=== PATIENT | female | born 1985 | race Caucasian/White ===

== ENCOUNTER 2023-10-13 04:59 | Inpatient (IN) | payer OTHER, SELFPAY ==
[2023-10-13] VITALS (7 sets, daily range): BP systolic 142–175; BP diastolic 92–116; PULSE 97–122; TEMP 36.6–37; O2SAT 92–96; BMI 29.1; BMI 28.8
--- NOTE | 2023-10-13 05:19 | CT_ITS ---
The [address] [address] Patient Name: DOMI MCKOY MRN: [id number] date: 1985 Sex: F Assigned Patient Location: ER Current Patient Location: ER Accession/Order Number: [id number] Exam Date: 10/13/2023 06:25 Report Date: 10/13/2023 07:02 At the request of: MARAH MARKER Procedure: CT abdomen pelvis w con EXAM: CT abdomen pelvis w con HISTORY: Upper abdominal pain; patient history form states acute upper abdominal pain, vomiting and diarrhea; technologist notes state upper abdominal and chest pain radiating into the back. COMPARISON: CT abdomen/pelvis dated 04/10/2022. TECHNIQUE: Routine CT abdomen/pelvis with intravenous contrast. FINDINGS: Lower chest: Unremarkable. Liver: The liver is enlarged and fatty infiltrated with a cirrhotic morphologic appearance. There is recannulization of the umbilical artery which can be associated with portal hypertension. The liver measures 20.1 cm in longitudinal dimension. There is no mass lesion. There is contrast within the portal and the hepatic veins. Gallbladder/biliary tree: The gallbladder is mildly distended however there is no significant thickening of the gallbladder wall, calcified gallstones, pericholecystic fluid or biliary dilatation. Pancreas: There are stranding densities adjacent to the pancreatic head which in the right clinical setting can be associated with focal pancreatitis. The pancreas is normal size. There is no pancreatic mass. The pancreatic duct is not dilated. There may be pancreatic divisum. There is no free fluid or loculated fluid collection. Spleen: Unremarkable. Adrenal glands: Unremarkable. Kidneys: There is cortical scarring and/or retained lobulation along the contour of both kidneys. Bowel: There is diffuse colonic wall thickening consistent with a colitis. The appendix is unremarkable. The distal esophagus, stomach and small bowel are unremarkable. The bowel gas pattern is nonobstructive. Inflammation: There is no free air, free fluid or inflammatory reaction. Vasculature: The abdominal aorta and the IVC are unremarkable. Lymphadenopathy: There are no pathologically enlarged lymph nodes. Pelvis: The uterus and adnexal regions are unremarkable. The urinary bladder is underdistended with mild circumferential wall thickening. Musculoskeletal: There is a small amount of fat within the umbilicus. There are bilateral L4 pars defects with stable 0.6 cm (grade 1) anterolisthesis of L4 on L5. CT/CT abdomen pelvis w con IMPRESSION: Cirrhosis with portal hypertension. The liver is enlarged and fatty infiltrated measuring 20.1 cm in longitudinal dimension. The gallbladder is mildly distended however there is no significant thickening of the gallbladder wall, calcified gallstones, pericholecystic fluid or biliary dilatation. There are stranding densities adjacent to the pancreatic head which in the right clinical setting can be associated with focal pancreatitis. The pancreas is otherwise unremarkable. There may be pancreatic divisum. There is no free fluid or loculated fluid collection. Diffuse colonic wall thickening consistent with a colitis. The bowel gas pattern is nonobstructive. Bilateral L5 pars defects with stable 0.6 cm (grade 1) anterolisthesis of L4 on L5. Electronically authenticated by: ESTER DELUCA Date: 10/13/2023 07:02
--- NOTE | 2023-10-13 05:21 | ED.ABDPAIN1 ---
HPI - Abdominal Pain General Chief Complaint: Abdominal Pain Stated Complaint: ABD PAIN Time Seen by Provider: 10/13/23 05:00 Source: patient Mode of arrival: walk-in Limitations: no limitations History of Present Illness HPI narrative: This 37-year-old female with a history of ascites in the past due to alcohol use and pancreatitis presents for evaluation of 3 days of nausea, vomiting and diarrhea. The patient states she cannot keep anything down including water. She states anytime she tries to eat or drink anything she vomits it immediately and then gets diarrhea. She has upper abdominal pain that radiates into her back and is worse with deep breathing. She states she still occasionally drinks but does not drink heavily like she used to. She denies any fevers or chills. Her urine has been decreased since she has been having so much vomiting and diarrhea but she denies any dysuria or hematuria. She states she does have a hemorrhoid that burst. She denies the possibility of because she just finished her menstrual period. She was told in the past that she needed a HIDA scan but didnt have it done because she was overwhelmed with all of the doctors appointments she had to go to. Related Data Home Medications ?Medication ?Instructions ?Recorded ?Confirmed duloxetine 60 mg capsule,delayed mg PO 10/13/23 release hydroxyzine pamoate 50 mg capsule mg 10/13/23 lumateperone 10.5 mg capsule 10.5 mg PO DAILY 10/13/23 10/13/23 (Caplyta) meloxicam 7.5 mg tablet mg 10/13/23 pantoprazole 40 mg tablet,delayed mg PO 10/13/23 release trazodone 50 mg tablet mg 10/13/23 Allergies Allergy/AdvReac Type Severity Reaction Status Date / Time acetaminophen Allergy Unknown Unknown Verified 10/13/23 05:08 [From Darvocet-N] propoxyphene Allergy Unknown Unknown Verified 10/13/23 05:08 [From Darvocet-N] Review of Systems ROS Status of ROS 10 or more systems reviewed and unremarkable except as noted in history and below Exam Narrative Exam Narrative: Vital signs and Nursing Notes reviewed: Patient is a febrile, she is tachycardic with a pulse of 122 and blood pressure is elevated at 175/116, she is not hypoxic with pulse ox of 96% on room air General: Awake, alert, oriented, uncomfortable appearing female, no respiratory distress, no active vomiting HEENT: Normocephalic atraumatic, mucous membranes are moist and slightly dry, she is nonicteric Neck: Supple, no meningeal signs, no anterior or posterior cervical lymphadenopathy Chest: Lungs are clear to auscultation with good air entry, scattered expiratory wheezing is appreciated with no rhonchi or rales, patient is speaking in complete sentences and is not hypoxic with pulse ox of 96% on room air CVS: Regular rate and rhythm S1-S2, no murmurs rubs or gallops, pulses are brisk and equal bilaterally ABD: Soft, epigastric, right upper quadrant and left upper quadrant tenderness with mild fullness in this area, bowel sounds are decreased, there is no right lower quadrant or left lower quadrant tenderness to deep palpation Extremities: Moving all extremities, no lower extremity tenderness or swelling noted, negative Homans' sign, pulses are brisk and equal bilaterally Skin: Normal in appearance without rash,pallor, petechiae or purpura Neuro: No focal deficits Constitutional Vital Signs, click to edit/add: Last Vital Signs Temp 98.6 F 10/13/23 05:03 Pulse 122 H 10/13/23 05:03 Resp 18 10/13/23 05:03 BP 175/116 H 10/13/23 05:03 Pulse Ox 96 10/13/23 05:03 O2 Del Method Room Air 10/13/23 05:03 Course Vital Signs Vital signs: Vital Signs Temperature 98.6 F 10/13/23 05:03 Pulse Rate 122 H 10/13/23 05:03 Respiratory Rate 18 10/13/23 05:03 Blood Pressure 175/116 H 10/13/23 05:03 Pulse Oximetry 96 10/13/23 05:03 Oxygen Delivery Method Room Air 10/13/23 05:03 Temperature 98.6 F 10/13/23 05:03 Pulse Rate 122 H 10/13/23 05:03 Respiratory Rate 18 10/13/23 05:03 Blood Pressure 175/116 H 10/13/23 05:03 Pulse Oximetry 96 10/13/23 05:03 Oxygen Delivery Method Room Air 10/13/23 05:03 MDM - Abdominal Pain Lab Data Labs: Lab Results 10/13/23 Range/Units 05:32 WBC 13.4 H (4.0-11.0) 10^3/uL RBC 4.65 (4.20-5.40) 10^6/uL Hgb 16.0 (12.0-16.0) g/dL Hct 46.8 (36.0-48.0) % MCV 100.6 H (81.0-99.0) fL MCH 34.4 H (26.7-34.0) pg MCHC 34.2 (29.9-35.2) g/dL RDW 14.4 (11.0-15.0) % Plt Count 199 (150-450) 10^3/uL MPV 10.5 (9.5-13.5) fL Neut % (Auto) 78.6 H (43.0-75.0) % Lymph % (Auto) 16.1 L (20.5-60.0) % [place] % (Auto) 4.0 (1.7-12.0) % Eos % (Auto) 0.5 L (0.9-7.0) % Baso % (Auto) 0.4 (0.2-2.0) % Neut # (Auto) 10.6 H (1.4-6.5) 10^3/uL Lymph # (Auto) 2.2 (1.2-3.8) 10^3/uL [place] # (Auto) 0.5 (0.3-0.8) 10^3/uL Eos # (Auto) 0.1 (0.0-0.7) 10^3/uL Baso # (Auto) 0.1 (0.0-0.1) 10^3/uL Abs Immat Gran (auto) 0.05 H (0.00-0.03) 10^3/uL Imm/Tot Granulo (auto) 0.4 (0.0-0.5) % D-Dimer 1.19 H* (<=0.59) mg/L FEU Sodium 128 L (136-145) mmol/L Potassium 3.6 (3.5-5.1) mmol/L Chloride 91 L (98-107) mmol/L Carbon Dioxide 12.2 L (21.0-32.0) mmol/L Anion Gap 28.4 BUN 20.0 H (7.0-18.0) mg/dL Creatinine 0.96 (0.55-1.02) mg/dL Est GFR ( Amer) >60 (>=60) Est GFR (Non-Af Amer) >60 (>=60) BUN/Creatinine Ratio 20.8 Glucose 108 H (74-106) mg/dL Lactate <0.3 L (0.4-2.0) mmol/L Calcium 8.8 (8.5-10.1) mg/dL Total Bilirubin 2.0 H (0.2-1.0) mg/dL AST 69 H (15-37) U/L ALT 71 H (14-59) U/L Alkaline Phosphatase 114 (46-116) U/L Troponin I High Sens 4.9 (4.0-51.3) pg/mL Total Protein 7.4 (6.4-8.2) g/dL Albumin 4.1 (3.4-5.0) g/dL Globulin 3.3 g/dL Albumin/Globulin Ratio 1.2 Lipase 249.0 H (16.0-77.0) U/L Urine Color Dk. yellow (YELLOW) Urine Clarity Clear (CLEAR) Urine pH 6.0 (5.0-9.0) Ur Specific [place] >=1.030 A (1.005-1.025) Urine Protein 100 A (NEG/TRACE) mg/dL Urine Glucose (UA) Negative (NEGATIVE) mg/dL Urine Ketones 40 A (NEGATIVE) mg/dL Urine Occult Blood Large A (NEGATIVE) Urine Nitrite Negative (NEGATIVE) Urine Bilirubin Moderate A (NEGATIVE) Urine Urobilinogen 1.0 (0.2-1.0) EU/dL Ur Leukocyte Esterase Negative (NEGATIVE) Urine RBC None seen (0-2) #/HPF Urine WBC 2-5 A (NONE SEEN) #/HPF Ur Squamous Epith Cells Many A (NONE/RARE) #/LPF Urine Crystals None seen (None Seen) #/HPF Amorphous Sediment Many Urine Bacteria None seen (NONE SEEN) #/HPF Urine Casts Seen A (NONE SEEN) #/LPF Hyaline Casts Few Urine Mucus None seen (NONE SEEN) Ur Culture Indicated? No Urine HCG, Qual Negative (NEGATIVE) Discharge Plan Discharge Chief Complaint: Abdominal Pain Clinical Impression: Abdominal pain, Nausea vomiting and diarrhea, Hyponatremia Patient Disposition: Still a Patient Prescriptions / Home Meds: No Action trazodone 50 mg tablet hydroxyzine pamoate 50 mg capsule meloxicam 7.5 mg tablet pantoprazole 40 mg tablet,delayed release (DR/EC) PO duloxetine 60 mg capsule,delayed release(DR/EC) PO Caplyta 10.5 mg capsule 10.5 mg PO DAILY Print Language: Lithuanian Referrals: Yobani Goldsmith [Primary Care Provider] - 1 week
[2023-10-13 05:39] LABS: Basophils Absolute Auto 0.1 10^3/uL (0.0-0.1); Basophils Percent Auto 0.4 % (0.2-2.0); Eosinophils Absolute Auto 0.1 10^3/uL (0.0-0.7); Eosinophils Percent Auto 0.5 % (0.9-7.0); Hematocrit 46.8 % (36.0-48.0); Immature Granulocytes Abs Auto 0.05 10^3/uL (0.00-0.03); Immature Granulocytes Pct Auto 0.4 % (0.0-0.5); Lymphocytes Absolute Auto 2.2 10^3/uL (1.2-3.8); Lymphocytes Percent Auto 16.1 % (20.5-60.0); Mean Corpuscular HGB Conc 34.2 g/dL (29.9-35.2); Mean Corpuscular Hemoglobin 34.4 pg (26.7-34.0); Mean Corpuscular Volume 100.6 fL (81.0-99.0); Mean Platelet Volume 10.5 fL (9.5-13.5); Monocytes Absolute Auto 0.5 10^3/uL (0.3-0.8); Neutrophils Absolute Auto 10.6 10^3/uL (1.4-6.5); Neutrophils Percent Auto 78.6 % (43.0-75.0); Platelet Count 199 10^3/uL (150-450); Red Blood Count 4.65 10^6/uL (4.20-5.40); Red Cell Distribution Width 14.4 % (11.0-15.0); White Blood Count 13.4 10^3/uL (4.0-11.0)
[2023-10-13 05:44] LABS: HCG Qualitative Urine* NEGATIVE (NEGATIVE); Internal Control Within Normal Limits
[2023-10-13 05:48] LABS: Bilirubin Urine MODERATE (NEGATIVE); Blood Urine LARGE (NEGATIVE); Clarity Urine CLEAR (CLEAR); Color Urine DK. YELLOW (YELLOW); Glucose Urine UA NEGATIVE (NEGATIVE); Ketones Urine 40 mg/dL (NEGATIVE); Leukocyte Esterase Urine NEGATIVE (NEGATIVE); Nitrite Urine NEGATIVE (NEGATIVE); Protein Urine 100 mg/dL (NEG/TRACE); Specific Gravity Urine >=1.030 (1.005-1.025)
[2023-10-13 05:51] LABS: Amorphous Sediment Urine MANY; Bacteria Urine NONE SEEN #/HPF (NONE SEEN); Cast Seen? SEEN #/LPF (NONE SEEN); Crystals Seen? None Seen #/HPF (None Seen); Hyaline Casts Urine FEW; Mucus Urine NONE SEEN (NONE SEEN); RBC Urine NONE SEEN #/HPF (0-2); Squamous Epithelial Cell Urine MANY #/LPF (NONE/RARE); Urine Culture Indicated NO
[2023-10-13 05:58] LABS: Alanine Aminotransferase 71 U/L (14-59); Albumin Globulin Ratio 1.2; Albumin Level 4.1 g/dL (3.4-5.0); Alkaline Phosphatase 114 U/L (46-116); Anion Gap 28.4; Aspartate Amino Transferase 69 U/L (15-37); BUN Creatinine Ratio 20.8; Calcium 8.8 mg/dL (8.5-10.1); Carbon Dioxide 12.2 mmol/L (21.0-32.0); Chloride 91 mmol/L (98-107); Estimated GFR (African America >60 (>=60); Estimated GFR (Non-African Ame >60 (>=60); Globulin 3.3 g/dL; Glucose 108 mg/dL (74-106); Potassium 3.6 mmol/L (3.5-5.1); Sodium 128 mmol/L (136-145); Total Protein 7.4 g/dL (6.4-8.2)
[2023-10-13] MEDS: MORPHINE SULFATE 4 MG/ML VIAL IV (05:58)
[2023-10-13] MEDS: ONDANSETRON PF 4 MG/2 ML VIAL IV ×3 (05:58→15:02)
[2023-10-13 05:59] LABS: D Dimer 1.19 mg/L FEU (<=0.59)
[2023-10-13 06:00] LABS: Lactate/Lactic Acid <0.3 mmol/L (0.4-2.0)
[2023-10-13 06:01] LABS: Troponin I High Sensitivity 4.9 pg/mL (4.0-51.3)
[2023-10-13] MEDS: FAMOTIDINE/PF 20 MG/2 ML VIAL IV (06:02)
--- NOTE | 2023-10-13 06:04 | CT_ITS ---
[address] [address] Patient Name: DOMI MCKOY MRN: [id number] date: 1985 Sex: F Assigned Patient Location: ER Current Patient Location: .[facility] Accession/Order Number: [id number] Exam Date: 10/13/2023 06:25 Report Date: 10/13/2023 07:00 At the request of: MARAH KAUR Procedure: CT angio chest EXAMINATION: CT angio chest HISTORY: SOB, pleuritic CP, elevated d dimer COMPARISON: No relevant comparison available. TECHNIQUE: Multi-planar CT images were created with IV contrast. Axial, Coronal, and Sagittal images. Dose reduction techniques were achieved by using automated exposure control and/or adjustment of mA and/or kV according to patient size and/or use of iterative reconstruction technique. 3-D reconstruction was performed on a separate workstation. FINDINGS: VASCULATURE: No pulmonary embolism or abnormal opacity. LUNGS: No visible pulmonary disease. PLEURA: No mass, effusion, or pneumothorax. KELLY: No mass or adenopathy. MEDIASTINUM: No mass or adenopathy. CARDIAC: No enlargement, pericardial effusion, or pericardial thickening. AORTA: No aneurysm or dissection. CHEST WALL: No mass or axillary adenopathy. BONES: No bone lesion or fracture. LIMITED ABDOMEN: Fatty infiltration of the liver.. Limited images of the upper abdomen. OTHER: Negative. CT/CT angio chest IMPRESSION: 1. No pulmonary embolism. 2. No pulmonary infiltrates or acute/suspicious findings to account for patient's symptoms. Electronically authenticated by: IVANIA CASTILLO Date: 10/13/2023 07:00
[2023-10-13] MEDS: HYDROMORPHONE HCL 1 MG/ML CARTRIDGE IV (08:01)
[2023-10-13] MEDS: METRONIDAZOLE/SODIUM CHLORIDE 500 MG/100 ML PREMIX 100 MG IV ×2 (08:01→15:03)
[2023-10-13] MEDS: LACTATED RINGER'S SOLUTION 1,000 ML 125 ML IV ×3 (09:27→22:55)
[2023-10-13] MEDS: CIPROFLOXACIN IN 5 % DEXTROSE 400 MG/200 ML PIGGYBACK 200 MG IV ×2 (09:35→21:05)
--- NOTE | 2023-10-13 10:11 | US_ITS ---
[address] [address] Patient Name: DOMI MCKOY MRN: [id number] date: 1985 Sex: F Assigned Patient Location: MS Current Patient Location: MS Accession/Order Number: [id number] Exam Date: 10/13/2023 11:55 Report Date: 10/13/2023 12:29 At the request of: TAM GREENWOOD Procedure: US right upper quadrant EXAMINATION: US right upper quadrant HISTORY: Transaminitis, r/o obstructive pathology COMPARISON: No relevant comparison available. TECHNIQUE: Transabdominal evaluation of the right upper quadrant. FINDINGS: LIVER: Slightly nodular margins with coarse echotexture. Color Doppler demonstrates patent hepatic veins. PORTAL VEIN: Duplex Doppler demonstrates normal hepatopetal flow pattern with flow velocity averaging 32 cm/s. GALLBLADDER: No visible gallstones, wall thickening, or pericholecystic free fluid. Negative sonographic Nicole's sign. BILIARY: No abnormal dilation or stones. Common bile duct diameter is within normal limits. PANCREAS: No visible mass, abnormal atrophy, or duct dilation. KIDNEY: No hydronephrosis. No visible mass or stones. Size: 9.0 x 5.3 x 5.3 cm US/US right upper quadrant IMPRESSION: 1. Coarse nodular appearance of the liver; nonspecific but suggestive of cirrhosis. 2. Unremarkable portal vein. Electronically authenticated by: IVANIA CASTILLO Date: 10/13/2023 12:29
--- NOTE | 2023-10-13 10:18 | P.HP_ITS ---
<Statement entered by Shaikh John MD - 10/13/23 12:04> This documentation has been reviewed and approved. Patient seen and examined. Case discussed with ED provider and later on Hospitalist LEATHER SKINNER. Patient presented with nausea/vomiting and abdominal pain. Hx of alcohol abuse and alcoholic liver cirrhosis. Drank alcohol prior to symptoms onset. Work up consistent with acute pancreatitis and colitis. Supportive management with IVF, anti emetics and pain control. Clear liquid diet, advance as tolerated. US liver/GB to r/o hepatobiliary etiology for pancreatitis especially since GB was seen distended on CT. IV abx for colitis. Exam Laying in bed, comfortable. CTA b/l, Normal RR Generalized abdominal tenderness, worse in epigastric and umbilical region. Non distended abdomen. HPI H&P: HPI History of Present Illness Chief complaint: ABD PAIN, PANCREATITIS, COLITIS Narrative: 10/13/23 7330 This is a 37-year-old female patient with a past medical history as outlined below including bipolar disorder, GERD, hypertension, anxiety, cirrhosis, and prior history of significant alcohol abuse; who presented to the ED early this morning complaining of several days of worsening abdominal/epigastric pain radiating through to her back, along with nausea, vomiting and diarrhea. She has a history of severe alcohol abuse, but states she has not been drinking very often for the last 2 years. She has experienced pancreatitis in the past and follows with a morphologist as an outpatient for her cirrhosis. She reports drinking over the weekend, reportedly 5-6 shots on Thursday and Thursday which preceded onset of her symptoms. As her pain became even more severe this morning and woke her up she presented to the ED for further evaluation. Workup in the ED revealed leukocytosis (13.4), hyponatremia (128), transaminitis (bili 2.0, AST 69, ALT 71), elevated D-dimer (1.19), and elevated lipase (249). A CTA of the chest was obtained due to the elevated D-dimer and revealed no acute PE or infiltrate. A CT of the abdomen and pelvis was obtained and this reveals cirrhosis with portal hypertension, mildly distended gallbladder without thickening, focal acute pancreatitis, and pancolitis without evidence of obstruction. The patient is being admitted as an inpatient to the hospitalist service for acute pancreatitis and acute colitis. At the time of my exam the patient is sitting up in bed. She reports her pain is increasing and rates it as a 7-8 at this time. She describes her pain is mostly epigastric radiating through to her back. She reports a remote history of C. difficile infection and has not taken any recent antibiotics. We have o rdered a C. difficile toxin assay and stool culture which is pending stool collection. We will treat her with Cipro and Flagyl for now for suspected infectious colitis pending evaluation for C. difficile. She will be given large-volume IV fluids and we will attempt to slowly advance her diet and monitor her response. Opioid HPI Opioid Management Most Recent Pain and Opioid Data: Last Pain Scale 8 10/13/23 10:53 Last Pain Assessment 10/13/23 10:53 Last MAR Pain Assessment 10/13/23 10:49 Last ORT Total Score 10 10/13/23 09:06 Last ORT Risk Category High Risk 10/13/23 09:06 Review of Systems 2 ROS Status of ROS 10 or more systems reviewed and unremark able except as noted in history and below [facility] Medical History (Updated 10/13/23 @ 10:42 by Elizabeth Durant NP) Cirrhosis ?K74.60 - Unspecified cirrhosis of liver (ICD-10) Endometriosis ?N80.9 - Endometriosis, unspecified (ICD-10) Anxiety ?F41.9 - Anxiety disorder, unspecified (ICD-10) GERD (gastroesophageal reflux disease) ?K21.9 - Gastro-esophageal reflux disease without esophagitis (ICD-10) Depression ?F32.A - Depression, unspecified (ICD-10) Hypertension ?I10 - Essential (primary) hypertension (ICD-10) Bipolar 1 disorder ?F31.9 - Bipolar disorder, unspecified (ICD-10) Surgical History (Updated 10/13/23 @ 09:01 by Vanesa Magaña) Tubal ?O00.109 - Unspecified tubal without intrauterine (ICD-10) Hx of dilation and curettage ?Z98.890 - Other specified postprocedural states (ICD-10) History of lumpectomy of left breast ?Z98.890 - Other specified postprocedural states (ICD-10) Family History (Updated 10/13/23 @ 09:02 by Vanesa Magaña) Grandmother Family history of COPD (chronic obstructive pulmonary disease) Mother Family history of cancer Family history of stroke Sister Family history of stroke Social History (Updated 10/13/23 @ 09:05 by Vanesa Magaña) Within the past year, how often did you have a drink containing alcohol: 2-4 times a month Within the past year, how many standard drinks containing alcohol did you have on a typical day: 1 or 2 Within the past year, how often did you have six or more drinks on one occasion: less than monthly Total score: 1 Score interpretation: A score of 3 or more indicates drinking is likely to affect patient's safety. Smoking status: Heavy tobacco smoker Non-prescribed substance use: denies use Previous occupational history: unemployed currently Highest level of school completed/degree received: some college, no degree Little interest or pleasure in doing things: not at all Feeling down, depressed, or hopeless: not at all Feel stressed/tense/nervous/anxious/difficulty sleeping: only a little Life stressors: other Life stressor details: medical problems/ anxiety Meds Home Medications and Allergies Home Medications ?Medication ?Instructions ?Recorded ?Confirmed ?Type brexpiprazole 2 mg tablet (Rexulti) 2 mg PO DAILY 10/13/23 10/13/23 History duloxetine 60 mg capsule,delayed 60 mg PO .QD 10/13/23 10/13/23 History release hydroxyzine pamoate 50 mg capsule 50 mg PO Q8H PRN anxiety 10/13/23 10/13/23 History lumateperone 10.5 mg capsule 10.5 mg PO DAILY 10/13/23 10/13/23 History (Caplyta) meloxicam 7.5 mg tablet 7.5 mg PO DAILY 10/13/23 10/13/23 History pantoprazole 40 mg tablet,delayed 40 mg PO DAILY 10/13/23 10/13/23 History release trazodone 50 mg tablet 50 mg PO DAILY 10/13/23 10/13/23 History Allergies Allergy/AdvReac Type Severity Reaction Status Date / Time acetaminophen Allergy Unknown Unknown Verified 10/13/23 05:08 [From Darvocet-N] propoxyphene Allergy Unknown Unknown Verified 10/13/23 05:08 [From Darvocet-N] Exam Constitutional Vital Signs, click to edit/add: Last Vital Signs Temp 98.1 F 10/13/23 09:06 Pulse 108 H 10/13/23 09:06 Resp 20 10/13/23 09:06 BP 142/98 H 10/13/23 09:06 Pulse Ox 94 L 10/13/23 09:06 O2 Del Method Room Air 10/13/23 09:06 Common normals: no apparent distress, oriented x3, alert and well nourished General appearance: cooperative Orientation/consciousness: Yes awake HENMT Common normals: normocephalic, head/scalp atraumatic, hearing grossly normal bilaterally, external nose normal and moist oral mucous membranes Eye Common normals: PERRL, EOMs intact bilaterally, conjunctivae normal and no scleral icterus Alignment: alignment normal Eyelid: eyelids normal Neck & C-Spine Common normals: full ROM, supple and no JVD Chest Common normals: inspection of chest normal Chest: symmetrical chest wall rise Respiratory Common normals: normal respiratory effort, no retractions, no use of accessory muscles and clear to auscultation bilaterally Effort & inspection: able to speak in complete sentences Auscultation: diminished lung sounds bilateral in the lower lung fitzgerald Cardio Common normals: no JVD, regular rate, regular rhythm, S1 normal heart sound, S2 normal heart sound, no gallops, no clicks, no murmurs, no rub and peripheral pulses 2+ throughout GI Common normals: Normal to inspection, nondistended, normoactive bowel sounds present, soft to palpation, no hepatosplenomegaly, no masses and no bruits Palpation: tender (BUQ, greatest at epigastric area) and guarding (mild); not rigid and no rebound tenderness present Rectal Exam - Female: deferred Bladder/kidney exam: bladder normal to palpation Back & Pelvis Common normals: thoracic and lumbar spine normal to inspection Extremity Common normals: normal capillary refill and no pedal edema General: normal exam except as noted; no clubbing and no cyanosis Neuro Gayle Coma Scale: GCS not evaluated Common normals: CN's II-XII intact bilaterally, moves all extremities, no focal motor deficits and no sensory deficits noted Speech: speech normal Motor exam: strength 5/5 throughout Psych Common normals: mental status grossly normal, thought process normal, affect normal and activity/motor behavior normal Results Labs Labs: Short CBC 10/13/23 Range/Units 05:32 WBC 13.4 H (4.0-11.0) 10^3/uL Hgb 16.0 (12.0-16.0) g/dL Hct 46.8 (36.0-48.0) % Plt Count 199 (150-450) 10^3/uL BMP 10/13/23 05:32 Sodium 128 L Potassium 3.6 Chloride 91 L Carbon Dioxide 12.2 L BUN 20.0 H Creatinine 0.96 Glucose 108 H Calcium 8.8 Liver Function 10/13/23 Range/Units 05:32 Total Bilirubin 2.0 H (0.2-1.0) mg/dL AST 69 H (15-37) U/L ALT 71 H (14-59) U/L Alkaline Phosphatase 114 (46-116) U/L Albumin 4.1 (3.4-5.0) g/dL Urine 10/13/23 Range/Units 05:32 Urine Color Dk. yellow (YELLOW) Urine Clarity Clear (CLEAR) Urine pH 6.0 (5.0-9.0) Ur Specific Lindsay >=1.030 A (1.005-1.025) Urine Protein 100 A (NEG/TRACE) mg/dL Urine Glucose (UA) Negative (NEGATIVE) mg/dL Pulse Oximetry Attestation: I have reviewed the pertinent pulse oximetry results. Imaging CTA Chest: Attestation: I have reviewed the pertinent imaging results. Radiologist's impression: IMPRESSION: 1. No pulmonary embolism. 2. No pulmonary infiltrates or acute/suspicious findings to account for patient's symptoms. CT scan - abdomen: Attestation: I have reviewed the pertinent imaging results. Radiologist's impression: IMPRESSION: Cirrhosis with portal hypertension. The liver is enlarged and fatty infiltrated measuring 20.1 cm in longitudinal dimension. The gallbladder is mildly distended however there is no significant thickening of the gallbladder wall, calcified gallstones, pericholecystic fluid or biliary dilatation. There are stranding densities adjacent to the pancreatic head which in the right clinical setting can be associated with focal pancreatitis. The pancreas is otherwise unremarkable. There may be pancreatic divisum. There is no free fluid or loculated fluid collection. Diffuse colonic wall thickening consistent with a colitis. The bowel gas pattern is nonobstructive. Bilateral L5 pars defects with stable 0.6 cm (grade 1) anterolisthesis of L4 on L5. Assessment and Plan Assessment and Plan (1) Acute pancreatitis: Assessment and Plan: Acute * Adm inpatient * We anticipate greater than a 2 midnight stay for medically necessary hospital care including: large volume IVF, close nursing observation as her diet is advanced, IVP pain/nausea medication, and IV antibiotics * Lipase more than 3x the ULN, Pancreatitis confirmed on CT imaging * LR at 200 ml/hr * NPO x meds * Attempt to advance diet to full liquid today as tolerated * IVP Dilaudid and PO oxycodone for pain * IVP Zofran for nausea * Complete EtOH cessation advised * CBC, CMP, Lipase daily (2) Acute colitis: Assessment and Plan: Acute * Olguin-colitis noted on CT A/P imaging * Suspect infectious etiology in setting of leukocytosis, acute onset NB diarrhea - Check for occult blood * Associated N/V/D * IVPB Cipro and Flagyl for infectious colitis * Obtain stool studies for C-diff assay and culture * Prior hx of C-diff, but no recent ABX prescribed. Change ABX to PO vancomycin if C-diff is positive * Zofran for nausea/vomiting * CBC daily (3) Hyponatremia: Assessment and Plan: Acute * Mild, 128 * Likely 2/2 clinical dehydration in setting of N/V/D * LR at 200/hr, consider switching to NS if hyponatremia persists in AM * CMP daily (4) Transaminitis: Assessment and Plan: Acute vs chronic * Known prior cirrhosis hx - follows w/ Dr Reynoso (Hepatology) * No prior lab hx at this facility to assess trends - suspect chronic * No clinical evidence of hepatic encephalopathy at this time * RUQ US to assess for obstructive pathology in setting of GB distention (without thickening) on CT abd imaging * CMP daily (5) Cirrhosis: Assessment and Plan: Chronic * See Transaminitis * Noted on CT imaging (6) Anxiety: Assessment and Plan: Chronic * Continue home PRN hydroxyzine (7) Bipolar 1 disorder: Assessment and Plan: Chronic * Continue home duloxetine, trazodone, Caplyta (8) GERD (gastroesophageal reflux disease): Assessment and Plan: Chronic * Continue home PPI
[2023-10-13] MEDS: OMEPRAZOLE 40 MG CAPSULE.DR PO (10:44)
[2023-10-13] MEDS: DULOXETINE HCL 60 MG CAPSULE.DR PO (10:44)
[2023-10-13] MEDS: HYDROMORPHONE HCL 0.5 MG/0.5 ML SYRINGE IV ×3 (10:49→19:35)
[2023-10-13] MEDS: NICOTINE 21 MG PATCH.TD24 TD (12:58)
[2023-10-13 19:54] LABS: Internal Control Within Normal Limits; Occult Blood Negative
[2023-10-13] MEDS: LUMATEPERONE 10.5 EACH PO (22:55)
[2023-10-13] MEDS: TRAZODONE HCL 50 MG TABLET PO (22:55)
[2023-10-14] MEDS: METRONIDAZOLE/SODIUM CHLORIDE 500 MG/100 ML PREMIX 100 MG IV ×2 (00:27→08:59)
[2023-10-14] MEDS: OXYCODONE HCL 5 MG TABLET PO ×4 (00:43→20:36)
[2023-10-14] MEDS: ONDANSETRON PF 4 MG/2 ML VIAL IV ×3 (00:43→14:59)
[2023-10-14 02:01] VITALS: O2SAT 91
[2023-10-14] MEDS: LACTATED RINGER'S SOLUTION 1,000 ML 200 ML IV ×4 (04:57→23:07)
[2023-10-14 04:58] VITALS: BP 133/85; PULSE 86; TEMP 36.8; O2SAT 91
[2023-10-14] MEDS: HYDROMORPHONE HCL 0.5 MG/0.5 ML SYRINGE IV (05:03)
[2023-10-14 05:28] LABS: Basophils Percent Auto 0.2 % (0.2-2.0); Eosinophils Absolute Auto 0.1 10^3/uL (0.0-0.7); Hematocrit 36.6 % (36.0-48.0); Hemoglobin 12.4 g/dL (12.0-16.0); Immature Granulocytes Abs Auto 0.01 10^3/uL (0.00-0.03); Immature Granulocytes Pct Auto 0.2 % (0.0-0.5); Lymphocytes Absolute Auto 1.2 10^3/uL (1.2-3.8); Lymphocytes Percent Auto 20.9 % (20.5-60.0); Mean Corpuscular HGB Conc 33.9 g/dL (29.9-35.2); Mean Corpuscular Volume 100.3 fL (81.0-99.0); Monocytes Absolute Auto 0.2 10^3/uL (0.3-0.8); Monocytes Percent Auto 3.2 % (1.7-12.0); Neutrophils Absolute Auto 4.1 10^3/uL (1.4-6.5); Neutrophils Percent Auto 73.5 % (43.0-75.0); Platelet Count 109 10^3/uL (150-450); Red Blood Count 3.65 10^6/uL (4.20-5.40); Red Cell Distribution Width 14.1 % (11.0-15.0); White Blood Count 5.5 10^3/uL (4.0-11.0)
[2023-10-14 05:38] LABS: Ammonia 39 umol/L (11-32)
[2023-10-14 05:42] LABS: Alanine Aminotransferase 35 U/L (14-59); Albumin Level 2.8 g/dL (3.4-5.0); Alkaline Phosphatase 79 U/L (46-116); Anion Gap 11.3; Aspartate Amino Transferase 26 U/L (15-37); BUN Creatinine Ratio 5.9; Bilirubin Total 1.1 mg/dL (0.2-1.0); Calcium 8.2 mg/dL (8.5-10.1); Carbon Dioxide 24.9 mmol/L (21.0-32.0); Chloride 98 mmol/L (98-107); Estimated GFR (African America >60 (>=60); Estimated GFR (Non-African Ame >60 (>=60); Globulin 2.7 g/dL; Glucose 111 mg/dL (74-106); Potassium 3.2 mmol/L (3.5-5.1); Sodium 131 mmol/L (136-145); Total Protein 5.5 g/dL (6.4-8.2)
[2023-10-14] MEDS: OMEPRAZOLE 40 MG CAPSULE.DR PO (05:59)
[2023-10-14] MEDS: DULOXETINE HCL 60 MG CAPSULE.DR PO (08:59)
[2023-10-14] MEDS: MELOXICAM 7.5 MG TABLET PO (08:59)
[2023-10-14] MEDS: NICOTINE 21 MG PATCH.TD24 TD (09:12)
[2023-10-14] MEDS: CIPROFLOXACIN IN 5 % DEXTROSE 400 MG/200 ML PIGGYBACK 200 MG IV (10:10)
[2023-10-14] MEDS: POTASSIUM CHLORIDE 10 MEQ ER TABLET 40 MEQ PO (11:59)
[2023-10-14 12:32] LABS: C. Difficile PCR POSITIVE (NEGATIVE)
--- NOTE | 2023-10-14 12:59 | P.PN_ITS ---
<Statement entered by Shaikh John MD - 10/14/23 15:46> This documentation has been reviewed and approved. Seen and examined. Doing well. Patient doing better than yesterday. Tolerating diet but still has considerable abdominal pain. C.w IVF, d/c IV abx as tested positive for C dif. Started on PO vancomycin Progress Note: Subjective Subjective Interval history: 10/14/23 0944 The patient is sitting up in her bed eating breakfast this morning. She is tolerating this relatively well but does note onset of worsening pain and bloating after attempting to eat food. She only attempted clear liquids yesterday and we will attempt regular food today. Her lipase did rise overnight and if it continues to rise we may have to make the patient completely n.p.o. We will continue high volume IV fluids for her pancreatitis. ADDENDUM 1230: C-diff PCR resulted positive for today. Cipro and Flagyl will be discontinued and we will initiate PO Vanco dosing for c-diff treatment. Exam Constitutional Vital Signs, click to edit/add: Last Vital Signs Temp 98.3 F 10/14/23 04:58 Pulse 86 10/14/23 04:58 Resp 18 10/14/23 08:00 BP 133/85 10/14/23 04:58 Pulse Ox 91 L 10/14/23 04:58 O2 Del Method Room Air 10/14/23 04:58 Common normals: no apparent distress, oriented x3 and alert General appearance: cooperative Orientation/consciousness: Yes awake HENIA Common normals: normocephalic, head/scalp atraumatic and hearing grossly normal bilaterally Eye Common normals: PERRL, EOMs intact bilaterally, conjunctivae normal and no scleral icterus General eye: normal appearance of both eyes Chest Common normals: inspection of chest normal Chest: symmetrical chest wall rise Respiratory Common normals: normal respiratory effort and no use of accessory muscles Effort & inspection: able to speak in complete sentences Auscultation: wheezes (I&E) throughout Cardio Common normals: regular rate, regular rhythm, S1 normal heart sound, S2 normal heart sound, no murmurs and peripheral pulses 2+ throughout GI Common normals: Normal to inspection, nondistended, normoactive bowel sounds present, soft to palpation and no hepatosplenomegaly Palpation: tender (LLQ, Bilat R quadrants. Greatest at RUQ, LLQ); no guarding and no rebound tenderness present Bladder/kidney exam: bladder normal to palpation Extremity Common normals: normal to inspection and no calf tenderness General: no clubbing, no cyanosis and no edema Neuro Common normals: CN's II-XII intact bilaterally, moves all extremities, no focal motor deficits and no sensory deficits noted Psych Common normals: mental status grossly normal Progress Note: Objective Labs Labs: Short CBC 10/14/23 Range/Units 05:04 WBC 5.5 (4.0-11.0) 10^3/uL Hgb 12.4 (12.0-16.0) g/dL Hct 36.6 (36.0-48.0) % Plt Count 109 L (150-450) 10^3/uL BMP 10/14/23 05:04 Sodium 131 L Potassium 3.2 L Chloride 98 Carbon Dioxide 24.9 BUN 4.0 L Creatinine 0.68 Glucose 111 H Calcium 8.2 L Liver Function 10/14/23 Range/Units 05:04 Total Bilirubin 1.1 H (0.2-1.0) mg/dL AST 26 (15-37) U/L ALT 35 (14-59) U/L Alkaline Phosphatase 79 (46-116) U/L Albumin 2.8 L (3.4-5.0) g/dL Progress Note: A&P Assessment and Plan (1) Acute pancreatitis: Assessment and Plan: Acute * Likely alcohol related pancreatitis * Lipase slightly worse today - 378, but symptoms improving * Continue LR at 200 ml/hr * Tolerated clear liquid diet yesterday fairly well w/ mild recurrent symptoms after eating. * Attempt regular diet today and monitor response * Continue IVP Dilaudid and PO oxycodone for pain * Still requiring some IVP Dilaudid for breakthrough pain * IVP Zofran for nausea * Complete EtOH cessation advised * CBC, CMP, Lipase daily (2) C. difficile colitis: Assessment and Plan: Acute * Stool PCR positive for C-diff today * D/C IV Cipro/Flagyl * Initiate PO Vancomycin QID for C-diff treatment * Zofran for nausea/vomiting * CBC daily (3) Hypokalemia: Assessment and Plan: Acute * Mild - 3.2 on AM labs today * Replete w/ KCL 20 mEq PO * CMP in AM (4) Hyponatremia: Assessment and Plan: Acute * Improving/resolving - 131 today * Likely 2/2 clinical dehydration in setting of N/V/D * Continue LR at 200/hr * CMP daily (5) Transaminitis: Assessment and Plan: Acute vs chronic * Known prior cirrhosis hx - follows w/ Dr Reynoso (Hepatology) * No prior lab hx at this facility to assess trends - suspect chronic * Ammonia level slightly elevated at 39 today * Still no clinical evidence of hepatic encephalopathy - hold on lactulose dosing for now * Repeat ammonia level in AM * RUQ US - unremarkable * CMP daily (6) Cirrhosis: Assessment and Plan: Chronic * See Transaminitis * Noted on CT imaging (7) Anxiety: Assessment and Plan: Chronic * Continue home PRN hydroxyzine (8) Bipolar 1 disorder: Assessment and Plan: Chronic * Continue home duloxetine, trazodone, Caplyta (9) GERD (gastroesophageal reflux disease): Assessment and Plan: Chronic * Continue home PPI
--- NOTE | 2023-10-14 12:59 | PM.PN ---
Progress Note: Subjective Subjective Interval history: 10/14/23 0944 The patient is sitting up in her bed eating breakfast this morning. She is tolerating this relatively well but does note onset of worsening pain and bloating after attempting to eat food. She only attempted clear liquids yesterday and we will attempt regular food today. Her lipase did rise overnight and if it continues to rise we may have to make the patient completely n.p.o. We will continue high volume IV fluids for her pancreatitis. ADDENDUM 1230: C-diff PCR resulted positive for today. Cipro and Flagyl will be discontinued and we will initiate PO Vanco dosing for c-diff treatment. Exam Constitutional Vital Signs, click to edit/add: Last Vital Signs Temp 98.3 F 10/14/23 04:58 Pulse 86 10/14/23 04:58 Resp 18 10/14/23 08:00 BP 133/85 10/14/23 04:58 Pulse Ox 91 L 10/14/23 04:58 O2 Del Method Room Air 10/14/23 04:58 Common normals: no apparent distress, oriented x3 and alert General appearance: cooperative Orientation/consciousness: Yes awake HENMT Common normals: normocephalic, head/scalp atraumatic and hearing grossly normal bilaterally Eye Common normals: PERRL, EOMs intact bilaterally, conjunctivae normal and no scleral icterus General eye: normal appearance of both eyes Chest Common normals: inspection of chest normal Chest: symmetrical chest wall rise Respiratory Common normals: normal respiratory effort and no use of accessory muscles Effort & inspection: able to speak in complete sentences Auscultation: wheezes (I&E) throughout Cardio Common normals: regular rate, regular rhythm, S1 normal heart sound, S2 normal heart sound, no murmurs and peripheral pulses 2+ throughout GI Common normals: Normal to inspection, nondistended, normoactive bowel sounds present, soft to palpation and no hepatosplenomegaly Palpation: tender (LLQ, Bilat R quadrants. Greatest at RUQ, LLQ); no guarding and no rebound tenderness present Bladder/kidney exam: bladder normal to palpation Extremity Common normals: normal to inspection and no calf tenderness General: no clubbing, no cyanosis and no edema Neuro Common normals: CN's II-XII intact bilaterally, moves all extremities, no focal motor deficits and no sensory deficits noted Psych Common normals: mental status grossly normal Progress Note: Objective Labs Labs: Short CBC 10/14/23 Range/Units 05:04 WBC 5.5 (4.0-11.0) 10^3/uL Hgb 12.4 (12.0-16.0) g/dL Hct 36.6 (36.0-48.0) % Plt Count 109 L (150-450) 10^3/uL BMP 10/14/23 05:04 Sodium 131 L Potassium 3.2 L Chloride 98 Carbon Dioxide 24.9 BUN 4.0 L Creatinine 0.68 Glucose 111 H Calcium 8.2 L Liver Function 10/14/23 Range/Units 05:04 Total Bilirubin 1.1 H (0.2-1.0) mg/dL AST 26 (15-37) U/L ALT 35 (14-59) U/L Alkaline Phosphatase 79 (46-116) U/L Albumin 2.8 L (3.4-5.0) g/dL Progress Note: A&P Assessment and Plan (1) Acute pancreatitis: Assessment and Plan: Acute Likely alcohol related pancreatitis Lipase slightly worse today - 378, but symptoms improving Continue LR at 200 ml/hr Tolerated clear liquid diet yesterday fairly well w/ mild recurrent symptoms after eating. Attempt regular diet today and monitor response Continue IVP Dilaudid and PO oxycodone for pain Still requiring some IVP Dilaudid for breakthrough pain IVP Zofran for nausea Complete EtOH cessation advised CBC, CMP, Lipase daily (2) C. difficile colitis: Assessment and Plan: Acute Stool PCR positive for C-diff today D/C IV Cipro/Flagyl Initiate PO Vancomycin QID for C-diff treatment Zofran for nausea/vomiting CBC daily (3) Hypokalemia: Assessment and Plan: Acute Mild - 3.2 on AM labs today Replete w/ KCL 20 mEq PO CMP in AM (4) Hyponatremia: Assessment and Plan: Acute Improving/resolving - 131 today Likely 2/2 clinical dehydration in setting of N/V/D Continue LR at 200/hr CMP daily (5) Transaminitis: Assessment and Plan: Acute vs chronic Known prior cirrhosis hx - follows w/ Dr Reynoso (Hepatology) No prior lab hx at this facility to assess trends - suspect chronic Ammonia level slightly elevated at 39 today Still no clinical evidence of hepatic encephalopathy - hold on lactulose dosing for now Repeat ammonia level in AM RUQ US - unremarkable CMP daily (6) Cirrhosis: Assessment and Plan: Chronic See Transaminitis Noted on CT imaging (7) Anxiety: Assessment and Plan: Chronic Continue home PRN hydroxyzine (8) Bipolar 1 disorder: Assessment and Plan: Chronic Continue home duloxetine, trazodone, Caplyta (9) GERD (gastroesophageal reflux disease): Assessment and Plan: Chronic Continue home PPI
--- NOTE | 2023-10-14 13:58 | DIET.REC ---
Rounds made with Dr. Lopez. Dr. Lopez discussed labs and plan of care. to Advance diet today and monitor w possible discharge tomorrow. Whitney verbalized understanding. No discharge today
[2023-10-14 14:00] VITALS: BP 130/85; PULSE 91; TEMP 36.9; O2SAT 94
[2023-10-14] MEDS: VANCOMYCIN HCL 7,500 MG/150 ML BOTTLE 125 MG PO ×2 (18:22→21:38)
[2023-10-14 21:14] VITALS: BP 153/106; PULSE 98; TEMP 36.7; O2SAT 94
[2023-10-14] MEDS: TRAZODONE HCL 50 MG TABLET PO (21:38)
[2023-10-14] MEDS: LUMATEPERONE 10.5 EACH PO (21:38)
[2023-10-15] MEDS: OXYCODONE HCL 5 MG TABLET PO ×2 (02:21→09:03)
[2023-10-15] MEDS: OMEPRAZOLE 40 MG CAPSULE.DR PO (05:46)
[2023-10-15] MEDS: VANCOMYCIN HCL 7,500 MG/150 ML BOTTLE 125 MG PO ×2 (05:47→11:00)
[2023-10-15 06:00] VITALS: BP 113/73; PULSE 76; TEMP 36.4; O2SAT 93
[2023-10-15] MEDS: ONDANSETRON PF 4 MG/2 ML VIAL IV (06:25)
[2023-10-15 06:28] LABS: Basophils Percent Auto 0.2 % (0.2-2.0); Hematocrit 33.5 % (36.0-48.0); Hemoglobin 11.4 g/dL (12.0-16.0); Immature Granulocytes Abs Auto 0.01 10^3/uL (0.00-0.03); Immature Granulocytes Pct Auto 0.2 % (0.0-0.5); Lymphocytes Absolute Auto 1.3 10^3/uL (1.2-3.8); Lymphocytes Percent Auto 32.8 % (20.5-60.0); Mean Corpuscular Hemoglobin 34.5 pg (26.7-34.0); Mean Corpuscular Volume 101.5 fL (81.0-99.0); Mean Platelet Volume 11.2 fL (9.5-13.5); Monocytes Absolute Auto 0.2 10^3/uL (0.3-0.8); Monocytes Percent Auto 4.4 % (1.7-12.0); Neutrophils Absolute Auto 2.5 10^3/uL (1.4-6.5); Neutrophils Percent Auto 61.4 % (43.0-75.0); Platelet Count 96 10^3/uL (150-450); Red Cell Distribution Width 14.3 % (11.0-15.0); White Blood Count 4.1 10^3/uL (4.0-11.0)
[2023-10-15 06:41] LABS: Ammonia 32 umol/L (11-32)
[2023-10-15 06:44] LABS: Alanine Aminotransferase 28 U/L (14-59); Albumin Globulin Ratio 0.9; Albumin Level 2.5 g/dL (3.4-5.0); Alkaline Phosphatase 69 U/L (46-116); Anion Gap 10.5; Aspartate Amino Transferase 26 U/L (15-37); BUN Creatinine Ratio 3.4; Bilirubin Total 0.6 mg/dL (0.2-1.0); Calcium 8.1 mg/dL (8.5-10.1); Carbon Dioxide 30.9 mmol/L (21.0-32.0); Chloride 102 mmol/L (98-107); Estimated GFR (African America >60 (>=60); Estimated GFR (Non-African Ame >60 (>=60); Globulin 2.8 g/dL; Glucose 106 mg/dL (74-106); Potassium 3.4 mmol/L (3.5-5.1); Sodium 140 mmol/L (136-145); Total Protein 5.3 g/dL (6.4-8.2)
[2023-10-15 08:04] VITALS: BP 133/89; PULSE 76; TEMP 36.4; O2SAT 94
[2023-10-15] MEDS: NICOTINE 21 MG PATCH.TD24 TD (09:02)
[2023-10-15] MEDS: MELOXICAM 7.5 MG TABLET PO (09:03)
[2023-10-15] MEDS: DULOXETINE HCL 60 MG CAPSULE.DR PO (09:04)
[2023-10-15] MEDS: POTASSIUM CHLORIDE 10 MEQ ER TABLET 40 MEQ PO (09:07)
--- NOTE | 2023-10-15 10:39 | P.DS_ITS ---
DS: Providers Provider Date of admission: 10/13/23 08:42 Primary care physician: Yobani Paz Admitting clinician: Shaikh John Attending physician on admission: Shaikh John Attending physician on discharge: Shaikh John Discharging clinician: Shaikh John Anticipated date of discharge: 10/15/23 DS: Diagnosis Discharge Diagnosis (1) Acute pancreatitis: Qualifiers: Pancreatitis type: alcohol induced Acute pancreatitis complication: no infection or necrosis Qualified Code(s): K85.20 - Alcohol induced acute pancreatitis without necrosis or infection (2) C. difficile colitis: (3) Hypokalemia: (4) Hyponatremia: (5) Transaminitis: (6) Cirrhosis: Qualifiers: Hepatic cirrhosis type: alcoholic cirrhosis Ascites presence: without ascites Qualified Code(s): K70.30 - Alcoholic cirrhosis of liver without ascites (7) Anxiety: (8) Bipolar 1 disorder: (9) GERD (gastroesophageal reflux disease): Qualifiers: Esophagitis presence: without esophagitis Qualified Code(s): K21.9 - Gastro-esophageal reflux disease without esophagitis DS: Summary Hospital Course Hospital Course: 37-year-old female presented to the hospital with nausea, vomiting, abdominal pain and diarrhea. Her workup initially was consistent with acute pancreatitis and pancolitis for which she was started on IV fluids, antiemetics, IV ciprofloxacin along with Flagyl. Subsequently, her stool was positive for C. difficile and she was then started on oral vancomycin. Her IV antibiotics were then discontinued. Patient clinically improved during the course of admission with improvement in her pain, and was able to tolerate oral diet without significant abdominal pain or nausea. She still has mild abdominal pain and nausea and poor appetite and diet, she is doing much better and is medically stable for discharge. Status at Discharge Functional status at discharge: independent ambulation Time Spent with Patient Time attestation: Total time spent providing and/or coordinating discharge services: Exam Constitutional Vital Signs, click to edit/add: Last Vital Signs Temp 97.6 F 10/15/23 08:04 Pulse 76 10/15/23 08:04 Resp 16 10/15/23 08:05 BP 133/89 10/15/23 08:04 Pulse Ox 94 L 10/15/23 08:04 O2 Del Method Room Air 10/15/23 08:04 Documenting provider has reviewed patient's vital signs: yes Common normals: no apparent distress and oriented x3 General appearance: cooperative Respiratory Common normals: normal respiratory effort and clear to auscultation bilaterally Effort & inspection: able to speak in complete sentences Auscultation: clear to auscultation bilaterally Cardio Common normals: regular rate, S1 normal heart sound and S2 normal heart sound Rate: regular rate Heart sounds: S1 normal and S2 normal GI Common normals: Normal to inspection, nondistended, normoactive bowel sounds present, soft to palpation, non-tender and no hepatosplenomegaly Palpation: soft and no hepatosplenomegaly Psych Common normals: mental status grossly normal, denies hallucinations, denies homicidal ideation and denies suicidal ideation DS: Data Data Completed and Pending Labs on day of discharge: Labs from last 24 hours 10/15/23 10/13/23 06:13 18:30 WBC 4.1 RBC 3.30 L Hgb 11.4 L Hct 33.5 L MCV 101.5 H MCH 34.5 H MCHC 34.0 RDW 14.3 Plt Count 96 L MPV 11.2 Neut % (Auto) 61.4 Lymph % (Auto) 32.8 [place] % (Auto) 4.4 Eos % (Auto) 1.0 Baso % (Auto) 0.2 Neut # (Auto) 2.5 Lymph # (Auto) 1.3 [place] # (Auto) 0.2 L Eos # (Auto) 0.0 Baso # (Auto) 0.0 Abs Immat Gran (auto) 0.01 Imm/Tot Granulo (auto) 0.2 Sodium 140 Potassium 3.4 L Chloride 102 Carbon Dioxide 30.9 Anion Gap 10.5 BUN 2.0 L Creatinine 0.58 Est GFR ( Amer) >60 Est GFR (Non-Af Amer) >60 BUN/Creatinine Ratio 3.4 Glucose 106 Calcium 8.1 L Total Bilirubin 0.6 AST 26 ALT 28 Alkaline Phosphatase 69 Ammonia 32 Total Protein 5.3 L Albumin 2.5 L Globulin 2.8 Albumin/Globulin Ratio 0.9 Lipase 202.0 H C. difficile Toxin PCR Positive A* Discharge Plan Discharge Disposition: Home, Self-Care Discharge Medications: New vancomycin 125 mg capsule 125 mg PO Q6H 10 Days Qty: 40 0RF ondansetron 4 mg tablet,disintegrating 4 mg PO Q8H PRN (Reason: nausea and vomiting) 4 Days Qty: 10 0RF oxycodone 5 mg tablet 5 mg PO Q8H PRN (Reason: pain) Qty: 10 0RF Continued trazodone 50 mg tablet 50 mg PO DAILY hydroxyzine pamoate 50 mg capsule 50 mg PO Q8H PRN (Reason: anxiety) meloxicam 7.5 mg tablet 7.5 mg PO DAILY pantoprazole 40 mg tablet,delayed release (DR/EC) 40 mg PO DAILY duloxetine 60 mg capsule,delayed release(DR/EC) 60 mg PO .QD Patient Comments: ONCE DAILY PER PT Caplyta 10.5 mg capsule 10.5 mg PO DAILY Rexulti 2 mg tablet 2 mg PO DAILY Activity: increase activity as tolerated Diet: advance to your usual diet Print Language: Mauritanian Patient Instructions: C. Diff (Clostridioides Difficile) Infection (DC), Acute Nausea and Vomiting (DC) Forms: Portal Instructions Follow Up Appointments: please schedule follow up with dr paz for 5-7 days [phone]. [address] [facility]
--- NOTE | 2023-10-16 13:33 | CM.DCFOLLOWU ---
1st attempt 10/16/23
--- NOTE | 2023-10-19 13:54 | CM.DCFOLLOWU ---
2nd attempt 10/19/23
--- NOTE | 2023-10-20 13:03 | CM.DCFOLLOWU ---
3rd attempt 10/20/23
== END 2023-10-15 11:12 | disposition home or self-care (01) | DRG 248 ==
LOC: ER 07:13 → MS 08:55
PROVIDERS: Emergency Medicine; Nurse Practitioner; Admitting Provider Internal Medicine; Emergency Provider Emergency Medicine; PCP Family Medicine; Visit Provider Internal Medicine
DX: A04.72 Enterocolitis due to Clostridium difficile, not specified as recurrent (principal); K85.20 Alcohol induced acute pancreatitis without necrosis or infection; K52.9 Noninfective gastroenteritis and colitis, unspecified; E87.1 Hypo-osmolality and hyponatremia; E87.6 Hypokalemia; R74.01 Elevation of levels of liver transaminase levels; F41.9 Anxiety disorder, unspecified; F31.9 Bipolar disorder, unspecified; K21.9 Gastro-esophageal reflux disease without esophagitis; K76.6 Portal hypertension; K70.30 Alcoholic cirrhosis of liver without ascites; F10.10 Alcohol abuse, uncomplicated
CPT/HCPCS: 36415; 71275; 74177; 76705; 80053; 81001; 82140; 83605; 83690; 84484; 84703; 85025; 85378; 87045; 87046; 87427; 87493; 96361; 96365; 96366; 96367; 96375; 96376; 99285; G0328; J0744; J1170; J1836; J2270; J2405; Q9967

== ENCOUNTER 2024-01-20 17:17 | Emergency (ER) | payer OTHER, SELFPAY ==
[2024-01-20 17:24] VITALS: BP 160/100; PULSE 120; TEMP 36.9; O2SAT 95; BMI 28.2
[2024-01-20 17:49] LABS: Basophils Absolute Auto 0.1 10^3/uL (0.0-0.1); Basophils Percent Auto 0.8 % (0.2-2.0); Eosinophils Absolute Auto 0.2 10^3/uL (0.0-0.7); Eosinophils Percent Auto 2.4 % (0.9-7.0); Hematocrit 40.3 % (36.0-48.0); Hemoglobin 13.7 g/dL (12.0-16.0); Immature Granulocytes Abs Auto 0.02 10^3/uL (0.00-0.03); Immature Granulocytes Pct Auto 0.2 % (0.0-0.5); Lymphocytes Absolute Auto 2.6 10^3/uL (1.2-3.8); Lymphocytes Percent Auto 31.6 % (20.5-60.0); Mean Corpuscular Hemoglobin 33.7 pg (26.7-34.0); Monocytes Absolute Auto 0.6 10^3/uL (0.3-0.8); Monocytes Percent Auto 7.8 % (1.7-12.0); Neutrophils Absolute Auto 4.7 10^3/uL (1.4-6.5); Neutrophils Percent Auto 57.2 % (43.0-75.0); Platelet Count 203 10^3/uL (150-450); Red Blood Count 4.07 10^6/uL (4.20-5.40); Red Cell Distribution Width 14.6 % (11.0-15.0); White Blood Count 8.2 10^3/uL (4.0-11.0)
--- NOTE | 2024-01-20 18:00 | ED_ITS ---
HPI HPI - General Adult General Chief complaint: Extremity Problem, Nontraumatic Stated complaint: Lower Pain Time Seen by Provider: 01/20/24 17:24 Source: patient Mode of arrival: walk-in Limitations: no limitations History of Present Illness HPI narrative: Patient presents ED complaining of bilateral foot pain lower leg pain and right knee pain. She said she just woke up like that. She said she was fine yesterday and last night and then when she woke up today her legs were hurting and when she went to walk her feet and ankles and legs were hurting. She denies any low back pain. No injury no trauma. She does report a history of anxiety and states she gets really nervous in the hospital and states that is why her blood pressure and heart rate are elevated. She reports that her sister has a history of a stroke in the past and her mom had blood clots so she was worried about blood clots. She is alert and oriented in no acute distress. She has some tenderness with palpation of bilateral ankle joints and right knee joint. She is also concerned that she may be has an autoimmune disorder. She denies any weakness in her legs, no sensory deficit and normal reflexes. No abdominal pain no fevers. No loss of bowel or bladder function. Related Data Home Medications ?Medication ?Instructions ?Recorded ?Confirmed duloxetine 60 mg capsule,delayed 60 mg PO .QD 10/13/23 01/20/24 release hydroxyzine pamoate 50 mg capsule 50 mg PO Q8H PRN anxiety 10/13/23 01/20/24 lumateperone 10.5 mg capsule 21 mg PO DAILY 10/13/23 01/20/24 (Caplyta) meloxicam 7.5 mg tablet 7.5 mg PO DAILY 10/13/23 01/20/24 pantoprazole 40 mg tablet,delayed 40 mg PO DAILY 10/13/23 01/20/24 release trazodone 50 mg tablet 100 mg PO DAILY 10/13/23 01/20/24 Previous Rx's ?Medication ?Instructions ?Recorded ondansetron 4 mg disintegrating 4 mg PO Q8H PRN nausea and 10/15/23 tablet vomiting 4 days #10 tabs Allergies Allergy/AdvReac Type Severity Reaction Status Date / Time No Known Drug Allergies Allergy Verified 01/20/24 17:23 Opioid HPI Opioid Management Most Recent Opioid Data: Last Pain Scale 4 10/15/23 11:02 Last ORT Total Score 10 10/13/23 09:06 Last ORT Risk Category High Risk 10/13/23 09:06 Review of Systems ROS Status of ROS 10 or more systems reviewed and unremark able except as noted in history and below [facility] Medical History (Updated 01/20/24 @ 18:25 by Marge Scott DO) C. difficile colitis ?A04.72 - Enterocolitis due to Clostridium difficile, not specified as recurrent (ICD-10) Hypokalemia ?E87.6 - Hypokalemia (ICD-10) Transaminitis ?R74.01 - Elevation of levels of liver transaminase levels (ICD-10) Acute pancreatitis ?K85.90 - Acute pancreatitis without necrosis or infection, unspecified (ICD- 10) Hyponatremia ?E87.1 - Hypo-osmolality and hyponatremia (ICD-10) Tobacco dependence ?F17.200 - Nicotine dependence, unspecified, uncomplicated (ICD-10) Cirrhosis ?K74.60 - Unspecified cirrhosis of liver (ICD-10) Endometriosis ?N80.9 - Endometriosis, unspecified (ICD-10) Anxiety ?F41.9 - Anxiety disorder, unspecified (ICD-10) GERD (gastroesophageal reflux disease) ?K21.9 - Gastro-esophageal reflux disease without esophagitis (ICD-10) Depression ?F32.A - Depression, unspecified (ICD-10) Hypertension ?I10 - Essential (primary) hypertension (ICD-10) Bipolar 1 disorder ?F31.9 - Bipolar disorder, unspecified (ICD-10) Surgical History (Updated 10/13/23 @ 09:01 by Vanesa Magaña) Tubal ?O00.109 - Unspecified tubal without intrauterine (ICD- 10) Hx of dilation and curettage ?Z98.890 - Other specified postprocedural states (ICD-10) History of lumpectomy of left breast ?Z98.890 - Other specified postprocedural states (ICD-10) Family History (Updated 10/13/23 @ 09:02 by Vanesa Magaña) Grandmother Family history of COPD (chronic obstructive pulmonary disease) Mother Family history of cancer Family history of stroke Sister Family history of stroke Social History (Updated 10/13/23 @ 09:05 by Vanesa Magaña) Within the past year, how often did you have a drink containing alcohol: 2-4 times a month Within the past year, how many standard drinks containing alcohol did you have on a typical day: 1 or 2 Within the past year, how often did you have six or more drinks on one occasion: less than monthly Total score: 1 Score interpretation: A score of 3 or more indicates drinking is likely to affect patient's safety. Smoking status: Heavy tobacco smoker Non-prescribed substance use: denies use Previous occupational history: unemployed currently Highest level of school completed/degree received: some college, no degree Little interest or pleasure in doing things: not at all Feeling down, depressed, or hopeless: not at all Feel stressed/tense/nervous/anxious/difficulty sleeping: only a little Life stressors: other Life stressor details: medical problems/ anxiety Exam Narrative Exam Narrative: Time Seen: [] Vital Signs: [Per nurse's notes.] General: [Alert]Anxious Skin: [Warm, dry, no rash.] Head: [Normocephalic, atraumatic.] Neck: [Supple, trachea midline.] Eye: [Pupils are equal, round and reactive to light, extraocular movements are intact, normal conjunctiva.] Ears, nose, mouth and throat: oral mucosa moist. Cardiovascular: [Tachycardia no murmur.] Respiratory: [Lungs are clear to auscultation, respirations are non-labored, breath sounds are equal.] Chest wall: [No tenderness, no deformity.] Gastrointestinal: [Soft, nontender, non distended, normal bowel sounds.] MSK: 5 out of 5 muscle strength x 4 extremities no calf pain or edema. Patient has tenderness in bilateral ankle joints and right knee joint. No erythema. Normal DP pulses and PT pulses. Normal strength and normal DTRs bilateral lower extremities Lymphatics: [No lymphadenopathy.] Psychiatric: [Cooperative, appropriate mood & affect.]Anxious Neurological: [Alert and oriented to person, place, time, and situation, no focal neurological deficit observed.] Constitutional Vital Signs, click to edit/add: Last Vital Signs Temp 98.5 F 01/20/24 17:24 Pulse 120 H 01/20/24 17:24 Resp 18 01/20/24 17:24 BP 160/100 H 01/20/24 17:24 Pulse Ox 95 01/20/24 17:24 O2 Del Method Room Air 01/20/24 17:24 Course Vital Signs Vital signs: Vital Signs Temperature 98.5 F 01/20/24 17:24 Pulse Rate 120 H 01/20/24 17:24 Respiratory Rate 18 01/20/24 17:24 Blood Pressure 160/100 H 01/20/24 17:24 Pulse Oximetry 95 01/20/24 17:24 Oxygen Delivery Method Room Air 01/20/24 17:24 Temperature 98.5 F 01/20/24 17:24 Pulse Rate 120 H 01/20/24 17:24 Respiratory Rate 18 01/20/24 17:24 Blood Pressure 160/100 H 01/20/24 17:24 Pulse Oximetry 95 01/20/24 17:24 Oxygen Delivery Method Room Air 01/20/24 17:24 Medical Decision Making MDM Narrative Medical decision making narrative: Patient's labs show an elevated uric acid level. D-dimer is normal indicating no blood clot. No elevated white blood cell count or indication of infection. She was given Vistaril for anxiety. Patient was instructed to take Tylenol and Motrin as this could be a gout flare however it is unlikely to be in so many joints at once. Please follow-up with family doctor as she may need an autoimmune workup as well. I do not see any further indication for admission to the hospital at this time but follow-up outpatient and return to ED if worsening symptoms. Patient understanding and comfortable care plan for home Differential Diagnosis Differential Diagnosis: Gout, DVT, electrolyte abnormality, viral syndrome Lab Data Lab results reviewed: Yes I reviewed the patient's lab results Labs: Lab Results 01/20/24 Range/Units 17:38 WBC 8.2 (4.0-11.0) 10^3/uL RBC 4.07 L (4.20-5.40) 10^6/uL Hgb 13.7 (12.0-16.0) g/dL Hct 40.3 (36.0-48.0) % MCV 99.0 (81.0-99.0) fL MCH 33.7 (26.7-34.0) pg MCHC 34.0 (29.9-35.2) g/dL RDW 14.6 (11.0-15.0) % Plt Count 203 (150-450) 10^3/uL MPV 10.0 (9.5-13.5) fL Neut % (Auto) 57.2 (43.0-75.0) % Lymph % (Auto) 31.6 (20.5-60.0) % [place] % (Auto) 7.8 (1.7-12.0) % Eos % (Auto) 2.4 (0.9-7.0) % Baso % (Auto) 0.8 (0.2-2.0) % Neut # (Auto) 4.7 (1.4-6.5) 10^3/uL Lymph # (Auto) 2.6 (1.2-3.8) 10^3/uL [place] # (Auto) 0.6 (0.3-0.8) 10^3/uL Eos # (Auto) 0.2 (0.0-0.7) 10^3/uL Baso # (Auto) 0.1 (0.0-0.1) 10^3/uL Abs Immat Gran (auto) 0.02 (0.00-0.03) 10^3/uL Imm/Tot Granulo (auto) 0.2 (0.0-0.5) % D-Dimer 0.43 (<=0.59) mg/L FEU Sodium 135 L (136-145) mmol/L Potassium 3.7 (3.5-5.1) mmol/L Chloride 102 (98-107) mmol/L Carbon Dioxide 22.6 (21.0-32.0) mmol/L Anion Gap 14.1 BUN 10.0 (7.0-18.0) mg/dL Creatinine 0.90 (0.55-1.02) mg/dL Est GFR ( Amer) >60 (>=60 mL/min/1.73m^2) Est GFR (Non-Af Amer) >60 (>=60 mL/min/1.73m^2) BUN/Creatinine Ratio 11.1 Glucose 125 H (74-106) mg/dL Uric Acid 6.4 H (2.6-6.0) mg/dL Calcium 8.1 L (8.5-10.1) mg/dL Total Bilirubin 0.4 (0.2-1.0) mg/dL AST 38 H (15-37) U/L ALT 33 (14-59) U/L Alkaline Phosphatase 73 (46-116) U/L Total Protein 6.1 L (6.4-8.2) g/dL Albumin 3.5 (3.4-5.0) g/dL Globulin 2.6 g/dL Albumin/Globulin Ratio 1.3 Discharge Plan Discharge Chief Complaint: Extremity Problem, Nontraumatic Clinical Impression: Gout Patient Disposition: Home, Self-Care Time of Disposition Decision: 18:25 Condition: Good Mode of Transportation: Private Vehicle Prescriptions / Home Meds: No Action trazodone 50 mg tablet 100 mg PO DAILY Rx Instructions: AT BEDTIME hydroxyzine pamoate 50 mg capsule 50 mg PO Q8H PRN (Reason: anxiety) meloxicam 7.5 mg tablet 7.5 mg PO DAILY pantoprazole 40 mg tablet,delayed release (DR/EC) 40 mg PO DAILY duloxetine 60 mg capsule,delayed release(DR/EC) 60 mg PO .QD Patient Comments: ONCE DAILY PER PT Caplyta 10.5 mg capsule 21 mg PO DAILY ondansetron 4 mg tablet,disintegrating 4 mg PO Q8H PRN (Reason: nausea and vomiting) 4 Days Qty: 10 0RF Print Language: Malay Instructions: Gout (ED) Referrals: Yobani Goldsmith [Primary Care Provider] - 1 week
[2024-01-20 18:01] LABS: D Dimer 0.43 mg/L FEU (<=0.59)
[2024-01-20 18:15] LABS: Alanine Aminotransferase 33 U/L (14-59); Albumin Globulin Ratio 1.3; Albumin Level 3.5 g/dL (3.4-5.0); Alkaline Phosphatase 73 U/L (46-116); Anion Gap 14.1; Aspartate Amino Transferase 38 U/L (15-37); BUN Creatinine Ratio 11.1; Bilirubin Total 0.4 mg/dL (0.2-1.0); Calcium 8.1 mg/dL (8.5-10.1); Carbon Dioxide 22.6 mmol/L (21.0-32.0); Chloride 102 mmol/L (98-107); Estimated GFR (African America >60 (>=60 mL/min/1.73m^2); Estimated GFR (Non-African Ame >60 (>=60 mL/min/1.73m^2); Globulin 2.6 g/dL; Glucose 125 mg/dL (74-106); Potassium 3.7 mmol/L (3.5-5.1); Sodium 135 mmol/L (136-145); Total Protein 6.1 g/dL (6.4-8.2); Uric Acid 6.4 mg/dL (2.6-6.0)
[2024-01-20] MEDS: HYDROXYZINE PAMOATE 25 MG CAPSULE PO (18:25)
[2024-01-20 18:47] VITALS: BP 150/95; PULSE 85; O2SAT 95
== END 2024-01-20 18:49 | disposition home or self-care (01) ==
PROVIDERS: Emergency Provider Emergency Medicine; PCP Family Medicine
DX: M10.9 Gout, unspecified (principal); F17.200 Nicotine dependence, unspecified, uncomplicated
CPT/HCPCS: 36415; 80053; 84550; 85025; 85378; 99283; Q0177

== ENCOUNTER 2025-01-24 19:17 | Inpatient (IN) | payer OTHER, SELFPAY ==
[2025-01-24 19:24] VITALS: BP 164/115; PULSE 97; TEMP 36.8; O2SAT 98; BMI 27.4
--- NOTE | 2025-01-24 19:40 | PC.NURSE ---
Pt states that she had a little bit of the low powered liquor. Just enough to keep me from having a seizure . 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 Last drink was this afternoon.
--- OUTSIDE RECORDS SUMMARY | 2025-01-24 19:46 | XMS_ITS | CCD ---
Author Organization [facility] Care Team Providers Care Door Paneler Name Role Phone DR GEORGIE BRUCE Consulting Unavailable HOY ., DR MCGRATH Primary Care Unavailable KARASIK ., DR ESCOTO Procedure Practitioner Nadia vailable HOY ., DR MCGRATH Admitting Unavailable HOY ., DR MCGRATH Attending Unavailable HOY ., DR MCGRATH Consulting Unavailable KARASIK ., DR ESCOTO Consulting Unavailabl e AHDOOT, RAUL Consulting Unavailable LORY, CAMILO Consulting Unavailable FAWSHAIKH Nancy DAVILA Consulting Unavailable JUNGERMANN, KASSIE Consulting Unavailable CAMILO MANNING Consulting Unavailable HOY ., DR MCGRATH Attending Unavailable HOY ., DR MCGRATH Consulting Unavailable HOY ., DR MCGRATH Primary Care Unavailable HOY ., DR MCGRATH Admitting Unavailable KARASIK ., DR ESCOTO Admitting Unavailabl e HOY ., DR MCGRATH Primary Care Unavailable KARASIK ., DR ESCOTO Attending Unavailabl e KARASIK ., DR ESCOTO Consulting Unavailabl e RIKI ., ALEX Consulting Unavailable PAY ., DR MEJIA Admitting Unavailable HOY ., DR MCGRATH Primary Care Unavailable PAY ., DR MEJIA Attending Unavailable ALDA .DYLAN Consulting Unavailable HOKodi ., DR MCGRATH Primary Care Unavailable SAUL, DR VELASQUEZ Admitting Unavailable GRECHNY .DERICK Consulting Unavailkerrie HUGHES, DR VELASQUEZ Attending Unavailable HAY ., DR ACUNA Consulting Unavailable CHARLA GARCIA Consulting Unavailable HOY ., DR MCGRATH Primary Care Unavailable HOY ., DR MCGRATH Admitting Unavailable HOY ., DR MCGRATH Attending Unavailable DO Javier Goldsmith Primary Care Provider DO Brenda Mcclain Emergency Provider DO Robson Lopes Admit Provider DO Robson Lopes Attending Provider MD Angeles Imad Other Provider MD Homa Buckner Attending Provider [phone] Asaad, Imad Unavailable MD Angeles Imbuddy Attending Provider [phone] [place], DO Javier L Primary Care Provider MD Angeles Imbuddy Attending Provider [place] DO, Javier L Primary Care Provider [phone] [place], DO Javier L Primary Care Provider MD Angeles Imad Attending Provider Asaad, Imad Admitting Unavailable [place], Javier L Primary Care Unavailable Asaad, Imad Attending Unavailable Asaad, Imad Attending Unavailable [place], Javier L Primary Care Unavailable Asaad, Imad Admitting Unavailable Asaad, Imad Admitting Unavailable [place], Javier L Primary Care Unavailable Asaad, Imad Attending Unavailable Asaad, Imad Admitting Unavailable [place], Javier L Primary Care Unavailable Asaad, Imad Attending Unavailable Homa Buckner Attending Unavailable Robson Lopes Admitting Unavailable [place], Javier L Primary Care Unavailable Asaad, Imad Consulting Unavailable Asaad, Imad Admitting Unavailable [place], Javier L Primary Care Unavailable Asaad, Imad Attending Unavailable [place] DO, Javier L Unavailable Bryson [facility], Rony L Unavailable [phone] Diana-Noselza PRESSING MACHINE TENDER-AWNING HANGERDevante Unavailable RONY MASSEY Attending Unavailable DIANA-DEVANTE HARGROVE Attending Unavailab le RUI MASSEYICA L Attending Unavailable MASSEYRONY PETER Attending Unavailable RONY MASSEY Attending Unavailable DIANA-DEVANTE HARGROVE Attending Unavailab le CUTJAVIER ELLINGTON L Attending Unavailable MASSEYRONY PETER Attending Unavailable DIANA-NOSSEDEVANTE Sandhu Attending Unavailab le CUTCOLETTE ELLINGTONOTHY L Attending Unavailable MASSEYRONY PETER Attending Unavailable MASSEYRONY PETER Attending Unavailable DIANA-NOSSEK, DEVANTE M Attending Unavailab le MASSEY, RONY L Attending Unavailable MASSEY, RONY L Attending Unavailable MASSEY, RONY L Attending Unavailable MASSEY, RONY L Attending Unavailable DIANA-NOSSEK, DEVANTE M Attending Unavailab le MASSEY, RONY L Attending Unavailable CUTLER, JAVIER L Attending Unavailable CUTLER, JAVIER L Referring Unavailable CUTLER, JAVIER L Referring Unavailable DIANA-NOSSEK, DEVANTE M Attending Unavailab le MASSEY, RONY L Attending Unavailable MASSEY, RONY L Attending Unavailable DIANA-NOSSEK, DEVANTE M Attending Unavailab le OCONNORRUBA PEACE Attending Unavailable CUTLER, JAVIER L Referring Unavailable DIANA-NOSSEK, DEVANTE M Attending Unavailab le MASSEY, RONY L Attending Unavailable DIANA-NOSSEK, DEVANTE M Attending Unavailab le CUTLER, JAVIER L Attending Unavailable [place] DOJavier L Primary Care Provider [phone] Lorenza PhD, Diego Attending Provider [phone] Allergies Allergy Classification Reported Allergen(s) Allergy Type Date of Onset Reaction(s) Facility (1 source) Amoxicillin / Clavulanate Drug Allergy [facility] Repository (2 sources) Darvocet-N 100 Drug allergy (disorder) 09-16-19 13 [facility] Repository (5 sources) Acetaminophen / Propoxyphene Drug Allergy Unknown [facility] Other (20 sources) Clavulanate Drug Allergy 09-05-19 23 Nausea Only [facility] (20 sources) Propoxyphene Drug Allergy 09-05-19 23 Unknown [facility] (5 sources) Acetaminophen; Translations: [acetaminophen] Drug Allergy 07-13-19 24 Unknown Reaction [facility] (1 source) Propoxyphene Drug Allergy 07-30-19 24 [facility] Repository (20 sources) FLUoxetine Drug Allergy 09-29-19 24 Other [facility] Healthcare (20 sources) Sertraline Drug Allergy 09-29-19 24 Other [facility] (20 sources) Other Propensity to adverse reactions 05-28-19 24 GI intolerance [facility] Medications Current Medications Medication Drug Class(es) Dates Sig (Normalized) Sig (Original) Acetaminophen (5 sources) Tylenol Active [id number] 200 actuat albuterol 0.09 mg/actuat metered dose inhaler (6 sources) beta2-Adrenergic Agonist Start: 11-09-2024 take 2 puff(s) by inhalation every six hours for wheezing albuterol HFA 90 mcg/act inhaler Indications: Mild intermittent asthma without status asthmaticus without complication (HCC) Inhale 2 puffs every 6 (six) hours if needed for wheezing 18 g 3 11/09/2024 Active Start: 09-08-2024 End: 11-09-2024 take 2 puff(s) by mouth every four to six hours as needed for cough albuterol HFA 90 mcg/act inhaler INHALE 2 PUFFS BY MOUTH EVERY 4 TO 6 HOURS NEEDED FOR COUGH/WHEEZING 09/08/2024 11/09/2024 Discontinued (Reorder) busPIRone hydrochloride 15 mg oral tablet (2 sources) Start: 05-25-2023 take 1 tablet by mouth in the morning busPIRone (Buspar) 15 MG tablet Indications: CHELSEY (generalized anxiety disorder) (CMS/HCC) Take 1 tablet (15 mg) by mouth in the morning and 1 tablet (15 mg) before bedtime. 180 tablet 1 05/25/2023 Active cholecalciferol 1.25 mg oral capsule (20 sources) Vitamin D Start: 10-31-2024 take 1 capsule by mouth every week cholecalciferol (Vitamin D-3) 1.25 MG (68473 UT) capsule Indications: Vitamin D deficiency TAKE 1 CAPSULE BY MOUTH ONE TIME PER WEEK 12 capsule 10/31/2024 Active Start: 08-10-2024 take 1 capsule by mo ut every week cholecalciferol (Vitamin D-3) 1.25 MG (89494 UT) capsule Indications: Vitamin D deficiency Take 1 capsule (1.25 mg) by mouth 1 (one) time per week 12 capsule 08/10/2024 Active Furosemide (4 sources) Loop Diuretic Lasix Active hydrOXYzine pamoate 25 mg oral capsule (20 sources) Antihistamine Start: 12-13-2024 End: 03-13-2025 take 1 capsule by mouth every twelve hours for anxiety hydrOXYzine pamoate (Vistaril) 25 MG capsule Indications: CHELSEY (generalized anxiety disorder) TAKE 1 CAPSULE BY MOUTH EVERY 12 HOURS IF NEEDED FOR ANXIETY 180 capsule 12/13/2024 03/13/2025 Active Start: 11-01-2024 End: 12-01-2024 take 1 capsule by mouth once hydrOXYzine pamoate (Vist aril) 25 MG capsule Indications: CHELSEY (generalized anxiety disorder) Take 1 capsule (25 mg) by mouth every 12 (twelve) hours if needed for anxiety 30 capsule 2 11/01/2024 12/01/2024 Active Start: 08-10-2023 End: 11-01-2024 take 1 capsule by mouth every eight hours for anxiety hydrOXYzine pamoate (Vistaril) 50 MG capsule Indications: CHELSEY (generalized anxiety disorder) Take 1 capsule (50 mg) by mouth every 8 (eight) hours if needed for anxiety 30 capsule 2 05/17/2024 11/01/2024 Discontinued (Reorder) Start: 04-22-2023 hydrOXYzine pa moate (Vistaril) 50 MG capsule Indications: CHELSEY (generalized anxiety disorder) (CMS/HCC) Take 1 capsule (50 mg) by mouth as needed at bedtime for itching 90 capsule 2 04/22/2023 Active Start: 10-02-2022 take 1 tablet by [place] th at bedtime lactulose 667 mg/ml oral solution (8 sources) Osmotic Laxative take 30 mL by mouth three times daily lactulose (Chronulac) 10 GM/15ML solution TAKE 30ML BY MOUTH 3 TIMES DAILY MAY SKIP DOSE IF DIARRHEA Oral for 30 Days 0 Active Lactulose Not-Ta le Lactulose Active lamoTRIgine 150 mg oral tablet (20 sources) Mood Stabilizer, Anti-epileptic Agent Start: 07-06-2024 End: 12-01-2024 take 1 tablet by mouth once daily lamoTRIgine (LaMICtal) 150 MG tablet Indications: Bipolar I disorder, most recent episode (or current) mixed (HCC) Take 1 tablet (150 mg) by mouth Daily 30 tablet 2 11/01/2024 Active Start: 05-17-2024 End: 05-17-2025 take 1 tablet by mouth once daily lamoTRIgine (LaMICtal) 100 MG tablet Indications: Bipolar I disorder, most recent episode depressed, moderate (CMS/HCC) Take 1 tablet (100 mg) by mouth Daily 30 tablet 1 05/17/2024 07/06/2024 Discontinued Start: 04-19-2024 End: 07-06-2024 lamoTRIgine (LaMICtal) 25 MG tablet Indications: Bipolar I disorder, most recent episode depressed, moderate (CMS/HCC) 1 tab daily for two weeks then increase to 2 tabs daily 45 tablet 1 04/19/2024 07/06/2024 Discontinued (Therapy completed) lansoprazole (4 sources) Proton Pump Inhibitor Prevacid Active lumateperone 42 mg oral capsule (20 sources) Start: End: 5 take 1 capsule by mouth once daily Lumateperone Tosylate (Caplyta) 42 MG capsule Indications: Bipolar I disorder, most recent episode (or current) mixed (HCC) Take 42 mg by mouth Daily 30 capsule 1 11/01/2024 Active Lumateperone Tosylate (Caplyta) 21 MG capsule (20 sources) Start: End: 4 take 1 capsule by mouth once daily Lumateperone Tosylate (Caplyta) 21 MG capsule Indications: Bipolar I disorder, most recent episode depressed, moderate (CMS/HCC) Take 21 mg by mouth Daily 30 capsule 2 02/10/2024 03/16/2024 Discontinued Start: 02-10-2024 take 1 capsule by mo ut once daily Lumateperone Tosylate (Caplyta) 21 MG capsule Indications: Bipolar I disorder, most recent episode depressed, moderate (CMS/HCC) Take 21 mg by mouth Daily 30 capsule 2 02/10/2024 Active Start: 02-10-2024 End: 03-11-2024 take 1 capsule by mouth once daily Lumateperone Tosylate (Caplyta) 21 MG capsule Indications: Bipolar I disorder, most recent episode depressed, moderate (CMS/HCC) Take 21 mg by mouth Daily 30 capsule 2 02/10/2024 03/11/2024 Active Start: 12-16-2023 End: 02-10-2024 take 1 capsule by mouth once daily Lumateperone Tosylate (Caplyta) 21 MG capsule Indications: Bipolar I disorder, most recent episode depressed, moderate (CMS/HCC) Take 21 mg by mouth Daily 30 capsule 2 12/16/2023 02/10/2024 Discontinued (Reorder) Start: 12-16-2023 take 1 capsule by mo uth once daily Lumateperone Tosylate (Caplyta) 21 MG capsule Indications: Bipolar I disorder, most recent episode depressed, moderate (CMS/HCC) Take 21 mg by mouth Daily 30 capsule 2 12/16/2023 Active Start: 12-16-2023 End: 01-15-2024 take 1 capsule by mouth once daily Lumateperone Tosylate (Caplyta) 21 MG capsule Indications: Bipolar I disorder, most recent episode depressed, moderate (CMS/HCC) Take 21 mg by mouth Daily 30 capsule 2 12/16/2023 01/15/2024 Active Start: 11-10-2023 End: 12-16-2023 take 1 capsule by mouth once daily Lumateperone Tosylate (Caplyta) 21 MG capsule Indications: Bipolar I disorder, most recent episode depressed, moderate (CMS/HCC) Take 21 mg by mouth Daily 30 capsule 2 11/10/2023 12/16/2023 Discontinued (Reorder) Start: 11-10-2023 take 1 capsule by mo [facility] once daily Lumateperone Tosylate (Caplyta) 21 MG capsule Indications: Bipolar I disorder, most recent episode depressed, moderate (CMS/HCC) Take 21 mg by mouth Daily 30 capsule 2 11/10/2023 Active Start: 11-10-2023 End: 12-10-2023 take 1 capsule by mouth once daily Lumateperone Tosylate (Caplyta) 21 MG capsule Indications: Bipolar I disorder, most recent episode depressed, moderate (CMS/HCC) Take 21 mg by mouth Daily 30 capsule 2 11/10/2023 12/10/2023 Active meloxicam 7.5 mg oral tablet (20 sources) Nonsteroidal Anti-inflammatory Drug Start: 04-22-2023 End: 08-10-2024 take 1 tablet by mouth once daily methylPREDNISolone (2 sources) Corticosteroid Start: 04-04-2024 End: 04-11-2024 methylPREDNISolone (Medrol Dospak) 4 MG tablets Indications: Chronic right-sided low back pain with right-sided sciatica , Lumbar radiculopathy Follow schedule on package instructions 21 tablet 04/04/2024 04/11/2024 Active Multiple Vitamins-Minerals ([facility] One Daily Essential) tablet (3 sources) Start: 08-27-2022 take 1 tablet by mouth once daily in the morning Multiple Vitamins-Minerals ([facility] One Daily Essential) tablet Take 1 tablet by mouth in the morning. 0 08/27/2022 Active ondansetron 8 mg disintegrating oral tablet (20 sources) Serotonin-3 Receptor Antagonist Start: 08-25-2022 take 1 tablet by mouth twice daily as needed for nausea Start: 07-15-2022 End: 08-10-2024 take 1 tablet by mouth every eight hours for nausea ondansetron ODT (Zofran-ODT) 8 MG disintegrating tablet Indications: Alcoholic cirrhosis, unspecified whether ascites present (CMS/HCC) Take 1 tablet (8 mg) by mouth every 8 (eight) hours if needed for nausea or vomiting 30 tablet 11 05/25/2023 08/10/2024 Discontinued End: 05-25-2023 take 1 tablet by mouth every six hours as needed for nausea and vomiting ondansetron ODT (Zofran-ODT) 4 MG disintegrating tablet DISSOLVE 1 TABLET IN MOUTH EVERY 6 HOURS NEEDED FOR NAUSEA AND VOMITING Oral for 5 Days 0 05/25/2023 Discontinued Zofran PRN Activ e pantoprazole 40 mg delayed release oral tablet (20 sources) Proton Pump Inhibitor Start: 09-06-2024 take 1 tablet by mouth before mealtime pantoprazole (ProtoNix) 40 MG EC tablet Indications: Gastroesophageal reflux disease without esophagitis TAKE 1 TABLET BY MOUTH IN THE MORNING. TAKE BEFORE MEALS. 90 tablet 1 09/06/2024 Active Start: 08-25-2022 End: 05-25-2023 take 1 tablet by mouth before mealtime pantoprazole (ProtoNix) 40 MG EC tablet Indications: Gastroesophageal reflux disease without esophagitis TAKE 1 TABLET BY MOUTH IN THE MORNING. TAKE BEFORE MEALS. 90 tablet 1 09/06/2024 Active Protonix Active phentermine hydrochloride 37.5 mg oral tablet (20 sources) Sympathomimetic Amine Anorectic Start: 10-10-2024 End: 02-16-2025 take 1 tablet by mouth before mealtime phentermine (Adipex-P) 37.5 MG tablet Indications: Abnormal weight gain Take 1 tablet (37.5 mg) by mouth in the morning. Take before meals. 30 tablet 01/17/2025 02/16/2025 Active Start: 07-12-2024 End: 10-08-2024 take 33-33.9 tablets by mouth before mealtime phentermine (Adipex-P) 37.5 MG tablet Indications: Class 1 obesity due to excess calories without serious comorbidity with body mass index (BMI) of 33.0 to 33.9 in adult Take 1 tablet (37.5 mg) by mouth in the morning. Take before meals. 30 tablet 09/02/2024 10/08/2024 Discontinued (Reorder) Potassium (5 sources) Potassium Active potassium chloride 10 meq extended release oral tablet (20 sources) Start: potassium chloride CR (Klor-Con) 10 MEQ ER tablet Take 10 mEq by mouth if needed 06/18/2022 Active predniSONE 10 mg oral tablet (2 sources) Start: End: take 3 tablets by mouth once daily, then take 2 tablets by mouth once daily, then take 1 tablet by mouth once daily predniSONE (Deltasone) 10 MG tablet Indications: Polyarthralgia Take 3 tablets (30 mg) by mouth Daily for 5 days, THEN 2 tablets (20 mg) Daily for 2 days, THEN 1 tablet (10 mg) Daily for 2 days. 21 tablet 01/21/2024 01/30/2024 Active sertraline 50 mg oral tablet (8 sources) Serotonin Reuptake Inhibitor Start: End: take 0.5 tablet by mouth once daily sertraline (Zoloft) 50 MG tablet Indications: CHELSEY (generalized anxiety disorder) (CMS/HCC) Take 0.5 tablets (25 mg) by mouth Daily 03/09/2024 03/16/2024 Discontinued Start: 02-10-2024 End: 02-09-2025 take 1 tablet by mouth once daily sertraline (Zoloft) 50 MG tablet Indications: CHELSEY (generalized anxiety disorder) (CMS/HCC) Take 1 tablet (50 mg) by mouth Daily 90 tablet 03/07/2024 06/05/2024 Active Sod Picosulf-Mag Ox-Citric A c (4 sources) Start: 07-13-2023 take 1 mL by mouth once daily Start: 07-13-2023 take 1 mL by mouth once daily Sod Picosulf-Mag Ox-Citric Ac (Clenpiq) 10 mg-3.5 gram- 12 gram/175 mL solution Active 175 ML PO Daily 350 0 July 13, 2023 12:00am Patient is to follow instructions given at office spironolactone 100 mg oral tablet (19 sources) Aldosterone Antagonist Start: 05-25-2023 End: 05-25-2023 take 1 tablet by mouth in the morning spironolactone (Aldactone) 100 MG tablet Indications: Alcoholic cirrhosis, unspecified whether ascites present (CMS/HCC) Take 1 tablet (100 mg) by mouth in the morning. 90 tablet 1 05/25/2023 Active Start: 08-25-2022 End: 07-13-2023 take 2 tablets by mouth once daily Spironolactone 100 mg tablet Discontinued 200 MG PO Daily August 25, 2022 12:00am July 13, 2023 1:19pm Start: 08-25-2022 End: 07-13-2023 take 200 mg by mouth once daily Spironolactone Discontinued 200 MG PO Daily August 25, 2022 12:00am July 13, 2023 1:19pm Aldactone Active thiamine 100 mg oral tablet (19 sources) Start: 04-04-2024 End: 04-04-2025 take 1 tablet by mouth once daily thiamine (Vitamin B-1) 100 MG tablet Indications: Chronic right-sided low back pain with right-sided sciatica , Lumbar radiculopathy Take 1 tablet (100 mg) by mouth Daily 30 tablet 11 04/04/2024 05/17/2024 Discontinued (Therapy completed) Start: 08-27-2022 End: 07-13-2023 take 1 tablet by mouth once daily Thiamine Hcl (Vitamin B1) 100 mg tablet Discontinued 100 MG PO Daily August 27, 2022 12:00am July 13, 2023 1:08pm tiZANidine 4 mg oral tablet (8 sources) Central alpha-2 Adrenergic Agonist Start: 11-20-2022 take 1 tablet by mouth every eight hours for muscle spasms tiZANidine (Zanaflex) 4 MG tablet Indications: Chronic bilateral low back pain without sciatica TAKE 1 TABLET (4 MG) BY MOUTH EVERY 8 HOURS IF NEEDED FOR MUSCLE SPASMS 90 tablet 3 11/20/2022 Active Zanaflex Active traZODone hydrochloride 50 mg oral tablet (20 sources) Serotonin Reuptake Inhibitor Start: 11-10-2023 End: 01-02-2025 take 2 tablets by mouth at bedtime traZODone (Desyrel) 50 MG tablet Indications: Psychophysiological insomnia Take 2 tablets (100 mg) by mouth at bedtime 60 tablet 1 07/06/2024 Active Start: 07-13-2023 take 1 tablet by mouth at bedt juju Start: 07-13-2023 Trazodone Acti ve MG PO July 13, 2023 12:00am Vitamin B Complex (4 sources) Vitamin B Comple x Active Completed/Discontinued Medications Medication Drug Class(es) Dates Sig (Normalized) Sig (Original) DULoxetine 60 mg delayed release oral capsule (20 sources) Serotonin and Norepinephrine Reuptake Inhibitor Start: 02-10-2024 End: 03-11-2024 take 1 capsule by mouth once daily DULoxetine (Cymbalta) [address] capsule Indications: CHELSEY (generalized anxiety disorder) (CMS/HCC) Take 1 capsule (30 mg) by mouth Daily Do not crush or chew. 30 capsule 02/10/2024 03/11/2024 Active Start: 08-25-2022 End: 04-19-2024 take 1 capsule by mouth once daily Cymbalta Active Multivit With Min-Folic Acid (6 sources) Start: 08-27-2022 End: 07-13-2023 take 1 tablet by mouth once daily Multivit With Min-Folic Acid Discontinued 1 TAB PO Daily August 27, 2022 12:00am July 13, 2023 1:06pm Start: 08-27-2022 take 1 tablet by [place] th once daily Multivit With Min-Folic Acid Active 1 TAB PO Daily August 26, 2022 11:00pm Start: 08-27-2022 take 1 tablet by [place] th once daily Multivit With Min-Folic Acid Active 1 TAB PO Daily August 27, 2022 12:00am Multivit With Min-Folic Acid 0.4 mg tablet (2 sources) Start: 08-27-2022 End: 07-13-2023 take 1 tablet by mouth once daily Multivit With Min-Folic Acid 0.4 mg tablet Discontinued 1 TAB PO Daily August 27, 2022 12:00am July 13, 2023 1:06pm olmesartan medoxomil 20 mg oral tablet (20 sources) Angiotensin 2 Receptor Omid Start: 01-26-2024 End: 01-25-2025 take 1 tablet by mouth once daily olmesartan (BENIcar) 20 MG tablet Indications: Primary hypertension Take 1 tablet (20 mg) by mouth Daily 90 tablet 3 01/26/2024 11/09/2024 Discontinued zolpidem tartrate 5 mg oral tablet (8 sources) gamma-Aminobutyric Acid-ergic Agonist Start: 08-27-2022 End: 10-02-2022 take 1 tablet by mouth once daily at bedtime as needed Zolpidem (Ambien) 5 mg tablet Discontinued 5 MG PO Daily at bedtime as needed for insomnia 01 20August 27, 2022 12:00am October 02, 2022 1:49pm Problems Active Problems Problem Classification Problem Date Documented Da te Episodic/Chronic Alcohol-related disorders (20 sources) Alcohol abuse, uncomplicated; 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] Onset: 3 Resolved: 4 08-25-2022 Chronic Anxiety disorders (20 sources) Anxiety disorder, unspecified; Translations: [Generalized anxiety disorder] Onset: 3 09-04-2022 Chronic Asthma (20 sources) Unspecified asthma, uncomplicated; Translations: [Asthma without status asthmaticus] Onset: 3 09-04-2022 Chronic Cancer of rectum and anus (1 source) Personal history of other malignant neoplasm of rectum, rectosigmoid junction, and anus; Translations: [PERS HX OTH MAL JOSE ALEJANDRO RECT RSJ AND ANUS] Onset: 3 Episodic Deficiency and other anemia (1 source) Anemia, unspecified; Translations: [ANEMIA UNSPECIFIED] Onset: 3 Episodic Disorders of lipid metabolism (2 sources) Dyslipidemia; Translations: [Hyperlipidemia, unspecified] 08-10-2024 Chronic Ectopic (1 source) Left tubal without intrauterine ; Translations: [LT TUBAL W/O IU ] Onset: 3 Episodic Esophageal disorders (2 sources) Gastroesophageal reflux disease without esophagitis; Translations: [Gastro-esophageal reflux disease without esophagitis] 05-25-2023 Chronic Fluid and electrolyte disorders (2 sources) Dehydration; Translations: [Hypokalemia] Onset: 3 Episodic Gastrointestinal hemorrhage (13 sources) Hematemesis; Translations: [Hematemesis] 08-25-2022 Episodic Immunizations and screening for infectious disease (1 source) Encounter for screening for human papillomavirus (HPV); Translations: [ENC SCREENING HUMAN PAPILLOMAVIRUS] Onset: 3 Episodic Malaise and fatigue (2 sources) Fatigue; Translations: [Chronic fatigue, unspecified] 07-12-2024 Chronic Miscellaneous mental health disorders (7 sources) Psychophysiologic insomnia; Translations: [Psychophysiologic insomnia] 02-10-2024 Chronic Mood disorders (20 sources) Dysthymia; Translations: [Dysthymic disorder] Onset: 3 Resolved: 5 09-04-2022 Chronic Nausea and vomiting (17 sources) Nausea with vomiting, unspecified; Translations: [Nausea and vomiting] Onset: 3 Episodic Nutritional deficiencies (2 sources) Vitamin D deficiency; Translations: [Vitamin D deficiency, unspecified] 08-10-2024 Chronic Other aftercare (1 source) Other [facility] (current) drug therapy; Translations: [OTH [facility] CURRENT DRUG THERAPY] Onset: 3 Episodic Other complications of (1 source) Smoking (tobacco) complicating , first trimester; Translations: [SMOKING TOBACCO COMP PREG 1ST TRI] Onset: 3 Episodic Other gastrointestinal disorders (5 sources) Ascites; Translations: [Other ascites] Episodic Other gastrointestinal disorders (3 sources) Diarrhea, unspecified; Translations: [Diarrhea] Onset: 4 07-13-2023 Episodic Other hematologic conditions (3 sources) Alpha-fetoprotein raised; Translations: [Abnormality of alphafetoprotein] Episodic Other hematologic conditions (1 source) Abnormality of alphafetoprotein Episodic Other liver diseases (3 sources) Unspecified cirrhosis of liver; Translations: [Cirrhosis of liver without mention of alcohol] Onset: 3 07-13-2023 Chronic Other liver diseases (20 sources) Cirrhosis of liver; Translations: [Unspecified cirrhosis of liver] Onset: 4 08-27-2022 Chronic Comment on above: unsure about cirrhos is Other liver diseases (5 sources) Portal hypertension; Translations: [Portal hypertension] Chronic Other liver diseases (3 sources) Portal hypertension; Translations: [Portal hypertension] Onset: 3 Chronic Other liver diseases (5 sources) Hepatic encephalopathy; Translations: [Hepatic failure, unspecified without coma] Episodic Other nervous system disorders (4 sources) Disturbance of attention; Translations: [Attention and concentration deficit] 11-09-2024 Chronic Other non-traumatic joint disorders (2 sources) Multiple joint pain; Translations: [Pain in unspecified joint] 01-21-2024 Episodic Other nutritional; endocrine; and metabolic disorders (5 sources) Obesity caused by energy imbalance; Translations: [Class 1 obesity due to excess calories without serious comorbidity with body mass index (BMI) of 33.0 to 33.9 in adult] 07-12-2024 Chronic Other nutritional; endocrine; and metabolic disorders (4 sources) Abnormal weight gain; Translations: [Abnormal weight gain] 11-09-2024 Episodic Other screening for suspected conditions (not mental disorders or infectious disease) (4 sources) Encounter for screening for malignant neoplasm of cervix; Translations: [ENC SCREENING MALIG NEOPLASM CERV] Onset: 3 Episodic Pancreatic disorders (not diabetes) (20 sources) Alcohol-induced chronic pancreatitis; Translations: [Alcohol-induced chronic pancreatitis] Onset: 3 Resolved: 3 09-04-2022 Chronic Pancreatic disorders (not diabetes) (4 sources) Acute pancreatitis without necrosis or infection, unspecified; Translations: [ACUTE PANCREATITIS WO NECRS/INF UNS] Onset: 2 Episodic Residual codes; unclassified (1 source) Family history of ischemic heart disease and other diseases of the circulatory system; Translations: [FAM HX ISCHEMIC HRT DZ OTH DZ CIRC] Onset: 3 Episodic Residual codes; unclassified (8 sources) Acute insomnia; Translations: [Insomnia, unspecified] 08-27-2022 Episodic Residual codes; unclassified (2 sources) Family history of malignant neoplasm of digestive organs; Translations: [Family history of malignant neoplasm of gastrointestinal tract] 07-13-2023 Episodic Residual codes; unclassified (4 sources) Edema of lower extremity; Translations: [Localized edema] 01-22-2024 Episodic Substance-related disorders (20 sources) Nicotine dependence, cigarettes, uncomplicated; Translations: [Smoker] Onset: 3 Resolved: 3 09-04-2022 Chronic Unclassified (1 source) PERSONAL HISTORY OF COVID-19; Translations: [PERSONAL HISTORY OF COVID-19] Onset: 3 Unclassified (1 source) CONTACT W/AND (SUSP) EXPOS COVID-19; Translations: [CONTACT W/AND (SUSP) EXPOS COVID-19] Onset: 3 Unclassified (1 source) Alcoholic cirrhosis of liver with ascites; Translations: [Alcoholic cirrhosis of liver with ascites] Onset: 3 Unclassified (20 sources) Patient on antidepressant monitoring plan Onset: 4 06-25-2023 Urinary tract infections (5 sources) Urinary tract infection, site not specified; Translations: [UTI SITE NOT SPECIFIED] Onset: 3 Episodic Past or Other Problems Problem Classification Problem Date Documented Da te Episodic/Chronic Abdominal pain (20 sources) Unspecified abdominal pain; Translations: [Abdominal pain] Onset: 04-10-2022 Episodic Allergic reactions (20 sources) Contact dermatitis; Translations: [Unspecified contact dermatitis, unspecified cause] Onset: 09-14-2012 Resolved: 09-04-2022 09-04-2022 Episodic Intestinal infection (20 sources) Enterocolitis due to Clostridium difficile, not specified as recurrent; Translations: [Clostridioides difficile infection] Onset: 04-18-2022 Resolved: 09-04-2022 09-04-2022 Episodic Menstrual disorders (20 sources) Menometrorrhagia; Translations: [Excessive and frequent menstruation with irregular cycle] Onset: 09-04-2022 Resolved: 09-04-2022 09-04-2022 Chronic Mood disorders (20 sources) Mood disorders Onset: 09-04-2022 Resolved: 07-06-2024 09-04-2022 Osteoarthritis (20 sources) Localized, primary osteoarthritis; Translations: [Primary osteoarthritis, unspecified site] Onset: 05-23-2011 Resolved: 09-04-2022 09-04-2022 Chronic Other eye disorders (20 sources) Chalazion; Translations: [Chalazion unspecified eye, unspecified eyelid] Onset: 09-14-2012 Resolved: 09-04-2022 09-04-2022 Episodic Other gastrointestinal disorders (3 sources) Other ascites; Translations: [Other ascites] Onset: 04-08-2023 Episodic Other gastrointestinal disorders (20 sources) Diarrhea; Translations: [Diarrhea, unspecified] Onset: 08-03-2023 07-13-2023 Episodic Other liver diseases (3 sources) Hepatic failure, unspecified without coma; Translations: [Hepatic failure, unspecified without coma] Onset: 04-08-2023 Episodic Residual codes; unclassified (20 sources) Insomnia; Translations: [Insomnia, unspecified] Onset: 09-14-2012 09-04-2022 Episodic Residual codes; unclassified (20 sources) Family history of cancer of colon; Translations: [Family history of malignant neoplasm of digestive organs] Onset: 08-03-2023 07-13-2023 Episodic Residual codes; unclassified (1 source) Insomnia, unspecified; Translations: [Insomnia, unspecified] Onset: 08-25-2022 Episodic Spondylosis; intervertebral disc disorders; other back problems (20 sources) Chronic low back pain; Translations: [Chronic bilateral low back pain without sciatica] Onset: 09-04-2022 09-04-2022 Episodic Results Test Name Value Interpretation Reference Range Facility US.doppler Lower extremity v [facility] 01-21-2024 Exam: US - US RT LOWER EXTREMITY VENOUS LIMITED Clinical History: Right lower extremity pain Reference Exam: No comparison FINDINGS: Real-time ultrasonographic evaluation with color-flow Doppler sequencing and Doppler waveform analysis is provided for the deep venous system. The visualized right common femoral vein, superficial femoral vein, popliteal vein and veins of the trifurcation demonstrate appropriate compressibility and augmentation of flow. The greater saphenous vein is patent. No abnormality of the popliteal fossa is identified. Impression: No ultrasonographic evidence of deep venous thrombosis in the right lower extremity. Dictated on: 01/21/2024 2:13 PM This report has been electronically signed and approved by the interpreting Radiologist. Electronically Signed Georgie Contreras M.D. 2024-01-21 14:14:28 IMAGING Georgie Contreras MD - 01/21/2024 Exam: US - US RT LOWER EXTREMITY VENOUS LIMITED Clinical History: Right lower extremity pain Reference Exam: No comparison FINDINGS: Real-time ultrasonographic evaluation with color-flow Doppler sequencing and Doppler waveform analysis is provided for the deep venous system. The visualized right common femoral vein, superficial femoral vein, popliteal vein and veins of the trifurcation demonstrate appropriate compressibility and augmentation of flow. The greater saphenous vein is patent. No abnormality of the popliteal fossa is identified. Impression: No ultrasonographic evidence of deep venous thrombosis in the right lower extremity. Dictated on: 01/21/2024 2:13 PM This report has been electronically signed and approved by the interpreting Radiologist. Electronically Signed Georgie Contreras M.D. 2024-01-21 14:14:28 [facility] Radiology Study observation (narrative) [facility] US.doppler Lower extremity v ein - rightOrdered By: Georgie Contreras on 01-21-2024 [facility] Work Phone: [facility] US LOWER EXTREMITY VENO US DUPLEX RIGHTon 01-21-2024 VASC US LOWER EXTREMITY VENOUS DUPLEX RIGHT Exam: US - US RT LOWER EXTREMITY VENOUS LIMITED Clinical History: Right lower extremity pain Reference Exam: No comparison FINDINGS: Real-time ultrasonographic evaluation with color-flow Doppler sequencing and Doppler waveform analysis is provided for the deep venous system. The visualized right common femoral vein, superficial femoral vein, popliteal vein and veins of the trifurcation demonstrate appropriate compressibility and augmentation of flow. The greater saphenous vein is patent. No abnormality of the popliteal fossa is identified. Impression: No ultrasonographic evidence of deep venous thrombosis in the right lower extremity. Dictated on: 01/21/2024 2:13 PM This report has been electronically signed and approved by the interpreting Radiologist. Electronically Signed Georgie Contreras M.D. 2024-01-21 14:14:28 Normal Not Available HCG,Urineon 08-12-2023 Beta HCG ( test) Ql (U) Negative Normal [facility] Comment on above: Result Comment: PERF ORMED BY: [place] [address] PATHOLOGIST SEARCHLIGHT OPERATOR YIFAN CORTEZ M.D. Performed By: #### M G #### [address] Eddie 08-12-2023 L Specimen: [id number] Received: 08/12/23 Status: BOB Steven Num: [id number] Spec Type: Surgical Subm Dr: Erin Reynoso MD Tissues: A Colon Biopsy (RANDOM COLON BX) Procedures: HE/2, Gross/Micro L4 Age/ Patient Sex Location Account Attending Physician Whitney Miller 37/F [id number] Erin Reynoso MD SPEC NUM: [id number] RECD: 08/12/23 STATUS: BOB STEVEN NUM: [id number] AMRIT: 08/12/23 DR: Erin Reynoso MD ENTERED: 08/12/23 [facility] DR: SPEC TYPE: Surgical DEPT: S ORDERED: HE/2, Gross/Micro L4 ORDERED: HE/2, Gross/Micro L4 Pathological Diagnosis Colon, biopsies: ? No active colitis, features of microscopic (lymphocytic) colitis, collagenous colitis or other diagnostic abnormalities. Gross Description Received in formalin, labeled with the patient's name, date of and random colon are 4 vazquez mucosal tissue fragments ranging from 0.4 x 0.4 x 0.1 cm to 0.2 x 0.2 x 0.1 cm, entirely submitted in A1. Clinical history: Family history of colon cancer. Rule out microscopic colitis CPT Codes 91932 Specimen: [id number] Received: 08/12/23 Status: BOB Steven Num: [id number] Spec Type: Surgical Subm Dr: Erin Reynoso MD Tissues: A Colon Biopsy (RANDOM COLON BX) Procedures: HE/2, Gross/Micro L4 Patient: Whitney Miller [id number] (Continued) Signed (signature on file) Josue Coy MD 08/13/23 1116 Normal [facility] NV gastric emptying studyon 07-27-2023 [place] [address] Nuclear Medicine Report Signed Patient: Whitney Miller MR#: [id number] : 1985 Acct:[id number] Age/Sex: 37 / F ADM Date: 07/27/23 Loc: [place] Room: Type: [facility] Attending Dr: Erin Reynoso MD Copies to: MD João Marinelli Jr, DO Ordering Provider: Erin Reynoso MD Date of Service: 07/27/23 NV/NV gastric emptying study: R10.9 - Unspecified abdominal pain GASTRIC EMPTYING STUDY: CLINICAL HISTORY: Bloating diarrhea for several years. TECHNIQUE: Following the oral ingestion of 1.1 mCi Tc 99m labeled sulfur colloid was ingested and delayed images were obtained. FINDINGS: At 30 minutes, 62% of the radiotracer remains within the stomach. At 1 hour, 32% of the radiotracer remained within the stomach. A 2 hours, 22% of the radiotracer remained within the stomach. At 3 hours, 7% of the radiotracer remained within the stomach. At 4 hours, 0% of the radiotracer remained within the stomach. NM/NM gastric emptying study IMPRESSION: NO SCINTIGRAPHIC EVIDENCE OF GASTROPARESIS. Impression dictated by: João Helm Jr., D.O.07/27/2023 11:21 AM Dictation Location: [place] [address] Transcribed By: [facility] 07/27/23 1121 Dictated By: João Helm Jr, DO 07/27/23 1118 Signed By: 07/27/23 1121 Normal [facility] US liveron 04-08-2023 US liver [place] [id number] Ultrasound Report Signed Patient: Whitney Miller MR#: [id number] : 1985 Acct:[id number] Age/Sex: 37 / F ADM Date: 04/08/23 Loc: Room: Type: [facility] Attending Dr: Erin Reynoso MD Ordering Provider: Erin Reynoso MD Date of Service: 04/08/23 US/US liver: Ascites;Alcoholic cirrhosis;Portal hypertension;Hepatic ence Copies to: Erin Reynoso MD LIMITED ABDOMINAL ULTRASOUND: CLINICAL HISTORY: Alcoholic cirrhosis. COMPARISON: CT abdomen 2022 TECHNIQUE: Grayscale and color Doppler images of the right upper quadrant organs were obtained. FINDINGS: Pancreas: Visualized portions appear unremarkable. Liver: Cirrhotic liver without focal mass or intrahepatic bile duct dilatation. Hepatopedal flow seen within the portal vein. Gallbladder: Unremarkable. CBD: 3.6 mm US/US liver IMPRESSION: CIRRHOTIC LIVER WITHOUT MASS.. Impression dictated by: João Helm Jr., D.O.04/08/2023 1:13 PM Dictation Location: [facility]14 Tech: Marlney Deshpande Transcribed By: ASHLEY 04/08/23 1313 Dictated By: João Helm Jr, DO 04/08/23 1312 Signed By: 04/08/23 1313 Normal [facility] CT abdomen wo/w conon 2022 CT abdomen wo/w con [facility] Main [place] [id number] CT Scan Report Signed Patient: Whitney Miller MR#: [id number] : 1985 Acct:[id number] Age/Sex: 37 / F ADM Date: 10/30/22 Loc: CT Room: Type: [facility] Attending Dr: Erin Reynoso MD Copies to: Erin Reynoso MD Ordering Provider: Erin Reynoso MD Date of Service: 10/30/22 CT/CT abdomen wo/w con: Alcoholic cirrhosis;Elevated AFP CT ABDOMEN WITH AND WITHOUT INTRAVENOUS CONTRAST: CLINICAL HISTORY: Cirrhosis. Elevated AFP. COMPARISON: Liver ultrasound 08/26/2022 TECHNIQUE: Spiral images were obtained through the abdomen before and after the administration of intravenous contrast. This CT exam was performed using one or more following dose reduction techniques: Automated exposure control, adjustment of the mA and/or kV according to patient size, or use of iterative reconstruction technique. FINDINGS: Lung Bases: [Minimal lung scarring.] Organs:Liver appears cirrhotic in morphology without evidence of steatosis or intrahepatic ductal dilatation. No arterially enhancing lesion with washout is identified to suggest hepatocellular carcinoma.[Hepatic and portal veins appear patent. Gallbladder spleen pancreas and adrenal glands all appear unremarkable. No enhancing renal mass or hydronephrosis. Abdominal aorta appears normal in caliber. GI: Stomach is grossly unremarkable. Visualized small bowel and colon demonstrate no acute process.[ Peritoneum/Retroperitoneum :No free air, free fluid or lymphadenopathy.[ Abd wall/Bones:Abdominal wall demonstrate no acute findings. Osseous structures demonstrate degenerative change. Grade 1 spondylolisthesis of the presumed L4 vertebral body level due to bilateral pars defects.[ CT/CT abdomen wo/w con IMPRESSION: Cirrhotic liver without CT evidence of hepatocellular carcinoma. Impression dictated by: João Helm Jr., D.ONando2022 1:00 PM Dictation Location: [place] [address] Transcribed By: [facility] 10/30/22 1300 Dictated By: João Helm Jr, DO 10/30/22 1244 Signed By: 10/30/22 1300 Normal [facility] AFP Tumor Marker, Serumon AFP Tumor Marker, Serum 6.5 ng/mL High 0.0-6.4 [facility] Comment on above: Order Comment: Comme nt add on to previous draw Result Comment: [facility] Electrochemiluminescence Immunoassay (ECLIA) Values obtained with different assay methods or kits cannot be used interchangeably. Results cannot be interpreted as absolute evidence of the presence or absence of malignant disease. This test is not interpretable in females. Performed at: [facility] [id number] Petrologist: Trenton Tejada PhD, Phone: [phone] PERFORMED BY: [place] [address] PATHOLOGIST SEARCHLIGHT OPERATOR YIFAN CORTEZ M.D. Performed By: #### H EPATIC #### [address] Alanine aminotransferase [En zymatic activity/volume] in Serum or PlasmaOrdered By: Imad Asaad on 10-02-2022 ALT [Catalytic activity/Vol] 28 U/L 752 [facility] Albumin [Mass/volume] in Ser um or Plasma by Bromocresol green (BCG) dye binding methoOrdered By: Imad Asaad on 10-02-2022 Albumin BCG dye [Mass/Vol] 4.9 g/dL 3.5-5.7 [facility] Alkaline phosphatase [Enzyma tic activity/volume] in Serum or PlasmaOrdered By: Imad Asaad on 10-02-2022 ALP [Catalytic activity/Vol] 58 U/L 34-104 [facility] Aspartate aminotransferase [ Enzymatic activity/volume] in Serum or PlasmaOrdered By: Imad Asaad on 10-02-2022 AST [Catalytic activity/Vol] 22 U/L 13-39 [facility] Basic Metabolic Panelon 09-12 Anion gap [Moles/Vol] 12.0 mmol/L Normal 6.0-15.0 [facility] Comment on above: Order Comment: Comme nt add on to ER draw Performed By: #### M G #### [address] Calcium [Mass/Vol] 10.2 mg/dL Normal 8.6-10.3 [facility] Comment on above: Order Comment: Comme nt add on to ER draw Result Comment: PERF ORMED BY: [place] [address] PATHOLOGIST SEARCHLIGHT OPERATOR YIFAN CORTEZ M.D. Performed By: #### M G #### [address] Chloride [Moles/Vol] 103 mmol/L Normal 98-107 [facility] Comment on above: Order Comment: Comme nt add on to ER draw Performed By: #### M G #### [address] CO2 [Moles/Vol] 25.2 mmol/L Normal 21.0-31.0 [facility] Comment on above: Order Comment: Comme nt add on to ER draw Performed By: #### M G #### [address] Creatinine [Mass/Vol] 0.64 mg/dL Normal 0.60-1.20 [facility] Comment on above: Order Comment: Comme nt add on to ER draw Performed By: #### M G #### [place] [address] [place] GFR/1.73 sq M.predicted MDRD (S/P/Bld) [Vol rate/Area] mL/min/{1.73_m2} Normal [facility] Comment on above: Order Comment: Comme nt add on to ER draw Performed By: #### M G #### [place] [address] [place] Glucose [Mass/Vol] 80 mg/dL Normal 70-100 [facility] Comment on above: Order Comment: Comme nt add on to ER draw Result Comment: [place] Glucose Reference Range is dependent on time and content of last meal. Glucose of more than 200 mg/dL in a nonstressed, ambulatory subject supports the diagnosis of Diabetes Mellitus. ADA recommended reference range Performed By: #### M G #### [place] [address] [place] Potassium [Moles/Vol] 4.2 mmol/L Normal 3.5-5.1 [facility] Comment on above: Order Comment: Comme nt add on to ER draw Performed By: #### M G #### [facility] [address] Sodium [Moles/Vol] 136 mmol/L Normal 136-145 [facility] Comment on above: Order Comment: Comme nt add on to ER draw Performed By: #### M G #### [facility] [address] Urea nitrogen [Mass/Vol] 13 mg/dL Normal 7-25 [facility] Comment on above: Order Comment: Comme nt add on to ER draw Performed By: #### M G #### [facility] [address] Basophils Auto (Bld) [#/Vol] Ordered By: Imad Asaad on 10-02-2022 Basophils (Bld) [#/Vol] 0.1 10*3/uL 0.0-0.2 [facility] Basophils/100 WBC Auto (Bld) Ordered By: Imad Asaad on 10-02-2022 Basophils/100 WBC (Bld) 1.1 % . [facility] Bilirubin.direct [Mass/volum e] in Serum or PlasmaOrdered By: Imad Asaad on 10-02-2022 Bilirubin.direct [Mass/Vol] 0.10 mg/dL 0.03-0.18 [facility] Bilirubin.total [Mass/volume ] in Serum or PlasmaOrdered By: Imad Asaad on 10-02-2022 Bilirubin [Mass/Vol] 0.5 mg/dL 0.3-1.0 [facility] Calcium [Mass/volume] in Ser um or PlasmaOrdered By: Imad Asaad on 10-02-2022 Calcium [Mass/Vol] 10.2 mg/dL 8.6-10.3 [facility] Carbon dioxide, total [Moles /volume] in Serum or PlasmaOrdered By: Imad Asaad on 10-02-2022 CO2 [Moles/Vol] 25.2 mmol/L 21.0-31.0 [facility] Chloride [Moles/volume] in S dom or PlasmaOrdered By: Imad Asaad on 10-02-2022 Chloride [Moles/Vol] 103 mmol/L 98-107 [facility] Complete Blood Count Auto Di ffon 10-02-2022 Basophils (Bld) [#/Vol] 0.1 10*3/uL Normal 0.0-0.2 [facility] Comment on above: Order Comment: Comme nt add on to ER draw Result Comment: PERF ORMED BY: [place] [address] PATHOLOGIST SEARCHLIGHT OPERATOR YIFAN CORTEZ M.D. Performed By: #### M G #### [address] Basophils/100 WBC (Bld) 1.1 % Normal . [facility] Comment on above: Order Comment: Comme nt add on to ER draw Performed By: #### M G #### [address] Eosinophils (Bld) [#/Vol] 0.1 10*3/uL Normal 0.0-0.45 [facility] Comment on above: Order Comment: Comme nt add on to ER draw Performed By: #### M G #### [address] Eosinophils/100 WBC (Bld) 1.2 % Normal . [facility] Comment on above: Order Comment: Comme nt add on to ER draw Performed By: #### M G #### [address] Erythrocyte distribution width (RBC) [Ratio] 18.7 % High 11.9-15.3 [facility] Comment on above: Order Comment: Comme nt add on to ER draw Performed By: #### M G #### [address] Hematocrit (Bld) [Volume fraction] 41.9 % Normal 34.0-46.4 [facility] Comment on above: Order Comment: Comme nt add on to ER draw Performed By: #### M G #### [address] Hemoglobin (Bld) [Mass/Vol] 14.1 g/dL Normal 11.8-15.4 [facility] Comment on above: Order Comment: Comme nt add on to ER draw Performed By: #### M G #### [address] Lymphocytes (Bld) [#/Vol] 2.8 10*3/uL Normal 1.00-4.8 [facility] Comment on above: Order Comment: Comme nt add on to ER draw Performed By: #### M G #### [address] Lymphocytes/100 WBC (Bld) 27.6 % Normal . [facility] Comment on above: Order Comment: Comme nt add on to ER draw Performed By: #### M G #### [address] MCH (RBC) [Entitic mass] 33.1 pg Normal 24.7-34.3 [facility] Comment on above: Order Comment: Comme nt add on to ER draw Performed By: #### M G #### [address] MCV (RBC) [Entitic vol] 98.5 fL Normal 80-100 [facility] Comment on above: Order Comment: Comme nt add on to ER draw Performed By: #### M G #### [address] Mean Corpuscular HGB Conc 33.6 g/dL Normal 32.0-35.0 [facility] Comment on above: Order Comment: Comme nt add on to ER draw Performed By: #### M G #### [address] Monocytes (Bld) [#/Vol] 0.5 10*3/uL Normal 0.0-0.8 [facility] Comment on above: Order Comment: Comme nt add on to ER draw Performed By: #### M G #### [address] Monocytes/100 WBC (Bld) 4.6 % Normal . [facility] Comment on above: Order Comment: Comme nt add on to ER draw Performed By: #### M G #### [address] Neutrophils (Bld) [#/Vol] 6.7 10*3/uL Normal 1.8-7.7 [facility] Comment on above: Order Comment: Comme nt add on to ER draw Performed By: #### M G #### [address] Neutrophils/100 WBC (Bld) 65.5 % Normal . [facility] Comment on above: Order Comment: Comme nt add on to ER draw Performed By: #### M G #### [address] NRBC% 0.0 /100{WBC} Normal 0-0.5 [facility] Comment on above: Order Comment: Comme nt add on to ER draw Performed By: #### M G #### [address] Platelet mean volume (Bld) [Entitic vol] 8.8 fL Normal 6.3-10.7 [facility] Comment on above: Order Comment: Comme nt add on to ER draw Performed By: #### M G #### [place] [address] [place] Platelets (Bld) [#/Vol] 240 10*3/uL Normal 150-450 [facility] Comment on above: Order Comment: Comme nt add on to ER draw Performed By: #### M G #### [place] [address] [place] RBC (Bld) [#/Vol] 4.26 10*6/uL Normal 3.60-5.00 [facility] Comment on above: Order Comment: Comme nt add on to ER draw Performed By: #### M G #### [place] [address] [place] WBC (Bld) [#/Vol] 10.3 10*3/uL Normal 3.8-11.6 [facility] Comment on above: Order Comment: Comme nt add on to ER draw Performed By: #### M G #### [facility] [address] Creatinine [Mass/volume] in Serum or PlasmaOrdered By: Imad Asaad on 10-02-2022 Creatinine [Mass/Vol] 0.64 mg/dL 0.60-1.20 [facility] System Eosinophils Auto (Bld) [#/Vo l]Ordered By: Imad Asaad on 10-02-2022 Eosinophils (Bld) [#/Vol] 0.1 10*3/uL 0.0-0.45 [facility] Eosinophils/100 WBC Auto (Bl d)Ordered By: Imad Asaad on 10-02-2022 Eosinophils/100 WBC (Bld) 1.2 % . [facility] Erythrocyte distribution wid th Auto (RBC) [Ratio]Ordered By: Imad Asaad on 10-02-2022 Erythrocyte distribution width (RBC) [Ratio] 18.7 % 11.9-15.3 [facility] Globulin Calc (S) [Mass/Vol] Ordered By: Imad Asaad on 10-02-2022 Globulin (S) [Mass/Vol] 2.1 g/dL [facility] Glucose [Mass/volume] in Ser um or PlasmaOrdered By: Imad Asaad on 10-02-2022 Glucose [Mass/Vol] 80 mg/dL 70-100 [facility] Comment on above: ADA recommended refe rence rangeRandom Glucose Reference Range is dependent on time and content of last meal. Glucose of more than 200 mg/dL in a nonstressed, ambulatory subject supports the diagnosis of Diabetes Mellitus. Hematocrit Auto (Bld) [Volum e fraction]Ordered By: Imad Asaad on 10-02-2022 Hematocrit (Bld) [Volume fraction] 41.9 % 34.0-46.4 [facility] Hemoglobin [Mass/volume] in BloodOrdered By: Imad Asaad on 10-02-2022 Hemoglobin (Bld) [Mass/Vol] 14.1 g/dL 11.8-15.4 [facility] Hepatic Panelon 10-02-2022 Albumin [Mass/Vol] 4.9 g/dL Normal 3.5-5.7 [facility] Comment on above: Order Comment: Comme nt add on to ER draw Performed By: #### M G #### [address] Albumin/Globulin [Mass ratio] 2.3 {ratio} Normal [facility] Comment on above: Order Comment: Comme nt add on to ER draw Performed By: #### M G #### [address] ALP [Catalytic activity/Vol] 58 U/L Normal 34-104 [facility] Comment on above: Order Comment: Comme nt add on to ER draw Performed By: #### M G #### [address] ALT [Catalytic activity/Vol] 28 U/L Normal 7-52 [facility] Comment on above: Order Comment: Comme nt add on to ER draw Performed By: #### M G #### [place] [address] [place] AST [Catalytic activity/Vol] 22 U/L Normal 13-39 [facility] Comment on above: Order Comment: Comme nt add on to ER draw Performed By: #### M G #### [place] [address] [place] Bilirubin [Mass/Vol] 0.5 mg/dL Normal 0.3-1.0 [facility] Comment on above: Order Comment: Comme nt add on to ER draw Performed By: #### M G #### [place] [address] [place] Bilirubin,Indirect 0.4 mg/dL Normal [facility] Comment on above: Order Comment: Comme nt add on to ER draw Performed By: #### M G #### [place] [id number] [facility] Bilirubin.indirect [Mass/Vol] 0.10 mg/dL Normal 0.03-0.18 [facility] Comment on above: Order Comment: Comme nt add on to ER draw Performed By: #### M G #### [address] Globulin (S) [Mass/Vol] 2.1 g/dL Normal [facility] Comment on above: Order Comment: Comme nt add on to ER draw Performed By: #### M G #### [address] Protein [Mass/Vol] 7.0 g/dL Normal 6.4-8.9 [facility] Comment on above: Order Comment: Comme nt add on to ER draw Performed By: #### M G #### [address] Hepatitis A Antibody Totalon 10-02-2022 Hepatitis A Antibody Total Positive Critically abnormal Negative [facility] Comment on above: Order Comment: Comme nt add on to ER draw Result Comment: Perf ormed at: CB - [facility] [place] [address] Petrologist: Trenton Tejada PhD, Phone: [phone] Performed By: #### M G #### [address] Hepatitis A virus Ab [Presen ce] in Serum by ImmunoassayOrdered By: Erin Reynoso on 10-02-2022 HAV Ab IA Ql (S) Positive Negative [facility] Comment on above: Performed at: CB - [facility] [place] [address]Lab Director: Trenton Tejada PhD, Phone: [phone] Hepatitis B Core Antibodyon 10-02-2022 Hepatitis B Core Antibody Negative Normal Negative [facility] Comment on above: Order Comment: Comme nt add on to previous draw Performed By: #### H EPATIC #### [address] Hepatitis B Surface Antibody on 10-02-2022 Hepatitis B Surface Antibody Non-Reactive Normal . [facility] Comment on above: Order Comment: Comme nt add on to previous draw Result Comment: Non Reactive: Inconsistent with immunity, less than 10 mIU/mL Reactive: Consistent with immunity, greater than 9.9 mIU/mL Performed By: #### H EPATIC #### [facility] [address] Hepatitis B Surface Antigeno n 10-02-2022 HBsAg Screen Negative Normal Negative [facility] Comment on above: Order Comment: Comme nt add on to previous draw Result Comment: PERF ORMED BY: [facility] [address] [place] [address] PATHOLOGIST SEARCHLIGHT OPERATOR YIFAN CORTEZ M.D. Performed By: #### H EPATIC #### [facility] [address] Hepatitis B virus surface Ag [Presence] in Serum or Plasma by ImmunoassayOrdered By: Erin Reynoso on 10-02-2022 HBV surface Ag IA Ql Negative Negative [facility] - CoagulationOrde red By: Imbuddy Reynoso on 10-02-2022 PT Coag (PPP) [Time] 11.8 s 9.0-12.9 [facility] Leukocytes [#/volume] correc andrews for nucleated erythrocytes in Blood by Automated counOrdered By: Imbuddy Reynoso on 10-02-2022 WBC corrected for nucl RBC Auto (Bld) [#/Vol] 10.3 10*3/uL 3.8-11.6 [facility] Lymphocytes Auto (Bld) [#/Vo l]Ordered By: Imad Asaad on 10-02-2022 Lymphocytes (Bld) [#/Vol] 2.8 10*3/uL 1.00-4.8 [facility] Lymphocytes/100 WBC Auto (Bl d)Ordered By: Imad Asaad on 10-02-2022 Lymphocytes/100 WBC (Bld) 27.6 % . [facility] MCH Auto (RBC) [Entitic mass ]Ordered By: Imad Asaad on 10-02-2022 MCH (RBC) [Entitic mass] 33.1 pg 24.7-34.3 [facility] MCHC Auto (RBC) [Mass/Vol]Or dered By: Imad Asaad on 10-02-2022 MCHC (RBC) [Mass/Vol] 33.6 g/dL 32.0-35.0 [facility] MCV Auto (RBC) [Entitic vol] Ordered By: Imad Asaad on 10-02-2022 MCV (RBC) [Entitic vol] 98.5 fL 80-100 [facility] Monocytes Auto (Bld) [#/Vol] Ordered By: Imad Asaad on 10-02-2022 Monocytes (Bld) [#/Vol] 0.5 10*3/uL 0.0-0.8 [facility] Monocytes/100 WBC Auto (Bld) Ordered By: Imad Asaad on 10-02-2022 Monocytes/100 WBC (Bld) 4.6 % . [facility] Neutrophils Auto (Bld) [#/Vo l]Ordered By: Imad Asaad on 10-02-2022 Neutrophils (Bld) [#/Vol] 6.7 10*3/uL 1.8-7.7 [facility] Neutrophils/100 WBC Auto (Bl d)Ordered By: Imad Asaad on 10-02-2022 Neutrophils/100 WBC (Bld) 65.5 % . [facility] No Panel InformationOrdered By: Imad Asaad on 10-02-2022 Estimated GFR (CKD-EPI) > 60.0 mL/Min [facility] Hepatitis B Core Total Antibody Negative Negative [facility] Creatinine Clearance (Chem N/A [facility] Nucleated erythrocytes [Pres ence] in Blood by Automated countOrdered By: Imad Asaad on 10-02-2022 Nucleated RBC Auto Ql (Bld) 0.0 /100{WBC} 0-0.5 [facility] Platelet mean volume Auto (B ld) [Entitic vol]Ordered By: Imad Asaad on 10-02-2022 Platelet mean volume (Bld) [Entitic vol] 8.8 fL 6.3-10.7 [facility] Platelet poor plasma interna tional normalized ratio (INR) by coagulation assay (relatOrdered By: Imad Asaad on 10-02-2022 INR Coag (PPP) [Relative time] 1.0 {INR} [facility] Comment on above: INR Therapeutic Rang e A) Pre- and Peroperative OAT started two weeks before surgery. NOT HIP SURGERY: 1.5 - 2.5 HIP SURGERY: 2 - 3B) Primary and secondary prevention of venous THROMBOSIS: 2 - 3C) Active venous thrombosis, pulmonary embolismand prevention of recurrent venous thrombosis: 2 - 3D) Prevention of arterial thromboembolismincluding patients with mechanical heart valves: 3 - 4.5 Platelets Auto (Bld) [#/Vol] Ordered By: Imad Asaad on 10-02-2022 Platelets (Bld) [#/Vol] 240 10*3/uL 150-450 [facility] Potassium [Moles/volume] in Serum or PlasmaOrdered By: Imad Asaad on 10-02-2022 Potassium [Moles/Vol] 4.2 mmol/L 3.5-5.1 [facility] Protein [Mass/volume] in Ser um or PlasmaOrdered By: Imad Asaad on 10-02-2022 Protein [Mass/Vol] 7.0 g/dL 6.4-8.9 [facility] Prothrombin Time INRon 10-02 INR Coag (PPP) [Relative time] 1.0 {INR} Normal [facility] Comment on above: Order Comment: Comme nt add on to ER draw Result Comment: INR Therapeutic Range A) Pre- and Peroperative OAT started two weeks before surgery. NOT HIP SURGERY: 1.5 - 2.5 HIP SURGERY: 2 - 3 B) Primary and secondary prevention of venous THROMBOSIS: 2 - 3 C) Active venous thrombosis, pulmonary embolism and prevention of recurrent venous thrombosis: 2 - 3 D) Prevention of arterial thromboembolism including patients with mechanical heart valves: 3 - 4.5 PERFORMED BY: [place] [address] PATHOLOGIST SEARCHLIGHT OPERATOR YIFAN CORTEZ M.D. Performed By: #### M G #### [facility] [address] [place] [address] PT Coag (PPP) [Time] 11.8 s Normal 9.0-12.9 [facility] Comment on above: Order Comment: Comme nt add on to ER draw Performed By: #### M G #### [facility] [address] [place] [address] RBC Auto (Bld) [#/Vol]Ordere d By: Erin Reynoso on 10-02-2022 RBC (Bld) [#/Vol] 4.26 10*6/uL 3.60-5.00 [facility] Serum hepatitis B virus surf flakita antibody detectionOrdered By: Erin Reynoso on 10-02-2022 HBV surface Ab Ql (S) Non-Reactive . [facility] Comment on above: Non Reactive: Incons istent with immunity, less than 10 mIU/mL Reactive: Consistent with immunity, greater than 9.9 mIU/mL Serum or plasma albumin/glob ulin mass ratioOrdered By: Imbuddy Reynoso on 10-02-2022 Albumin/Globulin [Mass ratio] 2.3 {ratio} [facility] Serum or plasma [id number]-[id number] protein tumor marker measurement (mass/volume)Ordered By: Erin Reynoso on 10-02-2022 AFP.tumor marker [Mass/Vol] 6.5 ng/mL 0.0-6.4 [facility] Comment on above: [facility] [employer] El ectrochemiluminescence Immunoassay(ECLIA)Values obtained with different assay methods or kits cannotbe used interchangeably. Results cannot be interpreted asabsolute evidence of the presence or absence of malignantdisease.This test is not interpretable in females.Performed at: [facility] [id number] Director: Trenton Tejada PhD, Phone: [phone] Serum or plasma anion gap de terminationOrdered By: Erin Reynoso on 10-02-2022 Anion gap [Moles/Vol] 12.0 mmol/L 6.0-15.0 [facility] Serum or plasma non-glucuron idated bilirubin measurement (mass/volume)Ordered By: Erin Reynoso on 10-02-2022 Bilirubin.indirect [Mass/Vol] 0.4 mg/dL [facility] Sodium [Moles/volume] in Ser um or PlasmaOrdered By: Imbuddy Reynoso on 10-02-2022 Sodium [Moles/Vol] 136 mmol/L 136-145 [facility] Urea nitrogen [Mass/volume] in Serum or PlasmaOrdered By: Imbuddy Reynoso on 10-02-2022 Urea nitrogen [Mass/Vol] 13 mg/dL 7-25 [facility] WBC Auto (Bld) [#/Vol]Ordere d By: Imad Asaad on 10-02-2022 WBC (Bld) [#/Vol] 10.3 10*3/uL 3.8-11.6 [facility] Erythrocyte distribution wid th Auto (RBC) [Ratio]Ordered By: Homa Arnoldobrayan on 08-27-2022 Erythrocyte distribution width (RBC) [Ratio] 21.6 % 11.9-15.3 [facility] Hematocrit Auto (Bld) [Volum e fraction]Ordered By: Homa Arnoldosocolleen on 08-27-2022 Hematocrit (Bld) [Volume fraction] 29.6 % 34.0-46.4 [facility] Hemoglobin [Mass/volume] in BloodOrdered By: Randeesourav Wilmercolleen on 08-27-2022 Hemoglobin (Bld) [Mass/Vol] 10.1 g/dL 11.8-15.4 [facility] Hemogram CBC Without Diffon 08-27-2022 Erythrocyte distribution width (RBC) [Ratio] 21.6 % High 11.9-15.3 [facility] Comment on above: Performed By: #### H EPATIC #### [address] Hematocrit (Bld) [Volume fraction] 29.6 % Low 34.0-46.4 [facility] Comment on above: Performed By: #### H EPATIC #### [address] Hemoglobin (Bld) [Mass/Vol] 10.1 g/dL Low 11.8-15.4 [facility] Comment on above: Performed By: #### H EPATIC #### [address] MCH (RBC) [Entitic mass] 35.1 pg High 24.7-34.3 [facility] Comment on above: Performed By: #### H EPATIC #### [address] MCV (RBC) [Entitic vol] 103.0 fL High 80-100 [facility] Comment on above: Performed By: #### H EPATIC #### [address] Mean Corpuscular HGB Conc 34.1 g/dL Normal 32.0-35.0 [facility] Comment on above: Performed By: #### H EPATIC #### [address] Platelet mean volume (Bld) [Entitic vol] 9.6 fL Normal 6.3-10.7 [facility] Comment on above: Result Comment: PERF ORMED BY: [place] [address] PATHOLOGIST SEARCHLIGHT OPERATOR YIFAN CORTEZ M.D. Performed By: #### H EPATIC #### [address] Platelets (Bld) [#/Vol] 82 10*3/uL Low 150-450 [facility] Comment on above: Performed By: #### H EPATIC #### [address] RBC (Bld) [#/Vol] 2.87 10*6/uL Low 3.60-5.00 [facility] Comment on above: Performed By: #### H EPATIC #### [address] WBC (Bld) [#/Vol] 3.8 10*3/uL Normal 3.8-11.6 [facility] Comment on above: Performed By: #### H EPATIC #### [address] Leukocytes [#/volume] correc andrews for nucleated erythrocytes in Blood by Automated counOrdered By: Homa Buckner on 08-27-2022 WBC corrected for nucl RBC Auto (Bld) [#/Vol] 3.8 10*3/uL 3.8-11.6 [facility] MCH Auto (RBC) [Entitic mass ]Ordered By: Homa Buckner on 08-27-2022 MCH (RBC) [Entitic mass] 35.1 pg 24.7-34.3 [facility] MCHC Auto (RBC) [Mass/Vol]Or dered By: Homa Buckner on 08-27-2022 MCHC (RBC) [Mass/Vol] 34.1 g/dL 32.0-35.0 [facility] MCV Auto (RBC) [Entitic vol] Ordered By: oHma Buckner on 08-27-2022 MCV (RBC) [Entitic vol] 103.0 fL 80-100 [facility] Platelet mean volume Auto (B ld) [Entitic vol]Ordered By: Homa Buckner on 08-27-2022 Platelet mean volume (Bld) [Entitic vol] 9.6 fL 6.3-10.7 [facility] Platelets Auto (Bld) [#/Vol] Ordered By: Homa Buckner on 08-27-2022 Platelets (Bld) [#/Vol] 82 10*3/uL 150-450 [facility] RBC Auto (Bld) [#/Vol]Ordere d By: Homa Buckner on 08-27-2022 RBC (Bld) [#/Vol] 2.87 10*6/uL 3.60-5.00 [facility] Alanine aminotransferase [En zymatic activity/volume] in Serum or PlasmaOrdered By: Saira Bruce on 08-26-2022 ALT [Catalytic activity/Vol] 37 U/L 7-52 [facility] Albumin [Mass/volume] in Ser um or Plasma by Bromocresol green (BCG) dye binding methoOrdered By: Saira Bruce on 08-26-2022 Albumin BCG dye [Mass/Vol] 3.5 g/dL 3.5-5.7 [facility] Alkaline phosphatase [Enzyma tic activity/volume] in Serum or PlasmaOrdered By: Saira Bruce on 08-26-2022 ALP [Catalytic activity/Vol] 113 U/L 34-104 [facility] Amylaseon 08-26-2022 Amylase [Catalytic activity/Vol] 38 U/L Normal 29-103 [facility] Comment on above: Performed By: #### C MP, ALEX, LIPASE, MG, CBC ####[facility] [id number] [place] [id number] [facility]#### HEPACUTE ####[facility] , Amylase [Enzymatic activity/ volume] in Serum or PlasmaOrdered By: Saira Bruce on 08-26-2022 Amylase [Catalytic activity/Vol] 38 U/L [facility] Aspartate aminotransferase [ Enzymatic activity/volume] in Serum or PlasmaOrdered By: Saira Bruce on 08-26-2022 AST [Catalytic activity/Vol] 141 U/L [facility] Basophils Auto (Bld) [#/Vol] Ordered By: Saira Bruce on 08-26-2022 Basophils (Bld) [#/Vol] 0.0 10*3/uL 0.0-0.2 [facility] Basophils/100 WBC Auto (Bld) Ordered By: Saira Bruce on 08-26-2022 Basophils/100 WBC (Bld) 0.6 % . [facility] Bilirubin.total [Mass/volume ] in Serum or PlasmaOrdered By: Saira Bruce on 08-26-2022 Bilirubin [Mass/Vol] 1.4 mg/dL 0.3-1.0 [facility] Comment on above: Samples from patient s who have taken Naproxen have shown spurious elevation in Total Bilirubin levels. A metabolite of Naproxen, O-desmethylnaproxen, has been shown to interfere with the Yudith-Isaac method for measuring Total Bilirubin. Calcium [Mass/volume] in Ser um or PlasmaOrdered By: Saira Bruce on 08-26-2022 Calcium [Mass/Vol] 8.5 mg/dL 8.6-10.3 [facility] Carbon dioxide, total [Moles /volume] in Serum or PlasmaOrdered By: Saira Bruce on 08-26-2022 CO2 [Moles/Vol] 26.6 mmol/L 21.0-31.0 [facility] Chloride [Moles/volume] in S dom or PlasmaOrdered By: Saira Bruce on 08-26-2022 Chloride [Moles/Vol] 98 mmol/L 98-107 [facility] Complete Blood Count Auto Di ffon 08-26-2022 Basophils (Bld) [#/Vol] 0.0 10*3/uL Normal 0.0-0.2 [facility] Comment on above: Result Comment: PERF ORMED BY: [facility] [place] [address] PATHOLOGIST SEARCHLIGHT OPERATOR YIFAN CORTEZ M.D. Performed By: #### C MP, ALEX, LIPASE, MG, CBC ####[address]#### HEPACUTE ####[facility] , Basophils/100 WBC (Bld) 0.6 % Normal . [facility] Comment on above: Performed By: #### C MP, ALEX, LIPASE, MG, CBC ####[address]#### HEPACUTE ####[facility] , Eosinophils (Bld) [#/Vol] 0.0 10*3/uL Normal 0.0-0.45 [facility] Comment on above: Performed By: #### C MP, ALEX, LIPASE, MG, CBC ####[address]#### HEPACUTE ####[facility] , Eosinophils/100 WBC (Bld) 0.9 % Normal . [facility] Comment on above: Performed By: #### C MP, ALEX, LIPASE, MG, CBC ####[place] [address] [place]#### HEPACUTE ####[facility] , Erythrocyte distribution width (RBC) [Ratio] 22.6 % High 11.9-15.3 [facility] Comment on above: Performed By: #### C MP, AELX, LIPASE, MG, CBC ####[place] [address] [place]#### HEPACUTE ####[facility] , Hematocrit (Bld) [Volume fraction] 32.1 % Low 34.0-46.4 [facility] Comment on above: Performed By: #### C MP, ALEX, LIPASE, MG, CBC ####[address]#### HEPACUTE ####[facility] , Hemoglobin (Bld) [Mass/Vol] 10.8 g/dL Low 11.8-15.4 [facility] Comment on above: Performed By: #### C MP, ALEX, LIPASE, MG, CBC ####[address]#### HEPACUTE ####[facility] , Lymphocytes (Bld) [#/Vol] 1.4 10*3/uL Normal 1.00-4.8 [facility] Comment on above: Performed By: #### C MP, ALEX, LIPASE, MG, CBC ####[address]#### HEPACUTE ####[facility] , Lymphocytes/100 WBC (Bld) 32.8 % Normal . [facility] Comment on above: Performed By: #### C MP, ALEX, LIPASE, MG, CBC ####[place] [address] [place]#### HEPACUTE ####[facility] , MCH (RBC) [Entitic mass] 34.8 pg High 24.7-34.3 [facility] Comment on above: Performed By: #### C MP, ALEX, LIPASE, MG, CBC ####[place] [address] [place]#### HEPACUTE ####[facility] , MCV (RBC) [Entitic vol] 103.4 fL High 80-100 [facility] Comment on above: Performed By: #### C MP, ALEX, LIPASE, MG, CBC ####[place] [address] [place]#### HEPACUTE ####[facility] , Mean Corpuscular HGB Conc 33.7 g/dL Normal 32.0-35.0 [facility] Comment on above: Performed By: #### C MP, ALEX, LIPASE, MG, CBC ####[place] [address] [place]#### HEPACUTE ####[facility] , Monocytes (Bld) [#/Vol] 0.2 10*3/uL Normal 0.0-0.8 [facility] Comment on above: Performed By: #### C MP, ALEX, LIPASE, MG, CBC ####[address]#### HEPACUTE ####[facility] , Monocytes/100 WBC (Bld) 3.7 % Normal . [facility] Comment on above: Performed By: #### C MP, ALEX, LIPASE, MG, CBC ####[place] [address] [place]#### HEPACUTE ####[facility] , Neutrophils (Bld) [#/Vol] 2.6 10*3/uL Normal 1.8-7.7 [facility] Comment on above: Performed By: #### C MP, ALEX, LIPASE, MG, CBC ####[place] [address] [place]#### HEPACUTE ####[facility] , Neutrophils/100 WBC (Bld) 62.0 % Normal . [facility] Comment on above: Performed By: #### C MP, ALEX, LIPASE, MG, CBC ####[place] [address] [place]#### HEPACUTE ####[facility] , NRBC% 0.3 /100{WBC} Normal 0-0.5 [facility] Comment on above: Performed By: #### C MP, ALEX, LIPASE, MG, CBC ####[place] [address] [place]#### HEPACUTE ####[facility] , Platelet mean volume (Bld) [Entitic vol] 9.3 fL Normal 6.3-10.7 [facility] Comment on above: Performed By: #### C MP, AELX, LIPASE, MG, CBC ####[place] [address] [place]#### HEPACUTE ####[facility] , Platelets (Bld) [#/Vol] 105 10*3/uL Significant change down 150-450 [facility] Comment on above: Performed By: #### C MP, ALEX, LIPASE, MG, CBC ####[place] [address] [place]#### HEPACUTE ####[facility] , RBC (Bld) [#/Vol] 3.10 10*6/uL Low 3.60-5.00 [facility] Comment on above: Performed By: #### C MP, ALEX, LIPASE, MG, CBC ####[address]#### HEPACUTE ####[facility] , WBC (Bld) [#/Vol] 4.2 10*3/uL Normal 3.8-11.6 [facility] Comment on above: Performed By: #### C MP, ALEX, LIPASE, MG, CBC ####[place] [address] [place]#### HEPACUTE ####[facility] , Comprehensive Metabolic Pane eddie 08-26-2022 Albumin [Mass/Vol] 3.5 g/dL Normal 3.5-5.7 [facility] Comment on above: Performed By: #### C MP, ALEX, LIPASE, MG, CBC ####[address]#### HEPACUTE ####[facility] , Albumin/Globulin [Mass ratio] 1.8 {ratio} Normal [facility] Comment on above: Performed By: #### C MP, ALEX, LIPASE, MG, CBC ####[address]#### HEPACUTE ####[facility] , ALP [Catalytic activity/Vol] 113 U/L High 34-104 [facility] Comment on above: Performed By: #### C MP, ALEX, LIPASE, MG, CBC ####[address]#### HEPACUTE ####[facility] , ALT [Catalytic activity/Vol] 37 U/L Normal 7-52 [facility] Comment on above: Performed By: #### C MP, ALEX, LIPASE, MG, CBC ####[address]#### HEPACUTE ####[facility] , Anion gap [Moles/Vol] 12.8 mmol/L Normal 6.0-15.0 [facility] Comment on above: Performed By: #### C MP, ALEX, LIPASE, MG, CBC ####[place] [address] [place]#### HEPACUTE ####[facility] , AST [Catalytic activity/Vol] 141 U/L High 13-39 [facility] Comment on above: Performed By: #### C MP, ALEX, LIPASE, MG, CBC ####[place] [address] [place]#### HEPACUTE ####[facility] , Bilirubin [Mass/Vol] 1.4 mg/dL High 0.3-1.0 [facility] Comment on above: Result Comment: Samp les from patients who have taken Naproxen have shown spurious elevation in Total Bilirubin levels. A metabolite of Naproxen, O-desmethylnaproxen, has been shown to interfere with the Jendrassik-Grof method for measuring Total Bilirubin. Performed By: #### C MP, ALEX, LIPASE, MG, CBC ####[address]#### HEPACUTE ####[facility] , Calcium [Mass/Vol] 8.5 mg/dL Low 8.6-10.3 [facility] Comment on above: Performed By: #### C MP, ALEX, LIPASE, MG, CBC ####[address]#### HEPACUTE ####[facility] , Chloride [Moles/Vol] 98 mmol/L Normal 98-107 [facility] [facility]ician Group Comment on above: Performed By: #### C MP, ALEX, LIPASE, MG, CBC ####[address]#### HEPACUTE ####[facility] , CO2 [Moles/Vol] 26.6 mmol/L Normal 21.0-31.0 [facility] Comment on above: Performed By: #### C MP, ALEX, LIPASE, MG, CBC ####[place] [address] [place]#### HEPACUTE ####[facility] , Creatinine [Mass/Vol] 0.50 mg/dL Low 0.60-1.20 [facility] Comment on above: Performed By: #### C MP, ALEX, LIPASE, MG, CBC ####[place] [address] [place]#### HEPACUTE ####[facility] , Creatinine Clr Calc Pharmacy 148.41 Normal [facility] Comment on above: Performed By: #### C MP, ALEX, LIPASE, MG, CBC ####[place] [id number] [place]#### HEPACUTE ####[facility] , GFR/1.73 sq M.predicted MDRD (S/P/Bld) [Vol rate/Area] mL/min/{1.73_m2} Normal [facility] Comment on above: Performed By: #### C MP, ALEX, LIPASE, MG, CBC ####[place] [address] [place]#### HEPACUTE ####[facility] , Globulin (S) [Mass/Vol] 1.9 g/dL Normal [facility] Comment on above: Performed By: #### C MP, ALXE, LIPASE, MG, CBC ####[address]#### HEPACUTE ####[facility] , Glucose [Mass/Vol] 82 mg/dL Normal 70-100 [facility] Comment on above: Result Comment: [facility] Glucose Reference Range is dependent on time and content of last meal. Glucose of more than 200 mg/dL in a nonstressed, ambulatory subject supports the diagnosis of Diabetes Mellitus. ADA recommended reference range Performed By: #### C MP, ALEX, LIPASE, MG, CBC ####[place] [address] [place]#### HEPACUTE ####[facility] , Potassium [Moles/Vol] 3.4 mmol/L Low 3.5-5.1 [facility] Comment on above: Performed By: #### C MP, ALEX, LIPASE, MG, CBC ####[place] [address] [place]#### HEPACUTE ####[facility] , Protein [Mass/Vol] 5.4 g/dL Low 6.4-8.9 [facility] Comment on above: Performed By: #### C MP, ALEX, LIPASE, MG, CBC ####[place] [address] [place]#### HEPACUTE ####[facility] , Sodium [Moles/Vol] 134 mmol/L Low 136-145 [facility] Comment on above: Performed By: #### C MP, ALEX, LIPASE, MG, CBC ####[facility] Ozw[address]#### HEPACUTE ####[facility] , Urea nitrogen [Mass/Vol] 12 mg/dL Normal 7-25 [facility] Comment on above: Performed By: #### C MP, ALEX, LIPASE, MG, CBC ####[facility] Hwz[address]#### HEPACUTE ####[facility] , Creatinine [Mass/volume] in Serum or PlasmaOrdered By: Saira Bruce on 08-26-2022 Creatinine [Mass/Vol] 0.50 mg/dL 0.60-1.20 [facility] Eosinophils Auto (Bld) [#/Vo l]Ordered By: Saira Bruce on 08-26-2022 Eosinophils (Bld) [#/Vol] 0.0 10*3/uL 0.0-0.45 [facility] Eosinophils/100 WBC Auto (Bl d)Ordered By: Saira Bruce on 08-26-2022 Eosinophils/100 WBC (Bld) 0.9 % . [facility] Globulin Calc (S) [Mass/Vol] Ordered By: Saira Bruce on 08-26-2022 Globulin (S) [Mass/Vol] 1.9 g/dL [facility] Glucose [Mass/volume] in Ser um or PlasmaOrdered By: Saira Bruce on 08-26-2022 Glucose [Mass/Vol] 82 mg/dL 70-100 [facility] Comment on above: ADA recommended refe rence rangeRandom Glucose Reference Range is dependent on time and content of last meal. Glucose of more than 200 mg/dL in a nonstressed, ambulatory subject supports the diagnosis of Diabetes Mellitus. HCV Antibody Cascadeon 08-26 Hepatitis C Virus Antibody Non-Reactive Normal Non Reactive [facility] Comment on above: Order Comment: PT IS IN WITH ULTRASOUND PER CS Performed By: #### H BSAG, HCVCASCADE, HAABT, HBCAB, HIV SCREEN, HBS AB QUANT #### [facility] , Interpretation Hepatitis C Normal . [facility] Comment on above: Order Comment: PT IS IN WITH ULTRASOUND PER CS Result Comment: Not infected with HCV unless early or acute infection is suspected (which may be delayed in an immunocompromised individual), or other evidence exists to indicate HCV infection. Performed By: #### H BSAG, HCVCASCADE, HAABT, HBCAB, HIV SCREEN, HBS AB QUANT #### [facility] , HIV 1/O/2 Antigen/Antibodyon 08-26-2022 HIV Screen 4th Generation Non-Reactive Normal Non Reactive [facility] Comment on above: Order Comment: PT IS IN WITH ULTRASOUND PER CS Result Comment: HIV Negative HIV-1/HIV-2 antibodies and HIV-1 p24 antigen were NOT detected. There is no laboratory evidence of HIV infection. Performed at: [employer] [id number] Petrologist: Trenton Tejada PhD, Phone: [phone] PERFORMED BY: [place] [address] PATHOLOGIST SEARCHLIGHT OPERATOR YIFAN CORTEZ M.D. Performed By: #### H BSAG, HCVCASCADE, HAABT, HBCAB, HIV SCREEN, HBS AB QUANT #### [facility] , HIV 1 and HIV-2 antibody ass ay with HIV-1 p24 antigen detectionOrdered By: Imad Asaad on 08-26-2022 HIV 1+2 Ab+HIV1 p24 Ag IA Ql Non-Reactive Non Reactive [facility] Comment on above: HIV NegativeHIV-1/HI V-2 antibodies and HIV-1 p24 antigen were NOTdetected. There is no laboratory evidence of HIV infection.Performed at: [address] [id number] Director: Trenton Tejada PhD, Phone: [phone] Hepatitis A Antibody Totalon 08-26-2022 Hepatitis A Antibody Total Negative Normal Negative [facility] Comment on above: Order Comment: PT IS IN WITH ULTRASOUND PER CS Result Comment: Perf ormed at: - [facility] [address] [id number] Petrologist: Trenton Tjeada PhD, Phone: [phone] Performed By: #### H BSAG, HCVCASCADE, HAABT, HBCAB, HIV SCREEN, HBS AB QUANT #### [facility] , Hepatitis A virus Ab [Presen ce] in Serum by ImmunoassayOrdered By: Erin Reynoso on 08-26-2022 HAV Ab IA Ql (S) Negative Negative [facility] Comment on above: Performed at: [facility] [address] [id number] Director: Trenton Tejada PhD, Phone: [phone] Hepatitis Acute Panelon 08-11 HBsAg Screen Negative Normal Negative [facility] Comment on above: Performed By: #### M G #### [address] Hepatitis A Antibody IgM Negative Normal Negative [facility] Comment on above: Performed By: #### M G #### [address] Hepatitis B Core Antibody IgM Negative Normal Negative [facility] Comment on above: Performed By: #### M G #### [address] Hepatitis C Virus Antibody Non-Reactive Normal Non Reactive [facility] Comment on above: Performed By: #### M G #### [address] Interpretation Hepatitis C Normal . [facility] Comment on above: Result Comment: Not infected with HCV unless early or acute infection is suspected (which may be delayed in an immunocompromised individual), or other evidence exists to indicate HCV infection. Performed at: [facility] [address] [id number] Petrologist: Trenton Tejada PhD, Phone: [phone] PERFORMED BY: [place] [phone] PATHOLOGIST SEARCHLIGHT OPERATOR YIFAN CORTEZ M.D. Performed By: #### M G #### [address] Hepatitis B Core Antibodyon 08-26-2022 Hepatitis B Core Antibody Negative Normal Negative [facility] Comment on above: Order Comment: PT IS IN WITH ULTRASOUND PER CS Performed By: #### H BSAG, HCVCASCADE, HAABT, HBCAB, HIV SCREEN, HBS AB QUANT #### [facility] , Hepatitis B Surface Ab, Bright ton 08-26-2022 Hepatitis B Surface Ab, Quant <3.1 Low Immunity>9. 9 [facility] Comment on above: Order Comment: PT IS IN WITH ULTRASOUND PER CS Result Comment: Stat us of Immunity Anti-HBs Level Inconsistent with Immunity 0.0 - 9.9 Consistent with Immunity >9.9 PERFORMED BY: [place] [address] PATHOLOGIST SEARCHLIGHT OPERATOR YIFAN CORTEZ M.D. Performed By: #### H BSAG, HCVCASCADE, HAABT, HBCAB, HIV SCREEN, HBS AB QUANT #### [facility] , Hepatitis B Surface Antigeno n 08-26-2022 HBsAg Screen Negative Normal Negative [facility] Comment on above: Order Comment: PT IS IN WITH ULTRASOUND PER CS Performed By: #### H BSAG, HCVCASCADE, HAABT, HBCAB, HIV SCREEN, HBS AB QUANT #### [facility] , Hepatitis B virus surface Ab [Units/volume] in SerumOrdered By: Erin Reynoso on 08-26-2022 HBV surface Ab Qn (S) <3.1 mIU/mL Immuni ty>9. 9 [facility] Comment on above: Status of Immunity A nti-HBs Level Inconsistent with Immunity 0.0 - 9.9Consistent with Immunity >9.9 Hepatitis B virus surface Ag [Presence] in Serum or Plasma by ImmunoassayOrdered By: Erin Reynoso on 08-26-2022 HBV surface Ag IA Ql Negative Negative [facility] Hepatitis C virus IgG Ab [Pr esence] in Serum or Plasma by ImmunoassayOrdered By: Erin Reynoso on 08-26-2022 HCV IgG IA Ql Non-Reactive Non Reactive [facility] Hepatitis C virus RNA [Units /volume] (viral load) in Serum or Plasma by AKILAH with probOrdered By: Erin Reynoso on 08-26-2022 HCV RNA AKILAH+probe Qn N/A [facility] Hepatitis C virus RNA [log u nits/volume] (viral load) in Serum or Plasma by AKILAH withOrdered By: Erin Reynoso on 08-26-2022 HCV RNA AKILAH+probe [Log units/Vol] N/A [facility] Eddie 08-26-2022 L ------ Specimen: [id number] Received: 08/27/22 Status: BOB Steven Num: [id number] Spec Type: Surgical Subm Dr: Erin Reynoso MD Tissues: A Gastric Biopsy (GASTRIC BX) Procedures: HE/2, Gross/Micro L4 Age/ Patient Sex Location Account Attending Physician Whitney Miller 36/F 4N [id number] Homa Buckner MD SPEC NUM: [id number] RECD: 08/27/22 STATUS: BOB STEVEN NUM: [id number] AMRIT: 08/26/22 [facility] DR: Erin Reynoso MD ENTERED: 08/27/22 [facility] [address]: CORKY TYPE: Surgical DEPT: S ORDERED: HE/2, Gross/Micro L4 ORDERED: HE/2, Gross/Micro L4 Pathological Diagnosis Stomach, gastric, biopsy: - Reactive gastropathy. - Negative for Helicobacter pylori on H E stain. Clinical Information GI bleed Gross Description Received in formalin labeled with the patient's name, number and gastric biopsy is one fragment of soft vazquez tissue measuring 0.2 x 0.2 x 0.1 cm. Entirely submitted in one cassette labeled A1. Microscopic Description Two H E slides reviewed. The microscopic examination confirms the diagnosis. CPT Codes 16022 Specimen: [id number] Received: 08/27/22 Status: BOB Steven Num: [id number] Spec Type: Surgical Subm Dr: Erin Reynoso MD Tissues: A Gastric Biopsy (GASTRIC BX) Procedures: HE/2, Gross/Micro L4 Patient: Whitney Miller [id number] (Continued) Signed (signature on file) Anabel Mckeon MD 08/28/22 1037 Normal [facility] Lipaseon 08-26-2022 Lipase [Catalytic activity/Vol] 53.0 U/L Normal 11.0-82.0 [facility] Comment on above: Result Comment: PERF ORMED BY: [facility] [address] [facility] [place] [address] PATHOLOGIST SEARCHLIGHT OPERATOR YIFAN CORTEZ M.D. Performed By: #### M G #### [facility] [address] [place] [address] [facility] Lipase [Enzymatic activity/v olume] in Serum or PlasmaOrdered By: Saira Bruce on 08-26-2022 Lipase [Catalytic activity/Vol] 53.0 U/L 11.0-82.0 [facility] Lymphocytes Auto (Bld) [#/Vo l]Ordered By: Saira Bruce on 08-26-2022 Lymphocytes (Bld) [#/Vol] 1.4 10*3/uL 1.00-4.8 [facility] Lymphocytes/100 WBC Auto (Bl d)Ordered By: Saira Bruce on 08-26-2022 Lymphocytes/100 WBC (Bld) 32.8 % . [facility] Magnesiumon 08-26-2022 Magnesium [Mass/Vol] 1.7 mg/dL Low 1.9-2.7 [facility] Comment on above: Performed By: #### C MP, ALEX, LIPASE, MG, CBC ####[facility] Bab[address]#### HEPACUTE ####[facility] , Magnesium [Mass/volume] in S dom or PlasmaOrdered By: Saira Bruce on 08-26-2022 Magnesium [Mass/Vol] 1.7 mg/dL 1.9-2.7 [facility] Monocytes Auto (Bld) [#/Vol] Ordered By: Saira Bruce on 08-26-2022 Monocytes (Bld) [#/Vol] 0.2 10*3/uL 0.0-0.8 [facility] Monocytes/100 WBC Auto (Bld) Ordered By: Saira Bruce on 08-26-2022 Monocytes/100 WBC (Bld) 3.7 % . [facility] Neutrophils Auto (Bld) [#/Vo l]Ordered By: Saira Bruce on 08-26-2022 Neutrophils (Bld) [#/Vol] 2.6 10*3/uL 1.8-7.7 [facility] Neutrophils/100 WBC Auto (Bl d)Ordered By: Saira Bruce on 08-26-2022 Neutrophils/100 WBC (Bld) 62.0 % . [facility] No Panel InformationOrdered By: Erin Reynoso on 08-26-2022 Hepatitis B Core Total Antibody Negative Negative [facility] Hepatitis C Interpretation See comment . [facility] Comment on above: Not infected with HC V unless early or acute infection issuspected (which may be delayed in an immunocompromisedindividual), or other evidence exists to indicate HCVinfection. Hepatitis C RNA Quantitative N/A [facility] No Panel InformationOrdered By: Saira Bruce on 08-26-2022 Estimated GFR (CKD-EPI) > 60.0 mL/Min [facility] Hepatitis A IgM Antibody Negative Negative [facility] Hepatitis B Core IgM Antibody Negative Negative [facility]acy Creatinine Clearance (Chem 148.41 [facility] Nucleated erythrocytes [Pres ence] in Blood by Automated countOrdered By: Saira Bruce on 08-26-2022 Nucleated RBC Auto Ql (Bld) 0.3 /100{WBC} 0-0.5 [facility] Potassium [Moles/volume] in Serum or PlasmaOrdered By: Saira Bruce on 08-26-2022 Potassium [Moles/Vol] 3.4 mmol/L 3.5-5.1 [facility] Protein [Mass/volume] in Ser um or PlasmaOrdered By: Saira Bruce on 08-26-2022 Protein [Mass/Vol] 5.4 g/dL 6.4-8.9 [facility] Serum or plasma albumin/glob ulin mass ratioOrdered By: Saira Bruce on 08-26-2022 Albumin/Globulin [Mass ratio] 1.8 {ratio} [facility] Serum or plasma anion gap de terminationOrdered By: Saira Bruce on 08-26-2022 Anion gap [Moles/Vol] 12.8 mmol/L 6.0-15.0 [facility] Sodium [Moles/volume] in Ser um or PlasmaOrdered By: Saira Bruce on 08-26-2022 Sodium [Moles/Vol] 134 mmol/L 136-145 [facility] US liveron 08-26-2022 liver [facility] Main [address] [address] Ultrasound Report Signed Patient: Whitney Miller MR#: [id number] : 1985 Acct:[id number] Age/Sex: 36 / F ADM Date: 08/25/22 Loc: Room: 0Y1542-0 Type: ADM IN Attending Dr: Homa Buckner MD Ordering Provider: Erin Reynoso MD Date of Service: 08/26/22 US/US liver: Alcohol dependence, evaluate for liver cirrhosis Copies to: MD Homa Marinelli MD EXAMINATION TYPE: US liver DATE OF EXAM ORDERED: 08/26/2022 8:47 AM HISTORY: Alcohol dependence, hepatic cirrhosis COMPARISON: NONE TECHNIQUE: Realtime imaging limited to the right upper quadrant was performed. FINDINGS: The gallbladder appears within normal limits without evidence of cholelithiasis. The gallbladder wall is upper limits of normal at 3 mm in thickness. The common bile duct is mildly prominent measuring 7 mm in diameter. No intrahepatic or extrahepatic biliary dilatation is seen. The liver is coarse in echotexture and mildly heterogeneous with lobulated margins suspicious for hepatic cirrhosis. There is hepatopedal flow in the main portal vein. Partial visualization of the right kidney reveals no gross hydronephrosis. Partial visualization of the pancreas reveals no abnormality. ? US/US liver IMPRESSION: No sonographic evidence of acute cholecystitis. The liver is coarse in echotexture and mildly heterogeneous with lobulated margins suspicious for hepatic cirrhosis. There is hepatopedal flow in the main portal vein. Impression dictated by: Georgie Bowen M.D.08/26/2022 2:16 PM Dictation Location: [place] [address] Tech: Paulette Iliana Transcribed By: ASHLEY 08/26/221415 Dictated By: Georgie Bowen II, MD 08/26/221412 Signed By: 08/26/221415 Normal [facility] Urea nitrogen [Mass/volume] in Serum or PlasmaOrdered By: Saira Bruce on 08-26-2022 Urea nitrogen [Mass/Vol] 12 mg/dL 7-25 [facility] WBC Auto (Bld) [#/Vol]Ordere d By: Saira Bruce on 08-26-2022 WBC (Bld) [#/Vol] 4.2 10*3/uL 3.8-11.6 [facility] Activated partial thrombopla stin time (aPTT) in platelet poor plasma by coagulation aOrdered By: Brenda Mcclain on 08-25-2022 aPTT Coag (PPP) [Time] 32.1 s 25.1-36.5 [facility] Alanine aminotransferase [En zymatic activity/volume] in Serum or PlasmaOrdered By: Saira Bruce on 08-25-2022 ALT [Catalytic activity/Vol] 41 U/L 7-52 [facility] Albumin [Mass/volume] in Ser um or Plasma by Bromocresol green (BCG) dye binding methoOrdered By: Saira Bruce on 08-25-2022 Albumin BCG dye [Mass/Vol] 4.0 g/dL 3.5-5.7 [facility] Alkaline phosphatase [Enzyma tic activity/volume] in Serum or PlasmaOrdered By: Saira Bruce on 08-25-2022 ALP [Catalytic activity/Vol] 127 U/L 34-104 [facility] Aspartate aminotransferase [ Enzymatic activity/volume] in Serum or PlasmaOrdered By: Saira Bruce on 08-25-2022 AST [Catalytic activity/Vol] 173 U/L 13-39 [facility] Automated epithelial cells c ount in urine sediment (number/area)Ordered By: Brenda Mcclain on 08-25-2022 Epithelial cells Auto (Urine sed) [#/Area] 1-2 [HPF] 0-2 [facility] Automated erythrocytes count in urine sediment (number/area)Ordered By: Brenda Mcclain on 08-25-2022 RBC Auto (Urine sed) [#/Area] 0-1 [HPF] 0-4 [facility] Automated leukocytes count i n urine sediment (number/area)Ordered By: Brenda Mcclain on 08-25-2022 WBC Auto (Urine sed) [#/Area] 0-1 [HPF] 0-4 [facility] Basic Metabolic Panelon 08-11 Anion gap [Moles/Vol] 18.6 mmol/L High 6.0-15.0 [facility] Comment on above: Performed By: #### P TT, BMP, PT, ETOH, HS TROP, CBC ####[facility] [id number] Calcium [Mass/Vol] 8.5 mg/dL Low 8.6-10.3 [facility] Comment on above: Performed By: #### P TT, BMP, PT, ETOH, HS TROP, CBC ####[address] Chloride [Moles/Vol] 100 mmol/L Normal 98-107 [facility] Comment on above: Performed By: #### P TT, BMP, PT, ETOH, HS TROP, CBC ####[place] [id number] [facility] CO2 [Moles/Vol] 23.5 mmol/L Normal 21.0-31.0 [facility] Comment on above: Performed By: #### P TT, BMP, PT, ETOH, HS TROP, CBC ####[place] [id number] [facility] Creatinine [Mass/Vol] 0.64 mg/dL Normal 0.60-1.20 [facility] Comment on above: Performed By: #### P TT, BMP, PT, ETOH, HS TROP, CBC ####[place] [id number] [place] Creatinine Clr Calc Pharmacy 115.95 Normal [facility] Comment on above: Result Comment: PERF ORMED BY: [place] [address] PATHOLOGIST SEARCHLIGHT OPERATOR YIFAN CORTEZ M.D. Performed By: #### P TT, BMP, PT, ETOH, HS TROP, CBC ####[place] [id number] [facility] GFR/1.73 sq M.predicted MDRD (S/P/Bld) [Vol rate/Area] mL/min/{1.73_m2} Normal [facility] Comment on above: Performed By: #### P TT, BMP, PT, ETOH, HS TROP, CBC ####[place] [id number] [facility] Glucose [Mass/Vol] 79 mg/dL Normal 70-100 [facility] Comment on above: Result Comment: [place] Glucose Reference Range is dependent on time and content of last meal. Glucose of more than 200 mg/dL in a nonstressed, ambulatory subject supports the diagnosis of Diabetes Mellitus. ADA recommended reference range Performed By: #### P TT, BMP, PT, ETOH, HS TROP, CBC ####[place] [id number] [address] Potassium [Moles/Vol] 3.1 mmol/L Low 3.5-5.1 [facility] Comment on above: Performed By: #### P TT, BMP, PT, ETOH, HS TROP, CBC ####[address] Sodium [Moles/Vol] 139 mmol/L Normal 136-145 [facility] Comment on above: Performed By: #### P TT, BMP, PT, ETOH, HS TROP, CBC ####[address] Urea nitrogen [Mass/Vol] 13 mg/dL Normal 7-25 [facility] Comment on above: Performed By: #### P TT, BMP, PT, ETOH, HS TROP, CBC ####[address] Basophils Auto (Bld) [#/Vol] Ordered By: Brenda Mcclain on 08-25-2022 Basophils (Bld) [#/Vol] 0.1 10*3/uL 0.0-0.2 [facility] Basophils/100 WBC Auto (Bld) Ordered By: Brenda Mcclain on 08-25-2022 Basophils/100 WBC (Bld) 1.2 % . [facility] Bilirubin Test strip Ql (U)O rdered By: Brenda Mcclain on 08-25-2022 Bilirubin Ql (U) Negative Negative [facility] Bilirubin.direct [Mass/volum e] in Serum or PlasmaOrdered By: Saira Bruce on 08-25-2022 Bilirubin.direct [Mass/Vol] 0.20 mg/dL 0.03-0.18 [facility] Bilirubin.total [Mass/volume ] in Serum or PlasmaOrdered By: Saira Bruce on 08-25-2022 Bilirubin [Mass/Vol] 0.6 mg/dL 0.3-1.0 [facility] Calcium [Mass/volume] in Ser um or PlasmaOrdered By: Brenda Mcclain on 08-25-2022 Calcium [Mass/Vol] 8.5 mg/dL 8.6-10.3 [facility] Carbon dioxide, total [Moles /volume] in Serum or PlasmaOrdered By: Brenda Mcclain on 08-25-2022 CO2 [Moles/Vol] 23.5 mmol/L 21.0-31.0 [facility] Chloride [Moles/volume] in S dom or PlasmaOrdered By: Brenda Mcclain on 08-25-2022 Chloride [Moles/Vol] 100 mmol/L 98-107 [facility] Color Auto (U)Ordered By: Me manuel Mcclain on 08-25-2022 Color (U) Yellow Yellow [facility] Complete Blood Count Auto Di ffon 08-25-2022 Basophils (Bld) [#/Vol] 0.1 10*3/uL Normal 0.0-0.2 [facility] Comment on above: Result Comment: PERF ORMED BY: [facility] [address] [address] PATHOLOGIST SEARCHLIGHT OPERATOR YIFAN CORTEZ M.D. Performed By: #### P TT, BMP, PT, ETOH, HS TROP, CBC ####[address] Basophils/100 WBC (Bld) 1.2 % Normal . [facility] Comment on above: Performed By: #### P TT, BMP, PT, ETOH, HS TROP, CBC ####[place] [id number] [facility] Eosinophils (Bld) [#/Vol] 0.1 10*3/uL Normal 0.0-0.45 [facility] Comment on above: Performed By: #### P TT, BMP, PT, ETOH, HS TROP, CBC ####[place] [id number] [place] Eosinophils/100 WBC (Bld) 1.6 % Normal . [facility] Comment on above: Performed By: #### P TT, BMP, PT, ETOH, HS TROP, CBC ####[address] Erythrocyte distribution width (RBC) [Ratio] 22.5 % High 11.9-15.3 [facility] Comment on above: Performed By: #### P TT, BMP, PT, ETOH, HS TROP, CBC ####[address] Hematocrit (Bld) [Volume fraction] 35.9 % Normal 34.0-46.4 [facility] Comment on above: Performed By: #### P TT, BMP, PT, ETOH, HS TROP, CBC ####[address] Hemoglobin (Bld) [Mass/Vol] 11.9 g/dL Normal 11.8-15.4 [facility] Comment on above: Performed By: #### P TT, BMP, PT, ETOH, HS TROP, CBC ####[address] Lymphocytes (Bld) [#/Vol] 1.4 10*3/uL Normal 1.00-4.8 [facility] Comment on above: Performed By: #### P TT, BMP, PT, ETOH, HS TROP, CBC ####[address] Lymphocytes/100 WBC (Bld) 32.4 % Normal . [facility] Comment on above: Performed By: #### P TT, BMP, PT, ETOH, HS TROP, CBC ####[address] MCH (RBC) [Entitic mass] 34.4 pg High 24.7-34.3 [facility] Comment on above: Performed By: #### P TT, BMP, PT, ETOH, HS TROP, CBC ####[address] MCV (RBC) [Entitic vol] 103.3 fL High 80-100 [facility] Comment on above: Performed By: #### P TT, BMP, PT, ETOH, HS TROP, CBC ####[address] Mean Corpuscular HGB Conc 33.3 g/dL Normal 32.0-35.0 [facility] Comment on above: Performed By: #### P TT, BMP, PT, ETOH, HS TROP, CBC ####[address] Monocytes (Bld) [#/Vol] 0.3 10*3/uL Normal 0.0-0.8 [facility] Comment on above: Performed By: #### P TT, BMP, PT, ETOH, HS TROP, CBC ####[address] Monocytes/100 WBC (Bld) 17.95 % Normal 0.00-20.00 [facility] Comment on above: Performed By: #### P TT, BMP, PT, ETOH, HS TROP, CBC ####[address] Monocytes/100 WBC (Bld) 7.6 % Normal . [facility] Comment on above: Performed By: #### P TT, BMP, PT, ETOH, HS TROP, CBC ####[address] Neutrophils (Bld) [#/Vol] 2.4 10*3/uL Normal 1.8-7.7 [facility] Comment on above: Performed By: #### P TT, BMP, PT, ETOH, HS TROP, CBC ####[address] Neutrophils/100 WBC (Bld) 57.2 % Normal . [facility] Comment on above: Performed By: #### P TT, BMP, PT, ETOH, HS TROP, CBC ####[address] NRBC% 0.3 /100{WBC} Normal 0-0.5 [facility] Comment on above: Performed By: #### P TT, BMP, PT, ETOH, HS TROP, CBC ####[address] Platelet mean volume (Bld) [Entitic vol] 8.9 fL Normal 6.3-10.7 [facility] Comment on above: Performed By: #### P TT, BMP, PT, ETOH, HS TROP, CBC ####[address] Platelets (Bld) [#/Vol] 134 10*3/uL Low 150-450 [facility] Comment on above: Performed By: #### P TT, BMP, PT, ETOH, HS TROP, CBC ####[address] RBC (Bld) [#/Vol] 3.47 10*6/uL Low 3.60-5.00 [facility] Comment on above: Performed By: #### P TT, BMP, PT, ETOH, HS TROP, CBC ####[address] WBC (Bld) [#/Vol] 4.2 10*3/uL Normal 3.8-11.6 [facility] Comment on above: Performed By: #### P TT, BMP, PT, ETOH, HS TROP, CBC ####[address] Creatinine [Mass/volume] in Serum or PlasmaOrdered By: Brenda Mcclain on 08-25-2022 Creatinine [Mass/Vol] 0.64 mg/dL 0.60-1.20 [facility] Dipstick and Microscopicon 0 08-25-2022 Appearance (U) Clear Normal Clear [facility] Comment on above: Order Comment: Comme nt add on to ER draw Performed By: #### M G #### [address] Bacteria,Urine None Seen Normal None Seen [facility] Comment on above: Order Comment: Comme nt add on to ER draw Performed By: #### M G #### [address] [address] [place] Bilirubin,Urine Negative Normal Negative [facility] Comment on above: Order Comment: Comme nt add on to ER draw Performed By: #### M G #### [address] Color (U) Yellow Normal Yellow [facility] Comment on above: Order Comment: Comme nt add on to ER draw Performed By: #### M G #### [facility] [address] [place] [address] Glucose Ql (U) Normal Normal Normal [facility] Comment on above: Order Comment: Comme nt add on to ER draw Performed By: #### M G #### [facility] [address] [place] [address] Ketones Ql (U) Negative Normal Negative [facility] Comment on above: Order Comment: Comme nt add on to ER draw Performed By: #### M G #### [address] Leukocyte esterase Test strip Ql (U) 1+ High Negative [facility] Comment on above: Order Comment: Comme nt add on to ER draw Performed By: #### M G #### [facility] [address] [place] [address] Nitrite,Urine Negative Normal Negative [facility] Comment on above: Order Comment: Comme nt add on to ER draw Performed By: #### M G #### [facility] [address] [place] [address] Occult Blood,Urine Negative Normal Negative [facility] Comment on above: Order Comment: Comme nt add on to ER draw Performed By: #### M G #### [facility] [address] [place] [address] pH (U) 6.5 [pH] Normal 5.0-9.0 [facility] Comment on above: Order Comment: Comme nt add on to ER draw Performed By: #### M G #### [address] Protein,Urine Negative Normal Negative [facility] Comment on above: Order Comment: Comme nt add on to ER draw Performed By: #### M G #### [address] RBC LM.HPF (Urine sed) [#/Area] 0 /[HPF] Normal 0-4 [facility] Comment on above: Order Comment: Comme nt add on to ER draw Performed By: #### M G #### [address] Specificy [place],Urine 1.005 Normal 1.001-1.030 [facility] Comment on above: Order Comment: Comme nt add on to ER draw Performed By: #### M G #### [address] Squamous Epithelial Cell,Urine 1-2 Normal 0-2 [facility] Comment on above: Order Comment: Comme nt add on to ER draw Performed By: #### M G #### [address] Urobilinogen,Urine Normal Normal Normal [facility] Comment on above: Order Comment: Comme nt add on to ER draw Performed By: #### M G #### [address] WBC LM.HPF (Urine sed) [#/Area] 0 /[HPF] Normal 0-4 [facility] Comment on above: Order Comment: Comme nt add on to ER draw Performed By: #### M G #### [address] ECG 12 lead ECGon 08-25-2022 ECG 12 lead ECG [facility] [place] [address] Electrocardiograph Report Signed Patient: Whitney Miller MR#: [id number] : 1985 Acct:[id number] Age/Sex: 36 / F ADM Date: 08/25/22 Loc: Room: [address] [place] [address] Type: ADM IN Attending Dr: Robson Lopes DO Ordering Provider: Brenda Mcclain DO Date of Service: 08/25/22 ECG/ECG 12 lead ECG: Nausea/Vomiting/Diarrhea Copies to: Test Reason : Blood Pressure : 118/079 mmHG Vent. Rate : 076 BPM Atrial Rate : 076 BPM P-R Int : 136 ms QRS Dur : 080 ms QT Int : 422 ms P-R-T Axes : 059 066 051 degrees QTc Int : 474 ms Normal sinus rhythm Confirmed by Dickson Calvert DO ([id number]) on 08/26/2022 2:10:00 AM Referred By: Electronically Signed By:Dickson Calvert DO Transcribed By: MUS Signed By Dickson Calvert DO 209 Normal [facility] Eosinophils Auto (Bld) [#/Vo l]Ordered By: Brenda Mcclain on 08-25-2022 Eosinophils (Bld) [#/Vol] 0.1 10*3/uL 0.0-0.45 [facility] Eosinophils/100 WBC Auto (Bl d)Ordered By: Brenda Mcclain on 08-25-2022 Eosinophils/100 WBC (Bld) 1.6 % . [facility] Erythrocyte distribution wid th Auto (RBC) [Ratio]Ordered By: Brenda Mcclain on 08-25-2022 Erythrocyte distribution width (RBC) [Ratio] 22.5 % 11.9-15.3 [facility] Ethanol [Mass/volume] in Ser um or PlasmaOrdered By: Brenda Mcclain on 08-25-2022 Ethanol [Mass/Vol] 414 mg/dL [facility] Ethanol [Mass/Vol] 0.414 % [facility] Ethyl Alcohol Profileon 08-11 Ethanol [Mass/Vol] 414 mg/dL Normal [facility] Comment on above: Performed By: #### P TT, BMP, PT, ETOH, HS TROP, CBC ####[facility] [place] [address] [facility] Percent Ethanol 0.414 % Normal [facility] Comment on above: Result Comment: PERF ORMED BY: [facility] [address] [place] [address] PATHOLOGIST SEARCHLIGHT OPERATOR JIANLAN SUN M.D. Performed By: #### P TT, BMP, PT, ETOH, HS TROP, CBC ####[facility] [id number] Globulin Calc (S) [Mass/Vol] Ordered By: Saira Bruce on 08-25-2022 Globulin (S) [Mass/Vol] 2.3 g/dL [facility] Glucose [Mass/volume] in Ser um or PlasmaOrdered By: Brenda Mcclain on 08-25-2022 Glucose [Mass/Vol] 79 mg/dL 70-100 [facility] Comment on above: ADA recommended refe rence rangeRandom Glucose Reference Range is dependent on time and content of last meal. Glucose of more than 200 mg/dL in a nonstressed, ambulatory subject supports the diagnosis of Diabetes Mellitus. HCG ( test) IA.rapi d Ql (U)Ordered By: Brenda Mcclain on 08-25-2022 HCG ( test) Ql (U) Negative [facility] HCG,Urineon 08-25-2022 Beta HCG ( test) Ql (U) Negative Normal [facility] Comment on above: Order Comment: Comme nt add on to ER draw Result Comment: PERF ORMED BY: [place] [address] PATHOLOGIST SEARCHLIGHT OPERATOR YIFAN CORTEZ M.D. Performed By: #### M G #### [address] Hematocrit Auto (Bld) [Volum e fraction]Ordered By: Brenda Mcclain on 08-25-2022 Hematocrit (Bld) [Volume fraction] 35.9 % 34.0-46.4 [facility] Hemoglobin [Mass/volume] in BloodOrdered By: Brenda Mcclain on 08-25-2022 Hemoglobin (Bld) [Mass/Vol] 11.9 g/dL 11.8-15.4 [facility] Hepatic Panelon 08-25-2022 Albumin [Mass/Vol] 4.0 g/dL Normal 3.5-5.7 [facility] Comment on above: Order Comment: Comme nt add on to previous draw Performed By: #### H EPATIC #### [address] Albumin/Globulin [Mass ratio] 1.7 {ratio} Normal [facility] Comment on above: Order Comment: Comme nt add on to previous draw Performed By: #### H EPATIC #### [address] ALP [Catalytic activity/Vol] 127 U/L High 34-104 [facility] Comment on above: Order Comment: Comme nt add on to previous draw Result Comment: PERF ORMED BY: [place] [address] PATHOLOGIST SEARCHLIGHT OPERATOR YIFAN CORTEZ M.D. Performed By: #### H EPATIC #### [address] ALT [Catalytic activity/Vol] 41 U/L Normal 7-52 [facility] Comment on above: Order Comment: Comme nt add on to previous draw Performed By: #### H EPATIC #### [address] AST [Catalytic activity/Vol] 173 U/L High 13-39 [facility] Comment on above: Order Comment: Comme nt add on to previous draw Performed By: #### H EPATIC #### [address] Bilirubin [Mass/Vol] 0.6 mg/dL Normal 0.3-1.0 [facility] Comment on above: Order Comment: Comme nt add on to previous draw Performed By: #### H EPATIC #### [place] [address] [place] Bilirubin,Indirect 0.4 mg/dL Normal [facility] Comment on above: Order Comment: Comme nt add on to previous draw Performed By: #### H EPATIC #### [address] Bilirubin.indirect [Mass/Vol] 0.20 mg/dL High 0.03-0.18 [facility] Comment on above: Order Comment: Comme nt add on to previous draw Performed By: #### H EPATIC #### [facility] [address] Globulin (S) [Mass/Vol] 2.3 g/dL Normal [facility] Comment on above: Order Comment: Comme nt add on to previous draw Performed By: #### H EPATIC #### [facility] [address] Protein [Mass/Vol] 6.3 g/dL Low 6.4-8.9 [facility] Comment on above: Order Comment: Comme nt add on to previous draw Performed By: #### H EPATIC #### [facility] [address] Ketones Auto test strip (U) [Mass/Vol]Ordered By: Brenda Mcclain on 08-25-2022 Ketones (U) [Mass/Vol] Negative Negative [facility] - CoagulationOrde red By: Brenda Mcclain on 08-25-2022 PT Coag (PPP) [Time] 10.3 s 9.0-12.9 [facility] Leukocytes [#/volume] correc andrews for nucleated erythrocytes in Blood by Automated counOrdered By: Brenda Mcclain on 08-25-2022 WBC corrected for nucl RBC Auto (Bld) [#/Vol] 4.2 10*3/uL 3.8-11.6 [facility] Lymphocytes Auto (Bld) [#/Vo l]Ordered By: Brenda Mcclain on 08-25-2022 Lymphocytes (Bld) [#/Vol] 1.4 10*3/uL 1.00-4.8 [facility] Lymphocytes/100 WBC Auto (Bl d)Ordered By: Brenda Mcclain on 08-25-2022 Lymphocytes/100 WBC (Bld) 32.4 % . [facility] MCH Auto (RBC) [Entitic mass ]Ordered By: Brenda Mcclain on 08-25-2022 MCH (RBC) [Entitic mass] 34.4 pg 24.7-34.3 [facility] MCHC Auto (RBC) [Mass/Vol]Or dered By: Brenda Mcclain on 08-25-2022 MCHC (RBC) [Mass/Vol] 33.3 g/dL 32.0-35.0 [facility] MCV Auto (RBC) [Entitic vol] Ordered By: Brenda Mcclain on 08-25-2022 MCV (RBC) [Entitic vol] 103.3 fL 80-100 [facility] Magnesiumon 08-25-2022 Magnesium [Mass/Vol] 1.5 mg/dL Low 1.9-2.7 [facility] Comment on above: Order Comment: Comme nt add on to ER draw Result Comment: PERF ORMED BY: [place] [address] PATHOLOGIST SEARCHLIGHT OPERATOR YIFAN CORTEZ M.D. Performed By: #### M G #### [address] Magnesium [Mass/volume] in S dom or PlasmaOrdered By: Saira Bruce on 08-25-2022 Magnesium [Mass/Vol] 1.5 mg/dL 1.9-2.7 [facility] Monocyte distribution width [Entitic volume] in Blood by AutomatedOrdered By: Brenda Mcclain on 08-25-2022 Monocyte distribution width Auto (Bld) [Entitic vol] 17.95 % 0.00-20.00 [facility] Monocytes Auto (Bld) [#/Vol] Ordered By: Brenda Mcclain on 08-25-2022 Monocytes (Bld) [#/Vol] 0.3 10*3/uL 0.0-0.8 [facility] Monocytes/100 WBC Auto (Bld) Ordered By: Brenda Mcclain on 08-25-2022 Monocytes/100 WBC (Bld) 7.6 % . [facility] Neutrophils Auto (Bld) [#/Vo l]Ordered By: Brenda Mcclain on 08-25-2022 Neutrophils (Bld) [#/Vol] 2.4 10*3/uL 1.8-7.7 [facility] Neutrophils/100 WBC Auto (Bl d)Ordered By: Brenda Mcclain on 08-25-2022 Neutrophils/100 WBC (Bld) 57.2 % . [facility] Nitrite Test strip Ql (U)Ord ered By: Brenda Mcclain on 08-25-2022 Nitrite Ql (U) Negative Negative [facility] No Panel InformationOrdered By: Brenda Mcclain on 08-25-2022 Estimated GFR (CKD-EPI) > 60.0 mL/Min [facility] Creatinine Clearance (Chem 115.95 [facility] Nucleated erythrocytes [Pres ence] in Blood by Automated countOrdered By: Brenda Mcclain on 08-25-2022 Nucleated RBC Auto Ql (Bld) 0.3 /100{WBC} 0-0.5 [facility] Partial Thromboplastin Timeo n 08-25-2022 aPTT Coag (Bld) [Time] 32.1 s Normal 25.1-36.5 [facility] e [facility] Comment on above: Result Comment: PERF ORMED BY: [facility] [address] [place] [id number] PATHOLOGIST SEARCHLIGHT OPERATOR YIFAN CORTEZ M.D. Performed By: #### P TT, BMP, PT, ETOH, HS TROP, CBC ####[facility] [address] [place] [id number] [facility] Platelet mean volume Auto (B ld) [Entitic vol]Ordered By: Brenda Mcclain on 08-25-2022 Platelet mean volume (Bld) [Entitic vol] 8.9 fL 6.3-10.7 [facility] Platelet poor plasma interna tional normalized ratio (INR) by coagulation assay (relatOrdered By: Brenda Mcclain on 08-25-2022 INR Coag (PPP) [Relative time] 0.9 {INR} [facility] Comment on above: INR Therapeutic Rang e A) Pre- and Peroperative OAT started two weeks before surgery. NOT HIP SURGERY: 1.5 - 2.5 HIP SURGERY: 2 - 3B) Primary and secondary prevention of venous THROMBOSIS: 2 - 3C) Active venous thrombosis, pulmonary embolismand prevention of recurrent venous thrombosis: 2 - 3D) Prevention of arterial thromboembolismincluding patients with mechanical heart valves: 3 - 4.5 Platelets Auto (Bld) [#/Vol] Ordered By: Brenda Mcclain on 08-25-2022 Platelets (Bld) [#/Vol] 134 10*3/uL 150-450 [facility] Potassium [Moles/volume] in Serum or PlasmaOrdered By: Brenda Mcclain on 08-25-2022 Potassium [Moles/Vol] 3.1 mmol/L 3.5-5.1 [facility] Protein Auto test strip (U) [Mass/Vol]Ordered By: Brenda Mcclain on 08-25-2022 Protein (U) [Mass/Vol] Negative Negative [facility] Protein [Mass/volume] in Ser um or PlasmaOrdered By: Saira Bruce on 08-25-2022 Protein [Mass/Vol] 6.3 g/dL 6.4-8.9 [facility] Prothrombin Time INRon 08-25 INR Coag (PPP) [Relative time] 0.9 {INR} Normal [facility] Comment on above: Result Comment: INR Therapeutic Range A) Pre- and Peroperative OAT started two weeks before surgery. NOT HIP SURGERY: 1.5 - 2.5 HIP SURGERY: 2 - 3 B) Primary and secondary prevention of venous THROMBOSIS: 2 - 3 C) Active venous thrombosis, pulmonary embolism and prevention of recurrent venous thrombosis: 2 - 3 D) Prevention of arterial thromboembolism including patients with mechanical heart valves: 3 - 4.5 Performed By: #### P TT, BMP, PT, ETOH, HS TROP, CBC ####[place] [id number] [address] PT Coag (PPP) [Time] 10.3 s Normal 9.0-12.9 [facility] Comment on above: Performed By: #### P TT, BMP, PT, ETOH, HS TROP, CBC ####[address] RBC Auto (Bld) [#/Vol]Ordere d By: Brenda Mcclain on 08-25-2022 RBC (Bld) [#/Vol] 3.47 10*6/uL 3.60-5.00 [facility] Serum or plasma albumin/glob ulin mass ratioOrdered By: Saira Bruce on 08-25-2022 Albumin/Globulin [Mass ratio] 1.7 {ratio} [facility] Serum or plasma anion gap de terminationOrdered By: Brenda Mcclain on 08-25-2022 Anion gap [Moles/Vol] 18.6 mmol/L 6.0-15.0 [facility] Serum or plasma non-glucuron idated bilirubin measurement (mass/volume)Ordered By: Saira Bruce on 08-25-2022 Bilirubin.indirect [Mass/Vol] 0.4 mg/dL [facility] Sodium [Moles/volume] in Ser um or PlasmaOrdered By: Brenda Mcclain on 08-25-2022 Sodium [Moles/Vol] 139 mmol/L 136-145 [facility] Specific gravity Auto test s trip (U) [Rel density]Ordered By: Brenda Mcclain on 08-25-2022 Specific gravity (U) [Rel density] 1.005 1.001-1.030 [facility] Troponin I High Sensitivityo n 08-25-2022 Troponin I High Sensitivity 4.6 pg/mL Normal 0.0-15.0 [facility] Comment on above: Result Comment: PERF ORMED BY: [facility] [address] [facility] [place] [id number] PATHOLOGIST SEARCHLIGHT OPERATOR YIFAN CORTEZ M.D. Performed By: #### P TT, BMP, PT, ETOH, HS TROP, CBC ####[facility] [id number] [place] [address] [facility] Troponin I.cardiac [Mass/vol ume] in Serum or Plasma by Detection limit <= 0.01 ng/Ordered By: Brenda Mcclain on 08-25-2022 Troponin I.cardiac DL <= 0.01 ng/mL [Mass/Vol] 4.6 pg/mL 0.0-15.0 [facility] Urea nitrogen [Mass/volume] in Serum or PlasmaOrdered By: Brenda Mcclain on 08-25-2022 Urea nitrogen [Mass/Vol] 13 mg/dL 7-25 [facility] Urine bacteria detection by automated methodOrdered By: Brenda Mcclain on 08-25-2022 Bacteria Auto Ql (U) None seen None Seen [facility] Urine clarity by refractomet ry automatedOrdered By: Brenda Mcclain on 08-25-2022 Clarity Refractometry automated (U) Clear Clear [facility] Urine glucose measurement by automated test strip (mass/volume)Ordered By: Brenda Mcclain on 08-25-2022 Glucose Auto test strip (U) [Mass/Vol] Normal mg/dL Normal [facility] Urine hemoglobin detection b y automated test stripOrdered By: Brenda Mcclain on 08-25-2022 Hemoglobin Auto test strip Ql (U) Negative Negative [facility] Urine leukocyte esterase det ection by automated test stripOrdered By: Brenda Mcclain on 08-25-2022 Leukocyte esterase Auto test strip Ql (U) 1+ Negative [facility] Urobilinogen Auto test strip (U) [Mass/Vol]Ordered By: Brenda Mcclain on 08-25-2022 Urobilinogen (U) [Mass/Vol] Normal mg/dL Normal [facility] WBC Auto (Bld) [#/Vol]Ordere d By: Brenda Mcclain on 08-25-2022 WBC (Bld) [#/Vol] 4.2 10*3/uL 3.8-11.6 [facility] XR chest 2V*on 08-25-2022 XR chest 2V* [facility] [place] [address] XRay Report Signed Patient: Whitney Miller MR#: [id number] : 1985 Acct:[id number] Age/Sex: 36 / F ADM Date: 08/25/22 Loc: ER Room: Type: [place] [facility] Attending Dr: Copies to: Brenad Mcclain DO Ordering Provider: Brenda Mcclain DO Date of Service: 08/25/22 XR/XR chest 2V*: Nausea/Vomiting/Diarrhea Plain film chest 2 view HISTORY: Vomiting. COMPARISON: None FINDINGS: SUPPORT DEVICES: None POSTSURGICAL CHANGES: None HEART: Within normal limits PULMONARY KELLY: Within normal limits MEDIASTINUM: Unremarkable LUNGS AND PLEURA: No acute lung process, pleural effusion or pneumothorax identified. BONY STRUCTURES: Intact ADDITIONAL FINDINGS None XR/XR chest 2V* IMPRESSION: No acute process. Impression dictated by: Partha Peña M.D.08/25/2022 6:06 PM Dictation Location: [place] [address] Transcribed By: [facility] 08/25/221805 Dictated By: Partha Peña DO 08/25/221804 Signed By: 08/25/221805 Normal [facility] pH Auto test strip (U)Ordere d By: Brenda Mcclain on 08-25-2022 pH (U) 6.5 [pH] 5.0-9.0 [facility] LACTATE/LACTIC ACIDon 2022 Lactate [Moles/Vol] 3.0 mmol/L Critically high 0.4-2.0 [facility] Comment on above: Performed By: #### C RP, ALEX, LIPA, CMP, PREGQNT #### [facility] [address] [place] [address] Dr. Charlotte Cole ACETAMINOPHENon 07-04-2022 Acetaminophen [Mass/Vol] ug/mL Normal 10.0-30.0 [facility] Comment on above: Performed By: #### C RP, ALEX, LIPA, CMP, PREGQNT #### [facility] [address] [place] [address] Dr. Charlotte Cole AMMONIAon 07-04-2022 Ammonia (P) [Moles/Vol] 10 umol/L Critically low 11-32 [facility] Comment on above: Performed By: #### C RP, LIPA, ALEX, CMP, PREGQNT #### [facility] [address] [place] [address] Dr. Charlotte Cole BNPon 07-04-2022 Natriuretic peptide B (Bld) [Mass/Vol] 9.0 pg/mL Normal <=450.0 [facility] Comment on above: Performed By: #### C RP, ALEX, LIPA, CMP, PREGQNT #### [facility] [address] [place] [address] Dr. Charlotte Cole CBC AUTO DIFFon 07-04-2022 BASO # 0.1 103/ul Normal 0.0-0.1 [facility] Comment on above: Performed By: #### C BC #### [facility] [address] [place] [address] Dr. Charlotte Cole Basophils/100 WBC (Bld) 0.8 % Normal 0.2-2.0 [facility] Comment on above: Performed By: #### C BC #### [facility] [address] [place] [address] Dr. Charlotte Cole EO # 0.1 103/ul Normal 0.0-0.7 [facility] Comment on above: Performed By: #### C BC #### [facility] [address] [place] [address] Dr. Charlotte Cole Eosinophils/100 WBC (Bld) 1.6 % Normal 0.9-7.0 [facility] Comment on above: Performed By: #### C BC #### [facility] [address] [place] [address] Dr. Charlotte Cole Erythrocyte distribution width (RBC) [Ratio] 17.5 % Critically high 11.0-15.0 [facility] Comment on above: Performed By: #### C BC #### [facility] [address] [place] [address] Dr. Charlotte Cole Hematocrit (Bld) [Volume fraction] 38.4 % Normal 36.0-48.0 [facility] Comment on above: Performed By: #### C BC #### [facility] [facility] [address] [place] [address] Dr. Charlotte Cole Hemoglobin (Bld) [Mass/Vol] 13.5 g/dL Normal 12.0-16.0 [facility] Comment on above: Performed By: #### C BC #### [facility] [address] [place] [address] Dr. Charlotte Cole IG # 0.01 10e3/ul Normal 0.00-0.03 [facility] Comment on above: Performed By: #### C BC #### [facility] [address] [place] [address] Dr. Charlotte Cole IG % 0.2 % Normal 0.0-0.5 [facility] Comment on above: Performed By: #### C BC #### [facility] [address] [place] [address] Dr. Charlotte Cole LYMPH # 2.0 103/ul Normal 1.2-3.8 [facility] Comment on above: Performed By: #### C BC #### [facility] [address] [place] [address] Dr. Charlotte Cole Lymphocytes/100 WBC (Bld) 32.3 % Normal 20.5-60.0 [facility] Comment on above: Performed By: #### C BC #### [facility] [address] [place] [address] Dr. Charlotte Cole MANUAL DIFF REQ NO Normal [facility] Comment on above: Performed By: #### C BC #### [facility] [address] [place] [address] Dr. Charlotte Cole MCH (RBC) [Entitic mass] 34.6 pg Critically high 26.7-34.0 The [facility] Comment on above: Performed By: #### C BC #### [facility] [address] [place] [address] Dr. Charlotte Cole MCHC (RBC) [Mass/Vol] 35.2 g/dL Normal 29.9-35.2 The [facility] Comment on above: Performed By: #### C BC #### [facility] [address] [place] [address] Dr. Charlotte Cole MCV (RBC) [Entitic vol] 98.5 fL Normal 81.0-99.0 The [facility] Comment on above: Performed By: #### C BC #### [facility] [address] [place] [address] Dr. Charlotte Cole MONO # 0.3 103/ul Normal 0.3-0.8 The [facility] Comment on above: Performed By: #### C BC #### [facility] [address] [place] [address] Dr. Charlotte Cole Monocytes/100 WBC (Bld) 5.4 % Normal 1.7-12.0 The [facility] Comment on above: Performed By: #### C BC #### [facility] [address] [place] [address] Dr. Charlotte Cole NEUT # 3.7 103/ul Normal 1.4-6.5 The [facility] Comment on above: Performed By: #### C BC #### [facility] [address] [place] [address] Dr. Charlotte Cole Neutrophils/100 WBC (Bld) 59.7 % Normal 43.0-75.0 [facility] Comment on above: Performed By: #### C BC #### [facility] [address] [place] [address] Dr. Charlotte Cole Platelet mean volume (Bld) [Entitic vol] 10.5 fL Normal 9.5-13.5 [facility] Comment on above: Performed By: #### C BC #### [facility] [address] [place] [address] Dr. Charlotte Cole PLT 201 103/ul Normal 150-450 [facility] Comment on above: Performed By: #### C BC #### [facility] [address] [place] [address] Dr. Charlotte Cole RBC 3.90 106/ul Critically low 4.20-5.40 [facility] Comment on above: Performed By: #### C BC #### [facility] [address] [place] [address] Dr. Charlotte Cole WBC 6.2 103/ul Normal 4.0-11.0 [facility] Comment on above: Performed By: #### C BC #### [facility] [address] [place] [address] Dr. Charlotte Cole DRUG SCREEN RAPID (URINE)on 07-04-2022 AMP Negative Normal NEGATIVE [facility] Comment on above: Performed By: #### B MP #### [facility] [address] [place] [address] Dr. Charlotte Cole BAR Negative Normal NEGATIVE The [facility] Comment on above: Performed By: #### B MP #### [facility] [address] [place] [address] Dr. Charlotte Cole BUP Negative Normal NEGATIVE The [facility] Comment on above: Performed By: #### B MP #### [facility] [address] [place] [address] Dr. Charlotte Cole BZO Negative Normal NEGATIVE The [facility] Comment on above: Performed By: #### B MP #### [facility] [address] [place], [place] [id number] Dr. Charlotte Cole SHWETA Negative Normal NEGATIVE [facility] Comment on above: Performed By: #### B MP #### [facility] [address] [place] [address] Dr. Charlotte Cole CUT-OFFS SEE BELOW Normal [facility] Comment on above: Result Comment: AMP (Amphetamine): 500ng/mL, BAR (Barbituates): 200 ng/mL, BZO (Benzodiazepines): 150 ng/mL, BUP (Buprenorphine): 10 ng/mL, SHWETA (Cocaine): 150 ng/mL, mAMP (Methamphetamine): 500 ng/mL, MTD (Methadone): 200 ng/mL, OPI (Opiates): 100 ng/mL, OXY (Oxycodone): 100 ng/mL, PCP (Phencyclidine): 25 ng/mL, PPX (Propoxyphene): 300 ng/mL, THC (Cannabinoids): 50 ng/mL, TCA (Trycyclic Antidepressants): 300 ng/mL Performed By: #### B MP #### [facility] [address] [place] [address] Dr. Charlotte Cole DRUG CUT HEADER DRUG CLASS TEST SYST EM CUT-OFF CONCENTRATIONS ARE FOLLOWS: Normal [facility] Comment on above: Performed By: #### B MP #### [facility] [address] [place] [address] Dr. Charlotet Cole mAMP Negative Normal NEGATIVE [facility] Comment on above: Performed By: #### B MP #### [facility] [address] [place] [address] Dr. Charlotte Cole MTD Negative Normal NEGATIVE [facility] Comment on above: Performed By: #### B MP #### [facility] [address] [place] [address] Dr. Charlotte Cole OPI Negative Normal NEGATIVE [facility] Comment on above: Performed By: #### B MP #### [facility] [address] [place] [address] Dr. Charlotte Cole OXY Negative Normal NEGATIVE [facility] Comment on above: Performed By: #### B MP #### [facility] [address] [place] [address] Dr. Charlotte Cole PCP Negative Normal NEGATIVE [facility] Comment on above: Performed By: #### B MP #### [facility] [address] [place] [address] Dr. Charlotte Cole PPX Negative Normal NEGATIVE [facility] Comment on above: Performed By: #### B MP #### [facility] [address] [place] [address] Dr. Charlotte Cole TCA Negative Normal NEGATIVE [facility] Comment on above: Performed By: #### B MP #### [facility] [address] [place] [address] Dr. Charlotte Cole THC Negative Normal NEGATIVE [facility] Comment on above: Performed By: #### B MP #### [facility] [address] [place] [address] Dr. Charlotte Cole ER URINE PROFILEon 3 Bilirubin Ql (U) Negative Normal NEGATIVE [facility] Comment on above: Performed By: #### B MP #### [facility] [address] [place] [address] Dr. Charlotte Cole Clarity (U) CLEAR Normal CLEAR [facility] Comment on above: Performed By: #### B MP #### [facility] [address] [place] [address] Dr. Charlotte Cole Color (U) LT. YELLOW Normal YELLOW [facility] Comment on above: Performed By: #### B MP #### [facility] [address] [place] [address] Dr. Charlotte Cole ERUAHD A micrscopic examina tion will be performed if indicated. Normal [facility] Comment on above: Performed By: #### B MP #### [facility] [address] [place] [address] Dr. Charlotte Cole Glucose Ql (U) Negative Normal NEGATIVE [facility] Comment on above: Performed By: #### B MP #### [facility] [address] [place] [address] Dr. Charlotte Cole Hemoglobin Ql (U) Negative Normal NEGATIVE [facility] Comment on above: Performed By: #### B MP #### [facility] [address] [place] [address] Dr. Charlotte Cole Ketones Ql (U) Negative Normal NEGATIVE [facility] Comment on above: Performed By: #### B MP #### [facility] [address] [place] [address] Dr. Charlotte Cole LEUKOCYTES SMALL Abnormal NEGATIVE [facility] Comment on above: Performed By: #### B MP #### [facility] [address] [place] [address] Dr. Charlotte Cole Nitrite Ql (U) Negative Normal NEGATIVE [facility] Comment on above: Performed By: #### B MP #### [facility] [address] [place] [address] Dr. Charlotte Cole pH (U) 6.5 [pH] Normal 5-9 [facility] Comment on above: Performed By: #### B MP #### [facility] [address] [place] [address] Dr. Charlotte Cole SPEC GRAVITY <=1.005 Abnormal 1.005-<=1.0 25 [facility] Comment on above: Performed By: #### B MP #### [facility] [address] [place] [address] Dr. Charlotte Cole UA PROTEIN Negative Normal NEGATIVE/ TRACE [facility] Comment on above: Performed By: #### B MP #### [facility] [address] [place] [address] Dr. Charlotte Cole UR MICRO IND INDICATED Normal [facility] Comment on above: Performed By: #### B MP #### [facility] [address] [place] [address] Dr. Charlotte Cole Urobilinogen Qn (U) 0.2 {Darwin'U}/dL Normal 0.2 - 1. 0 [facility] Comment on above: Performed By: #### B MP #### [facility] [address] [place] [address] Dr. Charlotte Cole ETHANOL (BLD ALC)on 07-05-19 ALC NOTE NOTE: 80 mg/dl is th e legal limit for a blood alcohol level Normal [facility] Comment on above: Performed By: #### C RP, ALEX, LIPA, CMP, PREGQNT #### [facility] [address] [place] [address] Dr. Charlotte Cole Ethanol [Mass/Vol] 311 mg/dL Normal [facility] Comment on above: Performed By: #### C RP, ALEX, LIPA, CMP, PREGQNT #### [facility] [address] [place] [address] Dr. Charlotte Cole LACTATE/LACTIC ACIDon 2022 Lactate [Moles/Vol] 3.7 mmol/L Critically high 0.4-2.0 [facility] Comment on above: Performed By: #### L ACT #### [facility] [address] [place] [address] Dr. Charlotte Cole PROF 14(COMP METB)on 023 Albumin [Mass/Vol] 4.3 g/dL Normal 3.4-5.0 [facility] Comment on above: Performed By: #### C RP, ALEX, LIPA, CMP, PREGQNT #### [facility] [address] [place] [address] Dr. Charlotte Cole Albumin/Globulin [Mass ratio] 1.7 {ratio} Normal [facility] Comment on above: Performed By: #### C RP, ALEX, LIPA, CMP, PREGQNT #### [facility] [address] [place] [address] Dr. Charlotte Cole ALP [Catalytic activity/Vol] 156 U/L Critically high 46-116 [facility] Comment on above: Performed By: #### C RP, ALEX, LIPA, CMP, PREGQNT #### [facility] [address] [place] [address] Dr. Charlotte Cole ALT [Catalytic activity/Vol] 125 U/L Critically high 14-59 [facility] Comment on above: Performed By: #### C RP, ALEX, LIPA, CMP, PREGQNT #### [facility] [address] [place] [address] Dr. Charlotte Cole Anion gap [Moles/Vol] 16.9 mmol/L Normal [facility] Comment on above: Performed By: #### C RP, ALEX, LIPA, CMP, PREGQNT #### [facility] [address] [address] [address] Charlotte Cole AST [Catalytic activity/Vol] 201 U/L Critically high 15-37 [facility] Comment on above: Performed By: #### C RP, ALEX, LIPA, CMP, PREGQNT #### [facility] [address] [place] [address] Dr. Charlotte Cole Bilirubin [Mass/Vol] 0.5 mg/dL Normal 0.2-1.0 The [facility] Comment on above: Performed By: #### C RP, ALEX, LIPA, CMP, PREGQNT #### [facility] [address] [place] [address] Dr. Charlotte Cole Calcium [Mass/Vol] 8.8 mg/dL Normal 8.5-10.1 [facility] Comment on above: Performed By: #### C RP, ALEX, LIPA, CMP, PREGQNT #### [facility] [address] [address] [address] Charlotte Cole Chloride [Moles/Vol] 97 mmol/L Critically low 98-107 [facility] Comment on above: Performed By: #### C RP, ALEX, LIPA, CMP, PREGQNT #### [facility] [address] [place] [address] Dr. Charlotte Cole CO2 [Moles/Vol] 25.5 mmol/L Normal 21.0-32.0 [facility] Comment on above: Performed By: #### C RP, ALEX, LIPA, CMP, PREGQNT #### [facility] [address] [place] [address] Dr. Charlotte Cole Creatinine [Mass/Vol] 0.49 mg/dL Critically low 0.55-1.02 [facility] Comment on above: Performed By: #### C RP, ALEX, LIPA, CMP, PREGQNT #### [facility] [address] [place] [address] Dr. Charlotte Cole EGFR-AF THAI >60 Normal >=60 [facility] Comment on above: Performed By: #### C RP, ALEX, LIPA, CMP, PREGQNT #### [facility] [address] [place] [address] Dr. Charlotte Cole EGFR-NON AF THAI >60 Normal >=60 [facility] Comment on above: Performed By: #### C RP, ALEX, LIPA, CMP, PREGQNT #### [facility] [address] [place] [address] Dr. Charlotte Cole Globulin (S) [Mass/Vol] 2.5 g/dL Normal [facility] Comment on above: Performed By: #### C RP, ALEX, LIPA, CMP, PREGQNT #### [facility] [address] [place] [address] Dr. Charlotte Cole Glucose [Mass/Vol] 92 mg/dL Normal 74-106 [facility] Comment on above: Performed By: #### C RP, ALEX, LIPA, CMP, PREGQNT #### [facility] [address] [place] [address] Dr. Charlotte Cole Potassium [Moles/Vol] 3.4 mmol/L Critically low 3.5-5.1 [facility] Comment on above: Performed By: #### C RP, ALEX, LIPA, CMP, PREGQNT #### [facility] [address] [place] [address] Dr. Charlotte Cole Protein [Mass/Vol] 6.8 g/dL Normal 6.4-8.2 [facility] Comment on above: Performed By: #### C RP, ALEX, LIPA, CMP, PREGQNT #### [facility] [address] [place] [address] Dr. Charlotte Cole Sodium [Moles/Vol] 136 mmol/L Normal 136-145 [facility] Comment on above: Performed By: #### C RP, ALEX, LIPA, CMP, PREGQNT #### [facility] [address] [place] [address] Dr. Charlotte Cole Urea nitrogen [Mass/Vol] 6.0 mg/dL Critically low 7.0-18.0 [facility] Comment on above: Performed By: #### C RP, ALEX, LIPA, CMP, PREGQNT #### [facility] [address] [place] [address] Dr. Charlotte Cole Urea nitrogen/Creatinine [Mass ratio] 12.2 mg/mg Normal [facility] Comment on above: Performed By: #### C RP, ALEX, LIPA, CMP, PREGQNT #### [facility] [address] [place] [address] Dr. Charlotte Cole PROTIMEon 07-04-2022 INR Coag (PPP) [Relative time] 0.97 {INR} Normal [facility] Comment on above: Performed By: #### C RP, ALEX, LIPA, CMP, PREGQNT #### [facility] [address] [place] [address] Dr. Charlotte Cole INR GUIDELINES SEE BELOW Normal [facility] Comment on above: Result Comment: WILSON RED INR: 2.0 - 3.0 CONDITIONS NOT LISTED BELOW 2.5 - 3.5 FOR PROSTHETIC HEART VALVE REPLACEMENT 2.5 - 3.5 RECURRENT THROMBOSIS Performed By: #### C RP, ALEX, LIPA, CMP, PREGQNT #### [facility] [address] [place] [address] Dr. Charlotte Cole PT Coag (PPP) [Time] 10.3 s Normal 9.0-11.6 [facility] Comment on above: Performed By: #### C RP, ALEX, LIPA, CMP, PREGQNT #### [facility] [address] [place] [address] Dr. Charlotte Cole SALICYLATEon 07-04-2022 SALICYLATE 4.0 mg/dL Normal <=19.9 [facility] Comment on above: Performed By: #### C RP, ALEX, LIPA, CMP, PREGQNT #### [facility] [address] [place] [address] Dr. Charlotte Cole URINE MICROSCOPIC ONLYon BACTERIA NONE SEEN Normal NONE SEEN [facility] Comment on above: Performed By: #### B MP #### [facility] [address] [place] [address] Dr. Charlotte Cole Bacteria identified Cx Nom (U) NOT INDICATED Normal [facility] Comment on above: Performed By: #### B MP #### [facility] [address] [place] [address] Dr. Charlotte Cole CAST NONE SEEN Normal NONE SEEN [facility] Comment on above: Performed By: #### B MP #### [facility] [address] [place] [address] Dr. Charlotte Cole Crystals LM Nom (Urine sed) NONE SEEN Normal NONE SEEN [facility] Comment on above: Performed By: #### B MP #### [facility] [address] [place] [address] Dr. Charlotte Cole Epithelial cells LM Ql (Urine sed) RARE Normal NONE SEEN /RARE [facility] Comment on above: Performed By: #### B MP #### [facility] [address] [place] [address] Dr. Charlotte Cole MUCOUS NONE SEEN Normal NONE SEEN [facility] Comment on above: Performed By: #### B MP #### [facility] [address] [place] [address] Dr. Charlotte Cole RBC 0-2 Normal 0-2 [facility] Comment on above: Performed By: #### B MP #### [facility] [address] [place] [address] Dr. Charlotte Cole WBC 2-5 Abnormal NONE SEEN [facility] Comment on above: Performed By: #### B MP #### [facility] [address] [place] [address] Dr. Charlotte Cole PAP ACOG PANEL 2: 30 to 65on 05-29-2022 . . Normal [facility] Comment on above: Result Comment: Perf ormed at: WB Performed By: #### C RP, ALEX, LIPA, CMP, PREGQNT #### [facility] [address] [place] [address] Dr. Charlotte Cole Age Gdln ACOG Testing 30-65 Normal [facility] Comment on above: Performed By: #### C RP, ALEX, LIPA, CMP, PREGQNT #### [facility] [address] [address] [address] Charlotte Cole DIAGNOSIS: Comment Abnormal [facility] Comment on above: Result Comment: EPIT HELIAL CELL ABNORMALITY. ATYPICAL SQUAMOUS CELLS OF UNDETERMINED SIGNIFICANCE (ASC-US). Performed at: WB Performed By: #### C RP, ALEX, LIPA, CMP, PREGQNT #### [facility] [address] [address] [address] Charlotte Cole Electronically signed by: Comment Normal [facility] Comment on above: Result Comment: Soha Kiran MD, Pathologist Performed at: WB Performed By: #### C RP, ALEX, LIPA, CMP, PREGQNT #### [facility] [address] [address] [address] Charlotte Cole HPV Aptima Positive Abnormal Negative [facility] Comment on above: Result Comment: This nucleic acid amplification test detects fourteen high-risk HPV types (16,18,31,33,35,39,45,51,52,56,58,59,66,68) without differentiation. Performed at: =G Performed By: #### C RP, ALEX, LIPA, CMP, PREGQNT #### [facility] [address] [address] [address] Charlotte Cole HPV Genotype Reflex Comment Normal [facility] Comment on above: Result Comment: Crit eria not met, HPV Genotype not performed. Performed at: WB Performed By: #### C RP, ALEX, LIPA, CMP, PREGQNT #### [facility] [address] [address] [address] Charlotte Cole Methodology: Comment Normal [facility] Comment on above: Result Comment: This liquid based ThinPrep(R) pap test was screened with the use of an image guided system. Performed at: WB Performed By: #### C RP, ALEX, LIPA, CMP, PREGQNT #### [facility] [address] [address] [address] Charlotte Cole Note: Comment Normal [facility] Comment on above: Result Comment: The Pap smear is a screening test designed to aid in the detection of premalignant and malignant conditions of the uterine cervix. It is not a diagnostic procedure and should not be used as the sole means of detecting cervical cancer. Both false-positive and false-negative reports do occur. . Performed at: WB Performed By: #### C RP, ALEX, LIPA, CMP, PREGQNT #### [facility] [address] [address] [address] Charlotte Cole Pathologist Provided ICD10 Comment [facility] Comment on above: Result Comment: [id number]. [id number] Performed at: WB Performed By: #### C RP, ALEX, LIPA, CMP, PREGQNT #### [facility] [address] [address] [address] Charlotte Cole Performed by: Comment Normal [facility] Comment on above: Result Comment: Melissa Gates, Hair Sample Matcher (ASCP) Performed at: WB Performed By: #### C RP, ALEX, LIPA, CMP, PREGQNT #### [facility] [address] [place] [address] Dr. Charlotte Cole Recommendation: Comment Abnormal [facility] Comment on above: Result Comment: Sugg est follow up as clinically appropriate. Performed at: WB Performed By: #### C RP, ALEX, LIPA, CMP, PREGQNT #### [facility] [address] [place] [address] Dr. Charlotte Cole Specimen adequacy: Comment [facility] Comment on above: Result Comment: Sati sfactory for evaluation. Endocervical and/or squamous metaplastic cells (endocervical component) are present. Performed at: WB Performed By: #### C RP, ALEX, LIPA, CMP, PREGQNT #### [facility] [address] [address] [address] Charlotte Cole AMMONIAon 04-28-2022 Ammonia (P) [Moles/Vol] 14 umol/L Normal 11-32 The [facility] Comment on above: Performed By: #### C RP, LIPA, ALEX, CMP, PREGQNT #### [facility] [address] [place] [address] Dr. Charlotte Cole AMYLASEon 04-28-2022 Amylase [Catalytic activity/Vol] 31 U/L Normal 25-115 The [facility] Comment on above: Performed By: #### C RP, ALEX, LIPA, CMP, PREGQNT #### [facility] [address] [place] [address] Dr. Charlotte Cole CBC AUTO DIFFon 04-28-2022 BASO # 0.1 103/ul Normal 0.0-0.1 The [facility] Comment on above: Performed By: #### C RP, ALEX, LIPA, CMP, PREGQNT #### [facility] [address] [place] [address] Dr. Charlotte Cole Basophils/100 WBC (Bld) 0.9 % Normal 0.2-2.0 The [facility] Comment on above: Performed By: #### C RP, ALEX, LIPA, CMP, PREGQNT #### [facility] [address] [place] [address] Dr. Charlotte Cole EO # 0.3 103/ul Normal 0.0-0.7 The [facility] Comment on above: Performed By: #### C RP, ALEX, LIPA, CMP, PREGQNT #### [facility] [address] [place] [address] Dr. Charlotte Cole Eosinophils/100 WBC (Bld) 3.8 % Normal 0.9-7.0 The [facility] Comment on above: Performed By: #### C RP, ALEX, LIPA, CMP, PREGQNT #### [facility] [address] [place] [address] Dr. Charlotte Cole Erythrocyte distribution width (RBC) [Ratio] 19.8 % Critically high 11.0-15.0 The [facility] Comment on above: Performed By: #### C RP, ALEX, LIPA, CMP, PREGQNT #### [facility] [address] [place] [address] Dr. Charlotte Cole Hematocrit (Bld) [Volume fraction] 43.7 % Normal 36.0-48.0 [facility] Comment on above: Performed By: #### C RP, ALEX, LIPA, CMP, PREGQNT #### [facility] [address] [place] [address] Dr. Charlotte Cole Hemoglobin (Bld) [Mass/Vol] 15.1 g/dL Normal 12.0-16.0 [facility] Comment on above: Performed By: #### C RP, ALEX, LIPA, CMP, PREGQNT #### [facility] [address] [place] [address] Dr. Charlotte Cole IG # 0.02 10e3/ul Normal 0.00-0.03 [facility] Comment on above: Performed By: #### C RP, ALEX, LIPA, CMP, PREGQNT #### [facility] [address] [place] [address] Dr. Charlotte Cole IG % 0.2 % Normal 0.0-0.5 [facility] Comment on above: Performed By: #### C RP, ALEX, LIPA, CMP, PREGQNT #### [facility] [address] [place] [address] Dr. Charlotte Cole LYMPH # 2.2 103/ul Normal 1.2-3.8 The [facility] Comment on above: Performed By: #### C RP, ALEX, LIPA, CMP, PREGQNT #### [facility] [address] [place] [address] Dr. Charlotte Cole Lymphocytes/100 WBC (Bld) 27.6 % Normal 20.5-60.0 [facility] Comment on above: Performed By: #### C RP, ALEX, LIPA, CMP, PREGQNT #### [facility] [address] [place] [address] Dr. Charlotte Cole MANUAL DIFF REQ NO Normal The [facility] Comment on above: Performed By: #### C RP, ALEX, LIPA, CMP, PREGQNT #### [facility] [address] [place] [address] Dr. Charlotte Cole MCH (RBC) [Entitic mass] 34.5 pg Critically high 26.7-34.0 [facility] Comment on above: Performed By: #### C RP, ALEX, LIPA, CMP, PREGQNT #### [facility] [address] [place] [address] Dr. Charlotte Cole MCHC (RBC) [Mass/Vol] 34.6 g/dL Normal 29.9-35.2 The [facility] Comment on above: Performed By: #### C RP, ALEX, LIPA, CMP, PREGQNT #### [facility] [address] [place] [address] Dr. Charlotte Cole MCV (RBC) [Entitic vol] 99.8 fL Critically high 81.0-99.0 The [facility] Comment on above: Performed By: #### C RP, ALEX, LIPA, CMP, PREGQNT #### [facility] [address] [place] [address] Dr. Charlotte Cole MONO # 0.6 103/ul Normal 0.3-0.8 The [facility] Comment on above: Performed By: #### C RP, ALEX, LIPA, CMP, PREGQNT #### [facility] [address] [place] [address] Dr. Charlotte Cole Monocytes/100 WBC (Bld) 6.8 % Normal 1.7-12.0 The [facility] Comment on above: Performed By: #### C RP, ALEX, LIPA, CMP, PREGQNT #### [facility] [address] [place] [address] Dr. Charlotte Cole NEUT # 4.9 103/ul Normal 1.4-6.5 The [facility] Comment on above: Performed By: #### C RP, ALEX, LIPA, CMP, PREGQNT #### [facility] [address] [place] [address] Dr. Charlotte Cole Neutrophils/100 WBC (Bld) 60.7 % Normal 43.0-75.0 The [facility] Comment on above: Performed By: #### C RP, ALEX, LIPA, CMP, PREGQNT #### [facility] [address] [place] [address] Dr. Charlotte Cole Platelet mean volume (Bld) [Entitic vol] 10.4 fL Normal 9.5-13.5 The [facility] Comment on above: Performed By: #### C RP, ALEX, LIPA, CMP, PREGQNT #### [facility] [address] [place] [address] Dr. Charlotte Cole PLT 338 103/ul Normal 150-450 The [facility] Comment on above: Performed By: #### C RP, ALEX, LIPA, CMP, PREGQNT #### [facility] [address] [place] [address] Dr. Charlotte Cole RBC 4.38 106/ul Normal 4.20-5.40 The [facility] Comment on above: Performed By: #### C RP, ALEX, LIPA, CMP, PREGQNT #### [facility] [address] [place] [address] Dr. Charlotte Cole WBC 8.1 103/ul Normal 4.0-11.0 The [facility] Comment on above: Performed By: #### C RP, ALEX, LIPA, CMP, PREGQNT #### [facility] [address] [place] [address] Dr. Charlotte Cole CULTURE URINEon 04-28-2022 CULTURE URINE Culture Observations : MODERATE GROWTH OF MIXED GENITAL BELINDA. NO POTENTIAL PATHOGENS SEEN. Normal The [facility] Comment on above: Performed By: #### B MP #### [facility] [address] [place] [address] Dr. Charlotte Cole IRONon 04-28-2022 Iron [Mass/Vol] 60.0 ug/dL Normal 50.0-170.0 The [facility] Comment on above: Performed By: #### C RP, ALEX, LIPA, CMP, PREGQNT #### [facility] [address] [place] [address] Dr. Charlotte Cole LIPASEon 04-28-2022 Lipase [Catalytic activity/Vol] 159.0 U/L Normal 73.0-393.0 The [facility] Comment on above: Performed By: #### C RP, ALEX, LIPA, CMP, PREGQNT #### [facility] [address] [place] [address] Dr. Charlotte Cole PREG QUANT HCGon 04-28-2022 HCG QUANT 1 mIU/mL Normal The [facility] Comment on above: Performed By: #### C RP, ALEX, LIPA, CMP, PREGQNT #### [facility] [address] [place] [address] Dr. Charlotte Cole HCG RANGE SEE BELOW Normal [facility] Comment on above: Result Comment: 5-50 0.2-1 WEEK 50-500 1-2 WEEKS 100-5,000 2-3 WEEKS 500-10,000 3-4 WEEKS 1,000-50,000 4-5 WEEKS 10,000-100,000 5-6 WEEKS 15,000-200,000 6-8 WEEKS 10,000-100,000 2-3 MONTHS Performed By: #### C RP, AELX, LIPA, CMP, PREGQNT #### [facility] [address] [place] [address] Dr. Charlotte Cole PROF 14(COMP METB)on 023 Albumin [Mass/Vol] 3.5 g/dL Normal 3.4-5.0 [facility] Comment on above: Performed By: #### C RP, ALEX, LIPA, CMP, PREGQNT #### [facility] [address] [place] [address] Dr. Charlotte Cole Albumin/Globulin [Mass ratio] 1.1 {ratio} Normal [facility] Comment on above: Performed By: #### C RP, ALEX, LIPA, CMP, PREGQNT #### [facility] [address] [place] [address] Dr. Charlotte Cole ALP [Catalytic activity/Vol] 109 U/L Normal 46-116 [facility] Comment on above: Performed By: #### C RP, ALEX, LIPA, CMP, PREGQNT #### [facility] [address] [place] [address] Dr. Charlotte Cole ALT [Catalytic activity/Vol] 35 U/L Normal 14-59 [facility] Comment on above: Performed By: #### C RP, ALEX, LIPA, CMP, PREGQNT #### [facility] [address] [place] [address] Dr. Charlotte Cole Anion gap [Moles/Vol] 15.8 mmol/L Normal [facility] Comment on above: Performed By: #### C RP, ALEX, LIPA, CMP, PREGQNT #### [facility] [address] [place] [address] Dr. Charlotte Cole AST [Catalytic activity/Vol] 31 U/L Normal 15-37 The [facility] Comment on above: Performed By: #### C RP, ALEX, LIPA, CMP, PREGQNT #### [facility] [address] [place] [address] Dr. Charlotte Cole Bilirubin [Mass/Vol] 0.4 mg/dL Normal 0.2-1.0 The [facility] Comment on above: Performed By: #### C RP, ALEX, LIPA, CMP, PREGQNT #### [facility] [address] [place] [address] Dr. Charlotte Cole Calcium [Mass/Vol] 9.8 mg/dL Normal 8.5-10.1 The [facility] Comment on above: Performed By: #### C RP, ALEX, LIPA, CMP, PREGQNT #### [facility] [address] [place] [address] Dr. Charlotte Cole Chloride [Moles/Vol] 102 mmol/L Normal 98-107 The [facility] Comment on above: Performed By: #### C RP, ALEX, LIPA, CMP, PREGQNT #### [facility] [address] [place] [address] Dr. Charlotte Cole CO2 [Moles/Vol] 25.2 mmol/L Normal 21.0-32.0 The [facility] Comment on above: Performed By: #### C RP, ALEX, LIPA, CMP, PREGQNT #### [facility] [address] [place] [address] Dr. Charlotte Cole Creatinine [Mass/Vol] 0.65 mg/dL Normal 0.55-1.02 The [facility] Comment on above: Performed By: #### C RP, ALEX, LIPA, CMP, PREGQNT #### [facility] [address] [place] [address] Dr. Charlotte Cole EGFR-AF THAI >60 Normal >=60 The [facility] Comment on above: Performed By: #### C RP, ALEX, LIPA, CMP, PREGQNT #### [facility] [address] [place] [address] Dr. Charlotte Cole EGFR-NON AF THAI >60 Normal >=60 [facility] Comment on above: Performed By: #### C RP, ALEX, LIPA, CMP, PREGQNT #### [facility] [address] [place] [address] Dr. Charlotte Cole Globulin (S) [Mass/Vol] 3.3 g/dL Normal [facility] Comment on above: Performed By: #### C RP, ALEX, LIPA, CMP, PREGQNT #### [facility] [address] [address] [address] Charlotte Cole Glucose [Mass/Vol] 116 mg/dL Critically high 74-106 [facility] Comment on above: Performed By: #### C RP, ALEX, LIPA, CMP, PREGQNT #### [facility] [address] [place] [address] Dr. Charlotte Cole Potassium [Moles/Vol] 3.0 mmol/L Critically low 3.5-5.1 The [facility] Comment on above: Performed By: #### C RP, ALEX, LIPA, CMP, PREGQNT #### [facility] [address] [place] [address] Dr. Charlotte Cole Protein [Mass/Vol] 6.8 g/dL Normal 6.4-8.2 The [facility] Comment on above: Performed By: #### C RP, ALEX, LIPA, CMP, PREGQNT #### [facility] [address] [place] [address] Dr. Charlotte Cole Sodium [Moles/Vol] 140 mmol/L Normal 136-145 The [facility] Comment on above: Performed By: #### C RP, ALEX, LIPA, CMP, PREGQNT #### [facility] [address] [place] [address] Dr. Charlotte Cole Urea nitrogen [Mass/Vol] 8.0 mg/dL Normal 7.0-18.0 The [facility] Comment on above: Performed By: #### C RP, ALEX, LIPA, CMP, PREGQNT #### [facility] [address] [address] [address] Charlotte Cole Urea nitrogen/Creatinine [Mass ratio] 12.3 mg/mg Normal The [facility] Comment on above: Performed By: #### C RP, ALEX, LIPA, CMP, PREGQNT #### [facility] [address] [address] [address] Charlotte Cole UA RANDOM W/MICROSCOPICon BACTERIA TRACE Abnormal NONE SEEN [facility] Comment on above: Performed By: #### C RP, ALEX, LIPA, CMP, PREGQNT #### [facility] [address] [address] [address] Charlotte Cole Bilirubin Ql (U) SMALL Abnormal NEGATIVE [facility] Comment on above: Performed By: #### C RP, ALEX, LIPA, CMP, PREGQNT #### [facility] [address] [address] [address] Charlotte Cole CA OX CRYSTALS RARE Normal [facility] Comment on above: Performed By: #### C RP, ALEX, LIPA, CMP, PREGQNT #### [facility] [address] [address] [address] Charlotte Cole CAST NONE SEEN Normal NONE SEEN [facility] Comment on above: Performed By: #### C RP, ALEX, LIPA, CMP, PREGQNT #### [facility] [address] [address] [address] Charlotte Cole Clarity (U) CLEAR Normal CLEAR The [facility] Comment on above: Performed By: #### C RP, ALEX, LIPA, CMP, PREGQNT #### [facility] [address] [address] [address] Charlotte Cole Color (U) DK. ORANGE Abnormal YELLOW The [facility] Comment on above: Performed By: #### C RP, ALEX, LIPA, CMP, PREGQNT #### [facility] [address] [address] [address] Charlotte Cole Crystals LM Nom (Urine sed) SEEN Abnormal NONE SEEN The [facility] Comment on above: Performed By: #### C RP, ALEX, LIPA, CMP, PREGQNT #### [facility] [address] [address] [address] Charlotte Cole Epithelial cells LM Ql (Urine sed) MANY Abnormal NONE SEEN /RARE The [facility] Comment on above: Performed By: #### C RP, ALEX, LIPA, CMP, PREGQNT #### [facility] [address] [address] [address] Charlotte Cole Glucose Ql (U) Negative Normal NEGATIVE [facility] Comment on above: Performed By: #### C RP, ALEX, LIPA, CMP, PREGQNT #### [facility] [address] [address] [address] Charlotte Cole Hemoglobin Ql (U) Negative Normal NEGATIVE [facility] Comment on above: Performed By: #### C RP, ALEX, LIPA, CMP, PREGQNT #### [facility] [address] [address] [address] Charlotte Cole Ketones Ql (U) 15 mg/dl Abnormal NEGATIVE [facility] Comment on above: Performed By: #### C RP, ALEX, LIPA, CMP, PREGQNT #### [facility] [address] [place] [address] Dr. Charlotte Cole LEUKOCYTES Negative Normal NEGATIVE [facility] Comment on above: Performed By: #### C RP, ALEX, LIPA, CMP, PREGQNT #### [facility] [address] [address] [address] Charlotte Cole MUCOUS MODERATE Abnormal NONE SEEN The [facility] Comment on above: Performed By: #### C RP, ALEX, LIPA, CMP, PREGQNT #### [facility] [address] [address] [address] Charlotte Cole Nitrite Ql (U) Negative Normal NEGATIVE The [facility] Comment on above: Performed By: #### C RP, ALEX, LIPA, CMP, PREGQNT #### [facility] [address] [address] [address] Charlotte Cole pH (U) 5.0 [pH] Normal 5-9 The [facility] Comment on above: Performed By: #### C RP, ALEX, LIPA, CMP, PREGQNT #### [facility] [address] [address] [address] Charlotte Cole RBC NONE SEEN Abnormal 0-2 The [facility] Comment on above: Performed By: #### C RP, ALEX, LIPA, CMP, PREGQNT #### [facility] [address] [address] [address] Charlotte Cole SPEC GRAVITY 1.025 Normal 1.005-<=1.0 25 [facility] Comment on above: Performed By: #### C RP, ALEX, LIPA, CMP, PREGQNT #### [facility] [address] [place] [address] Dr. Charlotte Cole UA PROTEIN TRACE Normal NEGATIVE/ TRACE [facility] Comment on above: Performed By: #### C RP, ALEX, LIPA, CMP, PREGQNT #### [facility] [address] [place] [address] Dr. Charlotte Cole Urobilinogen Qn (U) 1.0 {Darwin'U}/dL Normal 0.2 - 1. 0 [facility] Comment on above: Performed By: #### C RP, ALEX, LIPA, CMP, PREGQNT #### [facility] [address] [place] [address] Dr. Charlotte Cole WBC 5-10 Abnormal NONE SEEN The [facility] Comment on above: Performed By: #### C RP, ALEX, LIPA, CMP, PREGQNT #### [facility] [address] [place] [address] Dr. Charlotte Cole ACETONE SERUMon 04-10-2022 ACETONE Negative Normal NEGATIVE The [facility] Comment on above: Performed By: #### C RP, ALEX, LIPA, CMP, PREGQNT #### [facility] [address] [place] [address] Dr. Charlotte Cole AMMONIAon 04-10-2022 Ammonia (P) [Moles/Vol] 22 umol/L Normal 11-32 The [facility] Comment on above: Performed By: #### L ACT #### [facility] [address] [place] [address] Dr. Charlotte Cole CBC AUTO DIFFon 04-10-2022 BASO # 0.2 103/ul Critically high 0.0-0.1 [facility] Comment on above: Performed By: #### C RP, ALEX, LIPA, CMP, PREGQNT #### [facility] [address] [place] [address] Dr. Charlotte Cole Basophils/100 WBC (Bld) 1.5 % Normal 0.2-2.0 The [facility] Comment on above: Performed By: #### C RP, ALEX, LIPA, CMP, PREGQNT #### [facility] [address] [place] [address] Dr. Charlotte Cole EO # 0.2 103/ul Normal 0.0-0.7 The [facility] Comment on above: Performed By: #### C RP, ALEX, LIPA, CMP, PREGQNT #### [facility] [address] [place] [address] Dr. Charlotte Cole Eosinophils/100 WBC (Bld) 1.6 % Normal 0.9-7.0 The [facility] Comment on above: Performed By: #### C RP, ALEX, LIPA, CMP, PREGQNT #### [facility] [address] [place] [address] Dr. Charlotte Cole Erythrocyte distribution width (RBC) [Ratio] 25.9 % Critically high 11.0-15.0 The [facility] Comment on above: Performed By: #### C RP, ALEX, LIPA, CMP, PREGQNT #### [facility] [address] [place] [address] Dr. Charlotte Cole Hematocrit (Bld) [Volume fraction] 38.2 % Normal 36.0-48.0 The [facility] Comment on above: Performed By: #### C RP, ALEX, LIPA, CMP, PREGQNT #### [facility] [address] [place] [address] Dr. Charlotte Cole Hemoglobin (Bld) [Mass/Vol] 12.8 g/dL Normal 12.0-16.0 The [facility] Comment on above: Performed By: #### C RP, ALEX, LIPA, CMP, PREGQNT #### [facility] [address] [address] [address] Charlotte Cole IG # 0.05 10e3/ul Critically high 0.00-0.03 The [facility] Comment on above: Performed By: #### C RP, ALEX, LIPA, CMP, PREGQNT #### [facility] [address] [place] [address] Dr. Charlotte Cole IG % 0.5 % Normal 0.0-0.5 The [facility] Comment on above: Performed By: #### C RP, ALEX, LIPA, CMP, PREGQNT #### [facility] [address] [place] [address] Dr. Charlotte Cole LYMPH # 1.8 103/ul Normal 1.2-3.8 The [facility] Comment on above: Performed By: #### C RP, ALEX, LIPA, CMP, PREGQNT #### [facility] [address] [place] [address] Dr. Charlotte Cole Lymphocytes/100 WBC (Bld) 17.2 % Critically low 20.5-60.0 [facility] Comment on above: Performed By: #### C RP, ALEX, LIPA, CMP, PREGQNT #### [facility] [address] [place] [address] Dr. Charlotte Cole MANUAL DIFF REQ NO Normal The [facility] Comment on above: Performed By: #### C RP, ALEX, LIPA, CMP, PREGQNT #### [facility] [address] [place] [address] Dr. Charlotte Cole MCH (RBC) [Entitic mass] 33.8 pg Normal 26.7-34.0 [facility] Comment on above: Performed By: #### C RP, ALEX, LIPA, CMP, PREGQNT #### [facility] [address] [place] [address] Dr. Charlotte Cole MCHC (RBC) [Mass/Vol] 33.5 g/dL Normal 29.9-35.2 The [facility] Comment on above: Performed By: #### C RP, ALEX, LIPA, CMP, PREGQNT #### [facility] [address] [place] [address] Dr. Charlotte Cole MCV (RBC) [Entitic vol] 100.8 fL Critically high 81.0-99.0 [facility] Comment on above: Performed By: #### C RP, ALEX, LIPA, CMP, PREGQNT #### [facility] [address] [place] [address] Dr. Charlotte Cole MONO # 1.2 103/ul Critically high 0.3-0.8 The [facility] Comment on above: Performed By: #### C RP, ALEX, LIPA, CMP, PREGQNT #### [facility] [address] [place] [address] Dr. Charlotte Cole Monocytes/100 WBC (Bld) 11.2 % Normal 1.7-12.0 The [facility] Comment on above: Performed By: #### C RP, ALEX, LIPA, CMP, PREGQNT #### [facility] [address] [place] [address] Dr. Charlotte Cole NEUT # 7.0 103/ul Critically high 1.4-6.5 The [facility] Comment on above: Performed By: #### C RP, ALEX, LIPA, CMP, PREGQNT #### [facility] [address] [place] [address] Dr. Charlotte Cole Neutrophils/100 WBC (Bld) 68.0 % Normal 43.0-75.0 The [facility] Comment on above: Performed By: #### C RP, ALEX, LIPA, CMP, PREGQNT #### [facility] [address] [place] [address] Dr. Charlotte Cole Platelet mean volume (Bld) [Entitic vol] 11.2 fL Normal 9.5-13.5 The [facility] Comment on above: Performed By: #### C RP, ALEX, LIPA, CMP, PREGQNT #### [facility] [address] [place] [address] Dr. Charlotte Cole PLT 432 103/ul Normal 150-450 The [facility] Comment on above: Performed By: #### C RP, ALEX, LIPA, CMP, PREGQNT #### [facility] [address] [place], [place] [address] Dr. Charlotte Cole RBC 3.79 106/ul Critically low 4.20-5.40 [facility] Comment on above: Performed By: #### C RP, ALEX, LIPA, CMP, PREGQNT #### [facility] [address] [address] [address] Charlotte Cole WBC 10.3 103/ul Normal 4.0-11.0 [facility] Comment on above: Performed By: #### C RP, ALEX, LIPA, CMP, PREGQNT #### [facility] [address] [address] ABD/PELV W CONon 04-10-20 CT ABD/PELV W CON EXAMINATION: CT ABD/ PELV W CON HISTORY: GENERALIZED ABDOMINAL PAIN COMPARISON: 03/21/2020. TECHNIQUE: Enhanced helical acquisition obtained through the abdomen and the pelvis. Dose reduction techniques were achieved by using automated exposure control and/or adjustment of mA and/or kV according to patient size and/or use of iterative reconstruction technique. FINDINGS: Minimal peripheral pulmonary scarring noted within the right middle lobe. The pleural spaces are clear. Moderate heterogeneous hepatic steatosis. Hepatomegaly with the liver measuring 23 cm craniocaudal length. There is mild nodularity of the liver contour. Recanalization of the umbilical vein. Normal appearance of the spleen. Mild peripancreatic edema consistent with acute pancreatitis. Inferior to the pancreatic body, there is a focal peripancreatic fluid collection measuring 3.3 x 3.2 x 1.3 cm. No evidence of pancreatic necrosis. The gallbladder is partially contracted. No biliary ductal dilatation. The adrenal glands and the kidneys are unremarkable. Small fat-containing umbilical hernia. There are a few nonenlarged retroperitoneal lymph nodes, likely reactive. Normal appendix. Bilateral adnexal cysts, the largest on the right measuring 2.5 cm in largest on the left measuring 2.3 cm. No ascites or focal intraperitoneal fluid collections. IMPRESSION: 1. Hepatic steatosis. Hepatomegaly. Mild cirrhotic morphology of the liver. Recanalization of the umbilical vein indicating portal venous hypertension. 2. Acute pancreatitis. A 3.3 x 3.2 x 1.3 cm peripancreatic fluid collection consistent with pseudocysts. No evidence of pancreatic necrosis. 3. Bilateral adnexal cysts, likely prominent follicles. 4. Small fat-containing umbilical hernia. Electronically authenticated by: CHARLA GARCIA Date: 2022-04-10 19:45 Normal The [facility] CULTURE URINEon 04-10-2022 CULTURE URINE Culture Observations : NO GROWTH. Normal The [facility] Comment on above: Performed By: #### L ACT #### [facility] [address] [place] [address] Dr. Charlotte Cole ER URINE PROFILEon 2 Bilirubin Ql (U) MODERATE Abnormal NEGATIVE The [facility] Comment on above: Performed By: #### B MP #### [facility] [address] [place] [address] Dr. Charlotte Cole Clarity (U) CLEAR Normal CLEAR The [facility] Comment on above: Performed By: #### B MP #### [facility] [address] [place] [address] Dr. Charlotte Cole Color (U) DK. ORANGE Abnormal YELLOW The [facility] Comment on above: Performed By: #### B MP #### [facility] [address] [place] [address] Dr. Charlotte Cole ERUAHD A micrscopic examina tion will be performed if indicated. Normal The [facility] Comment on above: Performed By: #### B MP #### [facility] [address] [place] [address] Dr. Charlotte Cole Glucose Ql (U) Negative Normal NEGATIVE The [facility] Comment on above: Performed By: #### B MP #### [facility] [address] [place] [address] Dr. Charlotte Cole Hemoglobin Ql (U) LARGE Abnormal NEGATIVE The [facility] Comment on above: Performed By: #### B MP #### [facility] [address] [place] [address] Dr. Charlotte Cole Ketones Ql (U) 15 mg/dl Abnormal NEGATIVE The [facility] Comment on above: Performed By: #### B MP #### [facility] [address] [place] [address] Dr. Charlotte Cole LEUKOCYTES TRACE Abnormal NEGATIVE [facility] Comment on above: Performed By: #### B MP #### [facility] [address] [place] [address] Dr. Charlotte Cole Nitrite Ql (U) Negative Normal NEGATIVE [facility] Comment on above: Performed By: #### B MP #### [facility] [address] [place] [address] Dr. Charlotte Cole pH (U) 6.5 [pH] Normal 5-9 [facility] Comment on above: Performed By: #### B MP #### [facility] [address] [place] [address] Dr. Charlotte Cole Protein (U) [Mass/Vol] 30 mg/dL Abnormal NEGAT CR/ TRACE [facility] Comment on above: Performed By: #### B MP #### [facility] [address] [place] [address] Dr. Charlotte Cole SPEC GRAVITY 1.020 Normal 1.005-<=1.0 25 [facility] Comment on above: Performed By: #### B MP #### [facility] [address] [place] [address] Dr. Charlotte Cole UR MICRO IND INDICATED Normal [facility] Comment on above: Performed By: #### B MP #### [facility] [address] [place] [address] Dr. Charlotte Cole Urobilinogen Qn (U) 1.0 {Darwin'U}/dL Normal 0.2 - 1. 0 [facility] Comment on above: Performed By: #### B MP #### [facility] [address] [place] [address] Dr. Charlotte Cole LACTATE/LACTIC ACIDon 2021 Lactate [Moles/Vol] 1.6 mmol/L Normal 0.4-1.9 [facility] Comment on above: Performed By: #### C RP, ALEX, LIPA, CMP, PREGQNT #### [facility] [address] [place] [address] Dr. Charlotte Cole LIPASEon 04-10-2022 Lipase [Catalytic activity/Vol] 808.0 U/L Critically high 73.0-393.0 [facility] Comment on above: Performed By: #### C RP, ALEX, LIPA, CMP, PREGQNT #### [facility] [address] [place] [address] Dr. Charlotte Cole URon 04-10-2022 , QUAL Negative Normal NEGATIVE [facility] Comment on above: Performed By: #### B MP #### [facility] [address] [place] [address] Dr. Charlotte Cole PROF 14(COMP METB)on 022 Albumin [Mass/Vol] 3.1 g/dL Critically low 3.4-5.0 [facility] Comment on above: Performed By: #### C RP, ALEX, LIPA, CMP, PREGQNT #### [facility] [address] [place] [address] Dr. Charlotte Cole Albumin/Globulin [Mass ratio] 0.7 {ratio} Normal [facility] Comment on above: Performed By: #### C RP, ALEX, LIPA, CMP, PREGQNT #### [facility] [address] [place] [address] Dr. Charlotte Cole ALP [Catalytic activity/Vol] 263 U/L Critically high 46-116 [facility] Comment on above: Performed By: #### C RP, ALEX, LIPA, CMP, PREGQNT #### [facility] [address] [place] [address] Dr. Charlotte Cole ALT [Catalytic activity/Vol] 42 U/L Normal 14-59 [facility] Comment on above: Performed By: #### C RP, ALEX, LIPA, CMP, PREGQNT #### [facility] [address] [place] [address] Dr. Charlotte Cole Anion gap [Moles/Vol] 19.8 mmol/L Normal [facility] Comment on above: Performed By: #### C RP, ALEX, LIPA, CMP, PREGQNT #### [facility] [address] [address] [address] Charlotte Cole AST [Catalytic activity/Vol] 35 U/L Normal 15-37 The [facility] Comment on above: Performed By: #### C RP, ALEX, LIPA, CMP, PREGQNT #### [facility] [address] [place] [address] Dr. Charlotte Cole Bilirubin [Mass/Vol] 0.6 mg/dL Normal 0.2-1.0 The [facility] Comment on above: Performed By: #### C RP, ALEX, LIPA, CMP, PREGQNT #### [facility] [address] [place] [address] Dr. Charlotte Cole Calcium [Mass/Vol] 9.3 mg/dL Normal 8.5-10.1 The [facility] Comment on above: Performed By: #### C RP, ALEX, LIPA, CMP, PREGQNT #### [facility] [address] [place] [address] Dr. Charlotte Cole Chloride [Moles/Vol] 98 mmol/L Normal 98-107 [facility] Comment on above: Performed By: #### C RP, ALEX, LIPA, CMP, PREGQNT #### [facility] [address] [place] [address] Dr. Charlotte Cole CO2 [Moles/Vol] 20.8 mmol/L Critically low 21.0-32.0 The [facility] Comment on above: Performed By: #### C RP, ALEX, LIPA, CMP, PREGQNT #### [facility] [address] [place] [address] Dr. Charlotte Cole Creatinine [Mass/Vol] 0.77 mg/dL Normal 0.55-1.02 The [facility] Comment on above: Performed By: #### C RP, ALEX, LIPA, CMP, PREGQNT #### [facility] [address] [place] [address] Dr. Charlotte Cole EGFR-AF THAI >60 Normal >=60 [facility] Comment on above: Performed By: #### C RP, ALEX, LIPA, CMP, PREGQNT #### [facility] [address] [place] [address] Dr. Charlotte Cole EGFR-NON AF THAI >60 Normal >=60 [facility] Comment on above: Performed By: #### C RP, ALEX, LIPA, CMP, PREGQNT #### [facility] [address] [place] [address] Dr. Charlotte Cole Globulin (S) [Mass/Vol] 4.3 g/dL Normal [facility] Comment on above: Performed By: #### C RP, ALEX, LIPA, CMP, PREGQNT #### [facility] [address] [place] [address] Dr. Charlotte Cole Glucose [Mass/Vol] 124 mg/dL Critically high 74-106 [facility] Comment on above: Performed By: #### C RP, ALEX, LIPA, CMP, PREGQNT #### [facility] [address] [place] [address] Dr. Charlotte Cole Potassium [Moles/Vol] 2.5 mmol/L Critically low 3.5-5.1 [facility] Comment on above: Performed By: #### C RP, ALEX, LIPA, CMP, PREGQNT #### [facility] [address] [place] [address] Dr. Charlotte Cole Protein [Mass/Vol] 7.4 g/dL Normal 6.4-8.2 [facility] Comment on above: Performed By: #### C RP, ALEX, LIPA, CMP, PREGQNT #### [facility] [address] [place] [address] Dr. Charlotte Cole Sodium [Moles/Vol] 134 mmol/L Critically low 136-145 Th [facility] Comment on above: Performed By: #### C RP, ALEX, LIPA, CMP, PREGQNT #### [facility] [address] [place] [address] Dr. Charlotte Cole Urea nitrogen [Mass/Vol] 7.0 mg/dL Normal 7.0-18.0 [facility] Comment on above: Performed By: #### C RP, ALEX, LIPA, CMP, PREGQNT #### [facility] [address] [place] [address] Dr. Charlotte Cole Urea nitrogen/Creatinine [Mass ratio] 9.1 mg/mg Normal [facility] Comment on above: Performed By: #### C RP, ALEX, LIPA, CMP, PREGQNT #### [facility] [address] [place] [address] Dr. Charlotte Cole TROPONIN, HIGH SENSITIVITYon 04-10-2022 HSTROP 29.7 pg/mL Normal 4.0-51.3 The [facility] Comment on above: Result Comment: CUT- OFF POINTS HAVE BEEN ESTABLISHED BASED ON THE FOURTH UNIVERSAL DEFINITIONS OF MYOCARDIAL INFARCTION. THE UPPER REFERENCE LIMIT (URL) OF TROPONIN, DEFINED THE 99TH PERCENTILE OF cTnI DISTRIBUTION IN A REFERENCE POPULATION, HAS BEEN CONFIRMED THE DECISION THRESHOLD FOR WI DIAGNOSIS. Performed By: #### C RP, ALEX, LIPA, CMP, PREGQNT #### [facility] [address] [place] [address] Dr. Charlotte Cole TSHon 04-10-2022 TSH 3.100 uIU/mL Normal 0.358-3.740 [facility] Comment on above: Performed By: #### C RP, ALEX, LIPA, CMP, PREGQNT #### [facility] [address] [place] [address] Dr. Charlotte Cole URINE MICROSCOPIC ONLYon BACTERIA TRACE Abnormal NONE SEEN The [facility] Comment on above: Performed By: #### C RP, ALEX, LIPA, CMP, PREGQNT #### [facility] [address] [place] [address] Dr. Charlotte Cole Bacteria identified Cx Nom (U) INDICATED Normal [facility] Comment on above: Performed By: #### C RP, ALEX, LIPA, CMP, PREGQNT #### [facility] [address] [place] [address] Dr. Charlotte Cole CAST NONE SEEN Normal NONE SEEN The [facility] Comment on above: Performed By: #### C RP, ALEX, LIPA, CMP, PREGQNT #### [facility] [address] [place] [address] Dr. Charlotte Cole Crystals LM Nom (Urine sed) NONE SEEN Normal NONE SEEN The [facility] Comment on above: Performed By: #### C RP, ALEX, LIPA, CMP, PREGQNT #### [facility] [address] [place] [address] Dr. Charlotte Cole Epithelial cells LM Ql (Urine sed) MODERATE Abnormal NONE SEEN /RARE The [facility] Comment on above: Performed By: #### C RP, ALEX, LIPA, CMP, PREGQNT #### [facility] [address] [place] [address] Dr. Charlotte Cole MUCOUS SMALL Abnormal NONE SEEN The [facility] Comment on above: Performed By: #### C RP, ALEX, LIPA, CMP, PREGQNT #### [facility] [address] [place] [address] Dr. Charlotte Cole RBC 10-20 Abnormal 0-2 [facility] Comment on above: Performed By: #### C RP, ALEX, LIPA, CMP, PREGQNT #### [facility] [address] [place] [address] Dr. Charlotte Cole WBC 5-10 Abnormal NONE SEEN The [facility] Comment on above: Performed By: #### C RP, ALEX, LIPA, CMP, PREGQNT #### [facility] [address] [place] [address] Dr. Charlotte Cole AMMONIAon 04-05-2022 Ammonia (P) [Moles/Vol] 4 umol/L Critically low 11-32 The [facility] Comment on above: Performed By: #### C RP, ALEX, LIPA, CMP, PREGQNT #### [facility] [address] [place] [address] Dr. Charlotte Cole AMYLASEon 04-05-2022 Amylase [Catalytic activity/Vol] 87 U/L Normal 25-115 The [facility] Comment on above: Performed By: #### C RP, LIPA, ALEX, CMP, PREGQNT #### [facility] [address] [place] [address] Dr. Charlotte Cole CBC AUTO DIFFon 04-05-2022 BASO # 0.0 103/ul Normal 0.0-0.1 [facility] Comment on above: Performed By: #### L ACT #### [facility] [address] [address] [address] Charlotte Cole Basophils/100 WBC (Bld) 0.4 % Normal 0.2-2.0 [facility] Comment on above: Performed By: #### L ACT #### [facility] [address] [address] [address] Charlotte Cole EO # 0.1 103/ul Normal 0.0-0.7 [facility] Comment on above: Performed By: #### L ACT #### [facility] [address] [address] [address] Charlotte Cole Eosinophils/100 WBC (Bld) 0.9 % Normal 0.9-7.0 [facility] Comment on above: Performed By: #### L ACT #### [facility] [address] [place] [address] Dr. Charlotte Cole Erythrocyte distribution width (RBC) [Ratio] 27.0 % Critically high 11.0-15.0 [facility] Comment on above: Performed By: #### L ACT #### [facility] [address] [place] [address] Dr. Charlotte Cole Hematocrit (Bld) [Volume fraction] 35.3 % Critically low 36.0-48.0 [facility] Comment on above: Performed By: #### L ACT #### [facility] [address] [address] [address] Charlotte Cole Hemoglobin (Bld) [Mass/Vol] 11.9 g/dL Critically low 12.0-16.0 [facility] Comment on above: Performed By: #### L ACT #### [facility] [address] [address] [address] Charlotte Cole IG # 0.14 10e3/ul Critically high 0.00-0.03 [facility] Comment on above: Performed By: #### L ACT #### [facility] [address] [address] [address] Charlotte Cole IG % 1.6 % Critically high 0.0-0.5 [facility] Comment on above: Performed By: #### L ACT #### [facility] [address] [place] [address] Dr. Charlotte Cole LYMPH # 1.0 103/ul Critically low 1.2-3.8 [facility] Comment on above: Performed By: #### L ACT #### [facility] [address] [place] [address] Dr. Charlotte Cole Lymphocytes/100 WBC (Bld) 10.9 % Critically low 20.5-60.0 [facility] Comment on above: Performed By: #### L ACT #### [facility] [address] [place] [address] Dr. Charlotte Cole MANUAL DIFF REQ NO Normal [facility] Comment on above: Performed By: #### L ACT #### [facility] [address] [place] [address] Dr. Charlotte Cole MCH (RBC) [Entitic mass] 33.3 pg Normal 26.7-34.0 [facility] Comment on above: Performed By: #### L ACT #### [facility] [address] [place] [address] Dr. Charlotte Cole MCHC (RBC) [Mass/Vol] 33.7 g/dL Normal 29.9-35.2 [facility] Comment on above: Performed By: #### L ACT #### [facility] [address] [place] [address] Dr. Charlotte Cole MCV (RBC) [Entitic vol] 98.9 fL Normal 81.0-99.0 [facility] Comment on above: Performed By: #### L ACT #### [facility] [address] [place] [address] Dr. Charlotte Cole MONO # 0.9 103/ul Critically high 0.3-0.8 [facility] Comment on above: Performed By: #### L ACT #### [facility] [address] [place] [address] Dr. Charlotte Cole Monocytes/100 WBC (Bld) 9.7 % Normal 1.7-12.0 [facility] Comment on above: Performed By: #### L ACT #### [facility] [address] [address] [address] Charlotte Cole NEUT # 6.8 103/ul Critically high 1.4-6.5 [facility] Comment on above: Performed By: #### L ACT #### [facility] [address] [address] [address] Charlotte Cole Neutrophils/100 WBC (Bld) 76.5 % Critically high 43.0-75.0 [facility] Comment on above: Performed By: #### L ACT #### [facility] [address] [place] [address] Dr. Charlotte Cole Platelet mean volume (Bld) [Entitic vol] 11.9 fL Normal 9.5-13.5 [facility] Comment on above: Performed By: #### L ACT #### [facility] [address] [place] [address] Dr. Charlotte Cole PLT 202 103/ul Normal 150-450 [facility] Comment on above: Performed By: #### L ACT #### [facility] [facility] [address] [place] [address] Dr. Charlotte Cole RBC 3.57 106/ul Critically low 4.20-5.40 [facility] Comment on above: Performed By: #### L ACT #### [facility] [address] [place] [address] Dr. Charlotte Cole WBC 8.9 103/ul Normal 4.0-11.0 [facility] Comment on above: Performed By: #### L ACT #### [facility] [address] [place] [address] Dr. Charlotte Cole CRPon 04-05-2022 CRP 6.0 mg/dL Critically high <=1.0 [facility] Comment on above: Performed By: #### C RP, LIPA, ALEX, CMP, PREGQNT #### [facility] [address] [place] [address] Dr. Charlotte Cole LIPASEon 04-05-2022 Lipase [Catalytic activity/Vol] 1358.0 U/L Critically high 73.0-393.0 [facility] Comment on above: Performed By: #### C RP, LIPA, ALEX, CMP, PREGQNT #### [facility] [address] [place] [address] Dr. Charlotte Cole PREG QUANT HCGon 04-05-2022 HCG QUANT 15 mIU/mL Normal [facility] Comment on above: Performed By: #### C RP, LIPA, ALEX, CMP, PREGQNT #### [facility] [address] [place] [address] Dr. Charlotte Cole HCG RANGE SEE BELOW Normal [facility] Comment on above: Result Comment: 5-50 0.2-1 WEEK 50-500 1-2 WEEKS 100-5,000 2-3 WEEKS 500-10,000 3-4 WEEKS 1,000-50,000 4-5 WEEKS 10,000-100,000 5-6 WEEKS 15,000-200,000 6-8 WEEKS 10,000-100,000 2-3 MONTHS Performed By: #### C RP, LIPA, ALEX, CMP, PREGQNT #### [facility] [address] [place] [address] Dr. Charlotte Cole PROF 14(COMP METB)on 022 Albumin [Mass/Vol] 3.0 g/dL Critically low 3.4-5.0 Th e [facility] Comment on above: Performed By: #### C RP, LIPA, ALEX, CMP, PREGQNT #### [facility] [address] [place] [address] Dr. Charlotte Cole Albumin/Globulin [Mass ratio] 0.8 {ratio} Normal [facility] Comment on above: Performed By: #### C RP, LIPA, ALEX, CMP, PREGQNT #### [facility] [address] [place] [address] Dr. Charlotte Cole ALP [Catalytic activity/Vol] 254 U/L Critically high 46-116 [facility] Comment on above: Performed By: #### C RP, LIPA, ALEX, CMP, PREGQNT #### [facility] [address] [place] [address] Dr. Charlotte Cole ALT [Catalytic activity/Vol] 151 U/L Critically high 14-59 [facility] Comment on above: Performed By: #### C RP, LIPA, ALEX, CMP, PREGQNT #### [facility] [address] [place] [address] Dr. Charlotte Cole Anion gap [Moles/Vol] 14.3 mmol/L Normal Th e [facility] Comment on above: Performed By: #### C RP, LIPA, ALEX, CMP, PREGQNT #### [facility] [address] [address] [address] Charlotte Cole AST [Catalytic activity/Vol] 155 U/L Critically high 15-37 [facility] Comment on above: Performed By: #### C RP, LIPA, ALEX, CMP, PREGQNT #### [facility] [address] [place] [address] Dr. Charlotte Cole Bilirubin [Mass/Vol] 1.4 mg/dL Critically high 0.2-1.0 [facility] Comment on above: Performed By: #### C RP, LIPA, ALEX, CMP, PREGQNT #### [facility] [address] [place] [address] Dr. Charlotte Cole Calcium [Mass/Vol] 8.8 mg/dL Normal 8.5-10.1 [facility] Comment on above: Performed By: #### C RP, LIPA, ALEX, CMP, PREGQNT #### [facility] [address] [place] [address] Dr. Charlotte Cole Chloride [Moles/Vol] 97 mmol/L Critically low 98-107 [facility] Comment on above: Performed By: #### C RP, LIPA, ALEX, CMP, PREGQNT #### [facility] [address] [place] [address] Dr. Charlotte Cole CO2 [Moles/Vol] 26.7 mmol/L Normal 21.0-32.0 [facility] Comment on above: Performed By: #### C RP, LIPA, ALEX, CMP, PREGQNT #### [facility] [address] [place] [address] Dr. Charlotte Cole Creatinine [Mass/Vol] 0.44 mg/dL Critically low 0.55-1.02 [facility] Comment on above: Performed By: #### C RP, LIPA, ALEX, CMP, PREGQNT #### [facility] [address] [address] [address] Charlotte Cole EGFR-AF THAI >60 Normal >=60 [facility] Comment on above: Performed By: #### C RP, LIPA, ALEX, CMP, PREGQNT #### [facility] [address] [address] [address] Charlotte Cole EGFR-NON AF THAI >60 Normal >=60 [facility] Comment on above: Performed By: #### C RP, LIPA, ALEX, CMP, PREGQNT #### [facility] [address] [place] [address] Dr. Charlotte Cole Globulin (S) [Mass/Vol] 3.7 g/dL Normal [facility] Comment on above: Performed By: #### C RP, LIPA, ALEX, CMP, PREGQNT #### [facility] [address] [place] [address] Dr. Charlotte Cole Glucose [Mass/Vol] 101 mg/dL Normal 74-106 [facility] Comment on above: Performed By: #### C RP, LIPA, ALEX, CMP, PREGQNT #### [facility] [address] [place] [address] Dr. Charlotte Cole Potassium [Moles/Vol] 3.0 mmol/L Critically low 3.5-5.1 [facility] Comment on above: Performed By: #### C RP, LIPA, ALEX, CMP, PREGQNT #### [facility] [address] [place] [address] Dr. Charlotte Cole Protein [Mass/Vol] 6.7 g/dL Normal 6.4-8.2 [facility] Comment on above: Performed By: #### C RP, LIPA, ALEX, CMP, PREGQNT #### [facility] [address] [place] [address] Dr. Charlotte Cole Sodium [Moles/Vol] 135 mmol/L Critically low 136-145 Th e [facility] Comment on above: Performed By: #### C RP, LIPA, ALEX, CMP, PREGQNT #### [facility] [address] [place] [address] Dr. Charlotte Cole Urea nitrogen [Mass/Vol] 2.0 mg/dL Critically low 7.0-18.0 [facility] Comment on above: Performed By: #### C RP, LIPA, ALEX, CMP, PREGQNT #### [facility] [address] [place] [address] Dr. Charlotte Cole Urea nitrogen/Creatinine [Mass ratio] 4.5 mg/mg Normal [facility] Comment on above: Performed By: #### C RP, LIPA, ALEX, CMP, PREGQNT #### [facility] [address] [place] [address] Dr. Charlotte Cole AMMONIAon 04-04-2022 Ammonia (P) [Moles/Vol] 22 umol/L Normal 11-32 [facility] Comment on above: Performed By: #### C RP, LIPA, ALEX, CMP, PREGQNT #### [facility] [address] [place] [address] Dr. Charlotte Cole AMYLASEon 04-04-2022 Amylase [Catalytic activity/Vol] 123 U/L Critically high 25-115 [facility] Comment on above: Performed By: #### C RP, ALEX, LIPA, CMP, PREGQNT #### [facility] [address] [place] [address] Dr. Charlotte Cole CBC AUTO DIFFon 04-04-2022 BASO # 0.1 103/ul Normal 0.0-0.1 [facility] Comment on above: Performed By: #### C RP, LIPA, ALEX, CMP, PREGQNT #### [facility] [address] [place] [address] Dr. Charlotte Cole Basophils/100 WBC (Bld) 0.8 % Normal 0.2-2.0 [facility] Comment on above: Performed By: #### C RP, LIPA, ALEX, CMP, PREGQNT #### [facility] [address] [place] [address] Dr. Charlotte Cole EO # 0.1 103/ul Normal 0.0-0.7 [facility] Comment on above: Performed By: #### C RP, LIPA, ALEX, CMP, PREGQNT #### [facility] [address] [place] [address] Dr. Charlotte Cole Eosinophils/100 WBC (Bld) 1.3 % Normal 0.9-7.0 [facility] Comment on above: Performed By: #### C RP, LIPA, ALEX, CMP, PREGQNT #### [facility] [address] [place] [address] Dr. Charlotte Cole Erythrocyte distribution width (RBC) [Ratio] 26.9 % Critically high 11.0-15.0 [facility] Comment on above: Performed By: #### C RP, LIPA, ALEX, CMP, PREGQNT #### [facility] [address] [place] [address] Dr. Charlotte Cole Hematocrit (Bld) [Volume fraction] 36.0 % Normal 36.0-48.0 [facility] Comment on above: Performed By: #### C RP, LIPA, ALEX, CMP, PREGQNT #### [facility] [address] [place] [address] Dr. Charlotte Cole Hemoglobin (Bld) [Mass/Vol] 12.4 g/dL Normal 12.0-16.0 [facility] Comment on above: Performed By: #### C RP, LIPA, ALEX, CMP, PREGQNT #### [facility] [address] [place] [address] Dr. Charlotte Cole IG # 0.23 10e3/ul Critically high 0.00-0.03 [facility] Comment on above: Performed By: #### C RP, LIPA, ALEX, CMP, PREGQNT #### [facility] [address] [place] [address] Dr. Charlotte Cole IG % 3.8 % Critically high 0.0-0.5 [facility] Comment on above: Performed By: #### C RP, LIPA, ALEX, CMP, PREGQNT #### [facility] [address] [place] [address] Dr. Charlotte Cole LYMPH # 0.8 103/ul Critically low 1.2-3.8 [facility] Comment on above: Performed By: #### C RP, LIPA, ALEX, CMP, PREGQNT #### [facility] [address] [place] [address] Dr. Charlotte Cole Lymphocytes/100 WBC (Bld) 12.5 % Critically low 20.5-60.0 [facility] Comment on above: Performed By: #### C RP, LIPA, ALEX, CMP, PREGQNT #### [facility] [address] [place] [address] Dr. Charlotte Cole MANUAL DIFF REQ NO Normal [facility] Comment on above: Performed By: #### C RP, LIPA, ALEX, CMP, PREGQNT #### [facility] [address] [place] [address] Dr. Charlotte Cole MCH (RBC) [Entitic mass] 34.0 pg Normal 26.7-34.0 [facility] Comment on above: Performed By: #### C RP, LIPA, ALEX, CMP, PREGQNT #### [facility] [address] [place] [address] Dr. Charlotte Cole MCHC (RBC) [Mass/Vol] 34.4 g/dL Normal 29.9-35.2 [facility] Comment on above: Performed By: #### C RP, LIPA, ALEX, CMP, PREGQNT #### [facility] [address] [place] [address] Dr. Charlotte Cole MCV (RBC) [Entitic vol] 98.6 fL Normal 81.0-99.0 [facility] Comment on above: Performed By: #### C RP, LIPA, ALEX, CMP, PREGQNT #### [facility] [address] [place] [address] Dr. Charlotte Cole MONO # 0.6 103/ul Normal 0.3-0.8 [facility] Comment on above: Performed By: #### C RP, LIPA, ALEX, CMP, PREGQNT #### [facility] [address] [place] [address] Dr. Charlotte Cole Monocytes/100 WBC (Bld) 9.5 % Normal 1.7-12.0 [facility] Comment on above: Performed By: #### C RP, LIPA, ALEX, CMP, PREGQNT #### [facility] [address] [place] [address] Dr. Charlotte Cole NEUT # 4.3 103/ul Normal 1.4-6.5 [facility] Comment on above: Performed By: #### C RP, LIPA, ALEX, CMP, PREGQNT #### [facility] [address] [place] [address] Dr. Charlotte Cole Neutrophils/100 WBC (Bld) 72.1 % Normal 43.0-75.0 [facility] Comment on above: Performed By: #### C RP, LIPA, ALEX, CMP, PREGQNT #### [facility] [address] [place] [address] Dr. Charlotte Cole Platelet mean volume (Bld) [Entitic vol] 11.9 fL Normal 9.5-13.5 [facility] Comment on above: Performed By: #### C RP, LIPA, ALEX, CMP, PREGQNT #### [facility] [address] [place] [address] Dr. Charlotte Cole PLT 133 103/ul Critically low 150-450 [facility] Comment on above: Performed By: #### C RP, LIPA, ALEX, CMP, PREGQNT #### [facility] [address] [place] [address] Dr. Charlotte Cole RBC 3.65 106/ul Critically low 4.20-5.40 [facility] Comment on above: Performed By: #### C RP, LIPA, ALEX, CMP, PREGQNT #### [facility] [address] [place] [address] Dr. Charlotte Cole WBC 6.0 103/ul Normal 4.0-11.0 [facility] Comment on above: Performed By: #### C RP, LIPA, ALEX, CMP, PREGQNT #### [facility] [address] [place] [address] Dr. Charlotte Cole CRPon 04-04-2022 CRP 4.2 mg/dL Critically high <=1.0 [facility] Comment on above: Performed By: #### C RP, ALEX, LIPA, CMP, PREGQNT #### [facility] [address] [place] [address] Dr. Charlotte Cole LIPASEon 04-04-2022 Lipase [Catalytic activity/Vol] 1935.0 U/L Critically high 73.0-393.0 [facility] Comment on above: Performed By: #### C RP, ALEX, LIPA, CMP, PREGQNT #### [facility] [address] [place] [address] Dr. Charlotte Cole PREG QUANT HCGon 04-04-2022 HCG QUANT 39 mIU/mL Normal [facility] Comment on above: Performed By: #### C RP, ALEX, LIPA, CMP, PREGQNT #### [facility] [address] [place] [address] Dr. Charlotte Cole HCG RANGE SEE BELOW Normal [facility] Comment on above: Result Comment: 5-50 0.2-1 WEEK 50-500 1-2 WEEKS 100-5,000 2-3 WEEKS 500-10,000 3-4 WEEKS 1,000-50,000 4-5 WEEKS 10,000-100,000 5-6 WEEKS 15,000-200,000 6-8 WEEKS 10,000-100,000 2-3 MONTHS Performed By: #### C RP, ALEX, LIPA, CMP, PREGQNT #### [facility] [address] [place] [address] Dr. Charlotte Cole PROF 14(COMP METB)on 022 Albumin [Mass/Vol] 2.9 g/dL Critically low 3.4-5.0 Th e [facility] Comment on above: Performed By: #### C RP, ALEX, LIPA, CMP, PREGQNT #### [facility] [address] [place] [address] Dr. Charlotte Cole Albumin/Globulin [Mass ratio] 0.8 {ratio} Normal [facility] Comment on above: Performed By: #### C RP, ALEX, LIPA, CMP, PREGQNT #### [facility] [address] [address] [address] Charlotte Cole ALP [Catalytic activity/Vol] 226 U/L Critically high 46-116 [facility] Comment on above: Performed By: #### C RP, ALEX, LIPA, CMP, PREGQNT #### [facility] [address] [address] [address] Charlotte Cole ALT [Catalytic activity/Vol] 184 U/L Critically high 14-59 [facility] Comment on above: Performed By: #### C RP, ALEX, LIPA, CMP, PREGQNT #### [facility] [address] [place] [address] Dr. Charlotte Cole Anion gap [Moles/Vol] 12.1 mmol/L Normal [facility] Comment on above: Performed By: #### C RP, ALEX, LIPA, CMP, PREGQNT #### [facility] [address] [address] [address] Charlotte Cole AST [Catalytic activity/Vol] 271 U/L Critically high 15-37 [facility] Comment on above: Performed By: #### C RP, ALEX, LIPA, CMP, PREGQNT #### [facility] [address] [place] [address] Dr. Charlotte Cole Bilirubin [Mass/Vol] 1.4 mg/dL Critically high 0.2-1.0 [facility] Comment on above: Performed By: #### C RP, ALEX, LIPA, CMP, PREGQNT #### [facility] [address] [address] [address] Charlotte Cole Calcium [Mass/Vol] 8.6 mg/dL Normal 8.5-10.1 [facility] Comment on above: Performed By: #### C RP, ALEX, LIPA, CMP, PREGQNT #### [facility] [address] [place] [address] Dr. Charlotte Cole Chloride [Moles/Vol] 100 mmol/L Normal 98-107 [facility] Comment on above: Performed By: #### C RP, ALEX, LIPA, CMP, PREGQNT #### [facility] [address] [place] [address] Dr. Charlotte Cole CO2 [Moles/Vol] 25.0 mmol/L Normal 21.0-32.0 [facility] Comment on above: Performed By: #### C RP, ALEX, LIPA, CMP, PREGQNT #### [facility] [address] [place] [address] Dr. Charlotte Cole Creatinine [Mass/Vol] 0.58 mg/dL Normal 0.55-1.02 [facility] Comment on above: Performed By: #### C RP, ALEX, LIPA, CMP, PREGQNT #### [facility] [address] [place] [address] Dr. Charlotte Cole EGFR-AF THAI >60 Normal >=60 [facility] Comment on above: Performed By: #### C RP, ALEX, LIPA, CMP, PREGQNT #### [facility] [address] [place] [address] Dr. Charlotte Cole Globulin (S) [Mass/Vol] 3.8 g/dL Normal [facility] Comment on above: Performed By: #### C RP, ALEX, LIPA, CMP, PREGQNT #### [facility] [address] [place] [address] Dr. Charlotte Cole Glucose [Mass/Vol] 107 mg/dL Critically high 74-106 [facility] Comment on above: Performed By: #### C RP, ALEX, LIPA, CMP, PREGQNT #### [facility] [address] [place] [address] Dr. Charlotte Cole Potassium [Moles/Vol] 3.1 mmol/L Critically low 3.5-5.1 [facility] Comment on above: Performed By: #### C RP, ALEX, LIPA, CMP, PREGQNT #### [facility] [address] [place] [address] Dr. Charlotte Cole Protein [Mass/Vol] 6.7 g/dL Normal 6.4-8.2 [facility] Comment on above: Performed By: #### C RP, ALEX, LIPA, CMP, PREGQNT #### [facility] [address] [place] [address] Dr. Charlotte Cole Sodium [Moles/Vol] 134 mmol/L Critically low 136-145 [facility] Comment on above: Performed By: #### C RP, ALEX, LIPA, CMP, PREGQNT #### [facility] [address] [place] [address] Dr. Charlotte Cole Urea nitrogen [Mass/Vol] 2.0 mg/dL Critically low 7.0-18.0 [facility] Comment on above: Performed By: #### C RP, ALEX, LIPA, CMP, PREGQNT #### [facility] [address] [place] [address] Dr. Charlotte Cole Urea nitrogen/Creatinine [Mass ratio] 3.4 mg/mg Normal [facility] Comment on above: Performed By: #### C RP, ALEX, LIPA, CMP, PREGQNT #### [facility] [address] [place] [address] Dr. Charlotte Cole PROF CHEM 8 (BAS METB)on Anion gap [Moles/Vol] 12.6 mmol/L Normal [facility] Comment on above: Performed By: #### B MP #### [facility] [address] [place] [address] Dr. Charlotte Cole Calcium [Mass/Vol] 8.7 mg/dL Normal 8.5-10.1 [facility] Comment on above: Performed By: #### B MP #### [facility] [address] [place] [address] Dr. Charlotte Cole Chloride [Moles/Vol] 101 mmol/L Normal 98-107 [facility] Comment on above: Performed By: #### B MP #### [facility] [address] [place] [address] Dr. Charlotte Cole CO2 [Moles/Vol] 25.9 mmol/L Normal 21.0-32.0 [facility] Comment on above: Performed By: #### B MP #### [facility] [address] [address] [address] Charlotte Cole Creatinine [Mass/Vol] 0.46 mg/dL Critically low 0.55-1.02 [facility] Comment on above: Performed By: #### B MP #### [facility] [address] [address] [address] Charlotte Cole EGFR-AF THAI >60 Normal >=60 [facility] Comment on above: Performed By: #### B MP #### [facility] [address] [address] [address] Charlotte Cole EGFR-NON AF THAI >60 Normal >=60 [facility] Comment on above: Performed By: #### B MP #### [facility] [address] [address] [address] Charlotte Cole Glucose [Mass/Vol] 104 mg/dL Normal 74-106 [facility] Comment on above: Performed By: #### B MP #### [facility] [address] [address] [address] Charlotte Cole Potassium [Moles/Vol] 3.5 mmol/L Normal 3.5-5.1 [facility] Comment on above: Performed By: #### B MP #### [facility] [address] [place] [address] Dr. Charlotte Cole Sodium [Moles/Vol] 136 mmol/L Normal 136-145 [facility] Comment on above: Performed By: #### B MP #### [facility] [address] [address] [address] Charlotte Cole Urea nitrogen [Mass/Vol] 2.0 mg/dL Critically low 7.0-18.0 [facility] Comment on above: Performed By: #### B MP #### [facility] [address] [place] [address] Dr. Charlotte Cole Urea nitrogen/Creatinine [Mass ratio] 4.3 mg/mg Normal [facility] Comment on above: Performed By: #### B MP #### [facility] [address] [place] [address] Dr. Charlotte Cole Anion gap [Moles/Vol] 11.2 mmol/L Normal [facility] Comment on above: Performed By: #### C RP, ALEX, LIPA, CMP, PREGQNT #### [facility] [address] [place] [address] Dr. Charlotte Cole Calcium [Mass/Vol] 8.3 mg/dL Critically low 8.5-10.1 [facility] Comment on above: Performed By: #### C RP, ALEX, LIPA, CMP, PREGQNT #### [facility] [address] [place] [address] Dr. Charlotte Cole Chloride [Moles/Vol] 102 mmol/L Normal 98-107 [facility] Comment on above: Performed By: #### C RP, ALEX, LIPA, CMP, PREGQNT #### [facility] [address] [place] [address] Dr. Charlotte Cole CO2 [Moles/Vol] 26.7 mmol/L Normal 21.0-32.0 [facility] Comment on above: Performed By: #### C RP, ALEX, LIPA, CMP, PREGQNT #### [facility] [address] [place] [address] Dr. Charlotte Cole Creatinine [Mass/Vol] 0.44 mg/dL Critically low 0.55-1.02 [facility] Comment on above: Performed By: #### C RP, ALEX, LIPA, CMP, PREGQNT #### [facility] [address] [place] [address] Dr. Charlotte Cole EGFR-AF THAI >60 Normal >=60 [facility] Comment on above: Performed By: #### C RP, ALEX, LIPA, CMP, PREGQNT #### [facility] [address] [place] [address] Dr. Charlotte Cole EGFR-NON AF THAI >60 Normal >=60 [facility] Comment on above: Performed By: #### C RP, ALEX, LIPA, CMP, PREGQNT #### [facility] [address] [place] [address] Dr. Charlotte Cole Glucose [Mass/Vol] 102 mg/dL Normal 74-106 [facility] Comment on above: Performed By: #### C RP, ALEX, LIPA, CMP, PREGQNT #### [facility] [address] [place] [address] Dr. Charlotte Cole Potassium [Moles/Vol] 3.9 mmol/L Normal 3.5-5.1 The [facility] Comment on above: Performed By: #### C RP, ALEX, LIPA, CMP, PREGQNT #### [facility] [address] [place] [address] Dr. Charlotte Cole Sodium [Moles/Vol] 136 mmol/L Normal 136-145 The [facility] Comment on above: Performed By: #### C RP, ALEX, LIPA, CMP, PREGQNT #### [facility] [address] [place] [address] Dr. Charlotte Cole Urea nitrogen [Mass/Vol] 2.0 mg/dL Critically low 7.0-18.0 [facility] Comment on above: Performed By: #### C RP, ALEX, LIPA, CMP, PREGQNT #### [facility] [address] [place] [address] Dr. Charlotte Cole Urea nitrogen/Creatinine [Mass ratio] 4.5 mg/mg Normal [facility] Comment on above: Performed By: #### C RP, ALEX, LIPA, CMP, PREGQNT #### [facility] [address] [place] [address] Dr. Charlotte Cole AMMONIAon 04-03-2022 Ammonia (P) [Moles/Vol] 36 umol/L Critically high 11-32 The [facility] Comment on above: Performed By: #### L ACT #### [facility] [address] [place] [address] Dr. Charlotte Cole AMYLASEon 04-03-2022 Amylase [Catalytic activity/Vol] 97 U/L Normal 25-115 [facility] Comment on above: Performed By: #### C RP, ALEX, LIPA, CMP, PREGQNT #### [facility] [address] [place] [address] Dr. Charlotte Cole CBC W MANUAL DIFFon 04-03-20 22 ANISOCYTOSIS 2+ Normal [facility] Comment on above: Performed By: #### C RP, ALEX, LIPA, CMP, PREGQNT #### [facility] [address] [place] [address] Dr. Charlotte Cole ATYPICAL LYMPH # 0.17 103/ul Normal The [facility] Comment on above: Performed By: #### C RP, ALEX, LIPA, CMP, PREGQNT #### [facility] [address] [place] [address] Dr. Charlotte Cole ATYPICAL LYMPH % 5 % Normal [facility] Comment on above: Performed By: #### C RP, ALEX, LIPA, CMP, PREGQNT #### [facility] [address] [place] [address] Dr. Charlotte Cole BAND # 0.3 103/ul Normal 0.0-0.3 The [facility] Comment on above: Performed By: #### C RP, ALEX, LIPA, CMP, PREGQNT #### [facility] [address] [place] [address] Dr. Charlotte Cole BAND % 8 % Critically high 0-5 The [facility] Comment on above: Performed By: #### C RP, ALEX, LIPA, CMP, PREGQNT #### [facility] [address] [place] [address] Dr. Charlotte Cole BASOM # 0.07 103/ul Normal 0.00-0.10 The [facility] Comment on above: Performed By: #### C RP, ALEX, LIPA, CMP, PREGQNT #### [facility] [address] [place] [address] Dr. Charlotte Cole BASOM % 2.0 % Normal 0.2-2.0 [facility] Comment on above: Performed By: #### C RP, ALEX, LIPA, CMP, PREGQNT #### [facility] [address] [place] [address] Dr. Charlotte Cole BLAST # Normal [facility] Comment on above: Performed By: #### C RP, ALEX, LIPA, CMP, PREGQNT #### [facility] [address] [place] [address] Dr. Charlotte Cole BLAST % Normal [facility] Comment on above: Performed By: #### C RP, ALEX, LIPA, CMP, PREGQNT #### [facility] [address] [place] [address] Dr. Charlotte Cole CORRECTED WBC Normal 4.0-11.0 [facility] Comment on above: Performed By: #### C RP, ALEX, LIPA, CMP, PREGQNT #### [facility] [address] [place] [address] Dr. Charlotte Cole EOS # 0.00 103/ul Normal 0.00-0.70 [facility] Comment on above: Performed By: #### C RP, ALEX, LIPA, CMP, PREGQNT #### [facility] [address] [place] [address] Dr. Charlotte Cole EOS% 0.0 % Critically low 0.9-7.0 [facility] Comment on above: Performed By: #### C RP, ALEX, LIPA, CMP, PREGQNT #### [facility] [address] [place] [address] Dr. Charlotte Cole HCT 28.1 % Critically low 36.0-48.0 [facility] Comment on above: Performed By: #### C RP, ALEX, LIPA, CMP, PREGQNT #### [facility] [address] [place] [address] Dr. Charlotte Cole HGB 9.9 g/dl Critically low 12.0-16.0 [facility] Comment on above: Performed By: #### C RP, ALEX, LIPA, CMP, PREGQNT #### [facility] [address] [place] [address] Dr. Charlotte Cole LYMPHM # 0.39 103/ul Critically low 1.20-3.80 [facility] Comment on above: Performed By: #### C RP, ALEX, LIPA, CMP, PREGQNT #### [facility] [address] [place] [address] Dr. Charlotte Cole LYMPHM% 11.0 % Critically low 20.5-60.0 [facility] Comment on above: Performed By: #### C RP, ALEX, LIPA, CMP, PREGQNT #### [facility] [address] [place] [address] Dr. Charlotte Cole MCH 33.2 pg Normal 26.7-34.0 [facility] Comment on above: Performed By: #### C RP, ALEX, LIPA, CMP, PREGQNT #### [facility] [address] [place] [address] Dr. Charlotte Cole MCHC 35.2 g/dl Normal 29.9-35.2 The [facility] Comment on above: Performed By: #### C RP, ALEX, LIPA, CMP, PREGQNT #### [facility] [address] [place] [address] Dr. Charlotte Cole MCV 94.3 fL Normal 81.0-99.0 [facility] Comment on above: Performed By: #### C RP, ALEX, LIPA, CMP, PREGQNT #### [facility] [address] [place] [address] Dr. Charlotte Cole METAMYELOCYTE # Normal The [facility] Comment on above: Performed By: #### C RP, ALEX, LIPA, CMP, PREGQNT #### [facility] [address] [place] [address] Dr. Charlotte Cole METAMYELOCYTE % Normal The [facility] Comment on above: Performed By: #### C RP, ALEX, LIPA, CMP, PREGQNT #### [facility] [address] [place] [address] Dr. Charlotte Cole MONOM# 0.35 103/ul Normal 0.30-0.80 The [facility] Comment on above: Performed By: #### C RP, ALEX, LIPA, CMP, PREGQNT #### [facility] [address] [place] [address] Dr. Charlotte Cole MONOM% 10.0 % Normal 1.7-12.0 [facility] Comment on above: Performed By: #### C RP, ALEX, LIPA, CMP, PREGQNT #### [facility] [address] [address] [address] Charlotte Cole MPV 11.4 fL Normal 9.5-13.5 [facility] Comment on above: Performed By: #### C RP, ALEX, LIPA, CMP, PREGQNT #### [facility] [address] [address] [address] Charlotte Cole MYELOCYTE # Normal [facility] Comment on above: Performed By: #### C RP, ALEX, LIPA, CMP, PREGQNT #### [facility] [address] [address] [address] Charlotte Cole MYELOCYTE % Normal [facility] Comment on above: Performed By: #### C RP, ALEX, LIPA, CMP, PREGQNT #### [facility] [address] [address] [address] Charlotte Cole NRBC Normal [facility] Comment on above: Performed By: #### C RP, ALEX, LIPA, CMP, PREGQNT #### [facility] [address] [address] [address] Charlotte Cole PLT 105 103/ul Critically low 150-450 [facility] Comment on above: Performed By: #### C RP, ALEX, LIPA, CMP, PREGQNT #### [facility] [address] [address] [address] Charlotte Cole RBC 2.98 106/ul Critically low 4.20-5.40 [facility] Comment on above: Performed By: #### C RP, ALXE, LIPA, CMP, PREGQNT #### [facility] [address] [address] [address] Charlotte Cole RDW 25.0 % Critically high 11.0-15.0 [facility] Comment on above: Performed By: #### C RP, ALEX, LIPA, CMP, PREGQNT #### [facility] [address] [address] [address] Charlotte Cole SEG # 2.24 103/ul Normal 1.40-6.50 [facility] Comment on above: Performed By: #### C RP, AELX, LIPA, CMP, PREGQNT #### [facility] [address] [place] [address] Dr. Charlotte Cole SEG % 64.0 % Normal 43.0-75.0 [facility] Comment on above: Performed By: #### C RP, ALEX, LIPA, CMP, PREGQNT #### [facility] [address] [place] [address] Dr. Charlotte Cole WBC 3.5 103/ul Critically low 4.0-11.0 The [facility] Comment on above: Performed By: #### C RP, ALEX, LIPA, CMP, PREGQNT #### [facility] [address] [place] [address] Dr. Charlotte Cole CRPon 04-03-2022 CRP 5.5 mg/dL Critically high <=1.0 [facility] Comment on above: Performed By: #### C RP, ALEX, LIPA, CMP, PREGQNT #### [facility] [address] [place] [address] Dr. Charlotte Cole LIPASEon 04-03-2022 Lipase [Catalytic activity/Vol] 2065.0 U/L Critically high 73.0-393.0 [facility] Comment on above: Performed By: #### C RP, ALEX, LIPA, CMP, PREGQNT #### [facility] [address] [place] [address] Dr. Charlotte Cole POTASSIUMon 04-03-2022 Potassium [Moles/Vol] 3.3 mmol/L Critically low 3.5-5.1 The [facility] Comment on above: Performed By: #### C RP, ALEX, LIPA, CMP, PREGQNT #### [facility] [address] [place] [address] Dr. Charlotte Cole PREG QUANT HCGon 04-03-2022 HCG QUANT 197 mIU/mL Normal The [facility] Comment on above: Performed By: #### C RP, ALEX, LIPA, CMP, PREGQNT #### [facility] [address] [place] [address] Dr. Charlotte Cole HCG RANGE SEE BELOW Normal [facility] Comment on above: Result Comment: 5-50 0.2-1 WEEK 50-500 1-2 WEEKS 100-5,000 2-3 WEEKS 500-10,000 3-4 WEEKS 1,000-50,000 4-5 WEEKS 10,000-100,000 5-6 WEEKS 15,000-200,000 6-8 WEEKS 10,000-100,000 2-3 MONTHS Performed By: #### C RP, ALEX, LIPA, CMP, PREGQNT #### [facility] [address] [place] [address] Dr. Charlotte Cole PROF 14(COMP METB)on 022 Albumin [Mass/Vol] 2.5 g/dL Critically low 3.4-5.0 [facility] Comment on above: Performed By: #### C RP, ALEX, LIPA, CMP, PREGQNT #### [facility] [address] [place] [address] Dr. Charlotte Cole Albumin/Globulin [Mass ratio] 0.8 {ratio} Normal [facility] Comment on above: Performed By: #### C RP, ALEX, LIPA, CMP, PREGQNT #### [facility] [address] [place] [address] Dr. Charlotte Cole ALP [Catalytic activity/Vol] 188 U/L Critically high 46-116 [facility] Comment on above: Performed By: #### C RP, ALEX, LIPA, CMP, PREGQNT #### [facility] [address] [place] [address] Dr. Charlotte Cole ALT [Catalytic activity/Vol] 175 U/L Critically high 14-59 [facility] Comment on above: Performed By: #### C RP, ALEX, LIPA, CMP, PREGQNT #### [facility] [address] [place] [address] Dr. Charlotte Cole Anion gap [Moles/Vol] 11.2 mmol/L Normal [facility] Comment on above: Performed By: #### C RP, ALEX, LIPA, CMP, PREGQNT #### [facility] [address] [place] [address] Dr. Charlotte Cole AST [Catalytic activity/Vol] 364 U/L Critically high 15-37 [facility] Comment on above: Performed By: #### C RP, ALEX, LIPA, CMP, PREGQNT #### [facility] [address] [place] [address] Dr. Charlotte Cole Bilirubin [Mass/Vol] 1.4 mg/dL Critically high 0.2-1.0 [facility] Comment on above: Performed By: #### C RP, ALEX, LIPA, CMP, PREGQNT #### [facility] [address] [place] [address] Dr. Charlotte Cole Calcium [Mass/Vol] 8.4 mg/dL Critically low 8.5-10.1 Th e [facility] Comment on above: Performed By: #### C RP, ALEX, LIPA, CMP, PREGQNT #### [facility] [address] [place] [address] Dr. Charlotte Cole Chloride [Moles/Vol] 101 mmol/L Normal 98-107 The [facility] Comment on above: Performed By: #### C RP, ALEX, LIPA, CMP, PREGQNT #### [facility] [address] [place] [address] Dr. Charlotte Cole CO2 [Moles/Vol] 24.5 mmol/L Normal 21.0-32.0 The [facility] Comment on above: Performed By: #### C RP, ALEX, LIPA, CMP, PREGQNT #### [facility] [address] [place] [address] Dr. Charlotte Cole Creatinine [Mass/Vol] 0.45 mg/dL Critically low 0.55-1.02 [facility] Comment on above: Performed By: #### C RP, ALEX, LIPA, CMP, PREGQNT #### [facility] [address] [place] [address] Dr. Charlotte Cole EGFR-AF THAI >60 Normal >=60 [facility] Comment on above: Performed By: #### C RP, ALEX, LIPA, CMP, PREGQNT #### [facility] [address] [place] [address] Dr. Charlotte Cole EGFR-NON AF THAI >60 Normal >=60 [facility] Comment on above: Performed By: #### C RP, ALEX, LIPA, CMP, PREGQNT #### [facility] [address] [place] [address] Dr. Charlotte Cole Globulin (S) [Mass/Vol] 3.2 g/dL Normal [facility] Comment on above: Performed By: #### C RP, ALEX, LIPA, CMP, PREGQNT #### [facility] [address] [place] [address] Dr. Charlotte Cole Glucose [Mass/Vol] 120 mg/dL Critically high 74-106 [facility] Comment on above: Performed By: #### C RP, ALEX, LIPA, CMP, PREGQNT #### [facility] [address] [place] [address] Dr. Charlotte Cole Potassium [Moles/Vol] 2.7 mmol/L Critically low 3.5-5.1 [facility] Comment on above: Performed By: #### C RP, ALEX, LIPA, CMP, PREGQNT #### [facility] [address] [place] [address] Dr. Charlotte Cole Protein [Mass/Vol] 5.7 g/dL Critically low 6.4-8.2 Th [facility] Comment on above: Performed By: #### C RP, ALEX, LIPA, CMP, PREGQNT #### [facility] [address] [place] [address] Dr. Charlotte Cole Sodium [Moles/Vol] 133 mmol/L Critically low 136-145 Th [facility] Comment on above: Performed By: #### C RP, ALEX, LIPA, CMP, PREGQNT #### [facility] [address] [place] [address] Dr. Charlotte Cole Urea nitrogen [Mass/Vol] 2.0 mg/dL Critically low 7.0-18.0 [facility] Comment on above: Performed By: #### C RP, ALEX, LIPA, CMP, PREGQNT #### [facility] [address] [place] [address] Dr. Charlotte Cole Urea nitrogen/Creatinine [Mass ratio] 4.4 mg/mg Normal [facility] Comment on above: Performed By: #### C RP, ALEX, LIPA, CMP, PREGQNT #### [facility] [address] [place] [address] Dr. Charlotte Cole AMMONIAon 04-02-2022 Ammonia (P) [Moles/Vol] 27 umol/L Normal 11-32 The [facility] Comment on above: Performed By: #### C RP, ALEX, LIPA, CMP, PREGQNT #### [facility] [address] [place] [address] Dr. Charlotte Cole AMYLASEon 04-02-2022 Amylase [Catalytic activity/Vol] 69 U/L Normal 25-115 [facility] Comment on above: Performed By: #### C RP, ALEX, LIPA, CMP, PREGQNT #### [facility] [address] [place] [address] Dr. Charlotte Cole CBC W MANUAL DIFFon 04-02-20 22 ATYPICAL LYMPH # Normal [facility] Comment on above: Performed By: #### C RP, LIPA, ALEX, CMP, PREGQNT #### [facility] [address] [place] [address] Dr. Charlotte Cole ATYPICAL LYMPH % Normal [facility] Comment on above: Performed By: #### C RP, LIPA, ALEX, CMP, PREGQNT #### [facility] [address] [place] [address] Dr. Charlotte Cole BAND # 0.0 103/ul Normal 0.0-0.3 The [facility] Comment on above: Performed By: #### C RP, LIPA, ALEX, CMP, PREGQNT #### [facility] [address] [place] [address] Dr. Charlotte Cole BAND % 0 % Normal 0-5 [facility] Comment on above: Performed By: #### C RP, LIPA, ALEX, CMP, PREGQNT #### [facility] [address] [place] [address] Dr. Charlotte Cole BASOM # 0.04 103/ul Normal 0.00-0.10 [facility] Comment on above: Performed By: #### C RP, LIPA, ALEX, CMP, PREGQNT #### [facility] [address] [address] [address] Charlotte Cole BASOM % 1.0 % Normal 0.2-2.0 The [facility] Comment on above: Performed By: #### C RP, LIPA, ALEX, CMP, PREGQNT #### [facility] [address] [address] [address] Charlotte Cole BLAST # Normal [facility] Comment on above: Performed By: #### C RP, LIPA, ALEX, CMP, PREGQNT #### [facility] [address] [address] [address] Charlotte Cole BLAST % Normal [facility] Comment on above: Performed By: #### C RP, LIPA, ALEX, CMP, PREGQNT #### [facility] [address] [address] [address] Charlotte Cole CORRECTED WBC Normal 4.0-11.0 [facility] Comment on above: Performed By: #### C RP, LIPA, ALEX, CMP, PREGQNT #### [facility] [address] [address] [address] Charlotte Cole EOS # 0.00 103/ul Normal 0.00-0.70 [facility] Comment on above: Performed By: #### C RP, LIPA, ALEX, CMP, PREGQNT #### [facility] [address] [address] [address] Charlotte Cole EOS% 0.0 % Critically low 0.9-7.0 [facility] Comment on above: Performed By: #### C RP, LIPA, ALEX, CMP, PREGQNT #### [facility] [address] [address] [address] Charlotte Cole HCT 28.2 % Critically low 36.0-48.0 [facility] Comment on above: Performed By: #### C RP, LIPA, ALEX, CMP, PREGQNT #### [facility] [address] [place] [address] Dr. Charlotte Cole HGB 10.0 g/dl Critically low 12.0-16.0 [facility] Comment on above: Performed By: #### C RP, LIPA, ALEX, CMP, PREGQNT #### [facility] [address] [place] [address] Dr. Charlotte Cole LYMPHM # 0.51 103/ul Critically low 1.20-3.80 [facility] Comment on above: Performed By: #### C RP, LIPA, ALEX, CMP, PREGQNT #### [facility] [address] [place] [address] Dr. Charlotte Cole LYMPHM% 13.0 % Critically low 20.5-60.0 [facility] Comment on above: Performed By: #### C RP, LIPA, ALEX, CMP, PREGQNT #### [facility] [address] [place] [address] Dr. Charlotte Cole MCH 33.2 pg Normal 26.7-34.0 [facility] Comment on above: Performed By: #### C RP, LIPA, ALEX, CMP, PREGQNT #### [facility] [address] [place] [address] Dr. Charlotte Cole MCHC 35.5 g/dl Critically high 29.9-35.2 [facility] Comment on above: Performed By: #### C RP, LIPA, ALEX, CMP, PREGQNT #### [facility] [address] [place] [address] Dr. Charlotte Cole MCV 93.7 fL Normal 81.0-99.0 [facility] Comment on above: Performed By: #### C RP, LIPA, ALEX, CMP, PREGQNT #### [facility] [address] [place] [address] Dr. Charlotte Cole METAMYELOCYTE # Normal The [facility] Comment on above: Performed By: #### C RP, LIPA, ALEX, CMP, PREGQNT #### [facility] [address] [address] [address] Charlotte Cole METAMYELOCYTE % Normal The [facility] Comment on above: Performed By: #### C RP, LIPA, ALEX, CMP, PREGQNT #### [facility] [address] [place] [address] Dr. Charlotte Cole MONOM# 0.04 103/ul Critically low 0.30-0.80 [facility] Comment on above: Performed By: #### C RP, LIPA, ALEX, CMP, PREGQNT #### [facility] [address] [place] [address] Dr. Charlotte Cole MONOM% 1.0 % Critically low 1.7-12.0 [facility] Comment on above: Performed By: #### C RP, LIPA, ALEX, CMP, PREGQNT #### [facility] [address] [place] [address] Dr. Charlotte Cole MPV 11.3 fL Normal 9.5-13.5 [facility] Comment on above: Performed By: #### C RP, LIPA, ALEX, CMP, PREGQNT #### [facility] [address] [place] [address] Dr. Charlotte Cole MYELOCYTE # Normal [facility] Comment on above: Performed By: #### C RP, LIPA, ALEX, CMP, PREGQNT #### [facility] [address] [place] [address] Dr. Charlotte Cole MYELOCYTE % Normal The [facility] Comment on above: Performed By: #### C RP, LIPA, ALEX, CMP, PREGQNT #### [facility] [address] [place] [address] Dr. Charlotte Cole NRBC Normal The [facility] Comment on above: Performed By: #### C RP, LIPA, ALEX, CMP, PREGQNT #### [facility] [address] [place] [address] Dr. Charlotte Cole PLT 79 103/ul Critically low 150-450 The [facility] Comment on above: Result Comment: no p lt clumps present Performed By: #### C RP, LIPA, ALEX, CMP, PREGQNT #### [facility] [address] [place] [address] Dr. Charlotte Cole RBC 3.01 106/ul Critically low 4.20-5.40 [facility] Comment on above: Performed By: #### C RP, LIPA, ALEX, CMP, PREGQNT #### [facility] [address] [place] [address] Dr. Charlotte Cole RDW 23.7 % Critically high 11.0-15.0 The [facility] Comment on above: Performed By: #### C RP, LIPA, ALEX, CMP, PREGQNT #### [facility] [address] [place] [address] Dr. Charlotte Cole SEG # 3.31 103/ul Normal 1.40-6.50 The [facility] Comment on above: Performed By: #### C RP, LIPA, ALEX, CMP, PREGQNT #### [facility] [address] [place] [address] Dr. Charlotte Cole SEG % 85.0 % Critically high 43.0-75.0 The [facility] Comment on above: Performed By: #### C RP, LIPA, ALEX, CMP, PREGQNT #### [facility] [address] [place] [address] Dr. Charlotte Cole WBC 3.9 103/ul Critically low 4.0-11.0 The [facility] Comment on above: Performed By: #### C RP, LIPA, ALEX, CMP, PREGQNT #### [facility] [address] [place] [address] Dr. Charlotte Cole CRPon 04-02-2022 CRP 11.8 mg/dL Critically high <=1.0 The [facility] Comment on above: Performed By: #### C RP, ALEX, LIPA, CMP, PREGQNT #### [facility] [address] [place] [address] Dr. Charlotte Cole GI PANEL (PCR)on 04-02-2022 Adenovirus F 40/41 Not detected Normal NOT DETECTED The [facility] Comment on above: Performed By: #### C RP, ALEX, LIPA, CMP, PREGQNT #### [facility] [address] [address] [address] Charlotte Cole Astrovirus Not detected Normal NOT DETECTED The [facility] Comment on above: Performed By: #### C RP, ALEX, LIPA, CMP, PREGQNT #### [facility] [address] [address] [address] Charlotte Lizarraga. Diff toxin A/B Detected Critically abnormal NOT DETECTED The [facility] Comment on above: Performed By: #### C RP, ALEX, LIPA, CMP, PREGQNT #### [facility] [address] [address] [address] Charlotte Cole Campylobacter Not detected Normal NOT DETECTED The [facility] Comment on above: Performed By: #### C RP, ALEX, LIPA, CMP, PREGQNT #### [facility] [address] [address] [address] Charlotte Cole Cryptosporidium Not detected Normal NOT DETECTED The [facility] Comment on above: Performed By: #### C RP, ALEX, LIPA, CMP, PREGQNT #### [facility] [address] [address] [address] Charlotte Cole Cyclos. Cayetanensis Not detected Normal NOT DETECTED The [facility] Comment on above: Performed By: #### C RP, ALEX, LIPA, CMP, PREGQNT #### [facility] [address] [address] [address] Charlotte Cole E. Coli O157 Not Applicable Normal Not Applicable The [facility] Comment on above: Performed By: #### C RP, ALEX, LIPA, CMP, PREGQNT #### [facility] [address] [address] [address] Charlotte Cole E. histolytica Not detected Normal NOT DETECTED The [facility] Comment on above: Performed By: #### C RP, ALEX, LIPA, CMP, PREGQNT #### [facility] [address] [address] [address] Charlotte Cole EAEC Not detected Normal NOT DETECTED The [facility] Comment on above: Performed By: #### C RP, ALEX, LIPA, CMP, PREGQNT #### [facility] [address] [address] [address] Charlotte Cole EIEC Not detected Normal NOT DETECTED The [facility] Comment on above: Performed By: #### C RP, ALEX, LIPA, CMP, PREGQNT #### [facility] [address] [address] [address] Charlotte Cole EPEC Not detected Normal NOT DETECTED The [facility] Comment on above: Performed By: #### C RP, ALEX, LIPA, CMP, PREGQNT #### [facility] [address] [address] [address] Charlotte Cole ETEC Not detected Normal NOT DETECTED The [facility] Comment on above: Performed By: #### C RP, ALEX, LIPA, CMP, PREGQNT #### [facility] [address] [address] [address] Charlotte Rosales Lambliprince Not detected Normal NOT DETECTED The [facility] Comment on above: Performed By: #### C RP, ALEX, LIPA, CMP, PREGQNT #### [facility] [address] [address] [address] Charlotte SINGH CONTROLS PASSED Normal The [facility] Comment on above: Performed By: #### C RP, ALEX, LIPA, CMP, PREGQNT #### [facility] [address] [address] [address] Charlotte [facility]DEZ [facility] HEADER GI PANEL BACTERIA Normal T [facility] Comment on above: Performed By: #### C RP, ALEX, LIPA, CMP, PREGQNT #### [facility] [address] [address] [address] Charlotte PORTILLO ECOLI GI PANEL DIARRHEAGEN IC E.COLI / SHIGELLA Normal The [facility] Comment on above: Performed By: #### C RP, ALEX, LIPA, CMP, PREGQNT #### [facility] [address] [address] [address] Charlotte PORTILLO INFO SEE BELOW Normal [facility] Comment on above: Result Comment: EAEC - Enteroaggregative E. Coli EPEC- Enteropathogenic E. Coli ETEC- Enterotoxigenic E. Coli lt/st STEC- Shigella-like toxin-producing E. Coli stx1/stx2 EIEC- Shigella/Enteroinvasive E. Coli Performed By: #### C RP, ALEX, LIPA, CMP, PREGQNT #### [facility] [address] [address] [address] Charlotte PORTILLO PARASITES GI PANEL PARASITES Normal The [facility] Comment on above: Performed By: #### C RP, ALEX, LIPA, CMP, PREGQNT #### [facility] [address] [address] [address] Charlotte PORTILLO VIRUS GI PANEL VIRUSES Normal The [facility] Comment on above: Performed By: #### C RP, ALEX, LIPA, CMP, PREGQNT #### [facility] [address] [place] [address] Dr. Charlotte Cole Norovirus GI/GII Not detected Normal NOT DETECTED The [facility] Comment on above: Performed By: #### C RP, ALEX, LIPA, CMP, PREGQNT #### [facility] [address] [place] [address] Dr. Charlotte Cole P. Shigelloides Not detected Normal NOT DETECTED The [facility] Comment on above: Performed By: #### C RP, ALEX, LIPA, CMP, PREGQNT #### [facility] [address] [place] [address] Dr. Charlotte Cole Rotavirus A Not detected Normal NOT DETECTED The [facility] Comment on above: Performed By: #### C RP, ALEX, LIPA, CMP, PREGQNT #### [facility] [address] [place] [address] Dr. Charlotte Cole Salmonella Not detected Normal NOT DETECTED The [facility] Comment on above: Performed By: #### C RP, ALEX, LIPA, CMP, PREGQNT #### [facility] [address] [place] [address] Dr. Charlotte Cole Sapovirus Not detected Normal NOT DETECTED The [facility] Comment on above: Performed By: #### C RP, ALEX, LIPA, CMP, PREGQNT #### [facility] [address] [place] [address] Dr. Charlotte Cole STEC Not detected Normal NOT DETECTED The [facility] Comment on above: Performed By: #### C RP, ALEX, LIPA, CMP, PREGQNT #### [facility] [address] [address] [address] Charlotte Cole Vibrio Not detected Normal NOT DETECTED The [facility] Comment on above: Performed By: #### C RP, ALEX, LIPA, CMP, PREGQNT #### [facility] [address] [place] [address] Dr. Charlotte Cole Vibrio Cholera Not detected Normal NOT DETECTED The [facility] Comment on above: Performed By: #### C RP, ALEX, LIPA, CMP, PREGQNT #### [facility] [address] [place] [address] Dr. Charlotte Cole Y. Enterocolitica Not detected Normal NOT DETECTED The [facility] Comment on above: Performed By: #### C RP, ALEX, LIPA, CMP, PREGQNT #### [facility] [address] [place] [address] Dr. Charlotte Cole LIPASEon 04-02-2022 Lipase [Catalytic activity/Vol] 1787.0 U/L Critically high 73.0-393.0 [facility] Comment on above: Performed By: #### C RP, ALEX, LIPA, CMP, PREGQNT #### [facility] [address] [place] [address] Dr. Charlotte Cole OCC BLD IMMUNOASSAYon 2021 OCCULT BLOOD Negative Normal NEGATIVE The [facility] Comment on above: Performed By: #### L ACT #### [facility] [address] [place] [address] Dr. Charlotte Cole POTASSIUMon 04-02-2022 Potassium [Moles/Vol] 3.1 mmol/L Critically low 3.5-5.1 [facility] Comment on above: Performed By: #### C RP, LIPA, ALEX, CMP, PREGQNT #### [facility] [address] [place] [address] Dr. Charlotte Cole Potassium [Moles/Vol] 2.5 mmol/L Critically low 3.5-5.1 The [facility] Comment on above: Performed By: #### C RP, ALEX, LIPA, CMP, PREGQNT #### [facility] [address] [place] [address] Dr. Charlotte Cole PREG QUANT HCGon 04-02-2022 HCG QUANT 205 mIU/mL Normal The [facility] Comment on above: Performed By: #### C RP, LIPA, ALEX, CMP, PREGQNT #### [facility] [address] [address] [address] Charlotte Cole HCG RANGE SEE BELOW Normal The [facility] Comment on above: Result Comment: 5-50 0.2-1 WEEK 50-500 1-2 WEEKS 100-5,000 2-3 WEEKS 500-10,000 3-4 WEEKS 1,000-50,000 4-5 WEEKS 10,000-100,000 5-6 WEEKS 15,000-200,000 6-8 WEEKS 10,000-100,000 2-3 MONTHS Performed By: #### C RP, LIPA, ALEX, CMP, PREGQNT #### [facility] [address] [place] [address] Dr. Charlotte Cole HCG QUANT 207 mIU/mL Normal The [facility] Comment on above: Performed By: #### C RP, ALEX, LIPA, CMP, PREGQNT #### [facility] [address] [place] [address] Dr. Charlotte Cole HCG RANGE SEE BELOW Normal The [facility] Comment on above: Result Comment: 5-50 0.2-1 WEEK 50-500 1-2 WEEKS 100-5,000 2-3 WEEKS 500-10,000 3-4 WEEKS 1,000-50,000 4-5 WEEKS 10,000-100,000 5-6 WEEKS 15,000-200,000 6-8 WEEKS 10,000-100,000 2-3 MONTHS Performed By: #### C RP, ALEX, LIPA, CMP, PREGQNT #### [facility] [address] [place] [address] Dr. Charlotte Cole PROF 14(COMP METB)on 022 Albumin [Mass/Vol] 2.6 g/dL Critically low 3.4-5.0 [facility] Comment on above: Performed By: #### C RP, ALEX, LIPA, CMP, PREGQNT #### [facility] [address] [place] [address] Dr. Charlotte Cole Albumin/Globulin [Mass ratio] 0.8 {ratio} Normal [facility] Comment on above: Performed By: #### C RP, ALEX, LIPA, CMP, PREGQNT #### [facility] [address] [place] [address] Dr. Charlotte Cole ALP [Catalytic activity/Vol] 197 U/L Critically high 46-116 [facility] Comment on above: Performed By: #### C RP, ALEX, LIPA, CMP, PREGQNT #### [facility] [address] [place] [address] Dr. Chalrotte Cole ALT [Catalytic activity/Vol] 149 U/L Critically high 14-59 [facility] Comment on above: Performed By: #### C RP, ALEX, LIPA, CMP, PREGQNT #### [facility] [address] [address] [address] Charlotte Cole Anion gap [Moles/Vol] 14.7 mmol/L Normal [facility] Comment on above: Performed By: #### C RP, ALEX, LIPA, CMP, PREGQNT #### [facility] [address] [place] [address] Dr. Charlotte Cole AST [Catalytic activity/Vol] 371 U/L Critically high 15-37 [facility] Comment on above: Performed By: #### C RP, ALEX, LIPA, CMP, PREGQNT #### [facility] [address] [place] [address] Dr. Charlotte Cole Bilirubin [Mass/Vol] 1.8 mg/dL Critically high 0.2-1.0 [facility] Comment on above: Performed By: #### C RP, ALEX, LIPA, CMP, PREGQNT #### [facility] [address] [place] [address] Dr. Charlotte Cole Calcium [Mass/Vol] 8.4 mg/dL Critically low 8.5-10.1 Th e [facility] Comment on above: Performed By: #### C RP, ALEX, LIPA, CMP, PREGQNT #### [facility] [address] [place] [address] Dr. Charlotte Cole Chloride [Moles/Vol] 97 mmol/L Critically low 98-107 [facility] Comment on above: Performed By: #### C RP, ALEX, LIPA, CMP, PREGQNT #### [facility] [address] [place] [address] Dr. Charlotte Cole CO2 [Moles/Vol] 21.0 mmol/L Normal 21.0-32.0 [facility] Comment on above: Performed By: #### C RP, ALEX, LIPA, CMP, PREGQNT #### [facility] [address] [place] [address] Dr. Charlotte Cole Creatinine [Mass/Vol] 0.62 mg/dL Normal 0.55-1.02 [facility] Comment on above: Performed By: #### C RP, ALEX, LIPA, CMP, PREGQNT #### [facility] [address] [place] [address] Dr. Charlotte Cole EGFR-AF THAI >60 Normal >=60 [facility] Comment on above: Performed By: #### C RP, ALEX, LIPA, CMP, PREGQNT #### [facility] [address] [place] [address] Dr. Charlotte Cole EGFR-NON AF THAI >60 Normal >=60 [facility] Comment on above: Performed By: #### C RP, ALEX, LIPA, CMP, PREGQNT #### [facility] [address] [place] [address] Dr. Charlotte Cole Globulin (S) [Mass/Vol] 3.2 g/dL Normal [facility] Comment on above: Performed By: #### C RP, ALEX, LIPA, CMP, PREGQNT #### [facility] [address] [place] [address] Dr. Charlotte Cole Glucose [Mass/Vol] 113 mg/dL Critically high 74-106 T [facility] Comment on above: Performed By: #### C RP, ALEX, LIPA, CMP, PREGQNT #### [facility] [address] [place] [address] Dr. Charlotte Cole Potassium [Moles/Vol] 2.7 mmol/L Critically low 3.5-5.1 [facility] Comment on above: Performed By: #### C RP, ALEX, LIPA, CMP, PREGQNT #### [facility] [address] [place] [address] Dr. Charlotte Cole Protein [Mass/Vol] 5.8 g/dL Critically low 6.4-8.2 [facility] Comment on above: Performed By: #### C RP, ALEX, LIPA, CMP, PREGQNT #### [facility] [address] [place] [address] Dr. Charlotte Cole Sodium [Moles/Vol] 129 mmol/L Critically low 136-145 [facility] Comment on above: Performed By: #### C RP, ALEX, LIPA, CMP, PREGQNT #### [facility] [address] [place] [address] Dr. Charlotte Cole Urea nitrogen [Mass/Vol] 3.0 mg/dL Critically low 7.0-18.0 [facility] Comment on above: Performed By: #### C RP, ALEX, LIPA, CMP, PREGQNT #### [facility] [address] [place] [address] Dr. Charlotte Cole Urea nitrogen/Creatinine [Mass ratio] 4.8 mg/mg Normal [facility] Comment on above: Performed By: #### C RP, ALEX, LIPA, CMP, PREGQNT #### [facility] [address] [place] [address] Dr. Charlotte Cole US PREG TVon 04-02-2022 US PREG TV EXAM: US PREG TV HISTORY: ABDOMINAL DISTENSION (GASEOUS) COMPARISON: ultrasound 03/31/2022. TECHNIQUE: Endovaginal approach pelvic ultrasound is performed. Multiple grayscale and color images are submitted for review. FINDINGS: The uterus has an unremarkable sonographic appearance with normal echotexture. The uterus is anteverted. The endometrium appears unremarkable, and measures 0.61 cm in thickness. There is no evidence for intrauterine gestation sac. No yolk sac or pole is visualized. The right ovary measures 2.9 x 3.5 x 3.9 cm. Right ovarian cysts are seen with the largest measuring 1.65 x 1.9 x 2.1 cm. The right ovary demonstrates normal blood flow. No abnormal adnexal masses visualized. The left ovary measures 4.9 x 5.5 x 5.8 cm. Left ovarian cysts are seen with the largest measuring 2.7 x 2.5 x 2.6 cm. The left ovary demonstrates normal blood flow. A complex cystic structure with thickened wall and increased peripheral vascularity is seen adjacent to the left ovary measuring approximately 2.1 x 2.1 x 2 cm. No significant free pelvic fluid is seen. IMPRESSION: No evidence for intrauterine . A complex cystic structure with thickened wall and increased peripheral vascularity is seen adjacent to the left ovary measuring approximately 2.1 x 2.1 x 2 cm. Given positive test, these findings are suspicious for ectopic . I discussed findings with nurse Hillary Hannah at 7:00 PM. Electronically authenticated by: RAUL POON Date: 2022-04-02 19:06 Normal The [facility] US SINGLE QUAD RT UPPERon US SINGLE QUAD RT UPPER EXAM: Right upper quadrant ultrasound: HISTORY: Abdominal pain with nausea and bloating. COMPARISON: None. TECHNIQUE: Grayscale and color flow analysis was performed. FINDINGS: The exam is limited due to body habitus and difficulty obtaining optimal acoustic windows. The liver is enlarged and shows diffusely increased echogenicity. Normal blood flow characteristics are seen in the portal vessels. The visualized pancreas is normal in appearance. The gallbladder is normally distended and shows no stones or sludge. The common bile duct measures 2.5 mm. The right kidney is normal in size and appearance. There is no hydronephrosis. No free fluid is seen. IMPRESSION: Limited exam showing no clear evidence of an acute process. Hepatomegaly with diffuse fatty change in the liver. Electronically authenticated by: CAMILO HENLEY Date: 2022-04-02 09:13 Normal [facility] AMMONIAon 04-01-2022 Ammonia (P) [Moles/Vol] 61 umol/L Critically high 11-32 The [facility] Comment on above: Performed By: #### C RP, ALEX, LIPA, CMP, PREGQNT #### [facility] [address] [place] [address] Dr. Charlotte Cole AMYLASEon 04-01-2022 Amylase [Catalytic activity/Vol] 92 U/L Normal 25-115 The [facility] Comment on above: Performed By: #### L ACT #### [facility] [address] [place] [address] Dr. Charlotte Cole CBC AUTO DIFFon 04-01-2022 BASO # 0.0 103/ul Normal 0.0-0.1 The [facility] Comment on above: Performed By: #### C RP, ALEX, LIPA, CMP, PREGQNT #### [facility] [address] [place] [address] Dr. Charlotte Cole Basophils/100 WBC (Bld) 0.2 % Normal 0.2-2.0 The [facility] Comment on above: Performed By: #### C RP, ALEX, LIPA, CMP, PREGQNT #### [facility] [address] [place] [address] Dr. Charlotte Cole EO # 0.0 103/ul Normal 0.0-0.7 The [facility] Comment on above: Performed By: #### C RP, ALEX, LIPA, CMP, PREGQNT #### [facility] [address] [place] [address] Dr. Charlotte Cole Eosinophils/100 WBC (Bld) 0.6 % Critically low 0.9-7.0 The [facility] Comment on above: Performed By: #### C RP, ALEX, LIPA, CMP, PREGQNT #### [facility] [address] [place] [address] Dr. Charlotte Cole Erythrocyte distribution width (RBC) [Ratio] 23.4 % Critically high 11.0-15.0 [facility] [facility] Comment on above: Performed By: #### C RP, ALEX, LIPA, CMP, PREGQNT #### [facility] [address] [place], [place] [id number] Dr. Charlotte Cole Hematocrit (Bld) [Volume fraction] 33.6 % Critically low 36.0-48.0 [facility] Comment on above: Performed By: #### C RP, ALEX, LIPA, CMP, PREGQNT #### [facility] [address] [place] [address] Dr. Charlotte Cole Hemoglobin (Bld) [Mass/Vol] 11.6 g/dL Critically low 12.0-16.0 [facility] Comment on above: Performed By: #### C RP, ALEX, LIPA, CMP, PREGQNT #### [facility] [address] [place] [address] Dr. Charlotte Cole IG # 0.09 10e3/ul Critically high 0.00-0.03 [facility] Comment on above: Performed By: #### C RP, ALEX, LIPA, CMP, PREGQNT #### [facility] [address] [place] [address] Dr. Charlotte Cole IG % 1.8 % Critically high 0.0-0.5 [facility] Comment on above: Performed By: #### C RP, ALEX, LIPA, CMP, PREGQNT #### [facility] [address] [place] [address] Dr. Charlotte Cole LYMPH # 0.7 103/ul Critically low 1.2-3.8 [facility] Comment on above: Performed By: #### C RP, ALEX, LIPA, CMP, PREGQNT #### [facility] [address] [place] [address] Dr. Charlotte Cole Lymphocytes/100 WBC (Bld) 13.5 % Critically low 20.5-60.0 [facility] Comment on above: Performed By: #### C RP, ALEX, LIPA, CMP, PREGQNT #### [facility] [address] [place] [address] Dr. Charlotte Cole MANUAL DIFF REQ NO Normal [facility] Comment on above: Performed By: #### C RP, ALEX, LIPA, CMP, PREGQNT #### [facility] [address] [place] [address] Dr. Charlotte Cole MCH (RBC) [Entitic mass] 33.1 pg Normal 26.7-34.0 [facility] Comment on above: Performed By: #### C RP, ALEX, LIPA, CMP, PREGQNT #### [facility] [address] [place] [address] Dr. Charlotte Cole MCHC (RBC) [Mass/Vol] 34.5 g/dL Normal 29.9-35.2 [facility] Comment on above: Performed By: #### C RP, ALEX, LIPA, CMP, PREGQNT #### [facility] [address] [place] [address] Dr. Charlotte Cole MCV (RBC) [Entitic vol] 96.0 fL Normal 81.0-99.0 [facility] Comment on above: Performed By: #### C RP, ALEX, LIPA, CMP, PREGQNT #### [facility] [address] [place] [address] Dr. Charlotte Cole MONO # 0.5 103/ul Normal 0.3-0.8 [facility] Comment on above: Performed By: #### C RP, ALEX, LIPA, CMP, PREGQNT #### [facility] [address] [place] [address] Dr. Charlotte Cole Monocytes/100 WBC (Bld) 10.7 % Normal 1.7-12.0 [facility] Comment on above: Performed By: #### C RP, ALEX, LIPA, CMP, PREGQNT #### [facility] [address] [place] [address] Dr. Charlotte Cole NEUT # 3.7 103/ul Normal 1.4-6.5 [facility] Comment on above: Performed By: #### C RP, ALEX, LIPA, CMP, PREGQNT #### [facility] [address] [place] [address] Dr. Charlotte Cole Neutrophils/100 WBC (Bld) 73.2 % Normal 43.0-75.0 [facility] Comment on above: Performed By: #### C RP, ALEX, LIPA, CMP, PREGQNT #### [facility] [address] [place] [address] Dr. Charlotte Cole Platelet mean volume (Bld) [Entitic vol] 11.1 fL Normal 9.5-13.5 [facility] Comment on above: Performed By: #### C RP, ALEX, LIPA, CMP, PREGQNT #### [facility] [address] [place] [address] Dr. Charlotte Cole PLT 97 103/ul Critically low 150-450 [facility] Comment on above: Performed By: #### C RP, ALEX, LIPA, CMP, PREGQNT #### [facility] [address] [place] [address] Dr. Cahrlotte Cole RBC 3.50 106/ul Critically low 4.20-5.40 [facility] Comment on above: Performed By: #### C RP, ALEX, LIPA, CMP, PREGQNT #### [facility] [address] [place] [address] Dr. Charlotte Cole WBC 5.0 103/ul Normal 4.0-11.0 [facility] Comment on above: Performed By: #### C RP, ALEX, LIPA, CMP, PREGQNT #### [facility] [address] [place] [address] Dr. Charlotte Cole CRPon 04-01-2022 CRP 14.9 mg/dL Critically high <=1.0 [facility] Comment on above: Performed By: #### C RP, LIPA, ALEX, CMP, PREGQNT #### [facility] [address] [place] [address] Dr. Charlotte Cole LIPASEon 04-01-2022 Lipase [Catalytic activity/Vol] 2528.0 U/L Critically high 73.0-393.0 [facility] Comment on above: Performed By: #### L ACT #### [facility] [address] [place] [address] Dr. Charlotte Cole PREG QUANT HCGon 04-01-2022 HCG QUANT <1 Normal [facility] Comment on above: Performed By: #### C RP, LIPA, ALEX, CMP, PREGQNT #### [facility] [address] [address] [address] Charlotte Cole HCG RANGE SEE BELOW [facility] Comment on above: Result Comment: 5-50 0.2-1 WEEK 50-500 1-2 WEEKS 100-5,000 2-3 WEEKS 500-10,000 3-4 WEEKS 1,000-50,000 4-5 WEEKS 10,000-100,000 5-6 WEEKS 15,000-200,000 6-8 WEEKS 10,000-100,000 2-3 MONTHS Performed By: #### C RP, LIPA, ALEX, CMP, PREGQNT #### [facility] [address] [place] [address] Dr. Charlotte Cole PROF 14(COMP METB)on 04-01- 022 Albumin [Mass/Vol] 2.9 g/dL Critically low 3.4-5.0 [facility] Comment on above: Performed By: #### L ACT #### [facility] [address] [place] [address] Dr. Charlotte Cole Albumin/Globulin [Mass ratio] 0.8 {ratio} Normal [facility] Comment on above: Performed By: #### L ACT #### [facility] [address] [place] [address] Dr. Charlotte Cole ALP [Catalytic activity/Vol] 206 U/L Critically high 46-116 [facility] Comment on above: Performed By: #### L ACT #### [facility] [address] [place] [address] Dr. Charlotte Cole ALT [Catalytic activity/Vol] 133 U/L Critically high 14-59 [facility] Comment on above: Performed By: #### L ACT #### [facility] [address] [place] [address] Dr. Charlotte Cole Anion gap [Moles/Vol] 21.2 mmol/L Normal [facility] Comment on above: Performed By: #### L ACT #### [facility] [address] [place] [address] Dr. Charlotte Cole AST [Catalytic activity/Vol] 305 U/L Critically high 15-37 [facility] Comment on above: Performed By: #### L ACT #### [facility] [address] [address] [address] Charlotte Cole Bilirubin [Mass/Vol] 2.4 mg/dL Critically high 0.2-1.0 [facility] Comment on above: Performed By: #### L ACT #### [facility] [address] [address] [address] Charlotte Cole Calcium [Mass/Vol] 8.6 mg/dL Normal 8.5-10.1 [facility] Comment on above: Performed By: #### L ACT #### [facility] [address] [address] [address] Charlotte Cole Chloride [Moles/Vol] 92 mmol/L Critically low 98-107 [facility] Comment on above: Performed By: #### L ACT #### [facility] [address] [address] [address] Charlotte Cole CO2 [Moles/Vol] 18.1 mmol/L Critically low 21.0-32.0 [facility] Comment on above: Performed By: #### L ACT #### [facility] [address] [address] [address] Charlotte Cole Creatinine [Mass/Vol] 0.92 mg/dL Normal 0.55-1.02 [facility] Comment on above: Performed By: #### L ACT #### [facility] [address] [address] [address] Charlotte Cole EGFR-AF THAI >60 Normal >=60 [facility] Comment on above: Performed By: #### L ACT #### [facility] [address] [address] [address] Charlotte Cole EGFR-NON AF THAI >60 Normal >=60 [facility] Comment on above: Performed By: #### L ACT #### [facility] [address] [address] [address] Charlotte Cole Globulin (S) [Mass/Vol] 3.7 g/dL Normal [facility] Comment on above: Performed By: #### L ACT #### [facility] [address] [address] [address] Charlotte Cole Glucose [Mass/Vol] 125 mg/dL Critically high 74-106 [facility] Comment on above: Performed By: #### L ACT #### [facility] [address] [address] [address] Charlotte Cole Potassium [Moles/Vol] 2.3 mmol/L Critically low 3.5-5.1 [facility] Comment on above: Performed By: #### L ACT #### [facility] [address] [address] [address] Charlotte Cole Protein [Mass/Vol] 6.6 g/dL Normal 6.4-8.2 [facility] Comment on above: Performed By: #### L ACT #### [facility] [address] [address] [address] Charlotte Cole Sodium [Moles/Vol] 128 mmol/L Critically low 136-145 [facility] Comment on above: Performed By: #### L ACT #### [facility] [address] [address] [address] Charlotte Cole Urea nitrogen [Mass/Vol] 6.0 mg/dL Critically low 7.0-18.0 [facility] Comment on above: Performed By: #### L ACT #### [facility] [address] [address] [address] Charlotte Cole Urea nitrogen/Creatinine [Mass ratio] 6.5 mg/mg Normal [facility] Comment on above: Performed By: #### L ACT #### [facility] [address] [address] [address] Charlotte Cole PROF CHEM 8 (BAS METB)on Anion gap [Moles/Vol] 16.8 mmol/L Normal [facility] Comment on above: Performed By: #### C RP, ALEX, LIPA, CMP, PREGQNT #### [facility] [address] [address] [address] Charlotte Cole Calcium [Mass/Vol] 8.2 mg/dL Critically low 8.5-10.1 [facility] Comment on above: Performed By: #### C RP, ALEX, LIPA, CMP, PREGQNT #### [facility] [address] [address] [address] Charlotte Cole Chloride [Moles/Vol] 97 mmol/L Critically low 98-107 [facility] Comment on above: Performed By: #### C RP, ALEX, LIPA, CMP, PREGQNT #### [facility] [address] [place] [address] Dr. Charlotte Cole CO2 [Moles/Vol] 22.7 mmol/L Normal 21.0-32.0 [facility] Comment on above: Performed By: #### C RP, ALEX, LIPA, CMP, PREGQNT #### [facility] [address] [place] [address] Dr. Charlotte Cole Creatinine [Mass/Vol] 0.74 mg/dL Normal 0.55-1.02 [facility] Comment on above: Performed By: #### C RP, ALEX, LIPA, CMP, PREGQNT #### [facility] [address] [place] [address] Dr. Charlotte Cole EGFR-AF THAI >60 Normal >=60 [facility] Comment on above: Performed By: #### C RP, ALEX, LIPA, CMP, PREGQNT #### [facility] [address] [place] [address] Dr. Charlotte Cole EGFR-NON AF THAI >60 Normal >=60 [facility] Comment on above: Performed By: #### C RP, ALEX, LIPA, CMP, PREGQNT #### [facility] [address] [place] [address] Dr. Charlotte Cole Glucose [Mass/Vol] 115 mg/dL Critically high 74-106 T [facility] Comment on above: Performed By: #### C RP, ALEX, LIPA, CMP, PREGQNT #### [facility] [address] [address] [address] Charlotte Cole Potassium [Moles/Vol] 2.5 mmol/L Critically low 3.5-5.1 [facility] Comment on above: Performed By: #### C RP, ALEX, LIPA, CMP, PREGQNT #### [facility] [address] [place] [address] Dr. Charlotte Cole Sodium [Moles/Vol] 133 mmol/L Critically low 136-145 Th [facility] Comment on above: Performed By: #### C RP, ALEX, LIPA, CMP, PREGQNT #### [facility] [address] [place] [address] Dr. Charlotte Cole Urea nitrogen [Mass/Vol] 4.0 mg/dL Critically low 7.0-18.0 [facility] Comment on above: Performed By: #### C RP, ALEX, LIPA, CMP, PREGQNT #### [facility] [address] [place] [address] Dr. Charlotte Cole Urea nitrogen/Creatinine [Mass ratio] 5.4 mg/mg Normal [facility] Comment on above: Performed By: #### C RP, ALEX, LIPA, CMP, PREGQNT #### [facility] [address] [place] [address] Dr. Charlotte Cole AMMONIAon 03-31-2022 Ammonia (P) [Moles/Vol] 73 umol/L Critically high 11-32 [facility] Comment on above: Performed By: #### B MP #### [facility] [address] [place] [address] Dr. Charlotte Cole AMYLASEon 03-31-2022 Amylase [Catalytic activity/Vol] 237 U/L Critically high 25-115 [facility] Comment on above: Performed By: #### B MP #### [facility] [address] [place] [address] Dr. Charlotte Cole CBC AUTO DIFFon 03-31-2022 BASO # 0.0 103/ul Normal 0.0-0.1 [facility] Comment on above: Performed By: #### C RP, ALEX, LIPA, CMP, PREGQNT #### [facility] [address] [place] [address] Dr. Charlotte Cole Basophils/100 WBC (Bld) 0.4 % Normal 0.2-2.0 [facility] Comment on above: Performed By: #### C RP, ALEX, LIPA, CMP, PREGQNT #### [facility] [address] [place] [address] Dr. Charlotte Cole EO # 0.0 103/ul Normal 0.0-0.7 [facility] Comment on above: Performed By: #### C RP, ALEX, LIPA, CMP, PREGQNT #### [facility] [address] [place] [address] Dr. Charlotte Cole Eosinophils/100 WBC (Bld) 0.0 % Critically low 0.9-7.0 [facility] Comment on above: Performed By: #### C RP, ALEX, LIPA, CMP, PREGQNT #### [facility] [address] [place] [address] Dr. Charlotte Cole Erythrocyte distribution width (RBC) [Ratio] 23.8 % Critically high 11.0-15.0 [facility] Comment on above: Performed By: #### C RP, ALEX, LIPA, CMP, PREGQNT #### [facility] [address] [place] [address] Dr. Charlotte Cole Hematocrit (Bld) [Volume fraction] 42.0 % Normal 36.0-48.0 [facility] Comment on above: Performed By: #### C RP, ALEX, LIPA, CMP, PREGQNT #### [facility] [address] [place] [address] Dr. Charlotte Cole Hemoglobin (Bld) [Mass/Vol] 13.7 g/dL Normal 12.0-16.0 [facility] Comment on above: Performed By: #### C RP, ALEX, LIPA, CMP, PREGQNT #### [facility] [address] [place] [address] Dr. Charlotte Cole IG # 0.11 10e3/ul Critically high 0.00-0.03 [facility] Comment on above: Performed By: #### C RP, ALEX, LIPA, CMP, PREGQNT #### [facility] [address] [place] [address] Dr. Charlotte Cole IG % 2.2 % Critically high 0.0-0.5 [facility] Comment on above: Performed By: #### C RP, ALEX, LIPA, CMP, PREGQNT #### [facility] [address] [place] [address] Dr. Charlotte Cole LYMPH # 0.8 103/ul Critically low 1.2-3.8 [facility] Comment on above: Performed By: #### C RP, ALEX, LIPA, CMP, PREGQNT #### [facility] [address] [place] [address] Dr. Charlotte Cole Lymphocytes/100 WBC (Bld) 15.7 % Critically low 20.5-60.0 [facility] Comment on above: Performed By: #### C RP, ALEX, LIPA, CMP, PREGQNT #### [facility] [address] [place] [address] Dr. Charlotte Cole MANUAL DIFF REQ NO Normal [facility] Comment on above: Performed By: #### C RP, ALEX, LIPA, CMP, PREGQNT #### [facility] [address] [place] [address] Dr. Charlotte Cole MCH (RBC) [Entitic mass] 32.7 pg Normal 26.7-34.0 [facility] Comment on above: Performed By: #### C RP, ALEX, LIPA, CMP, PREGQNT #### [facility] [address] [place] [address] Dr. Charlotte Cole MCHC (RBC) [Mass/Vol] 32.6 g/dL Normal 29.9-35.2 [facility] Comment on above: Performed By: #### C RP, ALEX, LIPA, CMP, PREGQNT #### [facility] [address] [place] [address] Dr. Charlotte Cole MCV (RBC) [Entitic vol] 100.2 fL Critically high 81.0-99.0 [facility] Comment on above: Performed By: #### C RP, ALEX, LIPA, CMP, PREGQNT #### [facility] [address] [place] [address] Dr. Charlotte Cole MONO # 0.4 103/ul Normal 0.3-0.8 [facility] Comment on above: Performed By: #### C RP, ALEX, LIPA, CMP, PREGQNT #### [facility] [address] [place] [address] Dr. Charlotte Cole Monocytes/100 WBC (Bld) 7.8 % Normal 1.7-12.0 [facility] Comment on above: Performed By: #### C RP, ALEX, LIPA, CMP, PREGQNT #### [facility] [address] [place] [address] Dr. Charlotte Cole NEUT # 3.7 103/ul Normal 1.4-6.5 [facility] Comment on above: Performed By: #### C RP, ALEX, LIPA, CMP, PREGQNT #### [facility] [address] [place] [address] Dr. Charlotte Cole Neutrophils/100 WBC (Bld) 73.9 % Normal 43.0-75.0 [facility] Comment on above: Performed By: #### C RP, ALEX, LIPA, CMP, PREGQNT #### [facility] [address] [place] [address] Dr. Charlotte Cole Platelet mean volume (Bld) [Entitic vol] 11.7 fL Normal 9.5-13.5 [facility] Comment on above: Performed By: #### C RP, ALEX, LIPA, CMP, PREGQNT #### [facility] [address] [place] [address] Dr. Charlotte Cole PLT 185 103/ul Normal 150-450 [facility] Comment on above: Performed By: #### C RP, ALEX, LIPA, CMP, PREGQNT #### [facility] [address] [place] [address] Dr. Charlotte Cole RBC 4.19 106/ul Critically low 4.20-5.40 [facility] Comment on above: Performed By: #### C RP, ALEX, LIPA, CMP, PREGQNT #### [facility] [address] [place] [address] Dr. Charlotte Cole WBC 5.0 103/ul Normal 4.0-11.0 [facility] Comment on above: Performed By: #### C RP, ALEX, LIPA, CMP, PREGQNT #### [facility] [address] [place] [address] Dr. Charlotte Cole [facility] SARS-CoV-2 (COVID-19) RNA AKILAH+probe Ql (Unsp spec) Not detected Normal NOT DETECTED [facility] Comment on above: Result Comment: When diagnostic testing is negative, the possibility of a false negative should be considered in the context of a patient's recent exposures and the presence of clinical signs and symptoms consistent with SARS-CoV-2. This test is not yet approved or cleared by the [place] FDA. When there are no FDA-approved or cleared tests available, and other criteria are met, FDA can make tests available under an emergency access mechanism called an Emergency Use Authorization (EUA). The EUA for this test is supported by the Export Administrator of Health and Human Service's declaration that circumstances exist to justify the emergency use of in vitro diagnostics for the detection and/or diagnosis of the virus that causes COVID-19. This EUA will remain in effect for the duration of the COVID-19 declaration justifying emergency of IVDs, unless it is terminated or revoked by the FDA (after which the test may no longer be used). Performed By: #### L ACT #### [facility] [address] [place] [address] Dr. Charlotte Cole ETHANOL (BLD ALC)on 03-31-20 22 ALC NOTE NOTE: 80 mg/dl is th e legal limit for a blood alcohol level Normal [facility] Comment on above: Performed By: #### C RP, ALEX, LIPA, CMP, PREGQNT #### [facility] [address] [place] [address] Dr. Charlotte Cole Ethanol [Mass/Vol] 64 mg/dL Normal [facility] Comment on above: Performed By: #### C RP, ALEX, LIPA, CMP, PREGQNT #### [facility] [address] [place] [address] Dr. Charlotte Cole INFLUENZA A AND B AGon 03-31 INFLUANEGH SEE BELOW Normal [facility] Comment on above: Result Comment: Nega tive for Flu A protein angiten. Infection due to Flu A cannot be ruled out. Flu A angiten in the sample may be below the detection limit of the test. Performed By: #### C RP, LIPA, ALEX, CMP, PREGQNT #### [facility] [address] [place] [address] Dr. Charlotte Cole INFLUBNEGH SEE BELOW Normal [facility] Comment on above: Result Comment: Nega tive for Flu B protein antigen. Infection due to Flu B cannot be ruled out. Flu B antigen in the sample may be below the detection limit of the test. Performed By: #### C RP, LIPA, ALEX, CMP, PREGQNT #### [facility] [address] [place] [address] Dr. Charlotte Cole INFLUENZA A AG Negative Normal NEGATIVE SEE COMMENT [facility] Comment on above: Performed By: #### C RP, LIPA, ALEX, CMP, PREGQNT #### [facility] [address] [place] [address] Dr. Charlotte Cole INFLUENZA B AG Negative Normal NEGATIVE SEE COMMENT [facility] Comment on above: Performed By: #### C RP, LIPA, ALEX, CMP, PREGQNT #### [facility] [address] [place] [address] Dr. Charlotte Cole INTERNAL CONTROLS Within Normal Limits Normal Wi thin Normal Limits The [facility] Comment on above: Performed By: #### C RP, LIPA, ALEX, CMP, PREGQNT #### [facility] [address] [place] [address] Dr. Charlotte Cole LIPASEon 03-31-2022 Lipase [Catalytic activity/Vol] 5193.0 U/L Critically high 73.0-393.0 The [facility] Comment on above: Performed By: #### B MP #### [facility] [address] [place] [address] Dr. Charlotte Cole PREG HCG QUALon 03-31-2022 , QUAL Positive Abnormal NEGATIVE The [facility] Comment on above: Performed By: #### C RP, LIPA, ALEX, CMP, PREGQNT #### [facility] [address] [place] [address] Dr. Charlotte Cole PREG QUANT HCGon 03-31-2022 HCG QUANT 131 mIU/mL Normal [facility] Comment on above: Performed By: #### C RP, ALEX, LIPA, CMP, PREGQNT #### [facility] [address] [place] [address] Dr. Charlotte Cole HCG RANGE SEE BELOW Normal [facility] Comment on above: Result Comment: 5-50 0.2-1 WEEK 50-500 1-2 WEEKS 100-5,000 2-3 WEEKS 500-10,000 3-4 WEEKS 1,000-50,000 4-5 WEEKS 10,000-100,000 5-6 WEEKS 15,000-200,000 6-8 WEEKS 10,000-100,000 2-3 MONTHS Performed By: #### C RP, ALEX, LIPA, CMP, PREGQNT #### [facility] [address] [place] [address] Dr. Charlotte Cole PROF 14(COMP METB)on 022 Albumin [Mass/Vol] 3.9 g/dL Normal 3.4-5.0 [facility] Comment on above: Performed By: #### B MP #### [facility] [address] [place] [address] Dr. Charlotte Cole Albumin/Globulin [Mass ratio] 1.0 {ratio} Normal The [facility] Comment on above: Performed By: #### B MP #### [facility] [address] [place] [address] Dr. Charlotte Cole ALP [Catalytic activity/Vol] 271 U/L Critically high 46-116 [facility] Comment on above: Performed By: #### B MP #### [facility] [address] [place] [address] Dr. Charlotte Cole ALT [Catalytic activity/Vol] 183 U/L Critically high 14-59 [facility] Comment on above: Performed By: #### B MP #### [facility] [address] [place], [place] [id number] Dr. Charlotte Cole Anion gap [Moles/Vol] 35.6 mmol/L Normal Th e [facility] Comment on above: Performed By: #### B MP #### [facility] [address] [address] [address] Charlotte Cole AST [Catalytic activity/Vol] 414 U/L Critically high 15-37 [facility] Comment on above: Performed By: #### B MP #### [facility] [address] [address] [address] Charlotte Cole Bilirubin [Mass/Vol] 2.1 mg/dL Critically high 0.2-1.0 [facility] Comment on above: Performed By: #### B MP #### [facility] [address] [place] [address] Dr. Charlotte Cole Calcium [Mass/Vol] 9.1 mg/dL Normal 8.5-10.1 [facility] Comment on above: Performed By: #### B MP #### [facility] [address] [place] [address] Dr. Charlotte Cole Chloride [Moles/Vol] 86 mmol/L Critically low 98-107 [facility] Comment on above: Performed By: #### B MP #### [facility] [address] [place] [address] Dr. Charlotte Cole CO2 [Moles/Vol] 12.2 mmol/L Critically low 21.0-32.0 [facility] Comment on above: Performed By: #### B MP #### [facility] [address] [place] [address] Dr. Charlotte Cole Creatinine [Mass/Vol] 0.93 mg/dL Normal 0.55-1.02 [facility] Comment on above: Performed By: #### B MP #### [facility] [address] [place] [address] Dr. Charlotte Cole EGFR-AF THAI >60 Normal >=60 [facility] Comment on above: Performed By: #### B MP #### [facility] [address] [place] [address] Dr. Charlotte Cole EGFR-NON AF THAI >60 Normal >=60 [facility] Comment on above: Performed By: #### B MP #### [facility] [address] [address] [address] Charlotte Cole Globulin (S) [Mass/Vol] 4.1 g/dL Normal [facility] Comment on above: Performed By: #### B MP #### [facility] [address] [address] [address] Charlotte Cole Glucose [Mass/Vol] 105 mg/dL Normal 74-106 [facility] Comment on above: Performed By: #### B MP #### [facility] [address] [address] [address] Charlotte Cole Potassium [Moles/Vol] 3.8 mmol/L Normal 3.5-5.1 [facility] Comment on above: Performed By: #### B MP #### [facility] [address] [address] [address] Charlotte Cole Protein [Mass/Vol] 8.0 g/dL Normal 6.4-8.2 [facility] Comment on above: Performed By: #### B MP #### [facility] [address] [address] [address] Charlotte Cole Sodium [Moles/Vol] 130 mmol/L Critically low 136-145 [facility] Comment on above: Performed By: #### B MP #### [facility] [address] [address] [address] Charlotte Cole Urea nitrogen [Mass/Vol] 7.0 mg/dL Normal 7.0-18.0 [facility] Comment on above: Performed By: #### B MP #### [facility] [address] [address] [address] Charlotte Cole Urea nitrogen/Creatinine [Mass ratio] 7.5 mg/mg Normal [facility] Comment on above: Performed By: #### B MP #### [facility] [address] [address] [address] Charlotte Cole RSVon 03-31-2022 RSV AG Negative Normal NEGATIVE [facility] Comment on above: Performed By: #### C RP, LIPA, ALEX, CMP, PREGQNT #### [facility] [address] [address] [address] Charlotte Cole US PREG TVon 03-31-2022 US PREG TV EXAM: US PREG TV HISTORY: ABDOMINAL DISTENSION (GASEOUS) COMPARISON: None. TECHNIQUE: Transvaginal grayscale ultrasound of the pelvis was performed. Color and spectral Doppler was utilized as needed. FINDINGS: The uterus is anteverted. There is no evidence of significant endometrial thickening or IUP visualized. Some echogenic foci in the anterior uterine wall could relate to calcifications. Right ovary is 5.7 x 5.8 x 3.9 cm, with multiple simple cystic structures the largest 3.6 cm. Left ovary is 4.1 x 3.7 x 2.8 cm, with multiple simple cystic structures the largest 3.1 cm. Small hypoechoic area suggested of the left ovary, possibly corpus luteum but early ectopic cannot be fully excluded in the proper clinical setting. No significant free pelvic fluid is visualized. IMPRESSION: 1. No IUP is visualized. 2. Simple cyst/follicles within the bilateral ovaries. 3. Small hypoechoic area suggested of the left ovary, may represent corpus luteum but early ectopic cannot be completely excluded in the proper clinical setting. Recommend follow-up of serial serum beta-hCG levels, and ultrasound/s as needed. Electronically authenticated by: CAMILO MANNING Date: 2022-03-31 04:10 Normal The [facility] US SINGLE QUAD RT UPPERon US SINGLE QUAD RT UPPER RIGHT UPPER QUADRANT ULTRASOUND: HISTORY: ABDOMINAL DISTENSION (GASEOUS). COMPARISON: None available. TECHNIQUE: Transabdominal ultrasound of the right upper quadrant was performed. FINDINGS: Very limited exam due to bowel gas and patient tolerance issues. PANCREAS: Suboptimally seen due to bowel gas. LIVER: Heterogeneous and mildly hyperechoic usually suggestive of mild hepatic steatosis. Right lobe measures 14.95 cm. Visualized portions of the portal vein appear grossly patent with normal hepatopedal flow but suboptimally assessed. GALLBLADDER: No gallstones, gallbladder wall thickening, or pericholecystic fluid. The sonographic Nicole sign is negative. COMMON BILE DUCT: 4.6 mm in diameter. RIGHT KIDNEY: 11.5 x 5.6 x 5.5 cm in size. Cortex is 1.7 cm. No hydronephrosis, stones or definite masses. IMPRESSION: 1. Mild hepatomegaly. Heterogeneous echogenic liver suggesting diffuse hepatocellular disease, most often hepatic steatosis. 2. No evidence of cholelithiasis, cholecystitis, or biliary ductal dilatation. 3. Suboptimally visualized pancreas. Electronically authenticated by: CAMILO MANNING Date: 2022-03-31 04:00 Normal [facility] C Urineon 08-23-2020 Bacteria identified Cx Nom (U) Microbiology PROCEDURE: Urine Culture [R1] SOURCE: U CleanCatch BODY SITE: COLLECTED DATE/TIME: 08/20/2020 21:26 EDT RECEIVED DATE/TIME: 08/21/2020 00:44 EDT START DATE/TIME: 08/21/2020 00:44 EDT FREE TEXT SOURCE: Olegario BAPTISTE, Van Melvin MD, Van FINAL REPORTS Final Report [] Verified Date/Time: 08/23/2020 12:36 EDT >100,000 cfu/ml Escherichia coli SUSCEPTIBILITY RESULTS LEGEND: S=Susceptible, N/R=Not Reported, Blank=Data not available, or drug not advisable or tested, I=Intermediate, ESBL=Extended spectrum beta-lactamase, R=Resistant, TFG=Thymidine-dependent strain, MIC=Beta-lactamase positive, NAOMIE=mcg/m;(mg/L), S*=Predicted susceptible interp, R*=Predicted resistant interp EC Antibiotic NAOMIE Dilutn NAOMIE Interp Amikacin <=16 S Ampicillin <=8 S Ampicillin/ <=8/4 S Sulbactam Aztreonam <=4 S Cefazolin 4 S Cefepime <=2 S Cefotaxime <=2 Cefoxitin <=8 S Ceftazidime <=1 S Ceftazidime/ <=8 S Avibactam Ceftriaxone <=1 S Ciprofloxacin <=1 S Ertapenem <=0.5 S Gentamicin <=4 S Imipenem <=1 S Levofloxacin <=2 S Nitrofurantoin <=32 S Piperacillin/ <=16 S Tazobactam Tetracycline <=4 S Tigecycline <=2 S Tobramycin <=4 S Trimethoprim/ <=2/38 S Sulfa Performing Locations R1: This test was performed at: [facility], [address] [place] [address], [phone] , , [facility] Comment on above: Performed By: #### 2 [id number] #### [facility] [address] [place] [id number] Coding Summary.on 08-23-2020 Coding Summary. [id number] Gh0bWw +PGhlYWQ+ST1AZIAtK65uqJBwe N9OJ1oGHC7IUAYMGCLMCB0VOR1 gzUR2PCrzQ7OjuoFv GyldiIRyBN79COe3SYP5hEnvIJ ifyO2sbMErN0a1VpPcYO58uY61 INetTCTyAfZ0EbYusekoxWOm M0yzMkTxvAZnZru+PHRhYmxlIH tlAQWdSXvbKHTxZnKljVsqCZ7l Vi3pRJDgOPHedLfckFKbYnXc l4ojYOBwEEbtFU2ofYgkI1YabS W6PUGog5j1Vr28gBS+PHRkIHN0 rZgsSQkmo243OuJsb6elBPP1 wAInOWvzISO7D29ln5A4IGAtYZ SbPBW0fMM4hZ2omNouuqcsC0Yr kOZqBeH1GWO2bPYvrM4syTgx ruoqlQ7dHdf+A45NGG2YOKCINE 9OXab3U3LcXjyquCW+KU04FMUk WD45kVFkbZUde6jhpUx4DvNa NBUaVSE9yQylPIygt1XiCBYcX6 5gxHXfj4H6HWUjlHkteSEfIlCx xLH1eI0sVGrhcbkxx7whzsiv Rwkvf0ajuz99kI04U89nDXatXS IlCFN9PDTpTDJeaMhlex9zcF4x Ii8+TIiwz7fjy9jbrAy0HwYn FRTwtrBxzOxbFOC5s4PzNl21J9 OdhEuyw5LdIfc0vh65pCBnv3O5 rLV4DCfmGUDrkZ9xVFtzVtY1 CBAnYvMivA39qXCaOBddGu6ngQ isjYtrGJ8pXUXwgbodAKPbiV1a HKElxSGgnHuzXX6rQOYgzogs l702TwDcSGR1XAJdxCCnX9UtoT 8pRnOpNJOmWIDgO9CdyTVeQWgn K467KTwoIxH0CLVprrEsW3Ks ZURkiBccZtV8v1P1Lo8Tb3Gsus glHKC9WJmcHSM7AkRuPuNjNgP1 X9IuHpl4ICMiqUzwME3vL3Pl HTFfqyohyhcfaTD6LXMzEXBigY 48uEOkTIgvYo4nm9Q5i559AHTr NVDwdX20Kz1qnYqwBQDoaYFH gQ9bqvxxx6awoxjzNoEuGVKgPX m0LFd2RWCfrMmzTaTcTCZ1PeF8 YMF6eBHacJ8cjXhonykjzW8b Oyc+A60edD8hWMT7GSL1pvpsOU MfvhOnCU72JB74H1PuGipipAQw bGU+UXAmuwSeeOrbTK1cWtMw z7bvi0RcEGvuR3TpKUUaVJmrTu z1GXPxXTE7wJP8eJ0gKTSeYYcs y1O4vLF5F4YagjAoeq3jp8fj PCYuUExpK35mrBFbp3G9RNXieM L7CQLtoHkcHkDqgF64Hmq+PGNv yCmdk1IdShzwj0ufi2kdzEx3 DoGbBWPfxaWzmHfmZUF2q0ZfTn 53A63oCKjdZBUbCOAmBIHcTHWb gIfxbg9ecN7eUb1+PGNvbCB3 fYB5uN9kMAYuQgQ3KNxhZ282Eh QvmBEhGrksr4afl5ztqVy2KhHl XUXotuAvtXyiMKE6s6ArZo21 S52tCJflTNOnCCRmCMMiKUPqaF dfij5jgY7rVq5+BY5oe9ltop58 oU30fBL+NNPwCAN0uDcoFVqa DNPvwN9hPMohBlW4ZICxJmXtpC 64wZRcZPbqAo2peWgtaGevLM7o HGPttxtkk911KdTlj4hoGXLf sETtOWqwEUB7N05cb7T9VFDuAM FvZPH1yTC2oH0nuGnpeerxqQRl eKwwvfZluJusOPzdOFnfT943 IHRvcDsnPlBhdGllbnQgTmFtZT a3R7KxNxb2CYThtUfgBT1dfDDh CIbuIo9cnBtkoSqgAJ6hIBNi crgxj464HuEoa3vfHIFnvIZwBE awKIM5V38td5X7NLCrSIUzLAP9 hAO6pW1bqEfislsgwLDwuTwa xmRskLpbRSrxKMmtZ791IYXmaQ wsMwCaftTpBTRwxNH0OM47RG76 qTUzo6F9tQV1J9AeSLNjeyha cmmlyXK0LGGyJHBvlZ69Iz5mvV gcAf1qQSFxDDL6VFWgnRJwE5Kq lS7aYbRlFPMkQZDzL3OdnXHc MBeeK276KNytNuD2VXJjmcQgE2 ShIPZdwKzkKxL9g3A1Bk3KU8F7 IH30RI01yYCor5A7rHL8X3Uf WWEcgubcimseeAD9KJUhBUOwfY 38Tq2lnIrfLs2kIEIpTNG3WOVs pYIwM0ZjxP2zNtOqXHLxRZUi C3IkdJHiHHqkE117VTpkUmR3HK RimaVqB4QxCFWksWtuShL2t4T8 Qc8EJEk3YL76IP41uQOqc6O7 xTA0R2VhSTOpkhotatlgnMW0PK QiJLSadL18Gp9stYpwBf5rNXKu ORV4KUDgkHTkG9VipL3jRxKn ZFYsEHCnW9NceDQgGDefK239YF ijQmQ9GSYkotXtI7VtGTUiaXyf WvN7g1Z7Vt2OPUZnUY80MZD9 fCY6DP75WT69I7HcXfnugZMdzR U+PHRhYmxlIHdpZHRoPScxMDAl SjUqjOcpXU2jQt5hAGRuQYGb tTzftHVgArZey3kwWEVqMEktZS 3vwMjxS0WvuYW7RALej4l3Ku84 F65cH9WxhKE+XTWjjUA9tBF2 yH9xBpApQtN4EZyvJ254ZgQfaN IxZbsor6dpi9hlzNe2BaP2DFWy ryXguTdzWCK3h4HyJy87B55t IHdpZHRoPSIxNSUiIHZhbGlnbj 0uaZ9cHn0+NVMudSN0gUG0nV8w UvEeRjL4EUgnC549BlUhyGXn Bazyd8brp9vazVj8XmKiGLKfpa MuqLpuSQM8y8RfYh64T5WmwKus z1UiKbf7ni29eTNeg9U6qSL7 V3LvBXKgnbsjrVWceCcuQN9cGM FsgytuFANblX8kKDWhO7u0UgNm IkQ2QWzlD6EjkvM6YVRoqWKp NBsbNPZ5Z62xc3Z8PRTwRLFuCJ G6vAR2aQ6ekLmzhlwdmCHawFcz ufYmlDfmKCioLBfgK647NECi mIgaGDXahT4uFRZiyTYwcSjeSL 9pYVRfoauzHmZNP0qPPFctYKzS MXURWVNAVQ47RW04dPOkd5T5 lVR3I0SfIZDfdkcfiguqoFI9UR PqSYZpaJ48dCZbZPnnNs0er2C3 l545GYTtQVKgyW51Sv2qbGej IQVmwWFLnG1kngeux3mljnpyIr KiDSTcXPj7KWr9ISXtpStyQmEx JUU2MeE8PTH7eXOijU2tlQdj dtlcxI3sSyg+BYwnEUbxVTa6NF wvdGQ+NSHfPAN5xGgwLVqnEJOy vK9iAJAxM4j6FmYvVaG3DAve T5FuYYUvnapgSi80tP5hSqAdMl P7JNtpN4BeazI2MODzpFDeJFgt LKH0E40yu3G4QHPtDEHlFQR7 dYV1bU7moFgvcfeuaTBtqMvfcz HhwStzVPuiTKuaZ592TMStxRno HdLcATmcBHTuRZ36XC95nNBk s7W5xGV7T3BlHXXgksobkwdwhD E2LIYtBLQfjL19kXUcNCfzLw4t z3P7i559MBZlUIRxlN10Xt6z qUutHTBlhQCJeE1ogwstl9pymu gnBdKxCJOqLUn5DBs9XULlxKxa TgLxCDA7ZfC8PAP8mXIwmJ1v gHoacoatwQ4oSwo+RmVtYWxlPC 56PO47zKAor8Z6lXF3G5GmQRKv cbhsgmfbqBI3NUIhQVAlxI89 dNHuFQlcVs3wr7S9a460PDMjGQ LygE35Gm1wbQecQJKhfLWVgJ2w hajpr4sqrmxcKtStISTrHYx2 KEp7VIZbuUdlUtCzUAI5WzJ3YQ I1hGWfgH8jdBoqpmppgR6oBzd+ V1OpOPM1ZSUde178H6SnOgwn dHI+VE38QZVvHW23tNEmjFGgv8 ddxVq4UaJlSELaGYD7aYyjCFjr b7WxIANeT73ezIAdm5G1SMAb oFvjpMLkWuFcjMZ4bF9nJNvmay zuz9rrbkvdTbqhh0qnwj15kQ14 M98aJLuuBUVwAYXuJTNiLYZv eWnzyj7psV1hYh0+VQKezFF5fS O7cY8lOhTyNbZ9STomL697UcAp kXZcCbrad5vak5bzxXu9CbRh BZLaanTpkHxdXQP8v8FiWu39C5 9sIHdpZHRoPSIyMCUiIHZhbGln ie2djM4tTh0+QX3hv5bjmu91 vZ33sPJ+YRVzAJN8oNifOOwoKJ XkzW7qRCriVtI5MNViMhWweU29 eCWtVSssUq8wiAcesMfqAO6p ODXeqbtaa773KeUtk0boLEDybY QqQXwfJRG0S78ch0R6OYKhIERa AMH5vZG8jV9klExtrxisnKSf aJiuleSedNwjIVehOCygQ795RM LktGwiZwNcfFMkL7baiiYIYQ4l OjwvdGQ+BUFvZWV8eUdgSRza FZOfvI0oFNIhG7u8MxIdBlH3UW adC1VigbR3JASvuZThVPZwgRUJ rG9yailxs7ylyaqsTeXqDYUx HWq9GDq3TGUqtUutXfGqOFV5Mf V7DGH4cWOfkJ7qvPstrszvkU9f Oyc+RklOOjwvdGQ+PHRkIHN0 oGjbEEwgWWPmyJ0yUPEkX5k4Ps CqLlJ0RLgqT8JepyD3CESgxQCo VCIriENQwI3ezhkwv1ankwui YcLaSAFkAPb7ESp9HZTgqEiwSs BsPMZ1QsY8OFG4iZDymH7zmLvi ssssgI7aRjf+TVJOOjwvdGQ+ VUEkEJK3yDmiMGinUBXcwX9gRV XpR7q7PbGlNaN3NBtyG8LjbrV9 ZWUypNNeMUNkbBFIhK0rjhqz w1fkcfvhUsLbIBRpUPs8BHm8SM PrdSduYxAtNUC8YjR2PRA5uJTa mD4nkJlzdaentI5iVeh+UGF5 XKX1FM32WL67O8CcSbaoaODieC U+PHRhYmxlIHdpZHRoPScxMDAl NlKtwLxmIY6bJl8uKCVpLOQl bGxh (more content not included)... Normal [facility] Discharge Instructionson Discharge Instructions [id number] Normal [facility] BMPon 08-22-2020 Creatinine [Mass/Vol] 0.6 mg/dL Normal 0.5-1.3 [facility] Comment on above: Performed By: #### 1 [id number], [id number], [id number] ####[facility] [address] [place] [address] Urea nitrogen [Mass/Vol] 6 mg/dL Normal 5-21 [facility] Comment on above: Performed By: #### 1 [id number], [id number], [id number] ####[facility] [address] [place] [address] Urea nitrogen/Creatinine [Mass ratio] 10 No Units Normal 10-20 [facility] Comment on above: Performed By: #### 1 [id number], [id number], [id number] ####[facility] [address] [place] [address] Anion gap [Moles/Vol] 8 mmol/L Normal 6-16 [facility] Comment on above: Performed By: #### 1 [id number], [id number], [id number] ####[facility] [address] [place] [address] Calcium [Mass/Vol] 7.8 mg/dL Low 8.9-11.1 [facility] Comment on above: Performed By: #### 1 [id number], [id number], [id number] ####[facility] [address] [place] [address] Chloride [Moles/Vol] 109 mmol/L Normal 101-111 [facility] Comment on above: Performed By: #### 1 [id number], [id number], [id number] ####[facility] [address] [place] [address] CO2 [Moles/Vol] 24 mmol/L Normal 21-31 [facility] Comment on above: Performed By: #### 1 [id number], [id number], [id number] ####[facility] [address] [place] [address] Glucose [Mass/Vol] 120 mg/dL Normal 55-199 [facility] Comment on above: Result Comment: If t his glucose result represents a fasting glucose, interpretation should refer to the following reference range: 55-99 mg/dL Performed By: #### 1 [id number], [id number], [id number] ####[facility] [address] [place] [address] Potassium [Moles/Vol] 3.3 mmol/L Low 3.5-5.3 [facility] Comment on above: Performed By: #### 1 [id number], [id number], [id number] ####[facility] [address] [place] [address] Sodium [Moles/Vol] 138 mmol/L Normal 135-145 [facility] Comment on above: Performed By: #### 1 [id number], [id number], [id number] ####[facility] [address] [place] [address] Inpatient Clinical Summaryon 08-22-2020 Inpatient Clinical Summary [address] [address] Clinical Summary Person Information: Name: WHITNEY MILLER Age: 34 Years : 1985 Sex: Female PCP: Ramila Davidson MD Marital Status: Single Phone: [phone] Race: White Ethnicity: Non- or Language: Danish Visit Id: Visit Reason: Alcohol intoxication; Alcohol withdrawal; ALCOHOL ABUSE Speciality: Acuity: Enc Type: Observation Med Service: Medical Arrival: 08/20/2020 19:56:27 Discharge: Dispo Type: Admitted as IP to this Hosp Address: [address] [place] [id number] Provider Notes: Diagnosis: 1:Acute alcohol intoxication; 2:Chronic alcohol dependence, continuous; 3:Alcohol withdrawal; 4:Nausea; 5:Urinary tract infection; 6:Anxiety and depression; 7:Elevated lactic acid level; 8:Hypokalemia; 9:Tobacco abuse; 10:Macrocytosis; 11:Abnormal LFTs; 12:Abnormal ECG Problems Active Blood type, Rh negative Current smoker Smoking Status: Current Every Day Smoker Functional Status: Sensory Deficits: History of Falls: Mobility Assistance Prior to Admission: Independent ADLs: Independent Current Level of Assistance for Self-Care/Mobility: Cognitive Status: Oriented x 3 Allergies No Known Allergies Measurements: Height: 167.64 cm Weight: 74.5 kg Blood Pressure: 133 mmHg / 83 mmHg BMI: 25.98 kg/m2 Procedures No Procedures Documented Immunizations No Immunizations Documented This Visit Final Med List: biotin (biotin 10 mg oral tablet) 1 Tablets By Mouth every day. cephalexin (Keflex 500 mg Cap) 1 Capsules By Mouth every 12 hours for 5 Days. Refills: 0. duloxetine (duloxetine 30 mg Cap-DR) 1 Capsules By Mouth every day. folic acid (folic acid 1 mg Tab) 1 Tablets By Mouth every day. furosemide (furosemide 40 mg Tab) 1 Tablets By Mouth every day. hydrOXYzine (hydrOXYzine hydrochloride 25 mg Tab) 1 Tablets By Mouth 4 times a day as needed for anxiety. lorazepam (LORazepam 1 mg Tab) 1 Tablets By Mouth 2 times a day as needed Anxiety for 3 Days. Refills: 0. multivitamin with minerals (Calcium, Magnesium and Zinc oral tablet) 1 Tablets By Mouth every day. multivitamin, ( Multivitamins) 1 Tablets By Mouth every day. potassium chloride (potassium chloride 20 mEq ER Tab) 1 Tablets By Mouth every day. Refills: 0. thiamine (thiamine 100 mg Tab) 1 Tablets By Mouth every day. trazodone (traZODONE 50 mg Tab) 1 Tablets By Mouth once a day (at bedtime). Care Team Members: Attending Physician: Ton ENGEL DO Consulting Physician: Referring Physician: Follow up: With: Address: When: [place] [phone] Business (1) Within 1 to 2 weeks Comments: Call for followup appointment With: Address: When: Ramila Davidson [address] [place] [address] [place] [address] Business (1) 08/27/2020 11:00 AM Patient Education Information: Urinary Tract Infection, Adult, [id number]; Alcohol Withdrawal Syndrome, [id number]-it-[id number]; Alcohol Withdrawal Syndrome, [id number]-[id number]-[id number] Normal [facility] Inpatient Patient Summaryon 08-22-2020 Inpatient Patient Summary [address] [address] Patient Discharge Instructions PERSON INFORMATION Name: WHITNEY MILLER Date of : 1985 Current Date: 08/22/2020 12:31:38 PHYSICIANS Admitting Physician: Ton ENGEL DO Primary Care Physician: Ramila Davidson MD PCP Comment: Discharge Diagnosis: 1:Acute alcohol intoxication; 2:Chronic alcohol dependence, continuous; 3:Alcohol withdrawal; 4:Nausea; 5:Urinary tract infection; 6:Anxiety and depression; 7:Elevated lactic acid level; 8:Hypokalemia; 9:Tobacco abuse; 10:Macrocytosis; 11:Abnormal LFTs; 12:Abnormal ECG Condition at Discharge: Improved WHITNEY MILLER has been given the following list of follow-up instructions, prescriptions, and patient education materials: PATIENT FOLLOW-UP INFORMATION Diet: Low Sodium- 2000 mg Discharge Activity: Ambulate as tolerated, Activity as tolerated Discharge Restrictions: Wound Care Instructions: Remove Your Dressing In Days Call Your Doctor For: IF UNABLE TO CONTACT YOUR PHYSICIAN AND YOU FEEL IT IS AN EMERGENCY, GO TO THE NEAREST EMERGENCY ROOM OR CALL 911 Home Treatment: Devices/Equipment: Special Services: Additional Instructions: Primary Care Physician to provide the following pending test results: Follow up: With: Address: When: Vishal Kwok [facility]. [address] [place] [address] Business (1) Within 1 to 2 weeks Comments: Call for followup appointment With: Address: When: Ramila Davidson [address] [facility], [place] [address] Business (1) 08/27/2020 11:00 AM In the event that this physician does not participate in your insurance network, please consult with your insurance company to find a nearby participating provider. Comment: LEELEE Briscoe LINDSEY A, have received the attached patient education materials/instructions and have verbalized understanding: Patient Signature __ Date Clinican/Nurse Signature Date HERE ARE THE MEDICATION CHANGES THAT OCCURRED DURING YOUR HOSPITAL STAY New Medications [id number], [address], [place] [id number], [phone] cephalexin (Keflex 500 mg Cap) 1 Capsules By Mouth every 12 hours for 5 Days. Refills: 0. Last Dose: N ext Dose: potassium chloride (potassium chloride 20 mEq ER Tab) 1 Tablets By Mouth every day. Refills: 0. Last Dose: N ext Dose: Medications to Continue Taking That Have Changed [facility]/pharmacy #[id number], [address], [place] [id number], [phone] START: lorazepam (LORazepam 1 mg Tab) 1 Tablets By Mouth 2 times a day as needed Anxiety for 3 Days. Refills: 0. Last Dose: N ext Dose: STOP: lorazepam (LORazepam 0.5 mg Tab) 1 Tablets By Mouth 2 times a day. Other Medications START: biotin (biotin 10 mg oral tablet) 1 Tablets By Mouth every day. Last Dose: N ext Dose: STOP: biotin (biotin 10 mg oral tablet) 1 Tablets By Mouth every day. START: duloxetine (duloxetine 30 mg Cap-DR) 1 Capsules By Mouth every day. Last Dose: N ext Dose: STOP: duloxetine (DULoxetine 30 mg Cap-EC) 1 Capsules By Mouth every day. START: folic acid (folic acid 1 mg Tab) 1 Tablets By Mouth every day. Last Dose: N ext Dose: STOP: folic acid (folic acid 1 mg Tab) 1 Tablets By Mouth every day. START: furosemide (furosemide 40 mg Tab) 1 Tablets By Mouth every day. Last Dose: N ext Dose: STOP: furosemide (furosemide 40 mg Tab) 1 Tablets By Mouth every day. START: hydrOXYzine (hydrOXYzine hydrochloride 25 mg Tab) 1 Tablets By Mouth 4 times a day as needed for anxiety. Last Dose: N ext Dose: STOP: hydrOXYzine (hydrOXYzine hydrochloride 25 mg Tab) 1 Tablets By Mouth 4 times a day as needed as needed for anxiety. START: multivitamin with minerals (Calcium, Magnesium and Zinc oral tablet) 1 Tablets By Mouth every day. Last Dose: N ext Dose: STOP: multivitamin with minerals (Calcium, Magnesium and Zinc oral tablet) 1 Tablets By Mouth every day. START: multivitamin, ( Multivitamins) 1 Tablets By Mouth every day. Last Dose: N ext Dose: STOP: multivitamin, ( Multivitamins) 1 Tablets By Mouth every day. START: thiamine (thiamine 100 mg Tab) 1 Tablets By Mouth every day. Last Dose: N ext Dose: STOP: thiamine (thiamine 100 mg Tab) 1 Tablets By Mouth every day. START: trazodone (traZODONE 50 mg Tab) 1 Tablets By Mouth once a (more content not included)... [facility] Interdisciplinary Note - Gerson e Manageron 08-22-2020 Interdisciplinary Note - Research Instrumentation Technician Pt is awake and alert in bed, previously rounded with Dr. Mosley . PCP verified and Insurance information reviewed and DME discussed. Contact information provided and white board updated. Pt is feeling much better today and aware of plan to DC today. Pt continues to decline need for inpt rehab, and discussed list of outpatient resources provided yesterday and peer support numbers. Pt declines any further concerns or DC needs. will transport. Normal [facility] Comment on above: Result Comment: Elec tronically Signed By: Mirna FLOYD, Ying\.garcia\Date and Time Signed: 08/22/20 08:23 EDT Magnesiumon 08-22-2020 Magnesium [Mass/Vol] 1.8 mg/dL Normal 1.3-2.4 [facility] Comment on above: Performed By: #### 1 [id number], 9945578, [id number] ####[facility] [address] [place] [address] eGFRon 08-22-2020 GFR/1.73 sq M.predicted among blacks MDRD (S/P/Bld) [Vol rate/Area] mL/min/{1.73_m2} Normal >=59 [facility] Comment on above: Order Comment: Order added by Discern Expert. Result Comment: eGFR is race adjusted. AA=. Performed By: #### 1 [id number], 0282117, 2744409 ####[facility] [address] [place] [address] GFR/1.73 sq M.predicted among non-blacks MDRD (S/P/Bld) [Vol rate/Area] mL/min/{1.73_m2} Normal >=59 [facility] Comment on above: Order Comment: Order added by Discern Expert. Result Comment: Radio Operator kevin kidney disease could be indicated at eGFR's of less than 60 mL/min/1.73m2. Kidney failure is indicated at less than 15 mL/min/1.73m2. Performed By: #### 1 [id number], 9984491, 1557872 ####[facility] [address] [place] [address] Auto Diffon 08-21-2020 Basophils/100 WBC (Bld) 1.5 % Normal 0.0-2.0 [facility] Comment on above: Order Comment: Order Added by Discern Expert. Performed By: #### 2 172354, 7069529, 8189186, 38391287, 4776682, 6481380, 01780033, 7407279, 6635034, 4747956 ####[facility] [address] [place] [address] Basophils/Leukocytes Auto (Bld) [Pure # fraction] 0.1 E9/L Normal 0.0-0.2 [facility] Comment on above: Order Comment: Order Added by Discern Expert. Performed By: #### 2 460601, 0233516, 8585917, 33379710, 5171563, 8092381, 91409959, 2012299, 4181672, 9637495 ####[address] [place] [address] Eosinophils/100 WBC (Bld) 2.6 % Normal 0.0-8.0 [facility] Comment on above: Order Comment: Order Added by Dana Expert. Performed By: #### 2 074747, 1972589, 0156804, 29228463, 8283366, 5494148, 09230412, 1007469, 2312431, 5541382 ####[facility] [address] [place] [address] Eosinophils/Leukocytes Auto (Bld) [Pure # fraction] 0.2 E9/L Normal 0.0-0.5 [facility] Comment on above: Order Comment: Order Added by Discern Expert. Performed By: #### 2 554782, 9737002, 7077948, 75717152, 5280290, 4808515, 96608082, 9235183, 8483876, 6794640 ####[address] [place] [address] Lymphocytes/100 WBC (Bld) 27.0 % Normal 14.0-50.0 [facility] Comment on above: Order Comment: Order Added by Discern Expert. Performed By: #### 2 597198, 0766266, 4994106, 13295422, 8200190, 1163688, 71676050, 6104207, 5877660, 4368833 ####[address] [place] [address] Lymphocytes/Leukocytes Auto (Bld) [Pure # fraction] 1.7 E9/L Normal 1.0-4.0 [facility] Comment on above: Order Comment: Order Added by Discern Expert. Performed By: #### 2 622033, 5673759, 5067268, 96030989, 4620810, 1799667, 11438929, 1453486, 8208865, 9895234 ####[address] [address] Monocytes/100 WBC (Bld) 5.4 % Normal 4.0-14.0 [facility] Comment on above: Order Comment: Order Added by Discern Expert. Performed By: #### 2 115927, 7123126, 6338944, 72389487, 4762507, 7948637, 93414143, 0786655, 6566824, 7831546 ####[address] [address] Monocytes/Leukocytes Auto (Bld) [Pure # fraction] 0.3 E9/L Normal 0.2-1.0 [facility] Comment on above: Order Comment: Order Added by Discern Expert. Performed By: #### 2 663482, 6167669, 4121913, 95417167, 4482224, 3704391, 78535801, 0261911, 4375112, 9486390 ####[address] [place] [address] Neutrophils/100 WBC (Bld) 63.5 % Normal 36.0-75.0 [facility] Comment on above: Order Comment: Order Added by Discern Expert. Performed By: #### 2 799573, 3716089, 3980216, 03149389, 4738865, 7686449, 71218697, 1055409, 0000661, 2986808 ####[facility] [address] [place] [address] Neutrophils/Leukocytes Auto (Bld) [Pure # fraction] 4.0 E9/L Normal 2.0-7.5 [facility] Comment on above: Order Comment: Order Added by Discern Expert. Performed By: #### 2 707085, 3554667, 7368190, 11935383, 8444743, 1366809, 12884178, 1099954, 3756488, 8080813 ####[facility] [address] [place] [address] BMPon 08-21-2020 Potassium [Moles/Vol] 3.3 mmol/L Low 3.5-5.3 [facility] Comment on above: Performed By: #### 2 259655, 5661895, 9636037, 86336016, 9057102, 8515513, 65283064, 0806423, 5897447, 8574286 ####[facility] [address] [place] [address] Anion gap [Moles/Vol] 11 mmol/L Normal 6-16 [facility] Comment on above: Performed By: #### 2 186796, 8657157, 6825971, 02505841, 7201383, 7390938, 38178491, 3226213, 2618366, 7748606 ####[facility] [address] [place] [address] Calcium [Mass/Vol] 7.4 mg/dL Low 8.9-11.1 [facility] Comment on above: Performed By: #### 2 836646, 1942942, 4874131, 77596797, 9728265, 4099633, 20723598, 8274435, 1813568, 1983317 ####[facility] [address] [place] [address] Chloride [Moles/Vol] 105 mmol/L Normal 101-111 [facility] Comment on above: Performed By: #### 2 394297, 9845913, 5736404, 62630090, 3805740, 8557872, 22942621, 0162001, 8271034, 5574047 ####[facility] [address] [place] [address] CO2 [Moles/Vol] 26 mmol/L Normal 21-31 [facility] Comment on above: Performed By: #### 2 316531, 6573460, 7254324, 84056372, 6602841, 3078344, 75803969, 5130868, 6600635, 3921094 ####[facility] [address] [place] [address] Creatinine [Mass/Vol] 0.7 mg/dL Normal 0.5-1.3 [facility] Comment on above: Performed By: #### 2 397169, 0553937, 9170209, 64299115, 1136986, 9713161, 80133458, 7266292, 5559965, 8688063 ####[facility] [address] [place] [address] Glucose [Mass/Vol] 83 mg/dL Normal 55-199 [facility] Comment on above: Result Comment: If t his glucose result represents a fasting glucose, interpretation should refer to the following reference range: 55-99 mg/dL Performed By: #### 2 700653, 1595583, 5663849, 84679042, 9152791, 4987658, 55923135, 5012776, 4599479, 2188239 ####[facility] [address] [place] [address] Sodium [Moles/Vol] 139 mmol/L Normal 135-145 [facility] Comment on above: Performed By: #### 2 890320, 5170392, 5771721, 63076974, 2861608, 4672684, 73269276, 9725982, 3925974, 6516972 ####[facility] [address] [place] [address] Urea nitrogen [Mass/Vol] 7 mg/dL Normal 5-21 [facility] Comment on above: Performed By: #### 2 905070, 5021320, 0802306, 45540260, 4023296, 5782232, 10018860, 9481848, 1082204, 9061176 ####[facility] [address] [place] [address] Urea nitrogen/Creatinine [Mass ratio] 10 No Units Normal 10-20 [facility] Comment on above: Performed By: #### 2 828610, 9790822, 6872410, 63681507, 4013054, 2375448, 82320071, 8148554, 3743763, 0109499 ####[facility] [address] [place] [address] CBC w/ Auto Diffon 1 Erythrocyte distribution width (RBC) [Ratio] 24.3 % High 10.9-14.2 [facility] Comment on above: Performed By: #### 2 219335, 8902970, 0268340, 69380471, 7606530, 2864127, 92459286, 5400933, 3876631, 6436144 ####[address] [address] Hematocrit (Bld) [Volume fraction] 37.3 % Normal 34.0-46.0 [facility] Comment on above: Performed By: #### 2 267883, 1963109, 6072931, 07281380, 7051038, 7655678, 79944818, 9665364, 9349242, 1868050 ####[facility] [address] [place] [address] Hemoglobin (Bld) [Mass/Vol] 12.2 g/dL Normal 12.0-16.0 [facility] Comment on above: Performed By: #### 2 389751, 4466363, 5110154, 25453418, 9604828, 0203318, 81056629, 6794587, 1465721, 1944258 ####[address] [place] [address] MCH (RBC) [Entitic mass] 36.1 pg High 27.0-34.0 [facility] Comment on above: Performed By: #### 2 650692, 6395903, 9658978, 72570597, 1920347, 5358333, 68094461, 6819798, 8372655, 4481486 ####[address] [place] [address] MCHC (RBC) [Mass/Vol] 32.8 g/dL Normal 31.4-36.0 [facility] Comment on above: Performed By: #### 2 511040, 3593110, 3374055, 60107832, 2223550, 2887871, 42737925, 7601298, 2672746, 0439310 ####[address] [address] MCV (RBC) [Entitic vol] 110.1 fL High 80.0-100.0 [facility] Comment on above: Performed By: #### 2 616228, 4350487, 0597822, 58155351, 5331832, 4532729, 43345965, 6764152, 4715048, 4123924 ####[address] [address] Platelet mean volume (Bld) [Entitic vol] 8.3 fL Normal 6.4-10.8 [facility] Comment on above: Performed By: #### 2 320529, 9175775, 3020356, 42946916, 0537407, 2968244, 38851538, 4763752, 0823737, 1389205 ####[address] [address] Platelets (Bld) [#/Vol] 257.0 E9/L Normal 150.0-500.0 [facility] Comment on above: Performed By: #### 2 445677, 3163299, 3903815, 04279839, 2829799, 0633604, 76072187, 2457671, 7391063, 0506521 ####[address] [address] RBC (Bld) [#/Vol] 3.4 E12/L Low 4.3-5.9 [facility] Comment on above: Performed By: #### 2 460751, 4761069, 6396721, 59597130, 8332426, 0934610, 44498559, 9897283, 1923610, 0839784 ####[facility] [address] [place] [address] WBC corrected for nucl RBC Auto (Bld) [#/Vol] 6.3 E9/L Normal 4.0-11.0 [facility] Comment on above: Performed By: #### 2 784404, 6939910, 1188609, 25599436, 9422747, 1421761, 48603634, 0584574, 8433357, 5507954 ####[facility] [address] [place] [address] ED Clinical Summaryon 2020 ED Clinical Summary (Inserted Image. Nadia ble to display) [address] [address] ED Clinical Summary Person Information Name: WHITNEY MILLER [facility] Age: 34 Years : 1985 Sex: Female Language: Danish PCP: Ramila Davidson MD Marital Status: Single Phone: [phone] Visit Id: Visit Reason: Alcohol intoxication; Alcohol withdrawal; ALCOHOL ABUSE Speciality: Acuity: 2 Enc Type: Observation Med Service: Neurology Clinic Arrival: 08/20/2020 19:56:27 Discharge: LOS: 000 06:05 Checkin: 08/20/2020 19:56:27 Checkout: 08/21/2020 02:01:36 Dispo Type: Admitted as IP to this [facility] EVENTS: Event Name Event Status Request Date/Time Start Date/Time Complete Date/Time Arrive Complete 08/20/2020 19:56:27 08/20/2020 19:56:27 08/20/2020 19:56:27 Document Home Meds Request 08/20/2020 19:56:27 Triage Complete 08/20/2020 19:56:27 08/20/2020 20:06:58 08/20/2020 20:06:58 Isolation Screening Request 08/20/2020 20:06:58 Bed Assign Complete 08/20/2020 20:07:37 08/20/2020 20:07:37 08/20/2020 20:07:37 Dr Exam Complete 08/20/2020 20:07:37 08/20/2020 20:11:54 08/20/2020 20:11:54 RN Exam Complete 08/20/2020 20:07:37 08/20/2020 20:33:59 08/20/2020 20:33:59 Registration Complete 08/20/2020 20:11:54 08/20/2020 20:55:56 08/20/2020 20:55:56 Dr Exam Complete 08/20/2020 20:12:20 08/20/2020 20:12:20 08/20/2020 20:12:20 EKG Complete 08/20/2020 20:13:51 08/20/2020 20:43:49 Pending Labs Complete 08/20/2020 20:13:51 08/20/2020 22:10:45 Lab Complete 08/20/2020 20:13:51 08/20/2020 22:10:45 Urine Collect Complete 08/20/2020 20:13:51 08/20/2020 22:10:45 Patient Care Request 08/20/2020 20:13:51 Patient Care Complete 08/20/2020 20:14:01 08/20/2020 20:29:18 Pending Labs Complete 08/20/2020 20:25:48 08/20/2020 20:25:48 08/20/2020 21:02:51 Lab Complete 08/20/2020 20:25:48 08/20/2020 20:25:48 08/20/2020 21:02:51 Pending Labs Complete 08/20/2020 20:41:07 08/20/2020 20:41:07 08/20/2020 20:47:04 Pending Labs Complete 08/20/2020 20:41:07 08/20/2020 20:41:07 08/20/2020 20:47:12 Lab Complete 08/20/2020 20:41:07 08/20/2020 20:41:07 08/20/2020 20:47:12 Pending Labs Complete 08/20/2020 20:45:02 08/20/2020 22:02:25 Lab Complete 08/20/2020 20:45:02 08/20/2020 22:02:25 Urine Collect Complete 08/20/2020 20:45:02 08/20/2020 22:02:25 X-Ray Complete 08/20/2020 20:45:29 08/20/2020 22:06:59 08/20/2020 22:22:23 Pending Labs Complete 08/20/2020 20:48:27 08/20/2020 20:48:27 08/20/2020 21:07:03 Lab Complete 08/20/2020 20:48:27 08/20/2020 20:48:27 08/20/2020 21:07:03 Reg Complete Request 08/20/2020 20:55:56 Reg Bed Request Complete 08/20/2020 20:55:56 08/20/2020 20:55:56 08/20/2020 20:55:56 Meds Admin Complete 08/20/2020 21:04:00 08/20/2020 22:51:57 Meds Admin Request 08/20/2020 21:04:32 Pending Labs Cancel 08/20/2020 21:08:23 08/20/2020 21:08:23 08/20/2020 21:39:17 Lab Cancel 08/20/2020 21:08:23 08/20/2020 21:08:23 08/20/2020 21:39:17 Pending Labs Complete 08/20/2020 21:27:35 08/21/2020 01:22:39 Lab Complete 08/20/2020 21:27:35 08/21/2020 01:22:39 Pending Labs Inlab 08/20/2020 21:44:31 08/20/2020 21:44:31 Lab Inlab 08/20/2020 21:44:31 08/20/2020 21:44:31 Wet Read Request 08/20/2020 22:22:23 Meds Admin Request 08/21/2020 00:09:03 Meds Admin Complete 08/21/2020 00:56:03 08/21/2020 01:26:11 Patient Care Request 08/21/2020 01:44:18 Patient Care Request 08/21/2020 01:44:18 Patient Care Request 08/21/2020 01:44:19 Patient Care Request 08/21/2020 01:44:19 ADDRESS: [address] [place] [phone] PHYS DOC NOTES: MEDICAL INFORMATION: Prescriptions Given: Medications to Continue with No Changes Other Medications multivitamin, ( Multivitamins) 1 Tablets By Mouth every day. PATIENT EDUCATION INFORMATION: Instructions: Follow up: DIAGNOSIS: 1:Alcohol abuse; 2:Urinary tract infection; 3:Elevated lactic acid level; 4:Hypokalemia Normal [facility] ED Note-Physicianon 08-22-19 ED Note-Physician Basic Information Time Seen: Olegario BAPTISTE, Van 08/20/2020 20:12 Chief Complaint pt to ED with c/o alcohol withraw. pt states 1/5 liquor daily. pt states last drink was 30 min ago. 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 pt calm and cooperative with staff. states she wants help. denies suicidal ideation. History of Present Illness Patient came to the emergency department because of abdominal distention and alcohol addiction and has been drinking for about 18 months now. Drinks 1/5 of alcohol every day. Patient has gone through detox in [place] in May but has relapsed. Patient's last drink was just before coming to the emergency department. Patient is complaining of some distention in her abdomen. There is no fever or chills. Patient does not have any nausea or vomiting but has been complaining of some diarrhea. Patient does not have any dysuria or frequency. Patient does have decreased oral intake and does not take any vitamins. Review of Systems A 10 point review of systems is negative except as noted above. Medical and Surgical History: Reviewed and noted Social history: Lives at home Tobacco: Denies. Physical Exam Vitals & Measurements T: 36.7 ?C (Oral) HR: 86(Monitored) RR: 16 BP: 139/84 SpO2: 96% HT: 167.0 cm HT: 167 cm WT: 72.2 kg WT: 72.2 kg BMI: 25.89 General: alert, no acute distress Skin: warm, dry Head: no trauma, normocephalic Neck: Trachea midline, no adenopathy, no tenderness Eye: normal conjunctiva, sclera clear ENMT: TM's clear, oral mucosa moist, no pharyngeal erythema or exudate Cardiovascular: regular rate and rhythm, normal peripheral perfusion Capillary refill Less than 1 second Respiratory: Lungs CTA, respirations non labored Chest wall: no deformity. Gastrointestinal: soft, non distended, no tenderness, no guarding bowel sounds normal.patient has no shifting dullness or fluid thrill Genitourinary Normal Back: No tenderness, Normal ROM, Normal alignment. Extremities: no deformity, no trauma ,Edema none Color Normal Neurological: oriented x 4, LOC appropriate for age, CN II-XII intact, motor strength equal & normal bilaterally, sensation equal & normal bilaterally, speech normal Psychiatric: cooperative, affect appropriate for age, normal judgement, normal psychiatric thoughts. Medical Decision Making Patient was started on banana bag on arrival. Patient lactic acid was 4.0 and that patient was started on normal saline. Patient potassium is being replaced and patient was given ceftriaxone for her urinary tract infection. Patient white count is 7900 hemoglobin is 13.3. MCV is 107.5. Patient glucose is 103 BUN 7 creatinine 0.7. Patient's sodium is 136 potassium is 2.7. Anion gap is 18. Patient lactic acid is 4.0. Patient troponin is 3.70 BNP was 14. Urine showed 6-15 WBCs with nitrites and leukocyte esterase to be positive. Patient beta-hCG is negative. Patient will be admitted by Dr. Engel from hospitalist group for further work-up and management. Assessment/Plan 1. Alcohol abuse (F10.10: Alcohol abuse, uncomplicated) Ordered: ceftriaxone + Sodium Chloride 0.9% intravenous solution 50 mL, 1,000 mg = 1 EA, IV Piggyback, Once, Stop date 08/21/20 0:55:00 EDT, STAT, Start date 08/21/20 0:55:00 EDT, 100 mL/hr, Infuse over 30 minute(s) Sodium Chloride 0.9% intravenous solution 1,000 mL, 1,000 mL, IV, 1,000 mL/hr, STAT, Start date 08/21/20 0:08:00 EDT, 1 hour(s), Total volume (mL): 1,000, 72.2 kg, 1.83, m2 Sodium Chloride 0.9% intravenous solution 1,000 mL + multivitamin 10 mL + thiamine 100 mg + folic a, 1,000 mL, IV, 41.67 mL/hr, for 1 dose(s), Stop date 08/21/20 21:21:00 EDT, STAT, Start date 08/20/20 21:04:00 EDT, 24.3 hour(s), Total volume (mL): 1,011.2, 72.2 kg, 1.83, m2 2. Urinary tract infection (N39.0: Urinary tract infection, site not specified) 3. Elevated lactic acid level (R79.89: Other specified abnormal findings of blood chemistry) 4. Hypokalemia (E87.6: Hypokalemia) Orders: ondansetron, Injection, Misc, Once, Stop date 08/20/20 21:48:48 EDT, Physician Stop, 08/20/20 21:48:48 EDT ondansetron, 4 mg = 2 mL, Injection, IV Push, Once, Stop date 08/20/20 21:51:00 EDT, Start date 08/20/20 21:51:00 EDT potassium chloride, 40 mEq = 2 tab(s), Tab-ER, Oral, Once, Stop date 08/20/20 21:03:00 EDT, STAT, Start date 08/20/20 21:03:00 EDT potassium chloride + Generic Diluent 100 mL, 20 mEq = 100 mL, IV Piggyback, Once, Stop date 08/20/20 21:03:00 EDT, STAT, Start date 08/20/20 21:03:00 EDT, 50 mL/hr, Infuse over 2 hour(s) Lactic Acid Lactic Acid Lipase Level UA With Cult Reflex Urine Culture XR Abdomen Series w/ Chest 1 View Medications Administered Given Sodium Chloride 0.9% intravenous solution 1,000 mL + multivitamin 10 mL + thiamine 100 mg + folic a, IV. For: Alcohol abuse Sodium Chloride 0.9% IV Melinda 1000 mL 1,000 mL, 1000 mL, IV. For: Alcohol abuse [id number] [F], 4 mg, IV Push potassium chloride 20 mEq ER Tab, 40 mEq, Oral potassium chloride additive 20 mEq + (more content not included)... Normal [facility] Comment on above: Result Comment: Elec tronically Signed By: Van Melvin MD\.br\Date and Time Signed: 08/21/20 00:58 EDT ED Patient Education Noteon 08-21-2020 ED Patient Education Note Normal [facility] ED Patient Summaryon 021 ED Patient Summary (Inserted Image. Nadia ble to display) [place] [id number] Patient Discharge Instructions Person Information Name: WHITNEY MILLER Age: 34 Years Arrival Date: 08/20/2020 19:56:27 Discharge Diagnosis: 1:Alcohol abuse; 2:Urinary tract infection; 3:Elevated lactic acid level; 4:Hypokalemia Primary Care Physician: Ramila Davidson MD Provider Information Primary Provider: Van Melvin MD Advanced Turn Out:None The exam and treatment you received in the Emergency Department were for an urgent problem and are not intended as complete care. It is important that you follow up with a doctor, nurse practitioner, or physician?s preschool teacher assistant for ongoing care. If your symptoms become worse or you do not improve as expected and you are unable to reach your usual health care provider, you should return to the Emergency Department. We are available 24 hours a day. WHITNEY MILLER has been given the following list of patient education materials, prescriptions and follow-up instructions: Follow-up Instructions: In the event that this physician does not participate in your insurance network, please consult with your insurance company to find a nearby participating provider. Patient Education Materials: A MESSAGE TO ALL PATIENTS REGARDING OPIOIDS PRESCRIPTION OPIOIDS: WHAT YOU NEED TO KNOW Prescription opioids can be used to help relieve rsjyimqi-rf-khynuy pain and are often prescribed following a surgery or injury, or for certain health conditions. These medications can be an important part of the treatment but also come with serious risks. It is important to work with your healthcare provider to make sure you are getting the safest, most effective care. WHAT ARE THE RISKS AND SIDE EFFECTS OF OPIOID USE? Prescription opioids carry serious risks of addiction and overdose, especially with prolonged use. An opioid overdose, often marked by slowed breathing, can cause sudden . The use of prescription opioids can have a number of side effects as well, even when taken as directed: ? Tolerance?meaning you might need to take more of the medication for the same pain relief ? Physical dependence?meaning you have symptoms of withdrawal when a medication is stopped ? Increased sensitivity to pain ? Constipation ? Nausea, vomiting, and dry mouth ? Sleepiness and dizziness ? Confusion ? Depression ? Low levels of testosterone that can result in lower sex drive, energy, and strength ? Itching and sweating RISKS ARE GREATER WITH: ? History of drug misuse, substance use disorder, or overdose ? Mental health conditions (such as depression or anxiety) ? Sleep apnea ? Older age (65 years and older) ? Avoid alcohol while taking prescription opioids. Also, unless specifically advised by your health care provider, medications to avoid include: ? Benzodiazepines (such as Xanax or Valium) ? Muscle relaxants (such as Soma or Flexeril) ? Hypnotics (such as Ambien or Lunesta) ? Other prescription opioids KNOW YOUR OPTIONS Talk to your health care provider about ways to manage your pain that don?t involve prescription opioids. Some of these options may actually work better and have fewer risks and side effects. Options may include: ? Pain relievers such as acetaminophen, ibuprofen, and naproxen ? Some medication that are also used for depression or seizures ? Physical therapy and exercise ? Cognitive behavioral therapy, a psychological, goal-directed approach, in which patients learn how to modify physical, behavioral, and emotional triggers of pain and stress. IF YOU ARE PRESCRIBED OPIOIDS FOR PAIN: ? Never take opioids in greater amounts or more often than prescribed. ? Follow up with your primary health care provider. o Work together to create a plan on how to manage your pain. o Talk about ways to help manage your pain that don?t involve prescription opioids. o Talk about any and all concerns and side effects. ? Help prevent misuse and abuse o Never sell or share prescription opioids. o Never use another person?s prescription opioids. ? Store prescription opioids in a secure place and out of reach of others (this may include visitors, children, friends, and family). ? Safely dispose of unused prescription opioids: Find your community drug take-back program or your pharmacy mail-back program, or flush them down the toilet, following guidance from the Food and Drug Administration (www.fda.gov/Drugs/Resourc esForYou). ? Visit www.cdc.gov/drugoverdose to learn about the risks of opioids abuse and overdose. ? If you believe you may be struggling with addiction, tell your health field care manager and ask for guidance or call [facility]?S National Helpline at 2-920-899-WXBV. i Source: [place] Department of Health and Human Services/Center for Disease Control & Prevention [facility] (more content not included)... Normal [facility] Ethanolon 08-21-2020 Ethanol [Mass/Vol] mg/dL Normal <=7 [facility] Comment on above: Performed By: #### 2 409329 #### [facility] [address] [place] [address] Hep Func Panelon 08-21-2020 Albumin [Mass/Vol] 2.5 g/dL Low 3.3-5.0 [facility] Comment on above: Performed By: #### 2 783848, 4574149, 3560066, 24780360, 8160309, 4405596, 07279704, 7376391, 0121224, 8749656 #### [facility] [address] [place] [address] Albumin/Globulin (S) [Mass conc ratio] 1.0 Low 1.1-2.2 [facility] Comment on above: Performed By: #### 2 339823, 0937536, 6162461, 19437472, 7335949, 6485421, 46963127, 9658344, 7803620, 0457993 #### [facility] [address] [place] [address] ALP [Catalytic activity/Vol] 120 Int._Unit/L High 21-98 [facility] Comment on above: Performed By: #### 2 696642, 4367683, 5735970, 37685001, 1168302, 8843461, 31360707, 4713777, 7946008, 2965390 #### [facility] [address] [place] [address] ALT No additional P-5'-P [Catalytic activity/Vol] 29 Int._Unit/L Normal 6-46 [facility] Comment on above: Performed By: #### 2 740528, 9138621, 8893549, 46739567, 5428336, 0887246, 41614004, 1760104, 9797907, 6829240 #### [facility] [address] [place] [address] AST [Catalytic activity/Vol] 99 Int._Unit/L High 5-43 [facility] Comment on above: Performed By: #### 2 436971, 8471637, 3293640, 39631072, 3064039, 5327176, 06604717, 0229686, 3929080, 8062844 #### [facility] [address] [place] [address] Bilirubin [Mass/Vol] 1.4 mg/dL High 0.0-1.1 [facility] Comment on above: Performed By: #### 2 634384, 3826917, 2542988, 70717576, 6869762, 4793091, 13533704, 9881554, 4036447, 0234240 #### [facility] [address] [id number] Bilirubin.direct [Mass/Vol] 0.2 mg/dL Normal 0.1-0.4 [facility] Comment on above: Performed By: #### 2 592399, 1923532, 7612746, 01692903, 6327228, 3235099, 60016762, 5896124, 9589379, 1211256 #### [facility] [address] [place] [address] Bilirubin.indirect [Mass or moles/Vol] 1.2 mg/dL High 0.1-0.9 [facility] Comment on above: Performed By: #### 2 642789, 8748078, 7760609, 79977787, 5826016, 8059086, 26233031, 5516980, 5010820, 5309027 #### [facility] [address] [place] [address] Globulin (S) [Mass/Vol] 2.6 g/dL Normal 1.4-4.0 [facility] Comment on above: Performed By: #### 2 764010, 4195402, 6231897, 88915556, 5001362, 2746406, 07402080, 9227730, 0053710, 8634237 #### [facility] [address] [place] [address] Protein [Mass/Vol] 5.1 g/dL Low 6.0-7.8 [facility] Comment on above: Performed By: #### 2 992591, 8833845, 6992170, 11483385, 2762176, 4363155, 76312957, 3825612, 0893322, 7708193 #### [facility] [address] [place] [address] Interdisciplinary Note - Gerson e Manageron 08-21-2020 Interdisciplinary Note - Research Instrumentation Technician Pt is awake and alert in bed , Previously rounded with Dr. Mosley. Observation status reviewed. . PCP verified and insurance information reviewed. DME discussed. Contact information provided and white board updated. Discussed alcohol resources, pt has bee to inpt rehab in past in [place], does not want to do inpt rehab at this time, agreeable to outpatient resources, and CRM will ring to pt later today. Declines need to contact any family at this time. CRM following. alcohol resources to provided to pt at this time. Declines any further concerns or DC needs. Normal [facility] Comment on above: Result Comment: Elec tronically Signed By: Mirna FLOYD, Ying\.garcia\Date and Time Signed: 08/21/20 15:24 EDT Interdisciplinary Note - Soc ial Workeron 08-21-2020 Interdisciplinary Note - Noc Analyst Per CRM, patient had requested information on outpatient services for alcohol use. Patient did not wish to speak to SW at this time. She was provided with a handout of outpatient resources. SW will remain available. Normal [facility] Lactic Acidon 08-21-2020 Lactate [Mass/Vol] 1.3 mmol/L Normal 0.5-2.2 [facility] Comment on above: Performed By: #### 2 742698, 3738386, 0716590, 09576692, 6050193, 1808728, 75046093, 4436115, 8852059, 1530970 #### [facility] [address] [place] [address] Lactate [Mass/Vol] 2.5 mmol/L High 0.5-2.2 [facility] Comment on above: Order Comment: Order added by EKS Rule. (FT_LACTIC_ACID_REFLEX) Adds reflex Lactic Acid 4 hours after initial if result is greater than or equal to 2.0. Performed By: #### 2 716949 #### [facility] [address] [place] [address] Magnesiumon 08-21-2020 Magnesium [Mass/Vol] 1.2 mg/dL Low 1.3-2.4 [facility] Comment on above: Performed By: #### 2 005412, 3461033, 9617641, 24292140, 9494046, 0199571, 11952545, 7505128, 5499998, 2082291 #### [facility] [address] [place] [address] Monitor Recordon 08-21-2020 Monitor Record [id number]:[id number] Normal [facility] Morphon 08-21-2020 Anisocytosis Ql (Bld) Present Normal [facility] Comment on above: Order Comment: Order Added by Discern Expert. Performed By: #### 2 415319, 1413488, 7333497, 51518690, 8645782, 1060770, 33204649, 3903928, 9965291, 3014674 ####[facility] [address] [place] [address] Macrocytes Ql (Bld) Present Normal [facility] Comment on above: Order Comment: Order Added by Discern Expert. Performed By: #### 2 526424, 1371303, 4589888, 57329955, 9237372, 4699818, 40377563, 8711717, 7393313, 1508281 ####[facility] [address] [place] [address] Morphology [place] (Bld) [Interp] See Morphology Normal [facility] Comment on above: Order Comment: Order Added by Discern Expert. Performed By: #### 2 160731, 6117249, 8735556, 85472711, 3447567, 9023727, 98907501, 8241931, 2543261, 3082176 ####[facility] [address] [place] [address] Poikilocytosis Auto Ql (Bld) Present Normal [facility] Comment on above: Order Comment: Order Added by Discern Expert. Performed By: #### 2 445352, 8237334, 5456424, 32562441, 0653172, 4336120, 06105371, 2933311, 5716117, 1055241 ####[facility] [address] [place] [address] PTon 08-21-2020 INR Coag (PPP) [Relative time] 1.3 {INR} Invalid Interpretation Code [facility] Comment on above: Result Comment: INR results are specifically intended to assess patients stabilized on long-term Anticoagulation therapy suggested INR?s ?Less Intensive Anticoagulation? 2.0 ? 3.0 Conventional Range 3.0 ? 4.5 Performed By: #### 2 603623, 9021747, 9605539, 84853470, 2025147, 5097909, 95139533, 8699770, 0941152, 9040407 #### [facility] [address] [place] [address] PT Coag (PPP) [Time] 15.4 second(s) High 10.2-12.9 [facility] Comment on above: Performed By: #### 2 171011, 1450183, 2438011, 62547032, 9018086, 8169856, 98654076, 5211205, 4966573, 2235821 #### [facility] [address] [place] [address] Phosphoruson 08-21-2020 Phosphate [Mass/Vol] 3.5 mg/dL Normal 1.9-4.6 [facility] Comment on above: Performed By: #### 2 506143, 8405432, 4356578, 80855216, 9803743, 9455724, 63145833, 1725336, 7101219, 1375938 ####[facility] [address] [place] [address] U Drug Screenon 08-21-2020 Amphetamines Screen method >1000 ng/mL Ql (U) Negative Normal Negative [facility] Comment on above: Result Comment: Nega tive Cutoff: <1000 ng/mL Performed By: #### 2 860815 ####[facility] [address] [place] [address] Barbiturates Screen Ql (U) Negative Normal Negative [facility] Comment on above: Result Comment: Nega tive Cutoff: <200 ng/mL Performed By: #### 2 742204 ####[address] [place] [address] Benzodiazepines Ql (U) Negative Normal Negative [facility] Comment on above: Result Comment: Nega tive Cutoff: <200 ng/mL Performed By: #### 2 055060 ####[facility] [address] [place] [address] Cocaine Ql (U) Negative Normal Negative [facility] Comment on above: Result Comment: Nega tive Cutoff: <300 ng/mL Performed By: #### 2 612826 ####[facility] [address] [place] [address] Opiates Screen Ql (U) Negative Normal Negative [facility] Comment on above: Result Comment: Nega tive Cutoff: <300 ng/mL Performed By: #### 2 385909 ####[facility] [address] [place] [address] Phencyclidine Screen method >25 ng/mL Ql (U) Negative Normal Negative [facility] Comment on above: Result Comment: Nega tive Cutoff: <25 ng/mL These drug screen results are to be used for medical (i.e., treatment) purposes only. Unconfirmed drug screening results must not be used for non-medical purposes (e.g., employment testing, legal testing). Performed By: #### 2 191185 ####[facility] [address] [place] [address] Tetrahydrocannabinol Screen method >50 ng/mL Ql (U) Negative Normal Negative [facility] Comment on above: Result Comment: Nega tive Cutoff: <50 ng/mL Performed By: #### 2 867808 ####[facility] [address] [place] [address] UA With Cult Reflexon 2020 Bacteria LM Ql (Urine sed) 2+ /HPF Abnormal Trace [facility] Comment on above: Performed By: #### 2 8069648 #### [facility] [address] [place] [address] Bilirubin Ql (U) Negative Normal Negative [facility] Comment on above: Performed By: #### 2 1588576 #### [facility] [address] [place] [address] Clarity (U) SL CLOUDY Abnormal Clear [facility] Comment on above: Performed By: #### 2 2338041 #### [facility] [address] [place] [address] Color (U) YELLOW Normal Yellow [facility] Comment on above: Performed By: #### 2 5698748 #### [facility] [address] [place] [address] Epithelial cells.squamous LM.HPF (Urine sed) [#/Area] 9-10 Normal 0-2 [facility] Comment on above: Performed By: #### 2 0146741 #### [facility] [address] [place] [address] Glucose Test strip (U) [Mass/Vol] Negative Normal Negative [facility] Comment on above: Performed By: #### 2 8454945 #### [facility] [address] [place] [address] Hemoglobin Ql (U) Negative Normal Negative [facility] Comment on above: Performed By: #### 2 4098960 #### [facility] [address] [place] [address] Ketones (U) [Mass/Vol] Negative Normal Negative [facility] Comment on above: Performed By: #### 2 5272926 #### [facility] [address] [place] [address] [place].plasma/[place] .RBC (Bld) [Mass ratio] 0-3 Normal 0-3 [facility] Comment on above: Performed By: #### 2 1198752 #### [facility] [address] [place] [address] Nitrite Ql (U) Positive Abnormal Negative [facility] Comment on above: Performed By: #### 2 3118011 #### [facility] [address] [place] [address] pH (U) 7.0 [pH] Invalid Interpretation Code 5.0-9.0 [facility] Comment on above: Performed By: #### 2 9355246 #### [facility] [address] [place] [address] Protein (U) [Mass/Vol] Negative Normal Negative [facility] Comment on above: Performed By: #### 2 3704088 #### [facility] [address] [place] [address] Specific gravity (U) [Rel density] 1.010 Invalid Interpretation Code 1.005-1.030 [facility] Comment on above: Performed By: #### 2 7304585 #### [facility] [address] [place] [address] Type of Urine collection method Clean Catch Normal [facility] Comment on above: Performed By: #### 2 3234308 #### [facility] [address] [place] [address] Urobilinogen Qn (U) 0.2 {Darwin'U}/dL Normal 0.0-1.0 [facility] Comment on above: Performed By: #### 2 5618928 #### [facility] [address] [place] [address] WBC Auto Ql (U) 2+ Abnormal Negative [facility] Comment on above: Performed By: #### 2 3642600 #### [facility] [address] [place] [address] WBC LM.HPF (Urine sed) [#/Area] 6-15 Abnormal 0-5 [facility] Comment on above: Performed By: #### 2 2985403 #### [facility] [address] [place] [address] XR Abdomen Series w/ Chest 1 Viewon 08-21-2020 XR Abdomen Series w/ Chest 1 View Exam Date/Time: 08/20/2020 22:22 EDT Reason for Exam: Ascites Report IMPRESSION: 1. NO EVIDENCE OF ACTIVE DISEASE IN THE CHEST. 2. NONOBSTRUCTIVE ABDOMINAL BOWEL GAS PATTERN AND NO PNEUMOPERITONEUM. 3. There is a large, 3 cm calcification to the left of midline which may represent a renal calcification versus other etiologies. CLINICAL HISTORY: Ascites COMPARISONS: None available.. FINDINGS: The erect PA film of the chest appears normal. Supine and upright views of the abdomen demonstrate a nonobstructive abdominal bowel gas pattern. On the upright film, there is no pneumoperitoneum and there are no intestinal air/fluid levels. There is a 2.8 x 3.1 cm lobulated calcification to the left of midline at the level of L4 which may represent a renal calcification. There are phleboliths in the pelvis. Remainder of the abdomen appears unremarkable. FINAL REPORT Dictated: 08/21/2020 8:26 am Hari Griffith MD, V. Signed (Electronic Signature): 08/21/2020 8:26 am Signed by: Hari Griffith MD, V. Transcribed by: MAHSA Technologist: RADHA Normal [facility] eGFRon 08-21-2020 GFR/1.73 sq M.predicted among blacks MDRD (S/P/Bld) [Vol rate/Area] mL/min/{1.73_m2} Normal >=59 [facility] Comment on above: Order Comment: Order added by Discern Expert. Result Comment: eGFR is race adjusted. AA=. Performed By: #### 2 624913, 6036639, 5093948, 96908777, 1980116, 8151277, 25476807, 5830261, 2304441, 5988041 ####[facility] [address] [place] [address] GFR/1.73 sq M.predicted among non-blacks MDRD (S/P/Bld) [Vol rate/Area] mL/min/{1.73_m2} Normal >=59 [facility] Comment on above: Order Comment: Order added by Discern Expert. Result Comment: Radio Operator kevin kidney disease could be indicated at eGFR's of less than 60 mL/min/1.73m2. Kidney failure is indicated at less than 15 mL/min/1.73m2. Performed By: #### 2 156592, 4207712, 1274651, 26934135, 6644529, 0726085, 55770132, 8372283, 3051995, 5267185 ####[facility] [address] [place] [address] Auto Diffon 08-20-2020 Basophils/100 WBC (Bld) 0.4 % Normal 0.0-2.0 [facility] Comment on above: Order Comment: Order Added by Discern Expert. Performed By: #### 2 673927 #### [facility] [address] [place] [address] Basophils/Leukocytes Auto (Bld) [Pure # fraction] 0.0 E9/L Normal 0.0-0.2 [facility] Comment on above: Order Comment: Order Added by Discern Expert. Performed By: #### 2 801192 #### [facility] [address] [place] [address] Eosinophils/100 WBC (Bld) 2.4 % Normal 0.0-8.0 [facility] Comment on above: Order Comment: Order Added by Discern Expert. Performed By: #### 2 688419 #### [facility] [address] [place] [address] Eosinophils/Leukocytes Auto (Bld) [Pure # fraction] 0.2 E9/L Normal 0.0-0.5 [facility] Comment on above: Order Comment: Order Added by Discern Expert. Performed By: #### 2 801313 #### [facility] [address] [place] [address] Lymphocytes/100 WBC (Bld) 39.9 % Normal 14.0-50.0 [facility] Comment on above: Order Comment: Order Added by Discern Expert. Performed By: #### 2 175152 #### [facility] [address] [place] [address] Lymphocytes/Leukocytes Auto (Bld) [Pure # fraction] 3.2 E9/L Normal 1.0-4.0 [facility] Comment on above: Order Comment: Order Added by Discern Expert. Performed By: #### 2 567369 #### [facility] [address] [place] [address] Monocytes/100 WBC (Bld) 6.8 % Normal 4.0-14.0 [facility] Comment on above: Order Comment: Order Added by Discern Expert. Performed By: #### 2 072842 #### [facility] [address] [place] [address] Monocytes/Leukocytes Auto (Bld) [Pure # fraction] 0.5 E9/L Normal 0.2-1.0 [facility] Comment on above: Order Comment: Order Added by Dana Expert. Performed By: #### 2 172060 #### [facility] [address] [place] [address] Neutrophils/100 WBC (Bld) 50.5 % Normal 36.0-75.0 [facility] Comment on above: Order Comment: Order Added by Discern Expert. Performed By: #### 2 832141 #### [facility] [address] [place] [address] Neutrophils/Leukocytes Auto (Bld) [Pure # fraction] 4.0 E9/L Normal 2.0-7.5 [facility] Comment on above: Order Comment: Order Added by Discern Expert. Performed By: #### 2 725784 #### [facility] [address] [place] [address] BNPon 08-20-2020 Natriuretic peptide B (Bld) [Mass/Vol] 14 pg/mL Normal 5-80 [facility] Comment on above: Performed By: #### 2 394034 #### [facility] [address] [place] [address] CBC w/ Auto Diffon Erythrocyte distribution width (RBC) [Ratio] 24.5 % High 10.9-14.2 [facility] Comment on above: Performed By: #### 2 863981 #### [facility] [address] [place] [address] Hematocrit (Bld) [Volume fraction] 39.2 % Normal 34.0-46.0 [facility] Comment on above: Performed By: #### 2 370711 #### [facility] [address] [place] [address] Hemoglobin (Bld) [Mass/Vol] 13.3 g/dL Normal 12.0-16.0 [facility] Comment on above: Performed By: #### 2 481855 #### [facility] [address] [place] [address] MCH (RBC) [Entitic mass] 36.5 pg High 27.0-34.0 [facility] Comment on above: Performed By: #### 2 170849 #### [facility] [address] [place] [address] MCHC (RBC) [Mass/Vol] 34.0 g/dL Normal 31.4-36.0 [facility] Comment on above: Performed By: #### 2 147551 #### [facility] [address] [place] [address] MCV (RBC) [Entitic vol] 107.5 fL High 80.0-100.0 [facility] Comment on above: Performed By: #### 2 935005 #### [facility] [address] [place] [address] Platelet mean volume (Bld) [Entitic vol] 7.8 fL Normal 6.4-10.8 [facility] Comment on above: Performed By: #### 2 682733 #### [facility] [address] [place] [address] Platelets (Bld) [#/Vol] 291.0 E9/L Normal 150.0-500.0 [facility] Comment on above: Performed By: #### 2 590316 #### [facility] [address] [place] [address] RBC (Bld) [#/Vol] 3.6 E12/L Low 4.3-5.9 [facility] Comment on above: Performed By: #### 2 988529 #### [facility] [address] [place] [address] WBC corrected for nucl RBC Auto (Bld) [#/Vol] 7.9 E9/L Normal 4.0-11.0 [facility] Comment on above: Result Comment: Slid e reviewed by [email or web address]. Performed By: #### 2 122681 #### [facility] [address] [place] [address] CMPon 08-20-2020 Albumin [Mass/Vol] 2.9 g/dL Low 3.3-5.0 [facility] Comment on above: Performed By: #### 2 140875 #### [facility] [address] [place] [address] Albumin/Globulin (S) [Mass conc ratio] 0.9 Low 1.1-2.2 [facility] Comment on above: Performed By: #### 2 939438 #### [facility] [address] [place] [address] ALP [Catalytic activity/Vol] 132 Int._Unit/L High 21-98 [facility] Comment on above: Performed By: #### 2 214386 #### [facility] [address] [place] [address] ALT No additional P-5'-P [Catalytic activity/Vol] 28 Int._Unit/L Normal 6-46 [facility] Comment on above: Performed By: #### 2 967210 #### [facility] [address] [place] [address] Anion gap [Moles/Vol] 18 mmol/L High 6-16 [facility] Comment on above: Performed By: #### 2 452376 #### [facility] [address] [place] [address] AST [Catalytic activity/Vol] 82 Int._Unit/L High 5-43 [facility] Comment on above: Performed By: #### 2 552594 #### [facility] [address] [place] [address] Bilirubin [Mass/Vol] 0.9 mg/dL Normal 0.0-1.1 [facility] Comment on above: Performed By: #### 2 590416 #### [facility] [address] [place] [address] Calcium [Mass/Vol] 8.2 mg/dL Low 8.9-11.1 [facility] Comment on above: Performed By: #### 2 577676 #### [facility] [address] [place] [address] Chloride [Moles/Vol] 97 mmol/L Low 101-111 [facility] Comment on above: Performed By: #### 2 693705 #### [facility] [address] [place] [address] CO2 [Moles/Vol] 24 mmol/L Normal 21-31 [facility] Comment on above: Performed By: #### 2 659688 #### [facility] [address] [place] [address] Creatinine [Mass/Vol] 0.7 mg/dL Normal 0.5-1.3 [facility] Comment on above: Performed By: #### 2 851372 #### [facility] [address] [place] [address] Globulin (S) [Mass/Vol] 3.2 g/dL Normal 1.4-4.0 [facility] Comment on above: Performed By: #### 2 [id number] #### [facility] [address] [place] [address] Glucose [Mass/Vol] 103 mg/dL Normal 55-199 [facility] Comment on above: Result Comment: If t his glucose result represents a fasting glucose, interpretation should refer to the following reference range: 55-99 mg/dL Performed By: #### 2 [id number] #### [facility] [address] [place] [address] Potassium [Moles/Vol] 2.7 mmol/L Abnormal 3.5-5.3 [facility] Comment on above: Result Comment: Crit ical Result verified by repeat analysis\Critical Result S_K:2.7 Called to LUCIA CASAREZ AT by LUCIA RINCON And Read Back For Confirmation at: 08/20/2020 21:02:41 Performed By: #### 2 [id number] #### [facility] [address] [place] [address] Protein [Mass/Vol] 6.1 g/dL Normal 6.0-7.8 [facility] Comment on above: Performed By: #### 2 [id number] #### [facility] [address] [place] [address] Sodium [Moles/Vol] 136 mmol/L Normal 135-145 [facility] Comment on above: Performed By: #### 2 [id number] #### [facility] [address] [place] [address] Urea nitrogen [Mass/Vol] 7 mg/dL Normal 5-21 [facility] Comment on above: Performed By: #### 2 [id number] #### [facility] [address] [place] [address] Urea nitrogen/Creatinine [Mass ratio] 10 No Units Normal 10-20 [facility] Comment on above: Performed By: #### 2 [id number] #### [facility] [address] [place] [address] Consent for Treatmenton 08-11 Consent for Treatment [id number] Normal [facility] Ethanolon 08-20-2020 Ethanol [Mass/Vol] 238 mg/dL Abnormal <=7 [facility] Comment on above: Result Comment: Crit ical Result verified by repeat analysis\Critical Result S_ETOH:238.0 Called to LUCIA CASAREZ AT by LUCIA RINCON And Read Back For Confirmation at: 08/20/2020 21:02:10 Performed By: #### 2 [id number] #### [facility] [address] [place] [address] Lactic Acidon 08-20-2020 Lactate [Mass/Vol] 4.0 mmol/L High 0.5-2.2 [facility] Comment on above: Performed By: #### 2 [id number] #### [facility] [address] [place] [address] Lipase Levelon 08-20-2020 Lipase [Catalytic activity/Vol] 22 U/L Normal 13-58 [facility] Comment on above: Performed By: #### 2 [id number] #### [facility] [address] [place] [address] Morphon 08-20-2020 Anisocytosis Ql (Bld) Present Normal [facility] Comment on above: Order Comment: Order Added by Discern Expert. Performed By: #### 2 [id number] #### [facility] [address] [place] [address] Macrocytes Ql (Bld) Present Normal [facility] Comment on above: Order Comment: Order Added by Discern Expert. Performed By: #### 2 [id number] #### [facility] [address] [place] [address] Morphology [place] (Bld) [Interp] See Morphology Normal [facility] Comment on above: Order Comment: Order Added by Discern Expert. Performed By: #### 2 [id number] #### [facility] [address] [place] [address] Poikilocytosis Auto Ql (Bld) Present Normal [facility] Comment on above: Order Comment: Order Added by Discern Expert. Result Comment: Pres ence of stomatocytes noted. Commonly seen in cases of acute alcoholism. [id number] Performed By: #### 2 [id number] #### [facility] [address] [place] [address] Troponinon 08-20-2020 Troponin I.cardiac [Mass/Vol] 3.70 pg/mL Low 10.10-27.10 [facility] Comment on above: Result Comment: The 95% CI (Confidence Interval) PPV (Positive Predictive Value) for myocardial infarction in females is 38 pg/mL, in males 51 pg/mL. The results should be used in conjunction with clinical conditions of myocardial infarction. (Access High Sensitivity Troponin I Instructions For Use, [employer], November 2017) Performed By: #### 2 [id number] #### [facility] [address] [place] [address] U BetaHcg Qualon 08-20-2020 HCG.beta subunit (U) [Moles/Vol] Negative Normal [facility] Comment on above: Performed By: #### 2 [id number] #### [facility] [address] [place] [address] eGFRon 08-20-2020 GFR/1.73 sq M.predicted among blacks MDRD (S/P/Bld) [Vol rate/Area] mL/min/{1.73_m2} Normal >=59 [facility] Comment on above: Order Comment: Order added by Discern Expert. Result Comment: eGFR is race adjusted. AA=. Performed By: #### 2 [id number] #### [facility] [address] [place] [address] GFR/1.73 sq M.predicted among non-blacks MDRD (S/P/Bld) [Vol rate/Area] mL/min/{1.73_m2} Normal >=59 [facility] Comment on above: Order Comment: Order added by Discern Expert. Result Comment: Radio Operator kevin kidney disease could be indicated at eGFR's of less than 60 mL/min/1.73m2. Kidney failure is indicated at less than 15 mL/min/1.73m2. Performed By: #### 2 [id number] #### [facility] [address] [place] [address] Vital Signs Date Time Vital Sign Value Performing Clinician Facility 11-09-2024 08:36-0400 Body height 167.6 cm Javier Guyton DO Work Phone: [facility] 11-09-2024 08:36-0400 Body mass index (BMI) [Ratio] 27.76 kg/m2 Javier Guyton DO Work Phone: [facility] 11-09-2024 08:36-0400 Body temperature 98.6 [degF] Javier Guyton DO Work Phone: [facility] 11-09-2024 08:36-0400 Body weight 78.02 kg Javier Guyton DO Work Phone: [facility] 11-09-2024 08:36-0400 Diastolic blood pressure 84 mm[Hg] Javier Guyton DO Work Phone: [facility] 11-09-2024 08:36-0400 Heart rate 79 /min Javier Guyton DO Work Phone: [facility] 11-09-2024 08:36-0400 SaO2% (BldA) [Mass fraction] 98 % Javier Guyton DO Work Phone: [facility] 11-09-2024 08:36-0400 Systolic blood pressure 132 mm[Hg] Javier Guyton DO Work Phone: [facility] 11-01-2024 14:45-0400 Body mass index (BMI) [Ratio] 27.92 kg/m2 Devante Diana-Nossek PRESSING MACHINE TENDER-AWNING HANGER Work Phone: [facility] 11-01-2024 14:45-0400 Body weight 78.47 kg Devante Diana-Nossek PRESSING MACHINE TENDER-AWNING HANGER Work Phone: [facility] 11-01-2024 14:45-0400 Diastolic blood pressure 80 mm[Hg] Devante Diana-Nossek PRESSING MACHINE TENDER-AWNING HANGER Work Phone: [facility] 11-01-2024 14:45-0400 Heart rate 88 /min Devante Diana-Nossek PRESSING MACHINE TENDER-AWNING HANGER Work Phone: [facility] 11-01-2024 14:45-0400 Systolic blood pressure 128 mm[Hg] Devante Diana-Nossek PRESSING MACHINE TENDER-AWNING HANGER Work Phone: [facility] 10-05-2024 13:50-0400 Body mass index (BMI) [Ratio] 29.05 kg/m2 Devante Diana-Nossek PRESSING MACHINE TENDER-AWNING HANGER Work Phone: [facility] 10-05-2024 13:50-0400 Body weight 81.65 kg Devante Diana-Nossek PRESSING MACHINE TENDER-AWNING HANGER Work Phone: [facility] 10-05-2024 13:50-0400 Diastolic blood pressure 76 mm[Hg] Devante Diana-Nossek PRESSING MACHINE TENDER-AWNING HANGER Work Phone: [facility] 10-05-2024 13:50-0400 Heart rate 100 /min Devante Diana-Nossek PRESSING MACHINE TENDER-AWNING HANGER Work Phone: [facility] 10-05-2024 13:50-0400 Systolic blood pressure 112 mm[Hg] Devante Diana-Nossek PRESSING MACHINE TENDER-AWNING HANGER Work Phone: [facility] 08-10-2024 08:47-0400 Body height 167.6 cm Javier Guyton DO Work Phone: [facility] 08-10-2024 08:47-0400 Body mass index (BMI) [Ratio] 31.31 kg/m2 Javier Guyton DO Work Phone: [facility] 08-10-2024 08:47-0400 Body temperature 97.59 [degF] Javier Guyton DO Work Phone: [facility] 08-10-2024 08:47-0400 Body weight 88 kg Javier Guyton DO Work Phone: [facility] 08-10-2024 08:47-0400 Diastolic blood pressure 78 mm[Hg] Javier Guyton DO Work Phone: [facility] 08-10-2024 08:47-0400 Heart rate 90 /min Javier Guyton DO Work Phone: [facility] 08-10-2024 08:47-0400 SaO2% (BldA) [Mass fraction] 98 % Javier Guyton DO Work Phone: [facility] 08-10-2024 08:47-0400 Systolic blood pressure 118 mm[Hg] Javier Guyton DO Work Phone: [facility] 08-09-2024 14:19-0400 Diastolic blood pressure 80 mm[Hg] Devante Diana-Nossek PRESSING MACHINE TENDER-AWNING HANGER Work Phone: [facility] 08-09-2024 14:19-0400 Systolic blood pressure 146 mm[Hg] Devante Diana-Nossek PRESSING MACHINE TENDER-AWNING HANGER Work Phone: [facility] 08-09-2024 14:12-0400 Body mass index (BMI) [Ratio] 31.31 kg/m2 Devante Diana-Nossek PRESSING MACHINE TENDER-AWNING HANGER Work Phone: [facility] 08-09-2024 14:12-0400 Body weight 88 kg Devante Diana-Nossek PRESSING MACHINE TENDER-AWNING HANGER Work Phone: [facility] 08-09-2024 14:12-0400 Heart rate 103 /min Devante Diana-Nossek PRESSING MACHINE TENDER-AWNING HANGER Work Phone: [facility] 07-12-2024 13:00-0400 Body mass index (BMI) [Ratio] 33.25 kg/m2 Javier Guyton DO Work Phone: [facility] 07-12-2024 13:00-0400 Body temperature 96.49 [degF] Javier Guyton DO Work Phone: [facility] 07-12-2024 13:00-0400 Body weight 93.44 kg Javier Guyton DO Work Phone: [facility] 07-12-2024 13:00-0400 Diastolic blood pressure 84 mm[Hg] Javier Guyton DO Work Phone: [facility] 07-12-2024 13:00-0400 Heart rate 80 /min Javier Guyton DO Work Phone: [facility] 07-12-2024 13:00-0400 SaO2% (BldA) [Mass fraction] 99 % Javier Guyton DO Work Phone: [facility] 07-12-2024 13:00-0400 Systolic blood pressure 134 mm[Hg] Javier Guyton DO Work Phone: [facility] 07-06-2024 13:07-0400 Body mass index (BMI) [Ratio] 31.47 kg/m2 Devante Diana-Nossek PRESSING MACHINE TENDER-AWNING HANGER Work Phone: [facility] 07-06-2024 13:07-0400 Body weight 88.45 kg Devante Diana-Nossek PRESSING MACHINE TENDER-AWNING HANGER Work Phone: [facility] 07-06-2024 13:07-0400 Diastolic blood pressure 82 mm[Hg] Devante Diana-Nossek PRESSING MACHINE TENDER-AWNING HANGER Work Phone: [facility] 07-06-2024 13:07-0400 Heart rate 99 /min Devante Diana-Nossek PRESSING MACHINE TENDER-AWNING HANGER Work Phone: [facility] 07-06-2024 13:07-0400 Systolic blood pressure 136 mm[Hg] Devante Diana-Nossek PRESSING MACHINE TENDER-AWNING HANGER Work Phone: [facility] 05-17-2024 12:52-0500 Body mass index (BMI) [Ratio] 31.47 kg/m2 Devante Diana-Nossek PRESSING MACHINE TENDER-AWNING HANGER Work Phone: [facility] 05-17-2024 12:52-0500 Body weight 88.45 kg Devante Diana-Nossek PRESSING MACHINE TENDER-AWNING HANGER Work Phone: [facility] 05-17-2024 12:52-0500 Diastolic blood pressure 86 mm[Hg] Devante Diana-Nossek PRESSING MACHINE TENDER-AWNING HANGER Work Phone: [facility] 05-17-2024 12:52-0500 Heart rate 106 /min Devante Diana-Nossek PRESSING MACHINE TENDER-AWNING HANGER Work Phone: [facility] 05-17-2024 12:52-0500 Systolic blood pressure 146 mm[Hg] Devante Diana-Nossek PRESSING MACHINE TENDER-AWNING HANGER Work Phone: [facility] 04-19-2024 14:47-0500 Body mass index (BMI) [Ratio] 31.8 kg/m2 Devante Diana-Nossek PRESSING MACHINE TENDER-AWNING HANGER Work Phone: [facility] 04-19-2024 14:47-0500 Body weight 89.36 kg Devante Diana-Nossek PRESSING MACHINE TENDER-AWNING HANGER Work Phone: [facility] 04-19-2024 14:47-0500 Diastolic blood pressure 82 mm[Hg] Devante Diana-Nossek PRESSING MACHINE TENDER-AWNING HANGER Work Phone: [facility] 04-19-2024 14:47-0500 Heart rate 99 /min Devante Diana-Nossek PRESSING MACHINE TENDER-AWNING HANGER Work Phone: [facility] 04-19-2024 14:47-0500 Systolic blood pressure 136 mm[Hg] Devante Diana-Nossek PRESSING MACHINE TENDER-AWNING HANGER Work Phone: [facility] 04-04-2024 15:34-0500 Body height 167.6 cm Ruba Oconnor MD Work Phone: [facility] 04-04-2024 15:34-0500 Body mass index (BMI) [Ratio] 31.15 kg/m2 Ruba Oconnor MD Work Phone: [facility] 04-04-2024 15:34-0500 Body weight 87.54 kg Ruba Oconnor MD Work Phone: [facility] 03-16-2024 12:06-0500 Diastolic blood pressure 104 mm[Hg] Devante Diana-Nossek PRESSING MACHINE TENDER-AWNING HANGER Work Phone: [facility] Comment on above: Patient did not take her BP medications yet today 03-16-2024 12:06-0500 Systolic blood pressure 166 mm[Hg] Devante Diana-Nossek PRESSING MACHINE TENDER-AWNING HANGER Work Phone: [facility] Comment on above: Patient did not take her BP medications yet today 03-16-2024 11:31-0500 Body mass index (BMI) [Ratio] 31.15 kg/m2 Devante Diana-Nossek PRESSING MACHINE TENDER-AWNING HANGER Work Phone: [facility] 03-16-2024 11:31-0500 Body weight 87.54 kg Devante Diana-Nossek PRESSING MACHINE TENDER-AWNING HANGER Work Phone: [facility] 03-16-2024 11:31-0500 Heart rate 94 /min Devante Diana-Nossek PRESSING MACHINE TENDER-AWNING HANGER Work Phone: [facility] 02-10-2024 10:49-0400 Body mass index (BMI) [Ratio] 31.15 kg/m2 Devante Diana-Nossek PRESSING MACHINE TENDER-AWNING HANGER Work Phone: [facility] 02-10-2024 10:49-0400 Body weight 87.54 kg Devante Diana-Nossek PRESSING MACHINE TENDER-AWNING HANGER Work Phone: [facility] 02-10-2024 10:49-0400 Diastolic blood pressure 104 mm[Hg] Devante Diana-Nossek PRESSING MACHINE TENDER-AWNING HANGER Work Phone: [facility] 02-10-2024 10:49-0400 Heart rate 80 /min Devante Diana-Nossek PRESSING MACHINE TENDER-AWNING HANGER Work Phone: [facility] 02-10-2024 10:49-0400 Systolic blood pressure 162 mm[Hg] Devante Diana-Nossek PRESSING MACHINE TENDER-AWNING HANGER Work Phone: [facility] 01-21-2024 14:17-0400 Body height 167.6 cm Javier Goldsmith DO Work Phone: [facility] 01-21-2024 14:17-0400 Body mass index (BMI) [Ratio] 30.99 kg/m2 Javier Guyton DO Work Phone: [facility] 01-21-2024 14:17-0400 Body temperature 98.2 [degF] Javier Guyton DO Work Phone: [facility] 01-21-2024 14:17-0400 Body weight 87.09 kg Javier Guyton DO Work Phone: [facility] 01-21-2024 14:17-0400 Diastolic blood pressure 100 mm[Hg] Javier Guyton DO Work Phone: [facility] 01-21-2024 14:17-0400 Heart rate 100 /min Javier Guyton DO Work Phone: [facility] 01-21-2024 14:17-0400 SaO2% (BldA) [Mass fraction] 98 % Javier Guyton DO Work Phone: [facility] 01-21-2024 14:17-0400 Systolic blood pressure 164 mm[Hg] Javier Guyton DO Work Phone: [facility] 12-16-2023 13:00-0400 Body mass index (BMI) [Ratio] 29.7 kg/m2 Devante Diana-Nossek PRESSING MACHINE TENDER-AWNING HANGER Work Phone: [facility] 12-16-2023 13:00-0400 Body weight 83.46 kg Devante Diana-Nossek PRESSING MACHINE TENDER-AWNING HANGER Work Phone: [facility] 12-16-2023 13:00-0400 Diastolic blood pressure 108 mm[Hg] Devante Diana-Nossek PRESSING MACHINE TENDER-AWNING HANGER Work Phone: [facility] 12-16-2023 13:00-0400 Heart rate 91 /min Devante Diana-Nossek PRESSING MACHINE TENDER-AWNING HANGER Work Phone: [facility] 12-16-2023 13:00-0400 Systolic blood pressure 148 mm[Hg] Devante Diana-Nossek PRESSING MACHINE TENDER-AWNING HANGER Work Phone: [facility] 07-13-2023 13:04-0400 Body height 167.64 cm [facility] 07-13-2023 13:04-0400 Body mass index (BMI) [Ratio] 28.7 kg/m2 [facility] 07-13-2023 13:04-0400 Body weight 80.73 kg [facility] 05-25-2023 08:39-0500 Body height 167.6 cm Javier Guyton DO Work Phone: [facility] 05-25-2023 08:39-0500 Body mass index (BMI) [Ratio] 29.92 kg/m2 Javier Guyton DO Work Phone: [facility] 05-25-2023 08:39-0500 Body temperature 98.4 [degF] Javier Guyton DO Work Phone: [facility] 05-25-2023 08:39-0500 Body weight 84.1 kg Javier Guyton DO Work Phone: [facility] 05-25-2023 08:39-0500 Diastolic blood pressure 88 mm[Hg] Javier Guyton DO Work Phone: [facility] 05-25-2023 08:39-0500 Heart rate 90 /min Javier Guyton DO Work Phone: [facility] 05-25-2023 08:39-0500 SaO2% (BldA) [Mass fraction] 98 % Javier Guyton DO Work Phone: [facility] 05-25-2023 08:39-0500 Systolic blood pressure 136 mm[Hg] Javier Guyton DO Work Phone: [facility] 12-24-2022 13:15-0400 Body height 167.64 cm Imad Asaad Other [employer] Other 12-24-2022 13:15-0400 Body mass index (BMI) [Ratio] 28.74 kg/m2 Imad Asaad Other [employer] Other 12-24-2022 13:15-0400 Body weight 80.79 kg Imad Asaad Other [employer] Other 12-24-2022 13:15-0400 Diastolic blood pressure 80 mm[Hg] Imad Asaad Other [employer] Other 12-24-2022 13:15-0400 Systolic blood pressure 130 mm[Hg] Imad Asaad Other [employer] Other 09-09-2022 13:45-0400 Body height 167.64 cm Imad Asaad Other [employer] Other 09-09-2022 13:45-0400 Body mass index (BMI) [Ratio] 24.69 kg/m2 Imad Asaad Other [employer] Other 09-09-2022 13:45-0400 Body weight 69.4 kg Imad Asaad Other [employer] Other 09-09-2022 13:45-0400 Diastolic blood pressure 85 mm[Hg] Imad Asaad Other [employer] Other 09-09-2022 13:45-0400 Systolic blood pressure 135 mm[Hg] Imad Asaad Other [employer] Other 08-27-2022 15:47-0400 Body temperature 98.6 [degF] DO Javier Guyton Work Phone: [facility] 08-27-2022 15:47-0400 Diastolic blood pressure 97 mm[Hg] DO Javier Guyton Work Phone: [facility] 08-27-2022 15:47-0400 Heart rate 82 /min DO Javier Guyton Work Phone: 5(556)125-894153 [place] [address] 08-27-2022 15:47-0400 Respiratory rate 16 /min DO Javier Guyton Work Phone: 9(019)287-103026 [place] [address] 08-27-2022 15:47-0400 SaO2% (BldA) [Mass fraction] 97 % DO Javier Guyton Work Phone: 8(450)453-935018 [address] 08-27-2022 15:47-0400 Systolic blood pressure 141 mm[Hg] DO Javier Guyton Work Phone: 1(347)383-950318 [address] 08-27-2022 06:00-0400 Body weight 66.5 kg DO Javier Guyton Work Phone: 3(669)682-942126 [place] [address] 08-26-2022 16:10-0400 Inhaled oxygen flow rate 8 L/min DO Javier Guyton Work Phone: 1(952)052-860426 [place] [address] 08-26-2022 13:53-0400 Body height 167.64 cm DO Javier Guyton Work Phone: 4(457)641-734926 [place] [address] 08-25-2022 21:21-0400 Diastolic blood pressure 76 mm[Hg] DO Javier Guyton Work Phone: 8(279)214-758126 [place] [address] 08-25-2022 21:21-0400 Heart rate 113 /min DO Javier Guyton Work Phone: 3(214)152-315318 [address] 08-25-2022 21:21-0400 Respiratory rate 19 /min DO Javier Guyton Work Phone: 2(758)813-215218 [address] 08-25-2022 21:21-0400 SaO2% (BldA) [Mass fraction] 99 % DO Javier Guyton Work Phone: 3(896)783-685418 [address] 08-25-2022 21:21-0400 Systolic blood pressure 131 mm[Hg] DO Javier Guyton Work Phone: 7(943)741-703718 [address] 08-25-2022 15:57-0400 Body height 167.64 cm DO Javier Guyton Work Phone: [facility] 08-25-2022 15:57-0400 Body temperature 97.7 [degF] DO Javier Guyton Work Phone: [facility] 08-25-2022 15:57-0400 Body weight 67 kg DO Javier Guyton Work Phone: [facility] Encounters Encounter Date Encounter Type Care Provider Facility Start: 01-17-2025 End: 01-17-2025 Refill Javier L [facility]ton DO [facility] Comment on above: Abnormal weight gain Start: 12-14-2024 End: 12-14-2024 Refill Javier L [facility]ton DO [facility] Comment on above: Abnormal weight gain Start: 12-07-2024 End: 12-07-2024 ambulatory Javier L Guyton DO Work Phone: [facility] Work Phone: Start: 12-07-2024 End: 12-07-2024 Patient encounter procedure Diego Lazo [facility] Work Phone: Start: 12-06-2024 End: 12-06-2024 ambulatory Javier L Guyton DO Work Phone: [facility] Work Phone: Start: 12-06-2024 End: 12-06-2024 Patient encounter procedure Diego Lazo [facility] Work Phone: Start: 11-09-2024 End: 11-09-2024 Bamboo flowsheet Javier L Guyton DO [facility] Start: 11-09-2024 End: 11-09-2024 Bamboo flowsheet Javier L Guyton DO [facility] Start: 11-09-2024 End: 11-09-2024 Office outpatient visit 25 minutes Javier L Guyton DO Work Phone: [facility] 230 Comment on above: Attention and concen tration deficit (Primary Dx); Abnormal weight gain; Mild intermittent asthma without status asthmaticus without complication (HCC) Start: 11-09-2024 End: 11-09-2024 ambulatory JAVIER GOLDSMITH Not Available Start: 11-01-2024 End: 11-01-2024 Office outpatient visit 25 minutes Devante Smith Diana-Nossek PRESSING MACHINE TENDER-AWNING HANGER Work Phone: [facility] Comment on above: Bipolar I disorder, most recent episode (or current) mixed (HCC); CHELSEY (generalized anxiety disorder) Start: 11-01-2024 End: 11-01-2024 ambulatory DEVANTE Smith DIANA-NOSSEK Not Available Start: 11-01-2024 End: 11-01-2024 Bamboo flowsheet Devante Smith Diana-Nossek PRESSING MACHINE TENDER-AWNING HANGER Work Phone: [facility] Start: 11-01-2024 End: 11-01-2024 Bamboo flowsheet Devante Smith Diana-Nossek PRESSING MACHINE TENDER-AWNING HANGER Work Phone: [facility] Start: 10-18-2024 End: 10-18-2024 Bamboo flowsheet Rony L Massey [facility] Work Phone: [facility] Start: 10-18-2024 End: 10-18-2024 Bamboo flowsheet Rony Rodríguez Massey [facility] Work Phone: [facility] Start: 10-18-2024 End: 10-18-2024 Social Work Rony Rodríguez Massey [facility] Work Phone: [facility] Comment on above: Bipolar I disorder, most recent episode (or current) mixed (HCC); CHELSEY (generalized anxiety disorder) ; History of alcohol abuse Start: 10-08-2024 End: 10-10-2024 Refill Raquel Sawant FLAT BED OPERATOR Work Phone: [facility] 230 Comment on above: Class 1 obesity due to excess calories without serious comorbidity with body mass index (BMI) of 33.0 to 33.9 in adult Start: 10-05-2024 End: 10-05-2024 Bamboo flowsheet Devante Smith Diana-Nossek PRESSING MACHINE TENDER-AWNING HANGER Work Phone: [facility] Start: 10-05-2024 End: 10-05-2024 Bamboo flowsheet Devante Smith Diana-Nossek PRESSING MACHINE TENDER-AWNING HANGER Work Phone: [facility] Start: 10-05-2024 End: 10-05-2024 Office outpatient visit 25 minutes Devante Smith Diana-Nossek PRESSING MACHINE TENDER-AWNING HANGER Work Phone: [facility] Comment on above: Bipolar I disorder, most recent episode (or current) mixed (HCC) Start: 10-05-2024 End: 10-05-2024 ambulatory DEVANTE Smith DIANA-NOSSEK Not Available Start: 09-20-2024 End: 09-20-2024 Bamboo flowsheet Rony L Massey [facility] Work Phone: [facility] Start: 09-20-2024 End: 09-20-2024 Bamboo flowsheet Rony L Massey [facility] Work Phone: [facility] Start: 09-20-2024 End: 09-20-2024 Social Work Rony L Massey [facility] Work Phone: [facility] Comment on above: Bipolar I disorder, most recent episode (or current) mixed (CMS/HCC); CHELSEY (generalized anxiety disorder) ([facility]/HCC); History of alcohol abuse Start: 08-23-2024 End: 08-23-2024 Bamboo flowsheet Rony L Massey [facility] Work Phone: [facility] Start: 08-23-2024 End: 08-23-2024 Bamboo flowsheet Rony L Massey [facility] Work Phone: [facility] Start: 08-23-2024 End: 08-23-2024 Social Work Rony L Massey [facility] Work Phone: [facility] Comment on above: Bipolar I disorder, most recent episode (or current) mixed (CMS/HCC); CHELSEY (generalized anxiety disorder) (CMS/HCC); History of alcohol abuse; Psychophysiological insomnia Start: 08-10-2024 End: 08-10-2024 Office outpatient visit 25 minutes Javier L Guyton DO Work Phone: [facility] 230 Comment on above: Vitamin D deficiency (Primary Dx); Class 1 obesity due to excess calories without serious comorbidity with body mass index (BMI) of 33.0 to 33.9 in adult; Dyslipidemia (CMS/HCC) Start: 08-10-2024 End: 08-10-2024 ambulatory JAVIER L CUTLER Not Available Start: 08-09-2024 End: 08-09-2024 Office outpatient visit 15 minutes Devante Morgan [facility] Work Phone: [facility] Comment on above: Bipolar I disorder, most recent episode (or current) mixed (CMS/HCC) Start: 08-09-2024 End: 08-09-2024 ambulatory DEVANTE MORGAN Not Available Start: 07-26-2024 End: 07-26-2024 Bamboo flowsheet Rony L Massey [facility] Work Phone: [facility] Start: 07-26-2024 End: 07-26-2024 Bamboo flowsheet Rony L Massey [facility] Work Phone: [facility] Start: 07-26-2024 End: 07-26-2024 Social Work Rony Rodríguez Massey [facility] Work Phone: [facility] Comment on above: Bipolar I disorder, most recent episode (or current) mixed (CMS/HCC); CHELSEY (generalized anxiety disorder) (CMS/HCC); History of alcohol abuse Start: 07-12-2024 End: 07-12-2024 Bamboo flowsheet Javier L Guyton DO Work Phone: [facility] 230 Start: 07-12-2024 End: 07-12-2024 Bamboo flowsheet Javier L Guyton DO Work Phone: [facility] Start: 07-12-2024 End: 07-12-2024 Patient encounter status Javier Goldsmith DO Work Phone: [facility] Start: 07-12-2024 End: 07-12-2024 Periodic preventive med est patient 18-39 yrs Javier Goldsmith DO Work Phone: [facility] 230 Comment on above: Well adult exam (Berna emery Dx); Chronic fatigue; Alcoholic cirrhosis of liver with ascites (CMS/HCC); CHELSEY (generalized anxiety disorder) (CMS/HCC); Current smoker; Class 1 obesity due to excess calories without serious comorbidity with body mass index (BMI) of 33.0 to 33.9 in adult Start: 07-12-2024 End: 07-12-2024 ambulatory JAVIER GOLDSMITH Not Available Start: 07-06-2024 End: 07-06-2024 Bamboo [employer] Devante Luis Diana-Nossek [employer]INE [employer] Work Phone: [facility] Start: 07-06-2024 End: 07-06-2024 Bamboo flowsheet Devante Luis Diana-Nossek [employer]INE [employer] Work Phone: [facility] Start: 07-06-2024 End: 07-06-2024 ambulatory DEVANTE Luis DIANA-NOSSEK Not Available Start: 07-06-2024 End: 07-06-2024 Office outpatient visit 40 minutes Devante Luis Diana-Nossek [employer]INE [employer] Work Phone: [facility] Comment on above: Bipolar I disorder, most recent episode (or current) mixed (CMS/HCC); Psychophysiological insomnia Start: 07-05-2024 End: 07-05-2024 Social Work Rony Massey [facility] Work Phone: [facility] Comment on above: Bipolar I disorder, most recent episode (or current) mixed (CMS/HCC); CHELSEY (generalized anxiety disorder) (CMS/HCC); History of alcohol abuse Start: 06-14-2024 End: 06-14-2024 [employer] Rony Massey [facility] Work Phone: [facility] Start: 06-14-2024 End: 06-14-2024 [employer] Rony Massey [facility] Work Phone: [facility] Start: 06-14-2024 End: 06-14-2024 [employer] Rony Massey [facility] Work Phone: [facility] Comment on above: Bipolar I disorder, most recent episode (or current) mixed (CMS/HCC); CHELSEY (generalized anxiety disorder) (CMS/HCC); History of alcohol abuse Start: 05-24-2024 End: 05-24-2024 Seeking [employer] Rony Massey [facility] Work Phone: [facility] Start: 05-24-2024 End: 05-24-2024 [employer] Rony Massey [facility] Work Phone: [facility] Start: 05-24-2024 End: 05-24-2024 [employer] Rony Massey [facility] Work Phone: [facility] Comment on above: Bipolar I disorder, most recent episode (or current) mixed (CMS/HCC); CHELSEY (generalized anxiety disorder) (CMS/HCC); History of alcohol abuse; Insomnia, unspecified type Start: 05-17-2024 End: 05-17-2024 [employer] Devante Smith Diana-Nossek PRESSING MACHINE TENDER[employer] Work Phone: [facility] Start: 05-17-2024 End: 05-17-2024 [employer] Devante Smith Diana-Nossek PRESSING MACHINE TENDER-[employer]ER Work Phone: [facility] Start: 05-17-2024 End: 05-17-2024 Office outpatient visit 15 minutes Devante Smith Diana-Nossek [employer]ESSING MACHINE [employer] Work Phone: [facility] Comment on above: Bipolar I disorder, most recent episode (or current) mixed (CMS/HCC); CHELSEY (generalized anxiety disorder) (CMS/HCC); Bipolar I disorder, most recent episode depressed, moderate (CMS/HCC) Start: 05-17-2024 End: 05-17-2024 ambulatory DEVANTE Smith DIANA-NOSSEK Not Available Start: 05-11-2024 End: 05-11-2024 Bamboo flowsheet Rony Massey [facility] Work Phone: [facility] Start: 05-11-2024 End: 05-11-2024 Bamboo [employer]apt[employer] Rony Massey [facility] Work Phone: [facility] Start: 05-11-2024 End: 05-11-2024 [employer] Work Rony Massey [facility] Work Phone: [facility] Comment on above: Bipolar I disorder, most recent episode depressed, moderate (CMS/HCC); CHELSEY (generalized anxiety disorder) (CMS/HCC); History of alcohol abuse; Insomnia, unspecified type Start: 04-20-2024 End: 04-20-2024 [employer] Rony Massey [facility] Work Phone: [facility] Comment on above: Bipolar I disorder, most recent episode depressed, moderate (CMS/HCC); CHELSEY (generalized anxiety disorder) (CMS/HCC); Alcohol use disorder, moderate, in early remission (CMS/HCC) Start: 04-19-2024 End: 04-19-2024 Office outpatient visit 40 minutes Devante Smith Diana-Nossek PRESSING MACHINE TENDER-[employer]ING [employer]ANGER Work Phone: [facility] Comment on above: Alcohol use disorder , moderate, in early remission (CMS/HCC); Bipolar I disorder, most recent episode depressed, moderate (CMS/HCC) Start: 04-19-2024 End: 04-19-2024 ambulatory DEVANTE Smith DIANA-NOSSEK Not Available Start: 04-19-2024 End: 04-19-2024 Telephone encounter Debby Fernández NP Work Phone: [facility] 210 Start: 04-04-2024 End: 04-04-2024 Office outpatient new 45 minutes Ruba Oconnor MD Work Phone: [facility] Comment on above: Chronic right-sided low back pain with right-sided sciatica (Primary Dx); Lumbar radiculopathy Start: 04-04-2024 End: 04-04-2024 ambulatory RUBA OCONNOR Not Available Start: 03-23-2024 End: 03-23-2024 Telephone encounter Javier Goldsmith DO Work Phone: [facility] 230 Comment on above: Med Refill Start: 03-16-2024 End: 03-16-2024 Bamboo flowsheet Devante Smith Diana-Nossek PRESSING MACHINE T[employer] Work Phone: [facility] Start: 03-16-2024 End: 03-16-2024 Bamboo flowsheet Devante Smith Diana-Nossek [employer]ING [employer]ACHINE [employer] Work Phone: [facility] Start: 03-16-2024 End: 03-16-2024 Office outpatient visit 40 minutes Devante Smith Diana-CATASYSsek [employer]ESSING MACHINE [employer] Work Phone: [facility] Comment on above: CHELSEY (generalized anx iety disorder) (CMS/HCC); Bipolar I disorder, most recent episode (or current) mixed (CMS/HCC) Start: 03-16-2024 End: 03-16-2024 ambulatory DEVANTE Smith DIANA-NOSSEK Not Available Start: 03-09-2024 End: 03-09-2024 [employer] Ronylove Massey [facility] Work Phone: [facility] Start: 03-09-2024 End: 03-09-2024 Bamboo flowsheet Ronylove Massey [facility] Work Phone: [facility] Start: 03-09-2024 End: 03-09-2024 Social Work Rony Massey [facility] Work Phone: [facility] Comment on above: Bipolar I disorder, most recent episode depressed, moderate (CMS/HCC); Psychophysiological insomnia; CHELSEY (generalized anxiety disorder) (CMS/HCC); Alcohol abuse Start: 02-16-2024 End: 02-16-2024 Bamboo [employer] Ronylove Massey [facility] Work Phone: [facility] Start: 02-16-2024 End: 02-16-2024 Bamboo flowsheet Rony Massey [facility] Work Phone: [facility] Start: 02-16-2024 End: 02-16-2024 Social Work Rony Massey [facility] Work Phone: [facility] Comment on above: Bipolar I disorder, most recent episode depressed, moderate (CMS/HCC); Psychophysiological insomnia; CHELSEY (generalized anxiety disorder) (CMS/HCC); Alcohol abuse Start: 02-10-2024 End: 02-10-2024 Bamboo flowsheet Devante M Diana-Nossek PRESSING MACHINE TENDER-[employer]ING [employer]ER Work Phone: [facility] Start: 02-10-2024 End: 02-10-2024 Bamboo flowsheet Devante M Diana-Nossek PRESSING MACHINE TENDER[employer] Work Phone: [facility] Start: 02-10-2024 End: 02-10-2024 Office outpatient visit 25 minutes Devante M Diana-Nossek PRESSING MACHINE T[employer]ER[employer] Work Phone: [facility] Comment on above: Psychophysiological insomnia; Bipolar I disorder, most recent episode depressed, moderate (CMS/HCC); CHELSEY (generalized anxiety disorder) (CMS/HCC) Start: 02-10-2024 End: 02-10-2024 ambulatory DEVANTE M DIANA-NOSSEK Not Available Start: 01-21-2024 End: 01-21-2024 ambulatory JAVIER L CUTLER Not Available Start: 01-21-2024 End: 01-21-2024 Office outpatient visit 25 minutes Javier L Guyton DO Work Phone: [facility] 230 Comment on above: Unilateral edema of lower extremity (Primary Dx); Polyarthralgia Start: 01-21-2024 End: 01-21-2024 ambulatory JAVIER L CUTLER Not Available Start: 01-19-2024 End: 01-19-2024 Bamboo flowsheet Rony Massey [facility] Work Phone: [facility] Start: 01-19-2024 End: 01-19-2024 Bamboo flowsheet Rony Massey [facility] Work Phone: [facility] Start: 01-19-2024 End: 01-19-2024 Social Work Rony Massey [facility] Work Phone: [facility] Comment on above: Bipolar I disorder, most recent episode depressed, moderate (CMS/HCC); CHELSEY (generalized anxiety disorder) (CMS/HCC); Alcohol abuse Start: 12-21-2023 End: 12-21-2023 Telephone encounter Rony Massey [facility] Work Phone: [facility] Start: 12-16-2023 End: 12-16-2023 Bamboo flowsheet Devante Smith Diana-Nossek PRESSING MACHINE [employer] Work Phone: [facility] Start: 12-16-2023 End: 12-16-2023 Bamboo flowsheet Devante Smith Diana-Nossek PRESSING MACHINE [employer] Work Phone: [facility] Start: 12-16-2023 End: 12-16-2023 Office outpatient visit 25 minutes Devante Smith Diana-Nossek [employer]ESSING MACHINE [employer] Work Phone: [facility] Comment on above: Bipolar I disorder, most recent episode depressed, moderate (CMS/HCC) Start: 12-16-2023 End: 12-16-2023 ambulatory DEVANTE Smith DIANA-NOSSEK Not Available Start: 12-08-2023 End: 12-08-2023 Bamboo flowsheet Rony Massey [facility] Work Phone: [facility] Start: 12-08-2023 End: 12-08-2023 Bamboo flowsheet Rony Massey [facility] Work Phone: [facility] Start: 12-08-2023 End: 12-08-2023 Social Work Rony Massey [facility] Work Phone: [facility] Comment on above: CHELSEY (generalized anx iety disorder) (CMS/HCC); Bipolar I disorder, most recent episode depressed, moderate (CMS/HCC); Alcohol abuse Start: 11-24-2023 End: 11-24-2023 Social Work Rony Massey [facility] Work Phone: [facility] Comment on above: Bipolar I disorder, most recent episode depressed (CMS/HCC); CHELSEY (generalized anxiety disorder) ([facility]); Alcohol abuse Start: 11-16-2023 End: 11-16-2023 ambulatory RONY MASSEY Not Available Start: 08-12-2023 End: 08-12-2023 ambulatory Imad Asaad Facility:[facility] Start: 07-27-2023 End: 07-27-2023 ambulatory Imad Asaad Facility:[facility] Start: 07-27-2023 End: 07-27-2023 ambulatory DO Javier L Guyton Work Phone: [facility] Work Phone: Start: 07-27-2023 End: 07-27-2023 Patient encounter procedure DO Javier Guyton Work Phone: [facility] [place] Work Phone: Start: 07-13-2023 End: 07-13-2023 ambulatory [facility] Work Phone: Start: 07-13-2023 End: 07-13-2023 Patient encounter procedure [facility] [employer]-[facility] G[facility] Work Phone: Start: 05-25-2023 Bamboo flowsheet Javier L Cut ler DO Work Phone: [facility] Start: 05-25-2023 Bamboo flowsheet Javier L Cut ler DO Work Phone: [facility] 230 Start: 05-25-2023 End: 05-25-2023 Office outpatient visit 25 minutes Javier L Guyton DO Work Phone: [facility] 230 Comment on above: CHELSEY (generalized anx iety disorder) (CMS/HCC) (Primary Dx); History of alcohol abuse; Current smoker; Alcoholic cirrhosis, unspecified whether ascites present (CMS/HCC); Gastroesophageal reflux disease without esophagitis Start: 04-08-2023 End: 04-08-2023 ambulatory Imad Asaad Facility:[facility] Start: 04-08-2023 End: 04-08-2023 ambulatory DO Javier L Guyton Work Phone: [facility] Work Phone: Start: 04-08-2023 End: 04-08-2023 Patient encounter procedure DO Javier Guyton Work Phone: [facility]-Ultrasound [facility] [place] Work Phone: Start: 12-24-2022 End: 12-24-2022 ambulatory Imad Asaad Other [employer] Other Start: 12-24-2022 Patient encounter procedure Imad Asa ad [facility] Start: 11-03-2022 End: 11-03-2022 ambulatory Imad Asaad Other [employer] Other Start: 11-03-2022 Telephone encounter Imad Asaad [facility] Start: 2022 End: 2022 ambulatory Imad Asaad Facility:[facility] Start: 2022 End: 2022 ambulatory DO Javier L Guyton Work Phone: [facility] Work Phone: Start: 2022 End: 2022 Patient encounter procedure DO Javier Guyton Work Phone: [facility]-CT Scan [facility] [place] Work Phone: Start: 10-06-2022 End: 10-06-2022 ambulatory Imad Asaad Other [employer] Other Start: 10-06-2022 Telephone encounter Imad Asaad [facility] Start: 10-02-2022 End: 10-02-2022 ambulatory Imad Asaad Facility:[facility] Start: 10-02-2022 End: 10-02-2022 ambulatory DO Javier L Guyton Work Phone: [facility] Work Phone: Start: 10-02-2022 End: 10-02-2022 Patient encounter procedure DO Javier Guyton Work Phone: [facility] Work Phone: Start: 09-09-2022 End: 09-09-2022 ambulatory Imad Asaad Other [facility] [employer] Other Start: 09-09-2022 Office outpatient vi sit 40 minutes Imad Asaad [facility] Start: 09-09-2022 Telephone encounter Imad Asaad [facility] Start: 08-25-2022 End: 08-27-2022 Evaluation and management of inpatient Homa Guillenuf Facility:[facility] Start: 08-25-2022 End: 08-27-2022 Evaluation and management of inpatient DO Javier Guyton Work Phone: [facility]-[address] [place] [address] Surgical Work Phone: Start: 07-04-2022 End: 07-05-2022 ambulatory ALEX LYN . Facility: Start: 05-21-2022 End: 05-21-[address] JEVON CRABTREE . Facility:[facility] Start: 04-28-2022 End: 04-29-[address] RAMILA DAVIDSON . Facility:[facility] Start: 04-10-2022 End: 04-10-[address] RAMILA DAVIDSON . Facility:[facility] Start: 03-31-2022 End: 04-05-2022 Evaluation and management of inpatient DR EGORGIE BRUCE Facility:[facility] Start: 08-04-[address] RAMILA DAIVDSON . Facili ty:[facility] Procedures Date Procedure Procedure Detail Performing Clinician Start: 01-21-2024 Dup-scan xtr veins unilateral/limited study Javier L Guyton DO Work Phone: Start: 07-27-2023 Radionuclide gastric emptying study DO T imothy Guyton Work Phone: Start: 05-28-2023 Microscopic observation [Identifier] in Cervix by Cyto stain Rony Massey [facility] Work Phone: Start: 04-08-2023 Ultrasonography of liver DO Javier Estrellal er Work Phone: Start: 2022 CT of abdomen with contrast DO Javier Lizarraga utrakel Work Phone: Start: 10-02-2022 Ultrasound elastography of liver DO Manoj Goldsmith Work Phone: Start: 08-26-2022 Esophagogastroduodenoscopy DO Javier Cu tler Work Phone: Start: 08-26-2022 Ultrasonography of liver DO Javier Estrellal er Work Phone: Start: 08-25-2022 Plain chest X-ray DO Javier Goldsmith Work Phone: Start: 04-03-2022 Resection of Products of Conception, Ectopic, Percutaneous Endoscopic Approach DR GEORGIE BRUCE Plan of Treatment Date Care Activity Detail Author Start: 05-28-2028 Screening for malign ant neoplasm of cervix [facility] Start: 05-28-2026 Screening for malign ant neoplasm of cervix Pap Smear [facility] Start: 02-08-2025 End: 02-08-2025 Patient encounter procedure 02/08/2025 8:20 AM EDT Office Visit [facility] [address] [place] [address] GuytonJavier ellington, DO [address] [place] [address] Critical access hospital 230 Start: 01-24-2025 End: 01-24-2025 Patient encounter procedure 01/24/2025 1:00 PM EDT [facility] [address] [facility] [address] [place] [address] Devante Morgan, PRESSING MACHINE TENDER-[facility] [address] [place] [address] [facility] Start: 12-13-2024 End: 12-13-2024 Patient encounter procedure [facility] Start: 12-12-2024 Influenza vaccination [facility] Start: 11-15-2024 End: 11-15-2024 Social Work [facility] Start: 11-09-2024 End: 11-09-2024 Patient encounter procedure [facility] 230 Comment on above: Arrived Start: 11-01-2024 End: 11-01-2024 Patient encounter procedure [facility] Comment on above: Arrived Start: 10-18-2024 End: 10-18-2024 Social Work 10/18/2024 12:15 PM EDT Social Work [facility] [address] [place] [address] Rony Massey, [facility] [address] [place] [address] [facility] Start: 10-05-2024 End: 10-05-2024 Patient encounter procedure [facility] Comment on above: Arrived Start: 09-20-2024 End: 09-20-2024 Social Work 09/20/2024 12:15 PM EDT Social Work [facility] [address] [place] [address] [facility]ony Mas[facility] [address] [place] [address] [facility] Start: 08-23-2024 End: 08-23-2024 Social Work 08/23/2024 12:15 PM EDT Social Work [facility] [address] [place] [address] [facility] Mas[facility] [address] [place] [address] [facility] Start: 08-10-2024 End: 08-10-2024 Patient encounter procedure 08/10/2024 8:40 AM EDT Office Visit [facility] [address] [place] [id number] Javier Goldsmith, DO [address] [place] [address] [facility] [address] Start: 08-09-2024 End: 08-09-2024 Patient encounter procedure 08/09/2024 2:30 PM EDT Office Visit [facility] [address] [place] [address] Devante Morgan, PRESSING MACHINE TENDER-[facility] [address] [place] [address] [facility] Start: 07-26-2024 End: 07-26-2024 Social Work 07/26/2024 12:15 PM EDT Social Work [facility] [address] [place] [id number] Rony Massey, [facility] [address] [place] [address] [facility] Start: 07-12-2024 End: 07-12-2025 25-hydroxyvitamin D3 [Mass/volume] in Serum or Plasma Vitamin D 25 hydroxy Total Lab Routine Chronic fatigue CHELSEY (generalized anxiety disorder) (CMS/HCC) Expected: 07/12/2024 (Approximate), Expires: 07/12/2025 [facility] Work Phone: Comment on above: Expected: 07/12/2024 (Approximate), Expires: 07/12/2025 Start: 07-12-2024 End: 07-12-2025 CBC W Auto Differential panel - Blood CBC and differential Lab Routine Chronic fatigue Well adult exam CHELSEY (generalized anxiety disorder) (CMS/HCC) Expected: 07/12/2024 (Approximate), Expires: 07/12/2025 [facility] Comment on above: Expected: 07/12/2024 (Approximate), Expires: 07/12/2025 Start: 07-12-2024 End: 07-12-2025 Cobalamin (Vitamin B12) [Mass/volume] in Serum or Plasma Vitamin B12 Lab Routine Chronic fatigue CHELSEY (generalized anxiety disorder) ([facility]) Expected: 07/12/2024 (Approximate), Expires: 07/12/2025 [facility] Healthcare Comment on above: Expected: 07/12/2024 (Approximate), Expires: 07/12/2025 Start: 07-12-2024 End: 07-12-2025 Comprehensive metabolic 2000 panel - Serum or Plasma Comprehensive metabolic panel Lab Routine Chronic fatigue Well adult exam CHELSEY (generalized anxiety disorder) ([facility]) Expected: 07/12/2024 (Approximate), Expires: 07/12/2025 [facility] Comment on above: Expected: 07/12/2024 (Approximate), Expires: 07/12/2025 Start: 07-12-2024 End: 07-12-2025 Cortisol AM Cortisol AM Lab Routine Chronic fatigue CHELSEY (generalized anxiety disorder) ([facility]) Expected: 07/12/2024 (Approximate), Expires: 07/12/2025 [facility] Comment on above: Expected: 07/12/2024 (Approximate), Expires: 07/12/2025 Start: 07-12-2024 End: 07-12-2025 Ferritin [Mass/volume] in Serum or Plasma Ferritin Lab Routine Chronic fatigue Expected: 07/12/2024 (Approximate), Expires: 07/12/2025 [facility] Healthcare Comment on above: Expected: 07/12/2024 (Approximate), Expires: 07/12/2025 Start: 07-12-2024 End: 07-12-2025 Iron and Iron binding capacity panel - Serum or Plasma Iron and TIBC Lab Routine Chronic fatigue Expected: 07/12/2024 (Approximate), Expires: 07/12/2025 [facility] Healthcare Comment on above: Expected: 07/12/2024 (Approximate), Expires: 07/12/2025 Start: 07-12-2024 End: 07-12-2025 Lipid 1996 panel - Serum or Plasma Lipid panel Lab Routine Chronic fatigue Well adult exam Expected: 07/12/2024 (Approximate), Expires: 07/12/2025 [facility] Comment on above: Expected: 07/12/2024 (Approximate), Expires: 07/12/2025 Start: 07-12-2024 End: 07-12-2025 Thyrotropin [Units/volume] in Serum or Plasma Tsh+free t4 Lab Routine Chronic fatigue CHELSEY (generalized anxiety disorder) ([facility]/HCC) Expected: 07/12/2024 (Approximate), Expires: 07/12/2025 [facility] Comment on above: Expected: 07/12/2024 (Approximate), Expires: 07/12/2025 Start: 07-12-2024 End: 07-12-2024 Patient encounter procedure 07/12/2024 1:00 PM EDT Office Visit [facility] [address] [place] [phone] Javier Goldsmith, DO [address] [place], [place] [id number] Arrived [facility] Comment on above: Arrived Start: 07-06-2024 End: 07-06-2024 Patient encounter procedure 07/06/2024 1:00 PM EDT Office Visit [facility] [address] [place] [phone] Devante Morgan, PRESSING MACHINE TENDER-[facility] [address] [place] [address] [facility] Start: 07-05-2024 End: 07-05-2024 Social Work 07/05/2024 12:15 PM EDT Social Work [facility] [address] [place] [phone] Rony Massey, [facility] [address] [place] [address] [facility] Start: 06-21-2024 End: 06-21-2024 Patient encounter procedure 06/21/2024 1:00 PM EDT Office Visit [facility] [address] [place] [address] Devante Morgan, PRESSING MACHINE TENDER-AWNING HANGER [address] [place] [address] [facility] Start: 06-15-2024 End: 06-15-2024 Patient encounter procedure 06/15/2024 9:00 AM EST Procedure Visit [facility] [address] [place] [phone] [facility] Start: 06-14-2024 End: 06-14-2024 Social Work 06/14/2024 12:15 PM EST Social Work [facility] [address] [place] [address] Rony Massey, [facility] [address] [place] [address] [facility] Start: 05-25-2024 End: 05-25-2024 Patient encounter procedure 05/25/2024 10:20 AM EST Office Visit [facility] [address] [place] [phone] Devante Kohli, FLAT BED OPERATOR [address] [place] [phone] [facility] Start: 05-24-2024 End: 05-24-2024 Social Work 05/24/2024 12:15 PM EST Social Work [facility] [address] [place] [phone] Rony Massey, [facility] [address] [place] [address] [facility] Start: 05-17-2024 End: 05-17-2024 Patient encounter procedure [facility] Comment on above: Arrived Start: 05-04-2024 End: 05-04-2024 Patient encounter procedure 05/04/2024 9:00 AM EST Procedure Visit [facility] [address] [place] [address] [facility] Start: 05-03-2024 End: 05-03-2024 Social Work 05/03/2024 1:00 PM EST Social Work [facility] [address] [place] [address] Rony Massey, [facility] [address] [place] [address] [facility] Start: 04-27-2024 End: 04-27-2024 Patient encounter procedure 04/27/2024 11:20 AM EST Office Visit [facility] [address] [place] [phone] Ruba Oconnor MD [address] [address] [facility] Start: 04-20-2024 End: 04-20-2024 Social Work 04/20/2024 12:00 PM EST Social Work [facility] [address] [place] [address] Rony Massey, [facility] [address] [place] [address] [facility] Start: 04-19-2024 End: 04-19-2024 Patient encounter procedure 04/19/2024 3:00 PM EST Office Visit [facility] [address] [place] [address] Devante Morgan, PRESSING MACHINE TENDER-AWNING HANGER [address] [place] [address] [facility] Start: 04-04-2024 End: 04-04-2024 Patient encounter procedure [facility] Start: 04-04-2024 End: 04-04-2025 MR Lumbar spine WO contrast MR lumbar spine wo contrast Imaging Routine Lumbar radiculopathy Expected: 04/04/2024, Expires: 04/04/2025 [facility] Comment on above: Expected: 04/04/2024 , Expires: 04/04/2025 Start: 04-04-2024 End: 04-04-2025 XR Lumbar spine Views W flexion and W extension XR lumbar spine 6+ views including oblique flexion extension Imaging Routine Chronic right-sided low back pain with right-sided sciatica Lumbar radiculopathy Expected: 04/04/2024, Expires: 04/04/2025 [facility] Work Phone: Comment on above: Expected: 04/04/2024 , Expires: 04/04/2025 Start: 03-16-2024 End: 03-16-2024 Patient encounter procedure 03/16/2024 1:30 PM EST Office Visit [facility] [address] [place] [address] Devante Morgan, PRESSING MACHINE TENDER-AWNING HANGER [address] [place] [address] [facility] Start: 03-16-2024 End: 03-16-2024 Patient encounter procedure 03/16/2024 11:30 AM EST Office Visit [facility] [address] [place] [address] Devante oMrgan, PRESSING MACHINE TENDER-AWNING HANGER [address] [place] [address] Arrived [facility] Comment on above: Arrived Start: 03-09-2024 End: 03-09-2024 Social Work 03/09/2024 12:00 PM EST Social Work [facility] [address] [place] [address] Rony Massey, [facility] [address] [place] [address] [facility] Start: 02-16-2024 End: 02-16-2024 Social Work 02/16/2024 2:00 PM EST Social Work [facility] [address] [place] [address] Rony Massey, [facility] [address] [place] [address] [facility] Start: 02-10-2024 End: 02-10-2024 Patient encounter procedure [facility] Comment on above: Arrived Start: 12-22-2023 End: 12-22-2023 Social Work 12/22/2023 9:15 AM EDT Social Work [facility] [address] [place] [address] Rony Massey, [facility] [address] [place] [address] [facility] Start: 12-16-2023 End: 12-16-2023 Patient encounter procedure [facility] Comment on above: Arrived Start: 12-13-2023 Influenza vaccination Influenza Vacc ine (#1) [facility] Start: 12-08-2023 End: 12-08-2023 Social Work 12/08/2023 9:00 AM EDT Social Work [facility] [address] [place] [address] Rony Massey, [facility] [address] [place] [address] [facility] Start: 06-10-2023 End: 06-10-2023 Clinical Support 06/10/2023 11:00 AM EST Clinical Support [facility] [address] [place] [address] Maureen Hussein, [facility] [address] [place] [address] [facility] Start: 05-28-2023 End: 05-28-2023 Patient encounter procedure 05/28/2023 9:30 AM EST Office Visit [facility] [address] [place] [phone] Tho Goss MD [address] [place], [place] [phone] Encounter for gynecological examination without abnormal finding; Screening for malignant neoplasm of cervix [facility] Comment on above: Encounter for gyneco logical examination without abnormal finding; Screening for malignant neoplasm of cervix Start: 05-25-2023 End: 05-25-2023 Patient encounter procedure 05/25/2023 8:40 AM EST Office Visit [facility] [address] [place] [address] Javier Goldsmith DO [address] [place] [address] Arrived [facility] Comment on above: Arrived Start: 12-12-2022 Influenza vaccination Influenza Vacc ine (#1) [facility] Start: 10-02-2022 [facility] Start: 08-27-2022 [facility] Start: 08-26-2022 Comprehensive metabo lic 2000 panel - Serum or Plasma [facility] Start: 08-26-2022 [facility] Start: 08-25-2022 Referral to systematic theology professor [facility] Start: 08-25-2022 Hospital admission [facility] Start: 08-25-2022 [facility] Start: 08-25-2022 Excision of Stomach, Pylorus, Via Natural or Artificial Opening Endoscopic, Diagnostic Excision of Stomach, Pylorus, Via Natural or Artificial Opening Endoscopic, Diagnostic [facility] Start: 10-29-2017 Screening for malign ant neoplasm of cervix [facility] Start: 10-29-2008 Screening for malign ant neoplasm of cervix Pap Smear [facility] Bacteria identified in Stool by Culture [facility] Elastase.pancreatic [Mass/mass] in Stool [facility] EMG 2 Extremities EMG 2 Extremit ies Neurology Routine Chronic right-sided low back pain with right-sided sciatica Lumbar radiculopathy Ordered: 04/04/2024 [facility] Comment on above: Ordered: 04/04/2024 Patient Education Alcohol Use Di monster (DC) [facility] Work Phone: Patient referral [facility] Work Phone: Radionuclide gastric emptying study [facility] Payers Date Payer Category Payer Self-pay 2022 Medicaid [employer] [facility] [id number] 2022-Present [address] [address] [place] [address] [id number] 2022 Medicaid (Managed Care) 1.2. [id number] 1987 Unknown [id number] 2.16.840.1.411849.3.579.2. 593 1987 Unknown [id number] 2.16.840.1.402964.3.579.2. 593 1987 Unknown [id number] 2.16.840.1.106808.3.579.2. 593 1987 Unknown [id number] 2.16.840.1.619108.3.579.2. 593 1987 Unknown [id number] 2.16.840.1.327547.3.579.2. 593 1987 Unknown [id number] 2.16.840.1.118977.3.579.2. 593 1987 Unknown [id number] 2.16.840.1.771107.3.579.2. 1259 1987 Unknown [id number] 2.16.840.1.442007.3.579.2. 1258 1987 Unknown [id number] 2.16.840.1.723375.3.579.2. 1258 1987 Unknown [id number] 2.16.840.1.341772.3.579.2. 1258 1987 Unknown [id number] 2.16.840.1.810435.3.579.2. 1258 1987 Unknown [id number] 2.16.840.1.984475.3.579.2. 1258 1987 Unknown [id number] 2.16.840.1.337802.3.579.2. 1258 1987 Unknown [id number] 2.16.840.1.051590.3.579.2. 1258 1987 Unknown [id number] 2.840.1.286841.3.579.2. 1258 1987 Unknown [id number] 2.16.840.1.522716.3.579.2. 1258 1987 Unknown [id number] 2.840.1.042520.3.579.2. 1258 1987 Unknown [id number] 2..840.1.882462.3.579.2. 1258 1987 Unknown [id number] 2.16840.1.089998.3.579.2. 1258 1987 Unknown [id number] 2.16.840.1.268042.3.579.2. 1258 1987 Unknown [id number] 2.16.840.1.909433.3.579.2. 1258 1987 Unknown [id number] 2.16.840.1.985073.3.579.2. 1258 1987 Unknown [id number] 2.16.840.1.611698.3.579.2. 1258 1987 Unknown [id number] 2.16.840.1.231064.3.579.2. 1258 1987 Unknown [id number] 2.16.840.1.090767.3.579.2. 1258 1987 Unknown [id number] 2.16.840.1.687518.3.579.2. 1258 1987 Unknown [id number] 2.16.840.1.772264.3.579.2. 1258 1987 Unknown [id number] 2.16.840.1.992012.3.579.2. 1258 1987 Unknown [id number] 2.16.840.1.413145.3.579.2. 1258 1987 Unknown [id number] 2.16.840.1.863519.3.579.2. 1258 1987 Unknown [id number] 2.840.1.781490.3.579.2. 1258 1987 Unknown [id number] 2.16840.1.823326.3.579.2. 1258 1987 Unknown [id number] 2.840.1.416798.3.579.2. 1258 1987 Unknown [id number] 2.16.840.1.830223.3.579.2. 1258 1987 Unknown [id number] 2.840.1.824891.3.579.2. 1258 1987 Unknown [id number] 2.16840.1.566538.3.579.2. 1258 1959 Self-pay [id number] 1959 Unknown [id number] Unknown [id number] 2.16840.1.818034.3.579.2. 531 Unknown [id number] 2.16840.1.870629.3.579.2. 531 Unknown [id number] 2.840.1.787251.3.579.2. 531 Unknown [id number] ..840.1.072356.3.579.2. 531 Unknown [id number] 2.16.840.1.167218.3.579.2. 531 Unknown [id number] 2.16.840.1.137498.3.579.2. 531 Social History Date Type Detail Facility Start: 08-25-2022 End: 08-26-2022 Tobacco smoking status NCIS Smoker (finding) [facility] Start: 1985 Sex Assigned At Female [facility] Start: 04-22-2023 End: 08-09-2023 Sex Assigned At [facility] Start: 01-21-2004 End: 09-29-2023 Tobacco smoking status [facility] Smokes tobacco daily [facility] Start: 01-21-2004 History of tobacco use Cigarette Smoker [facility] Start: 09-04-2022 End: 08-09-2023 Cigarettes smoked current (pack per day) - Reported 1 [facility] Start: 09-04-2022 End: 09-29-2023 Tobacco use and exposure Smokeless tobacco non-user [facility] Start: 04-22-2023 End: 11-09-2024 Alcohol intake Ex-drinker (finding) [facility] Start: 1985 Sex Assigned At Not on file [facility] Do you belong to any clubs or organizations such as scientology groups, unions, fraternal or athletic groups, or school groups? Yes [facility] Are you now , , , , never or living with a partner? Living with partner [facility] How often to you hav e a drink containing alcohol? 2-4 times a month [facility] How many standard dr inks containing alcohol do you have on a typical day? 5 or 6 [facility] How often do you hav e 6 or more drinks on 1 occasion? Weekly [facility] How hard is it for y ou to pay for the very basics like food, housing, medical care, and heating Somewhat hard [facility] Do you feel stress - tense, restless, nervous, or anxious, or unable to sleep at night because your mind is troubled all the time - these days [OSQ] Rather much [facility] (I/We) worried wheth er (my/our) food would run out before (I/we) got money to buy more. Sometimes true [facility] In the past 12 month s, has lack of transportation kept you from medical appointments or from getting medications? No [facility] In the past 12 month s, was there a time when you were not able to pay the mortgage or rent on time? No [facility] Start: 11-10-2023 Alcohol Comment caffiene 1-2 cups occasionally [facility] Start: 02-10-2024 Education 21 [facility] How often to you hav e a drink containing alcohol? Never [facility] Sex Female (finding) [facility] Goals Date Patient Goal Desired Activity /State Personal health goal Functional Status Date Assessment Result Facility 11-09-2024 Total score [AUDIT-C] 0 11/10/19 25 8:59 AM EDT Javier Goldsmith DO [facility] 11-09-2024 Patient Health Quest ionnaire 2 item (PHQ-2) [Reported] [facility] 08-10-2024 Patient Health Quest ionnaire 2 item (PHQ-2) [Reported] [facility] 08-27-2022 Functional status Patient at [facility] Work Phone: [facility] Mental Status Date Assessment Result Facility 08-27-2022 Cognitive function Cognitive Sta tus Patient at Baseline [facility] Work Phone: Clinical Notes 08-21-2020 to 11-09-2024 Javier Goldsmith, - 11/09/2024 8:40 AM Lobito Goldsmith, DO - 08/10/2024 8:40 AM Karo Morgan, PRESSING MACHINE TENDER-AWNING HANGER - 08/09/2024 2:30 PM Lobito Goldsmith, DO - 07/12/2024 1:00 PM EDT Note Date & Type Note Facility 11-09-2024 History of Present illness Narrative Images from the original note were not included. [facility] JAYLENE [place] SUBJECTIVE: HPI: Whitney Miller is a 39 y.o. female who presents with chief complaint of No chief complaint on file. Pt presents for her 3 month Adipex follow up. Pt notes that her therapist is recommending her see psych due to possible ADHD as she notes that she seems to not have any energy with the Adipex but is able to focus more. Pt is also requesting an inhaler for asthma. She notes that she does have a hx of this and has noticed an increase in symptoms due to the humidity. No other concerns. I have reviewed and reconciled the history and medication list with the patient today. History of Present Illness The patient presents for weight management, ADHD, and asthma. She has been making significant progress with Adipex, as evidenced by her weight loss from 206 to 172 pounds. Her goal is to reach a weight between 150 and 160 pounds. She continues to maintain an active lifestyle, including regular gym visits. She has abstained from alcohol for over a year and has not required hospitalization during this period. She believes that Adipex has improved her focus and energy levels. She has been experiencing difficulty in scheduling an appointment with Dr. Rogers for neuropsychology testing. She reports that the Adipex has enhanced her concentration at work and reduced feelings of scatterbrained. She has discontinued the use of olmesartan due to episodes of lightheadedness. She has a history of asthma and is requesting a rescue inhaler due to the current high humidity levels. SOCIAL HISTORY She does not drink alcohol. MEDICATIONS - Current: Adipex - Discontinued: Olmesartan Depression: Not at risk (11/09/2024) PHQ-2 PHQ-2 Score: 0 reports that she has been smoking cigarettes. She started smoking about 20 years ago. She has a 20.8 pack-year smoking history. She has never used smokeless tobacco. She reports that she does not currently use alcohol after a past usage of about 5.0 - 6.0 standard drinks of alcohol per week. She reports that she does not currently use drugs after having used the following drugs: Cocaine and Oxycodone. OBJECTIVE: 07/12/2024 1:00 PM 08/09/2024 2:12 PM 08/09/2024 2:19 PM 08/10/2024 8:47 AM 10/05/2024 1:50 PM 11/01/2024 2:45 PM 11/09/2024 8:36 AM Vitals BMI 33.25 kg/m2 31.31 kg/m2 31.31 kg/m2 29.05 kg/m2 27.92 kg/m2 27.76 kg/m2 BSA (m2) 2.09 m2 2.02 m2 2.02 m2 1.95 m2 1.91 m2 1.91 m2 Systolic 134 152 146 118 112 128 132 Diastolic 84 84 80 78 76 80 84 Heart Rate 80 103 90 100 88 79 SpO2 99 % 98 % 98 % Temp 96.5 F 97.6 F 98.6 F Height (in) 5' 6 5' 6 Weight (lb) 206 194 194 180 173 172 Visit Report Report Report Report Report Report Report Report Physical Exam Physical Exam General Appearance: Alert, no distress. Vital signs: Blood pressure is 132/84. Respiratory: No respiratory distress, normal work of breathing. Lungs were auscultated. CV: RRR, no murmur Skin: Warm and dry, no rash. Neurological: Normal. Psychiatric: normal affect, normal thought content. Results No results found for this or any previous visit (from the past 4 weeks). ASSESSMENT AND PLAN: Assessment/Plan Diagnoses and all orders for this visit: Attention and concentration deficit - Ambulatory referral to Neuropsychology; Future Abnormal weight gain - phentermine (Adipex-P) 37.5 MG tablet; Take 1 tablet (37.5 mg) by mouth in the morning. Take before meals. Mild intermittent asthma without status asthmaticus without complication (HCC) - albuterol HFA 90 mcg/act inhaler; Inhale 2 puffs every 6 (six) hours if needed for wheezing Assessment & Plan 1. Weight management: Stable. - Continue current regimen with Adipex. - Vital signs within normal limits: Blood pressure 132/84, satisfactory heart rate. After review of vitals including weight trend and discussion of board of pharmacy regulations, the patient is making satisfactory progress in weight loss on adipex. she will continue on the current tx. No intolerable side effects noted. Discussed continued lifestyle modifications to ensure she continues to lose weight. 2. Attention deficit hyperactivity disorder (ADHD). - Referral to Dr. Rogers for neuropsychology testing. - Abstain from taking Adipex on the day of the test due to its stimulant properties. - Devante to manage psych medications if Dr. Rogers does not prescribe medication. 3. Asthma. - Prescription for a rescue inhaler with refills for use as needed. 4. Blood pressure management. - Discontinued olmesartan due to episodes of lightheadedness, likely related to significant weight loss. - Blood pressure readings currently stable. Follow-up - Follow-up visit scheduled in 3 months. Javier Goldsmith DO Patient Active Problem List Diagnosis Alcoholic cirrhosis of liver with ascites (HCC) Alcoholic peripheral neuropathy (HCC) Asthma without status asthmaticus (HCC) Current smoker CHELSEY (generalized anxiety disorder) History of alcohol abuse Insomnia Chronic bilateral low back pain without sciatica Cirrhosis (HCC) Alcohol use disorder, moderate, in early remission (HCC) Abdominal pain Diarrhea Family history of colon cancer Bipolar I disorder, most recent episode depressed (HCC) Lumbar radiculopathy Chronic right-sided low back pain with right-sided sciatica Past Medical History: Diagnosis Date Acute alcoholic pancreatitis ([facility]HS-HCC) Addiction to drug (HCC) Alcohol abuse Alcohol abuse 05/25/2023 Anxiety Bipolar I disorder, most recent episode (or current) depressed (HCC) C. difficile enteritis 09/04/2022 Chalazion 09/14/2012 Cirrhosis (HCC) Contact dermatitis 09/14/2012 Depression Gastritis Menorrhagia with irregular cycle 09/04/2022 Pancreatitis ([facility]HS-HCC) Primary localized osteoarthrosis 05/23/2011 Suicide attempt (HCC) documented in this encounter [facility] 08-10-2024 History of Present illness Narrative Images from the original note were not included. [facility] JAYLENE Valencia SUBJECTIVE: HPI: Pt states she is here for a follow up on adipex. Pt states that she would also like to discuss her labs. I have reviewed and reconciled the history and medication list with the patient today. Depression: Not at risk (08/10/2024) PHQ-2 PHQ-2 Score: 0 reports that she has been smoking cigarettes. She started smoking about 20 years ago. She has a 20.6 pack-year smoking history. She has never used smokeless tobacco. She reports that she does not currently use alcohol after a past usage of about 5.0 - 6.0 standard drinks of alcohol per week. She reports that she does not currently use drugs after having used the following drugs: Cocaine and Oxycodone. OBJECTIVE: 04/19/2024 2:47 PM 05/17/2024 12:52 PM 07/06/2024 1:07 PM 07/12/2024 1:00 PM 08/09/2024 2:12 PM 08/09/2024 2:19 PM 08/10/2024 8:47 AM Vitals BMI 31.8 kg/m2 31.47 kg/m2 31.47 kg/m2 33.25 kg/m2 31.31 kg/m2 31.31 kg/m2 BSA (m2) 2.04 m2 2.03 m2 2.03 m2 2.09 m2 2.02 m2 2.02 m2 Systolic 136 146 136 134 152 146 118 Diastolic 82 86 82 84 84 80 78 Heart Rate 99 106 99 80 103 90 SpO2 99 % 98 % Temp 96.5 F 97.6 F Height (in) 5' 6 Weight (lb) 197 195 195 206 194 194 Visit Report Report Report Report Report Report Report Report Physical Exam Constitutional: General: She is not in acute distress. Appearance: She is not ill-appearing. HENT: Head: Normocephalic. Cardiovascular: Rate and Rhythm: Normal rate and regular rhythm. Heart sounds: No murmur heard. Pulmonary: Effort: Pulmonary effort is normal. Breath sounds: Normal breath sounds. No wheezing. Abdominal: General: Abdomen is flat. There is no distension. Tenderness: There is no abdominal tenderness. Musculoskeletal: General: No deformity. Normal range of motion. Cervical back: Normal range of motion. Skin: General: Skin is warm and dry. Neurological: General: No focal deficit present. Mental Status: She is alert and oriented to person, place, and time. Psychiatric: Mood and Affect: Mood normal. Behavior: Behavior normal. Thought Content: Thought content normal. Judgment: Judgment normal. Recent Results (from the past 4 weeks) Vitamin D 25 hydroxy Total Collection Time: 07/29/24 7:31 AM Result Value Ref Range Vitamin D, 25-Hydroxy 6.8 (L) 30.0 - 100.0 ng/mL CBC and differential Collection Time: 07/29/24 7:31 AM Result Value Ref Range WBC 9.5 3.4 - 10.8 x10E3/uL RBC 4.42 3.77 - 5.28 x10E6/uL Hgb 14.8 11.1 - 15.9 g/dL Hct 45.1 34.0 - 46.6 % MCV 102 (H) 79 - 97 fL MCH 33.5 (H) 26.6 - 33.0 pg MCHC 32.8 31.5 - 35.7 g/dL RDW 14.1 11.7 - 15.4 % Platelets 291 150 - 450 x10E3/uL Neutrophils 72 Not Estab. % Lymphs 21 Not Estab. % Monocytes 5 Not Estab. % Eos 2 Not Estab. % Basos 0 Not Estab. % Neutrophils Abs 6.8 1.4 - 7.0 x10E3/uL Lymphs Abs 2.0 0.7 - 3.1 x10E3/uL MonocytesAbs 0.5 0.1 - 0.9 x10E3/uL Eos Abs 0.2 0.0 - 0.4 x10E3/uL Baso Abs 0.0 0.0 - 0.2 x10E3/uL Immature Granulocytes 0 Not Estab. % Immature Grans Abs 0.0 0.0 - 0.1 x10E3/uL Comprehensive metabolic panel Collection Time: 07/29/24 7:31 AM Result Value Ref Range Glucose 104 (H) 70 - 99 mg/dL BUN 13 6 - 20 mg/dL Creat 0.76 0.57 - 1.00 mg/dL EGFR 104 >59 mL/min/1.73 BUN/Creat Ratio 17 9 - 23 Sodium 135 134 - 144 mmol/L Potassium 4.6 3.5 - 5.2 mmol/L Chloride 101 96 - 106 mmol/L Carbon Dioxide 21 20 - 29 mmol/L Calcium 10.2 8.7 - 10.2 mg/dL Protein Total 6.8 6.0 - 8.5 g/dL Albumin 4.8 3.9 - 4.9 g/dL Globulin Total 2.0 1.5 - 4.5 g/dL Bili Total 0.5 0.0 - 1.2 mg/dL Alk Phosphatase 62 44 - 121 IU/L AST 19 15 - 59 IU/L ALT 20 0 - 35 IU/L Lipid panel Collection Time: 07/29/24 7:31 AM Result Value Ref Range Cholesterol, Total 235 (H) 100 - 199 mg/dL Triglycerides 263 (H) 0 - 149 mg/dL HDL Cholesterol 29 (L) >39 mg/dL VLDL Cholesterol Saud 49 (H) 5 - 40 mg/dL LDL Chol Calc (NIH) 157 (H) 0 - 99 mg/dL Vitamin B12 Collection Time: 07/29/24 7:31 AM Result Value Ref Range Vitamin B12 599 232 - 1,245 pg/mL Cortisol AM Collection Time: 07/29/24 7:31 AM Result Value Ref Range CORTISOL, A.M. 7.6 6.2 - 19.4 ug/dL Tsh+free t4 Collection Time: 07/29/24 7:31 AM Result Value Ref Range TSH 1.680 0.450 - 4.500 uIU/mL T4Free(Direct) 1.24 0.82 - 1.77 ng/dL Iron and TIBC Collection Time: 07/29/24 7:31 AM Result Value Ref Range Iron Bind.Cap.(TIBC) 377 250 - 450 ug/dL UIBC 263 131 - 425 ug/dL Iron 114 27 - 159 ug/dL Iron Saturation 30 15 - 55 % Ferritin Collection Time: 07/29/24 7:31 AM Result Value Ref Range Ferritin 61 15 - 150 ng/mL ASSESSMENT AND PLAN: Assessment/Plan Diagnoses and all orders for this visit: Vitamin D deficiency - cholecalciferol (Vitamin D-3) 1.25 MG (94432 UT) capsule; Take 1 capsule (1.25 mg) by mouth 1 (one) time per week Class 1 obesity due to excess calories without serious comorbidity with body mass index (BMI) of 33.0 to 33.9 in adult - phentermine (Adipex-P) 37.5 MG tablet; Take 1 tablet (37.5 mg) by mouth in the morning. Take before meals. Dyslipidemia (CMS/HCC) After review of vitals including weight trend and discussion of board of pharmacy regulations, the patient is making satisfactory progress in weight loss on adipex. she will continue on the current tx. No intolerable side effects noted. Discussed continued lifestyle modifications to ensure she continues to lose weight. Discussed risks of cholesterol, lifestyle changes Javier Goldsmith DO Patient Active Problem List Diagnosis Alcoholic cirrhosis of liver with ascites (CMS/HCC) Alcoholic peripheral neuropathy (CMS/HCC) Asthma without status asthmaticus (CMS/HCC) Current smoker CHELSEY (generalized anxiety disorder) (CMS/HCC) History of alcohol abuse Insomnia Chronic bilateral low back pain without sciatica Cirrhosis (CMS/HCC) Alcohol use disorder, moderate, in early remission Abdominal pain Diarrhea Family history of colon cancer Bipolar I disorder, most recent episode depressed (CMS/HCC) Lumbar radiculopathy Chronic right-sided low back pain with right-sided sciatica Past Medical History: Diagnosis Date Acute alcoholic pancreatitis Addiction to drug ([facility]) Alcohol abuse Alcohol abuse 05/25/2023 Anxiety Bipolar I disorder, most recent episode (or current) depressed ([facility]) C. difficile enteritis 09/04/2022 Chalazion 09/14/2012 Cirrhosis ([facility]) Contact dermatitis 09/14/2012 Depression ([facility]) Gastritis Menorrhagia with irregular cycle 09/04/2022 Pancreatitis Primary localized osteoarthrosis 05/23/2011 [place] documented in this encounter [facility] 08-09-2024 History of Present illness Narrative Images from the original note were not included. Whitney Miller is a 38 y.o. female presents for Medication Management. HPI: Patient is here for medication follow up. Patient has improved since last appt. Did sign up for a gym. Mood is reported as not depressed. Feels less emotional around menstrual cycle. Has lessened with Denies Anxiety. Denies irritability. Sometimes feels anxious when boyfriend is gone managing better. Sleeping 8 hours. Medication compliant. No reported side effects. was started on lamictal and has tolerated. Has been on adipex. Denies abuse of substances. No Medical problems since last visit. Recommend lab work. Had obtained labs and following up with PCP. Psychosocial stressors include worries about her kids. Weight. Finances. SUBJECTIVE: PAST MEDICAL HISTORY: Past Medical History: Diagnosis Date Acute alcoholic pancreatitis Addiction to drug ([facility]) Alcohol abuse Alcohol abuse 05/25/2023 Anxiety Bipolar I disorder, most recent episode (or current) depressed ([facility]) C. difficile enteritis 09/04/2022 Chalazion 09/14/2012 Cirrhosis ([facility]) Contact dermatitis 09/14/2012 Depression ([facility]) Gastritis Menorrhagia with irregular cycle 09/04/2022 Pancreatitis Primary localized osteoarthrosis 05/23/2011 Suicide attempt ([facility]) ALLERGIES: Allergies Allergen Reactions Clavulanic Acid Nausea Only Other GI intolerance darvocet Propoxyphene Unknown Prozac [Fluoxetine] Other Bhargavi-insomnia, impulsive decision making, increased depression. Zoloft [Sertraline] Other Increased depression SURGICAL HISTORY: Past Surgical History: Procedure Laterality Date BREAST LUMPECTOMY Left DILATION AND CURETTAGE OF UTERUS TUBAL LIGATION FAMILY HISTORY: Family History Problem Relation Name Age of Onset Cancer Mother Justine Depression Mother Justine Stroke Mother Justine Hearing loss Father Kyle Depression Father Kyle Other (anxiety) Father Kyle Stroke Sister Nicky Depression Sister Nicky Anxiety disorder Sister Nicky Heart disease Paternal Grandfather Emphysema Paternal Grandmother SOCIAL HISTORY: Social History Tobacco Use Smoking status: Every Day Current packs/day: 1.00 Average packs/day: 1 pack/day for 20.3 years (20.3 ttl pk-yrs) Types: Cigarettes Start date: 01/21/2004 Smokeless tobacco: Never Vaping Use Vaping status: Never Used Passive vaping exposure: Yes Substance Use Topics Alcohol use: Not Currently Alcohol/week: 5.0 - 6.0 standard drinks of alcohol Types: 5 - 6 Shots of liquor per week Comment: caffiene 1-2 cups occasionally Drug use: Not Currently Types: Cocaine, Oxycodone Depression: Not at risk (04/19/2024) PHQ-2 PHQ-2 Score: 0 REVIEW OF SYMPTOMS - MENTAL STATUS EXAM Appearance Appearance: Casual dress, normal grooming and hygiene Behavior Cooperative, conversant, engaged, and with good eye contact.. No abnormal movements. Speech Normal, clear, regular rate, rhythm and volume Affect full affect appropriate with mood Mood stable, mild anxiety Thought Process Organized and Clear Thought Content No Suicidal Ideation and No Homicidal ideation Perception Denies auditory and visual hallucinations. No evidence of delusions. Orientation Appropriate to age, Person, Place, and Time Memory/Concentration Short term intact and fci intact Insight/Judgement Good OBJECTIVE: Visit Vitals OB Status Having periods Smoking Status Every Day No results found for: TSH Lab Results Component Value Date GLU 92 07/04/2022 GLU NEGATIVE 07/04/2022 NA 136 07/04/2022 K 3.4 (LL) 07/04/2022 BUN 6.0 (LL) 07/04/2022 CREATININE 0.49 (LL) 07/04/2022 Lab Results Component Value Date WBC 6.2 07/04/2022 No results found for: CHOL No results found for: HDL No results found for: LDLCALC No results found for: TRIG ASSESSMENT AND PLAN: Assessment/Plan Bipolar Disorder most recent episode depressed CHELSEY (generalized anxiety disorder) ([facility]) Alcohol use disorder moderate in early remission This is a 37-year-old female who was referred to counseling and for medication management by Dr. Goldsmith Hx persistent depression and anxiety. We added Caplyta to stabilize mood without weight gain as patient was upset about wt gain. Didn't tolerate antidepressants in past. Continues to be depressed and irritable add lamictal to target depressed mood. Mood overall improved and stable. Medication List Vistaril 50mg prn Caplyta 42mg daily Trazadone 100mg po every day Lamictal 150mg po every day . Educated about risks vs benefits and potential for serious rash Encourage daily exercise and time for herself. Collaborated with Dr Goldsmith regarding - patient request adipex Will agree as long as patient follows up for monitoring. Q 4 weeks Has been on abilify, rexulti in the past. Prozac, zoloft, celexa, lexapro, effexor, cymbalta, wellbutrin. Continues to see Cesar Massey for counseling. Patient was seen Face to Face, Reviewed chart documents and documentation, Visit time : 25min F/U 8 weeks -evaluate increase in lamictal and if adipex strted documented in this encounter [facility] 07-12-2024 History of Present illness Narrative Images from the original note were not included. [facility] JAYLENE Valencia SUBJECTIVE: HPI: Whintey Miller is a 38 y.o. female who presents with chief complaint of Follow-up Pt states she is here to get labs ordered. Pt states that her psychiatrist recommended she get the labs done. Pt states she is currently taking Lamictal and trazodone but is still tired. Pt would like to discuss her weight gain. I have reviewed and reconciled the history and medication list with the patient today. History of Present Illness The patient presents for a wellness exam and evaluation of depression, anxiety, fatigue, weight management, and hip pain. She reports an improvement in her mental health status, attributing this to the efficacy of Caplyta in managing her depression and anxiety. Additionally, she has been prescribed Lamictal, which she finds beneficial. The dosage of Lamictal was recently increased last week. She is currently on a regimen of trazodone 100 mg, which she takes at bedtime between 9:00 PM and 9:30 PM. Despite achieving 7 to 8 hours of sleep, she experiences persistent fatigue. She has recently acquired a gym membership and typically wakes up at 4:00 AM. She abstains from alcohol consumption. She is under the care of a psychiatrist who monitors her mental health on a monthly basis. She has been experiencing weight gain, which she attributes to a lack of physical activity. She does not report any issues with constipation. She has consulted with a neurologist for her hip pain, who recommended further testing. However, her insurance did not approve the tests. She was advised to undergo physical therapy, but she is reluctant to do so unless absolutely necessary. She is uncertain about the specific test that was recommended but recalls it involved some type of scan. She was informed that she would receive further information, but this has not yet occurred. Consequently, she has cancelled her appointments. She has not had a recent Pap smear, with the last one being conducted approximately 2 years ago, which yielded normal results. Supplemental Information She does not take Zofran anymore and does not have refills on that. SOCIAL HISTORY She does not drink alcohol. MEDICATIONS Caplyta, Lamictal, trazodone Depression: Not at risk (07/12/2024) PHQ-2 PHQ-2 Score: 0 reports that she has been smoking cigarettes. She started smoking about 20 years ago. She has a 20.5 pack-year smoking history. She has never used smokeless tobacco. She reports that she does not currently use alcohol after a past usage of about 5.0 - 6.0 standard drinks of alcohol per week. She reports that she does not currently use drugs after having used the following drugs: Cocaine and Oxycodone. OBJECTIVE: 03/16/2024 11:31 AM 03/16/2024 12:06 PM 04/04/2024 3:34 PM 04/19/2024 2:47 PM 05/17/2024 12:52 PM 07/06/2024 1:07 PM 07/12/2024 1:00 PM Vitals BMI 31.15 kg/m2 31.15 kg/m2 31.8 kg/m2 31.47 kg/m2 31.47 kg/m2 33.25 kg/m2 BSA (m2) 2.02 m2 2.02 m2 2.04 m2 2.03 m2 2.03 m2 2.09 m2 Systolic 182 166 136 146 136 134 Diastolic 122 104 82 86 82 84 Heart Rate 94 99 106 99 80 SpO2 99 % Temp 96.5 F Height (in) 5' 6 Weight (lb) 193 193 197 195 195 206 Visit Report Report Report Report Report Report Report Report Physical Exam Constitutional: General: She is not in acute distress. Appearance: She is not ill-appearing. HENT: Head: Normocephalic. Cardiovascular: Rate and Rhythm: Normal rate and regular rhythm. Heart sounds: No murmur heard. Pulmonary: Effort: Pulmonary effort is normal. Breath sounds: Normal breath sounds. No wheezing. Abdominal: General: Abdomen is flat. There is no distension. Tenderness: There is no abdominal tenderness. Musculoskeletal: General: No deformity. Normal range of motion. Cervical back: Normal range of motion. Skin: General: Skin is warm and dry. Neurological: General: No focal deficit present. Mental Status: She is alert and oriented to person, place, and time. Psychiatric: Mood and Affect: Mood normal. Behavior: Behavior normal. Thought Content: Thought content normal. Judgment: Judgment normal. Physical Exam Lungs were auscultated. Results No results found for this or any previous visit (from the past 4 weeks). ASSESSMENT AND PLAN: Assessment/Plan Diagnoses and all orders for this visit: Well adult exam - CBC and differential; Future - Comprehensive metabolic panel; Future - Lipid panel; Future Chronic fatigue - Vitamin D 25 hydroxy Total; Future - CBC and differential; Future - Comprehensive metabolic panel; Future - Lipid panel; Future - Vitamin B12; Future - Cortisol AM; Future - Tsh+free t4; Future - Iron and TIBC; Future - Ferritin; Future Alcoholic cirrhosis of liver with ascites (CMS/HCC) CHELSEY (generalized anxiety disorder) (CMS/HCC) - Vitamin D 25 hydroxy Total; Future - CBC and differential; Future - Comprehensive metabolic panel; Future - Vitamin B12; Future - Cortisol AM; Future - Tsh+free t4; Future Current smoker Class 1 obesity due to excess calories without serious comorbidity with body mass index (BMI) of 33.0 to 33.9 in adult - phentermine (Adipex-P) 37.5 MG tablet; Take 1 tablet (37.5 mg) by mouth in the morning. Take before meals. Assessment & Plan 1. Depression: Stable. The dosage of Lamictal was recently increased last week. - Continue Caplyta and Lamictal as prescribed - Follow up with mental health provider monthly 2. Anxiety: Stable. - Continue current medications - Follow up with mental health provider monthly 3. Fatigue. - Order comprehensive blood workup to assess vitamin B12, vitamin D, blood count, cortisol level, thyroid function, and iron panel - Schedule appointment with [facility] for blood work, preferably first thing in the morning 4. Weight management. - Initiate Adipex with a goal of 5% reduction in body weight within 3 months (11 pounds) - Monthly follow-ups required until target is met, then every 3 months - Avoid caffeine while on Adipex - Ensure adequate hydration - Add Benefiber to diet if constipation occurs - Discontinue medication and inform provider if intolerable side effects occur 5. Hip pain. - Undergo x-ray of the lumbar spine today - Reschedule EMG appointment with neurologist 6. Health maintenance. - Consult with [facility] annually for routine Pap smears Follow-up - Follow up in 1 month Javier Goldsmith DO Patient Active Problem List Diagnosis Alcoholic cirrhosis of liver with ascites (CMS/HCC) Alcoholic peripheral neuropathy ([facility]/HCC) Asthma without status asthmaticus (CMS/HCC) Current smoker CHELSEY (generalized anxiety disorder) ([facility]) History of alcohol abuse Insomnia Chronic bilateral low back pain without sciatica Cirrhosis ([facility]/HCC) Alcohol use disorder, moderate, in early remission Abdominal pain Diarrhea Family history of colon cancer Bipolar I disorder, most recent episode depressed ([facility]/HCC) Lumbar radiculopathy Chronic right-sided low back pain with right-sided sciatica Past Medical History: Diagnosis Date Acute alcoholic pancreatitis Addiction to drug ([facility]) Alcohol abuse Alcohol abuse 05/25/2023 Anxiety Bipolar I disorder, most recent episode (or current) depressed ([facility]/HCC) C. difficile enteritis 09/04/2022 Chalazion 09/14/2012 Cirrhosis (CMS/HCC) Contact dermatitis 09/14/2012 Depression ([facility]/HCC) Gastritis Menorrhagia with irregular cycle 09/04/2022 Pancreatitis Primary localized osteoarthrosis 05/23/2011 Suicide attempt (CMS/HCC) documented in this encounter [facility] 05-17-2024 History of Present illness Narrative Images from the original note were not included. Whitney Miller is a 38 y.o. female presents for Medication Management. HPI: Patient is here for medication follow up. Patient has improved since last appt. Mood is reported as not depressed. Feels emotional around menstrual cycle. Denies Anxiety. Denies irritability. Sometimes feels anxious when boyfriend is gone-this week didn't feel anxious. Sleeping 8 hours. Medication compliant. No reported side effects. was started on lamictal and has tolerated. Denies abuse of substances. No Medical problems since last visit. Psychosocial stressors include worries about her kids. Weight. SUBJECTIVE: PAST MEDICAL HISTORY: Past Medical History: Diagnosis Date Acute alcoholic pancreatitis Addiction to drug [place] [place] Alcohol abuse Alcohol abuse 05/25/2023 Anxiety Bipolar I disorder, most recent episode (or current) depressed ([facility] [place]) C. difficile enteritis 09/04/2022 Chalazion 09/14/2012 Cirrhosis ([facility] [place]) Contact dermatitis 09/14/2012 Depression ([facility] [place]) Gastritis Menorrhagia with irregular cycle 09/04/2022 Pancreatitis Primary localized osteoarthrosis 05/23/2011 Suicide attempt ([facility] [place]) ALLERGIES: Allergies Allergen Reactions Clavulanic Acid Nausea Only Other GI intolerance darvocet Propoxyphene Unknown Prozac [Fluoxetine] Other Bhargavi-insomnia, impulsive decision making, increased depression. Zoloft [Sertraline] Other Increased depression SURGICAL HISTORY: Past Surgical History: Procedure Laterality Date BREAST LUMPECTOMY Left DILATION AND CURETTAGE OF UTERUS TUBAL LIGATION FAMILY HISTORY: Family History Problem Relation Name Age of Onset Cancer Mother Justine Depression Mother Justine Stroke Mother Justine Hearing loss Father Kyle Depression Father Kyle Other (anxiety) Father Kyle Stroke Sister Nicky Depression Sister Nicky Anxiety disorder Sister Nicky Heart disease Paternal Grandfather Emphysema Paternal Grandmother SOCIAL HISTORY: Social History Tobacco Use Smoking status: Every Day Current packs/day: 1.00 Average packs/day: 1 pack/day for 20.3 years (20.3 ttl pk-yrs) Types: Cigarettes Start date: 01/21/2004 Smokeless tobacco: Never Vaping Use Vaping status: Never Used Passive vaping exposure: Yes Substance Use Topics Alcohol use: Not Currently Alcohol/week: 5.0 - 6.0 standard drinks of alcohol Types: 5 - 6 Shots of liquor per week Comment: caffiene 1-2 cups occasionally Drug use: Not Currently Types: Cocaine, Oxycodone Depression: Not at risk (04/19/2024) PHQ-2 PHQ-2 Score: 0 REVIEW OF SYMPTOMS - MENTAL STATUS EXAM Appearance Appearance: Casual dress, normal grooming and hygiene Behavior Cooperative, conversant, engaged, and with good eye contact.. No abnormal movements. Speech Normal, clear, regular rate, rhythm and volume Affect full affect appropriate with mood Mood Anxious Thought Process Organized and Clear Thought Content No Suicidal Ideation and No Homicidal ideation Perception Denies auditory and visual hallucinations. No evidence of delusions. Orientation Appropriate to age, Person, Place, and Time Memory/Concentration Short term intact and fci intact Insight/Judgement Good OBJECTIVE: Visit Vitals OB Status Having periods Smoking Status Every Day No results found for: TSH Lab Results Component Value Date GLU 92 07/04/2022 GLU NEGATIVE 07/04/2022 NA 136 07/04/2022 K 3.4 (LL) 07/04/2022 BUN 6.0 (LL) 07/04/2022 CREATININE 0.49 (LL) 07/04/2022 Lab Results Component Value Date WBC 6.2 07/04/2022 No results found for: CHOL No results found for: HDL No results found for: LDLCALC No results found for: TRIG ASSESSMENT AND PLAN: Assessment/Plan Bipolar Disorder most recent episode depressed CHELSEY (generalized anxiety disorder) ([facility]) Alcohol use disorder moderate in early remission This is a 37-year-old female who was referred to counseling and for medication management by Dr. Goldsmith Hx persistent depression and anxiety. We added Caplyta to stabilize mood without weight gain as patient was upset about wt gain. Didn't tolerate antidepressants in past. Continues to be depressed and irritable add lamictal to target depressed mood. Medication List Vistaril 50mg prn Caplyta 42mg daily Trazadone 100mg po every day Lamictal 100mg po every day . Educated about risks vs benefits and potential for serious rash Encourage daily exercise and time for herself. Has been on abilify, rexulti in the past. Prozac, zoloft, celexa, lexapro, effexor, cymbalta, wellbutrin. Continues to see Cesar Massey for counseling. Patient was seen Face to Face, Reviewed chart documents and documentation, Visit time : 25min F/U 5 weeks documented in this encounter [facility] 04-19-2024 History of Present illness Narrative Images from the original note were not included. Whitney Miller is a 38 y.o. female presents for Medication Management. HPI: Patient is here for medication follow up. Patient has improved since last appt. Mood is reported as not having episodes of depression. Irritability mostly related to kids. Denies Anxiety. Sleeping 7-8 hours. Feel overwhelmed due to lack of self esteem, trying to clean up house. Patient masking but was on verge of tears. Medication compliant. No reported side effects. Denies abuse of substances. Medical problems since last visit. Psychosocial stressors include kids fighting. Needs time for herself. SUBJECTIVE: PAST MEDICAL HISTORY: Past Medical History: Diagnosis Date Acute alcoholic pancreatitis Addiction to drug ([facility]) Alcohol abuse Alcohol abuse 05/25/2023 Anxiety Bipolar I disorder, most recent episode (or current) depressed ([facility]) C. difficile enteritis 09/04/2022 Chalazion 09/14/2012 Cirrhosis ([facility]) Contact dermatitis 09/14/2012 Depression ([facility]) Gastritis Menorrhagia with irregular cycle 09/04/2022 Pancreatitis Primary localized osteoarthrosis 05/23/2011 Suicide attempt ([facility]) ALLERGIES: Allergies Allergen Reactions Clavulanic Acid Nausea Only Other GI intolerance darvocet Propoxyphene Unknown Prozac [Fluoxetine] Other Bhargavi-insomnia, impulsive decision making, increased depression. Zoloft [Sertraline] Other Increased depression SURGICAL HISTORY: Past Surgical History: Procedure Laterality Date BREAST LUMPECTOMY Left DILATION AND CURETTAGE OF UTERUS TUBAL LIGATION FAMILY HISTORY: Family History Problem Relation Name Age of Onset Cancer Mother Justine Depression Mother Justine Stroke Mother Justine Hearing loss Father Kyle Depression Father Kyle Other (anxiety) Father Kyle Stroke Sister Nicky Depression Sister Nicky Anxiety disorder Sister Nicky Heart disease Paternal Grandfather Emphysema Paternal Grandmother SOCIAL HISTORY: Social History Tobacco Use Smoking status: Every Day Current packs/day: 1.00 Average packs/day: 1 pack/day for 20.2 years (20.2 ttl pk-yrs) Types: Cigarettes Start date: 01/21/2004 Smokeless tobacco: Never Vaping Use Vaping status: Never Used Passive vaping exposure: Yes Substance Use Topics Alcohol use: Not Currently Alcohol/week: 5.0 - 6.0 standard drinks of alcohol Types: 5 - 6 Shots of liquor per week Comment: caffiene 1-2 cups occasionally Drug use: Not Currently Types: Cocaine, Oxycodone Depression: Not at risk (03/16/2024) PHQ-2 PHQ-2 Score: 1 REVIEW OF SYMPTOMS - MENTAL STATUS EXAM Appearance Appearance: Casual dress, normal grooming and hygiene Attitude Attitude: Cooperative, conversant, engaged, and with good eye contact. Behavior Cooperative, conversant, engaged, and with good eye contact. Speech Normal, clear, regular rate, rhythm and volume Affect full affect appropriate with mood Mood euthymic Thought Process Organized and Clear Thought Content No Suicidal Ideation and No Homicidal ideation Perception No perceptual abnormalities noted Orientation Appropriate to age, Person, Place, and Time Memory/Concentration Short term intact and fci intact Insight/Judgement Good OBJECTIVE: Visit Vitals OB Status Having periods Smoking Status Every Day No results found for: TSH Lab Results Component Value Date GLU 92 07/04/2022 GLU NEGATIVE 07/04/2022 NA 136 07/04/2022 K 3.4 (LL) 07/04/2022 BUN 6.0 (LL) 07/04/2022 CREATININE 0.49 (LL) 07/04/2022 Lab Results Component Value Date WBC 6.2 07/04/2022 No results found for: CHOL No results found for: HDL No results found for: LDLCALC No results found for: TRIG ASSESSMENT AND PLAN: Assessment/Plan Bipolar Disorder most recent episode depressed CHELSEY (generalized anxiety disorder) (CMS/HCC) Alcohol use disorder moderate in early remission This is a 37-year-old female who was referred to counseling and for medication management by Dr. Goldsmith Hx persistent depression and anxiety. We added Caplyta to stabilize mood without weight gain as patient was upset about wt gain. Didn't tolerate antidepressants in past. Continues to be depressed and irritable add lamictal to target depressed mood. Medication List Vistaril 50mg prn Caplyta 42mg daily Trazadone 100mg po every day Lamictal 25mg po daily x14 then 2 tabs daily Educated about risks vs benefits and potential for serious rash Encourage daily exercise and time for herself. Has been on abilify, rexulti in the past. Prozac, zoloft, celexa, lexapro, effexor, cymbalta, wellbutrin. Continues to see Cesar Massey for counseling. Patient was seen Face to Face, Reviewed chart documents and documentation, Visit time : 44min F/U 4 weeks documented in this encounter [facility] 04-19-2024 Telephone encounter Note Sent patient mychart message regarding lumbar MRI denial. She needs to complete EMG and lumbar XR with some further provider directed treatment and we can submit those tests after they are completed and also reorder if needed. [facility] Work Phone: 04-19-2024 Miscellaneous Notes Sent patient mychart message regarding lumbar MRI denial. She needs to complete EMG and lumbar XR with some further provider directed treatment and we can submit those tests after they are completed and also reorder if needed. documented in this encounter [facility] 04-04-2024 History of Present illness Narrative Images from the original note were not included. CHIEF COMPLAINT REASON FOR VISIT: Back pain HPI: Whitney Miller is a 38 y.o. female who presents for a new patient consultation referred by Dr. Javier Goldsmith for chronic right lower back pain with sciatica. She does have back pain that is constant. Pain down into the legs. She states the pain is every where. She states that she feels sore when she is touched even lightly. Sometimes she has trouble with getting up in the morning with walking. She states it happened twice. She states the first time she went to the ER and she could not walk on it and pain down her legs. She states it lasted about 2-3 days. She states [facility] did not do any imaging. Second episode was a couple weeks ago. She states is a recovering alcoholic and wondering if it could be neuropathy. She does get numbness/tingling in her feet. Medications tried: epidurals, prednisone, norco, amitriptyline, duloxetine, tizanidine, meloxicam, buspirone,- rexulti, trazodone, hydroxyzine, sertraline CURRENT MEDICATIONS: ALLERGIES/DISCONTINUE MEDICATIONS Current Outpatient Medications Medication Instructions Caplyta 42 mg, Oral, Daily DULoxetine (Cymbalta) [address] capsule hydrOXYzine pamoate (VISTARIL) 50 mg, Oral, Every 8 hours PRN meloxicam (MOBIC) 7.5-15 mg, Oral, Daily methylPREDNISolone (Medrol Dospak) 4 MG tablets Follow schedule on package instructions olmesartan (BENICAR) 20 mg, Oral, Daily ondansetron ODT (ZOFRAN-ODT) 8 mg, Oral, Every 8 hours PRN pantoprazole (PROTONIX) 40 mg, Oral, Daily before breakfast potassium chloride CR (Klor-Con) 10 MEQ ER tablet 10 mEq, As needed thiamine (VITAMIN B-1) 100 mg, Oral, Daily traZODone (DESYREL) 100 mg, Oral, Nightly Allergies Allergen Reactions Clavulanic Acid Nausea Only Other GI intolerance darvocet Propoxyphene Unknown Prozac [Fluoxetine] Other Bhargavi-insomnia, impulsive decision making, increased depression. Zoloft [Sertraline] Other Increased depression There are no discontinued medications. PAST MEDICAL HISTORY: SURGICAL/SOCIAL/FAMILY HISTORY DEPRESSION SCREEN: Past Medical History: Diagnosis Date Acute alcoholic pancreatitis Addiction to drug ([facility]) Alcohol abuse Alcohol abuse 05/25/2023 Anxiety Bipolar I disorder, most recent episode (or current) depressed ([facility]) C. difficile enteritis 09/04/2022 Chalazion 09/14/2012 Cirrhosis ([facility]) Contact dermatitis 09/14/2012 Depression ([facility]) Gastritis Menorrhagia with irregular cycle 09/04/2022 Pancreatitis Primary localized osteoarthrosis 05/23/2011 Suicide attempt ([facility]) Past Surgical History: Procedure Laterality Date BREAST LUMPECTOMY Left DILATION AND CURETTAGE OF UTERUS TUBAL LIGATION Social History Tobacco Use Smoking status: Every Day Current packs/day: 1.00 Average packs/day: 1 pack/day for 20.2 years (20.2 ttl pk-yrs) Types: Cigarettes Start date: 01/21/2004 Smokeless tobacco: Never Vaping Use Vaping status: Never Used Passive vaping exposure: Yes Substance Use Topics Alcohol use: Not Currently Alcohol/week: 5.0 - 6.0 standard drinks of alcohol Types: 5 - 6 Shots of liquor per week Comment: caffiene 1-2 cups occasionally Drug use: Not Currently Types: Cocaine, Oxycodone Family History Problem Relation Name Age of Onset Cancer Mother Justine Depression Mother Justine Stroke Mother Justine Hearing loss Father Kyle Depression Father Kyle Other (anxiety) Father Kyle Stroke Sister Nicky Depression Sister Nicky Anxiety disorder Sister Nicky Heart disease Paternal Grandfather Emphysema Paternal Grandmother Depression: Not at risk (03/16/2024) PHQ-2 PHQ-2 Score: 1 REVIEW OF SYMPTOMS: Review of Systems Constitutional: Negative for chills, diaphoresis, fatigue and fever. HENT: Negative for ear pain, tinnitus and trouble swallowing. Eyes: Negative for photophobia and visual disturbance. Respiratory: Negative for cough and shortness of breath. Cardiovascular: Negative for palpitations and leg swelling. Gastrointestinal: Negative for abdominal pain and nausea. Genitourinary: Negative for difficulty urinating and urgency. Musculoskeletal: Positive for back pain and gait problem. Negative for arthralgias, myalgias, neck pain and neck stiffness. Neurological: Positive for weakness and numbness. Negative for tremors and light-headedness. Psychiatric/Behavioral: Negative for agitation, confusion and suicidal ideas. OBJECTIVE: 04/04/2024 3:34 PM 03/16/2024 12:06 PM 03/16/2024 11:31 AM Vitals BMI 31.15 kg/m2 31.15 kg/m2 BSA (m2) 2.02 m2 2.02 m2 Systolic 166 182 Diastolic 104 122 Heart Rate 94 Height (in) 5' 6 Weight (lb) 193 193 Visit Report Report Report Report EXAM: Neurological Exam Mental Status Awake, alert and oriented to person, place and time. Oriented to person, place and time. Recent and remote memory are intact. Speech is normal. Language is fluent with no aphasia. Attention and concentration are normal. Cranial Nerves CN II: Visual acuity is normal. Visual fitzgerald full to confrontation. CN III, IV, : Extraocular movements intact bilaterally. Normal lids and orbits bilaterally. Pupils equal round and reactive to light bilaterally. CN V: Facial sensation is normal. CN VII: Full and symmetric facial movement. CN VIII: Hearing is normal. CN XII: Tongue midline without atrophy or fasciculations. Motor Normal muscle bulk throughout. Normal muscle tone. Right Left Wrist flexion 5 5 Wrist extension 5 5 Right Left Deltoid 5 5 Biceps 5 5 Triceps 5 5 Wrist flexor 5 5 Wrist extensor 5 5 Glutei 5 5 Iliopsoas 5 5 Quadriceps 5 5 Gastrocnemius 5 5 Anterior tibialis 5 5 Posterior tibialis 5 5 Sensory Light touch is normal in upper and lower extremities. Pinprick is normal in upper and lower extremities. Vibration is normal in upper and lower extremities. Reflexes Right Left Brachioradialis 2+ 2+ Biceps 2+ 2+ Patellar 2+ 2+ Achilles 2+ 2+ Right Plantar: downgoing Left Plantar: downgoing Right pathological reflexes: Omari's absent. Ankle clonus absent. Left pathological reflexes: Omari's absent. Ankle clonus absent. Coordination [id number], rapid alternating movements and dmrs-[id number]-nest normal bilaterally without dysmetria. Gait Normal casual, toe, heel and tandem gait. Romberg is absent. PROCEDURE: NONE ASSESSMENT AND PLAN: Whitney Miller is a 38 y.o. female that presents with lumbar pain. The possible etiologies include xx degenerative disc disease or facet joint disease. The patient also complains of radicular pain and paresthesias into the lower extremities possibly due to lumbar radiculopathy, lumbosacral plexopathy or peripheral neuropathy. Diagnoses and all orders for this visit: Chronic right-sided low back pain with right-sided sciatica Lumbar radiculopathy I will order XR lumbar spine 6+ views including oblique flexion extension; Future I will order MR lumbar spine wo contrast; Future-NOMS Start thiamine (Vitamin B-1) 100 MG tablet; Take 1 tablet (100 mg) by mouth Daily for overall brain and nerve health.. Start methylPREDNISolone (Medrol Dospak) 4 MG tablets; Follow schedule on package instructions to help with pain and inflammation I counseled the patient on the possible side effects and interactions of medications. EMG 2 Extremities-EMG BLE-I will order an electromyograph evaluation of the lower extremities to assess for nerve damage such as lumbar radiculopathy, lumbar plexopathy, or peripheral neuropathy Total time 30 minutes spent reviewing records, performing medically appropriate exam, counseling , education, ordering medication, tests, and/or procedures, documenting health information into the health record, communicating results to the patient, and coordinating care. Follow up 6-8 weeks. documented in this encounter [facility] 03-23-2024 Telephone encounter Note Refill of protonix and zofran. Also requesting an emergency inhaler. Pt is getting short of breath. Worsens with change in temp. [facility] 03-23-2024 Miscellaneous Notes Refill of protonix and zofran. Also requesting an emergency inhaler. Pt is getting short of breath. Worsens with change in temp. [facility] [place] documented in this encounter [facility] 03-16-2024 History of Present illness Narrative Images from the original note were not included. Whitney Miller is a 38 y.o. female presents for Medication Management. HPI: Patient is here for medication follow up. Patient was started on zoloft 5 weeks ago. Feels like it is making anxiety worse and more irritable. Made her worry more, feels more pressure, Called in and felt like zoloft it was bothering her. We lowered to 25mg and patient doesn't like. Feels it made her worse. Patient has decompensated since last appt. Mood is reported as depressed and rates 2 (10worst) Anxiety is 8 (10worst). I just want my mind to stop. Feels rushed. Fears making a mistake. Works at [employer]. Patient lacks self confidence. Sleeping 7-8. Medication compliant. Reported side effects. See above. Denies abuse of substances. Medical problems since last visit. HTN. Psychosocial stressors include SUBJECTIVE: PAST MEDICAL HISTORY: Past Medical History: Diagnosis Date Acute alcoholic pancreatitis Addiction [place] drug [place] Alcohol abuse Alcohol abuse 05/25/2023 Anxiety Bipolar I disorder, most recent episode (or current) depressed ([facility]) C. difficile enteritis 09/04/2022 Chalazion 09/14/2012 Cirrhosis ([facility]) Contact dermatitis 09/14/2012 Depression ([facility]) Gastritis Menorrhagia with irregular cycle 09/04/2022 Pancreatitis Primary localized osteoarthrosis 05/23/2011 Suicide attempt ([facility]) ALLERGIES: Allergies Allergen Reactions Clavulanic Acid Nausea Only Other GI intolerance darvocet Propoxyphene Unknown Prozac [Fluoxetine] Other Bhargavi-insomnia, impulsive decision making, increased depression. Zoloft [Sertraline] Other Increased depression SURGICAL HISTORY: Past Surgical History: Procedure Laterality Date BREAST LUMPECTOMY Left DILATION AND CURETTAGE OF UTERUS TUBAL LIGATION FAMILY HISTORY: Family History Problem Relation Name Age of Onset Cancer Mother Justine Depression Mother Justine Stroke Mother Justine Hearing loss Father Kyle Depression Father Kyle Other (anxiety) Father Kyle Stroke Sister Nicky Depression Sister Nicky Anxiety disorder Sister Nicky Heart disease Paternal Grandfather Emphysema Paternal Grandmother SOCIAL HISTORY: Social History Tobacco Use Smoking status: Every Day Current packs/day: 1.00 Average packs/day: 1 pack/day for 20.2 years (20.2 ttl pk-yrs) Types: Cigarettes Start date: 01/21/2004 Smokeless tobacco: Never Vaping Use Vaping status: Never Used Passive vaping exposure: Yes Substance Use Topics Alcohol use: Not Currently Alcohol/week: 5.0 - 6.0 standard drinks of alcohol Types: 5 - 6 Shots of liquor per week Comment: caffiene 1-2 cups occasionally Drug use: Not Currently Types: Cocaine, Oxycodone Depression: Not at risk (12/16/2023) PHQ-2 PHQ-2 Score: 2 Recent Concern: Depression - At risk (11/10/2023) PHQ-2 PHQ-2 Score: 3 REVIEW OF SYMPTOMS - MENTAL STATUS EXAM Appearance Appearance: Casual dress, normal grooming and hygiene Attitude Attitude: Cooperative, conversant, engaged, and with good eye contact. Behavior Cooperative, conversant, engaged, and with good eye contact. Speech Normal, clear, regular rate, rhythm and volume Affect full affect appropriate with mood Mood Anxious Thought Process Organized and Clear Thought Content No Suicidal Ideation and No Homicidal ideation Perception No perceptual abnormalities noted Orientation Appropriate to age, Person, Place, and Time Memory/Concentration Short term intact and fci intact Insight/Judgement Good OBJECTIVE: Visit Vitals OB Status Having periods Smoking Status Every Day No results found for: TSH Lab Results Component Value Date GLU 92 07/04/2022 GLU NEGATIVE 07/04/2022 NA 136 07/04/2022 K 3.4 (LL) 07/04/2022 BUN 6.0 (LL) 07/04/2022 CREATININE 0.49 (LL) 07/04/2022 Lab Results Component Value Date WBC 6.2 07/04/2022 No results found for: CHOL No results found for: HDL No results found for: LDLCALC No results found for: TRIG ASSESSMENT AND PLAN: Assessment/Plan Bipolar Disorder most recent episode depressed CHELSEY (generalized anxiety disorder) ([facility]) Alcohol use disorder moderate in early remission Medication List Vistaril 50mg prn Discontinue zoloft -patient felt made her more anxious Increase Caplyta 42mg daily Trazadone 100mg po every day This is a 37-year-old female who was referred to counseling and for medication management by Dr. Goldsmith Due to persistent depression and anxiety. Came tp appt on Cymbalta 120mg and Trazodone for sleep. Continues to have difficulty with sleep, depression and anxiety. Patients sx meet criteria for Bipolar Disorder most recent mixed. Lowered cymbalta, and added caplyta and patient's mood is much improved and stable. We added Caplyta to stabilize mood without weight gain as patient was upset about wt gain. Has been on abilify, rexulti in the past. Prozac, zoloft, celexa, lexapro, effexor, cymbalta, wellbutrin. Continues to see E. Massey for counseling. Patient was seen Face to Face, Reviewed chart documents and documentation, Visit time :45min F/U 3 weeks Patient does not like the Zoloft, feels It is increasing her anxiety, having more panic attacks. Having about 3-4 daily. documented in this encounter [facility] 02-10-2024 History of Present illness Narrative Images from the original note were not included. Whitney Miller is a 38 y.o. female presents for Medication Management. HPI: Patient is here for medication follow up. Patient has improved since last appt. Mood is reported as no depressive episodes. Anxiety related to new job. Some days are worse than others. Sleeping 7-8 hours. Medication compliant. No reported side effects. Denies abuse of substances. Denies alcohol use. Medical problems since last visit. Pain in leg. Seeing neurologist. Psychosocial stressors include new job anxiety. SUBJECTIVE: PAST MEDICAL HISTORY: Past Medical History: Diagnosis Date Acute alcoholic pancreatitis Addiction to drug ([facility]) Alcohol abuse Alcohol abuse 05/25/2023 Anxiety Bipolar I disorder, most recent episode (or current) depressed ([facility]) C. difficile enteritis 09/04/2022 Chalazion 09/14/2012 Cirrhosis ([facility]) Contact dermatitis 09/14/2012 Depression ([facility]) Gastritis Menorrhagia with irregular cycle 09/04/2022 Pancreatitis Primary localized osteoarthrosis 05/23/2011 Suicide attempt ([facility]) ALLERGIES: Allergies Allergen Reactions Clavulanic Acid Nausea Only Other GI intolerance darvocet Propoxyphene Unknown Prozac [Fluoxetine] Other Bhargavi-insomnia, impulsive decision making, increased depression. Zoloft [Sertraline] Other Increased depression SURGICAL HISTORY: Past Surgical History: Procedure Laterality Date BREAST LUMPECTOMY Left DILATION AND CURETTAGE OF UTERUS TUBAL LIGATION FAMILY HISTORY: Family History Problem Relation Name Age of Onset Cancer Mother Justine Depression Mother Justine Stroke Mother Justine Hearing loss Father Kyle Depression Father Kyle Other (anxiety) Father Kyle Stroke Sister Nicky Depression Sister Nicky Anxiety disorder Sister Nicky Heart disease Paternal Grandfather Emphysema Paternal Grandmother SOCIAL HISTORY: Social History Tobacco Use Smoking status: Every Day Current packs/day: 1.00 Average packs/day: 1 pack/day for 20.0 years (20.0 ttl pk-yrs) Types: Cigarettes Start date: 01/21/2004 Smokeless tobacco: Never Vaping Use Vaping status: Never Used Passive vaping exposure: Yes Substance Use Topics Alcohol use: Not Currently Alcohol/week: 5.0 - 6.0 standard drinks of alcohol Types: 5 - 6 Shots of liquor per week Comment: caffiene 1-2 cups occasionally Drug use: Not Currently Types: Cocaine, Oxycodone Depression: Not at risk (12/16/2023) PHQ-2 PHQ-2 Score: 2 Recent Concern: Depression - At risk (11/10/2023) PHQ-2 PHQ-2 Score: 3 REVIEW OF SYMPTOMS - MENTAL STATUS EXAM Appearance Appearance: Casual dress, normal grooming and hygiene Attitude Attitude: Cooperative, conversant, engaged, and with good eye contact. Behavior Cooperative, conversant, engaged, and with good eye contact. Speech Normal, clear, regular rate, rhythm and volume Affect full affect appropriate with mood Mood Anxious Thought Process Organized and Clear Thought Content No Suicidal Ideation and No Homicidal ideation Perception No perceptual abnormalities noted Orientation Appropriate to age, Person, Place, and Time Memory/Concentration Short term intact and buttermaker intact Insight/Judgement Good OBJECTIVE: Visit Vitals OB Status Having periods Smoking Status Every Day No results found for: TSH Lab Results Component Value Date GLU 92 07/04/2022 GLU NEGATIVE 07/04/2022 NA 136 07/04/2022 K 3.4 (LL) 07/04/2022 BUN 6.0 (LL) 07/04/2022 CREATININE 0.49 (LL) 07/04/2022 Lab Results Component Value Date WBC 6.2 07/04/2022 No results found for: CHOL No results found for: HDL No results found for: LDLCALC No results found for: TRIG ASSESSMENT AND PLAN: Assessment/Plan Assess/Plan SmartLinks: There are no diagnoses linked to this encounter. Bipolar Disorder most recent episode depressed CHELSEY (generalized anxiety disorder) ([facility]) Alcohol use disorder moderate in early remission Medication List Cymbalta 60mg daily Decrease cymbalta 30mg for 2 weeks then every other day for a week Then stop Start Zoloft 50mg po daily caplyta 21mg po every day Trazodone 50mg po every day This is a 37-year-old female who was referred to counseling and for medication management by Dr. Goldsmith Due to persistent depression and anxiety. Came tp appt on Cymbalta 120mg and Trazodone for sleep. Continues to have difficulty with sleep, depression and anxiety. Patients sx meet criteria for Bipolar Disorder most recent mixed. Lowered cymbalta, and added caplyta and patient's mood is much improved and stable. We added Caplyta to stabilize mood without weight gain as patient was upset about wt gain. Has been on abilify, rexulti in the past. Prozac, zoloft, celexa, lexapro, effexor, cymbalta, wellbutrin. Continues to see Cesar Massey for counseling. Patient was seen Face to Face, Reviewed chart documents and documentation, Visit time : 30min F/U - 5 weeks Patient was seen Face to Face, Reviewed chart documents and documentation, Visit time : Psych Medication List Patient was seen Face to Face, Reviewed chart documents and documentation, Visit time : documented in this encounter [facility] 01-21-2024 History of Present illness Narrative Images from the original note were not included. SUBJECTIVE: HPI: Whitney Miller is a 38 y.o. female who presents with chief complaint of ER Follow-up Pt states that she is here for an ER follow up. Pt states this morning she was up at 3am due to the right knee pain. Pt states that they did not do imaging at [facility]. ER Follow-up I have reviewed and reconciled the history and medication list with the patient today. Depression: Not at risk (12/16/2023) PHQ-2 PHQ-2 Score: 2 Recent Concern: Depression - At risk (11/10/2023) PHQ-2 PHQ-2 Score: 3 reports that she has been smoking cigarettes. She started smoking about 20 years ago. She has a 20 pack-year smoking history. She has never used smokeless tobacco. She reports that she does not currently use alcohol after a past usage of about 5.0 - 6.0 standard drinks of alcohol per week. She reports that she does not currently use drugs after having used the following drugs: Cocaine and Oxycodone. OBJECTIVE: 08/10/2023 9:13 AM 09/29/2023 9:35 AM 10/19/2023 9:50 AM 10/20/2023 8:29 AM 11/10/2023 11:48 AM 12/16/2023 1:00 PM 01/21/2024 2:17 PM Vitals BMI 29.54 kg/m2 30.02 kg/m2 30.12 kg/m2 30.02 kg/m2 29.7 kg/m2 29.7 kg/m2 30.99 kg/m2 BSA (m2) 1.97 m2 1.98 m2 1.98 m2 1.98 m2 1.97 m2 1.97 m2 2.01 m2 Systolic 130 132 120 128 116 148 164 Diastolic 82 98 76 98 76 108 100 Heart Rate 106 90 82 76 89 91 100 SpO2 99 % 99 % 98 % Temp 97.9 F 97.2 F 98.2 F Height (in) 5' 6 5' 6 5' 6 Weight (lb) 183 186 186.6 186 184 184 192 Visit Report Report Report Report Report Report Report Physical Exam Constitutional: General: She is not in acute distress. Appearance: She is not ill-appearing or toxic-appearing. HENT: Head: Normocephalic. Eyes: Conjunctiva/sclera: Conjunctivae normal. Pulmonary: Effort: Pulmonary effort is normal. No respiratory distress. Breath sounds: No stridor. Abdominal: General: Abdomen is flat. Tenderness: There is no abdominal tenderness. Musculoskeletal: General: No swelling or signs of injury. Normal range of motion. Cervical back: Normal range of motion. Right lower leg: Edema (R>L) present. Left lower leg: Edema present. Skin: General: Skin is warm and dry. Neurological: General: No focal deficit present. Mental Status: She is alert. Mental status is at baseline. Psychiatric: Mood and Affect: Mood normal. Behavior: Behavior normal. Thought Content: Thought content normal. Judgment: Judgment normal. No results found for this or any previous visit (from the past 4 weeks). ASSESSMENT AND PLAN: Assessment/Plan Diagnoses and all orders for this visit: Unilateral edema of lower extremity - Vascular US lower extremity venous duplex right Polyarthralgia - predniSONE (Deltasone) 10 MG tablet; Take 3 tablets (30 mg) by mouth Daily for 5 days, THEN 2 tablets (20 mg) Daily for 2 days, THEN 1 tablet (10 mg) Daily for 2 days. Notified of neg LE DVT, treat for worsening of polyarthralgia Continue to monitor elevated BP, she is in pain today and upset about her experience in the ER Patient Active Problem List Diagnosis Alcoholic cirrhosis of liver with ascites (CMS/HCC) Alcoholic peripheral neuropathy (CMS/HCC) Asthma without status asthmaticus (CMS/HCC) Current smoker Dysthymia (CMS/HCC) CHELSEY (generalized anxiety disorder) ([facility]/HCC) History of alcohol abuse Insomnia Chronic bilateral low back pain without sciatica Cirrhosis ([facility]/HCC) Alcohol use disorder, moderate, in early remission ([facility]/HCC) Abdominal pain Diarrhea Family history of colon cancer Bipolar I disorder, most recent episode (or current) mixed ([facility]/HCC) Bipolar I disorder, most recent episode depressed ([facility]/HCC) Past Medical History: Diagnosis Date Acute alcoholic pancreatitis Addiction to drug ([facility]/HCC) Alcohol abuse Alcohol abuse 05/25/2023 Anxiety Bipolar I disorder, most recent episode (or current) depressed ([facility]/HCC) C. difficile enteritis 09/04/2022 Chalazion 09/14/2012 Cirrhosis ([facility]/HCC) Contact dermatitis 09/14/2012 Depression ([facility]/HCC) Gastritis Menorrhagia with irregular cycle 09/04/2022 Pancreatitis Primary localized osteoarthrosis 05/23/2011 Suicide attempt ([facility]) documented in this encounter [facility] 12-21-2023 Telephone encounter Note Called patient to follow up from last cx appt, no answer and vm full. [facility] 12-21-2023 Miscellaneous Notes Called patient to follow up from last cx appt, no answer and vm full. documented in this encounter [facility] 12-16-2023 History of Present illness Narrative Images from the original note were not included. Whitney Miller is a 38 y.o. female presents for Medication Management. HPI: Patient is here for medication follow up. Patient has been on Caplyta. I feel a lot better. Patient has improved since last appt. Mood is reported as no longer having depressive episodes. Anxiety is for the most part its under control. 2-3 (10worst).Gets nervous coming to doctors, when has to be social. I over think. Sleeping 8 hours. Medication compliant. No reported side effects. Denies abuse of substances. Denies alcohol use since 10/10/23. Trying to keep busy. She feels bored. Denies Medical problems since last visit. Psychosocial stressors include financial. Looking for a job.Works registered phlebotomist part time SUBJECTIVE: PAST MEDICAL HISTORY: Past Medical History: Diagnosis Date Acute alcoholic pancreatitis Addiction to drug ([facility]) Alcohol abuse Alcohol abuse 05/25/2023 Anxiety Bipolar I disorder, most recent episode (or current) depressed ([facility]) C. difficile enteritis 09/04/2022 Chalazion 09/14/2012 Cirrhosis ([facility]) Contact dermatitis 09/14/2012 Depression ([facility]) Gastritis Menorrhagia with irregular cycle 09/04/2022 Pancreatitis Primary localized osteoarthrosis 05/23/2011 Suicide attempt ([facility]) ALLERGIES: Allergies Allergen Reactions Clavulanic Acid Nausea Only Other GI intolerance darvocet Propoxyphene Unknown Prozac [Fluoxetine] Other Bhargavi-insomnia, impulsive decision making, increased depression. Zoloft [Sertraline] Other Increased depression SURGICAL HISTORY: Past Surgical History: Procedure Laterality Date BREAST LUMPECTOMY Left DILATION AND CURETTAGE OF UTERUS TUBAL LIGATION FAMILY HISTORY: Family History Problem Relation Name Age of Onset Cancer Mother Justine Depression Mother Justine Stroke Mother Justine Hearing loss Father Kyle Depression Father Kyle Other (anxiety) Father Kyle Stroke Sister Nicky Depression Sister Nicky Anxiety disorder Sister Nicky Heart disease Paternal Grandfather Emphysema Paternal Grandmother SOCIAL HISTORY: Social History Tobacco Use Smoking status: Every Day Current packs/day: 1.00 Average packs/day: 1 pack/day for 19.9 years (19.9 ttl pk-yrs) Types: Cigarettes Start date: 01/21/2004 Smokeless tobacco: Never Vaping Use Vaping status: Never Used Passive vaping exposure: Yes Substance Use Topics Alcohol use: Not Currently Alcohol/week: 5.0 - 6.0 standard drinks of alcohol Types: 5 - 6 Shots of liquor per week Comment: caffiene 1-2 cups occasionally Drug use: Not Currently Types: Cocaine, Oxycodone Depression: At risk (11/10/2023) PHQ-2 PHQ-2 Score: 3 REVIEW OF SYMPTOMS - MENTAL STATUS EXAM Appearance Appearance: Casual dress, normal grooming and hygiene Attitude Attitude: Cooperative, conversant, engaged, and with good eye contact. Behavior Cooperative, conversant, engaged, and with good eye contact. Speech Normal, clear, regular rate, rhythm and volume Affect full affect appropriate with mood Mood euthymic /mild anxiety Thought Process Organized and Clear Thought Content No Suicidal Ideation Perception No perceptual abnormalities noted Orientation Appropriate to age, Person, Place, and Time Memory/Concentration Short term intact and buttermaker intact Insight/Judgement Good OBJECTIVE: Visit Vitals OB Status Having periods Smoking Status Every Day No results found for: TSH Lab Results Component Value Date GLU 92 07/04/2022 GLU NEGATIVE 07/04/2022 NA 136 07/04/2022 K 3.4 (LL) 07/04/2022 BUN 6.0 (LL) 07/04/2022 CREATININE 0.49 (LL) 07/04/2022 Lab Results Component Value Date WBC 6.2 07/04/2022 No results found for: CHOL No results found for: HDL No results found for: LDLCALC No results found for: TRIG ASSESSMENT AND PLAN: ASSESSMENT AND PLAN Bipolar Disorder most recent episode depressed CHELSEY (generalized anxiety disorder) (CMS/HCC) Alcohol use disorder moderate in early remission Medication List Cymbalta 60mg daily caplyta 21mg po every day Trazodone 50mg po every day This is a 37-year-old female who was referred to counseling and for medication management by Dr. Goldsmith Due to persistent depression and anxiety. Came tp appt on Cymbalta 120mg and Trazodone for sleep. Continues to have difficulty with sleep, depression and anxiety. Patients sx meet criteria for Bipolar Disorder most recent mixed. Lowered cymbalta, and added caplyta and patient's mood is much improved and stable. We added Caplyta to stabilize mood without weight gain as patient was upset about wt gain. Has been on abilify, rexulti in the past. Prozac, zoloft, celexa, lexapro, effexor, cymbalta, wellbutrin. Continues to see Cesar Massey for counseling. Patient was seen Face to Face, Reviewed chart documents and documentation, Visit time : 35min F/U - 8 weeks Patient was seen Face to Face, Reviewed chart documents and documentation, Visit time : documented in this encounter [facility] 07-13-2023 Evaluation note Authored July 13, 2023 1:33 pm 36-year-old female with alco holic liver disease came today for follow-up. + Epigastric pain + Chronic diarrhea + alcohol use FibroScan on 10/07/2022 showed LSM 7.1 which is not consistent with advanced fibrosis FIB- 4 in 09/2022 is 0.61 which is not consistent with demand fibrosis Ultrasound 2022 showed cirrhotic liver without focal liver lesions. EGD on 08/26/2022 showed gastric erosion, gastric biopsy was negative for H. pylori. No varices. -Patient still drinks few shots every 2 weeks. Patient was counseled about the importance of alcohol abstinence. -Regarding ascites, patient does not have ascites however she is on spironolactone 100 mg daily. I ask the patient to stop spironolactone and monitor for any signs of volume overload -will get ultrasound liver and AFP every 6 months -Patient needs hepatitis A and B vaccines. -Regarding epigastric pain, previous EGD showed gastric erosion, gastric biopsies were negative for H. pylori, patient is already on Protonix 40 mg daily. Ultrasound liver showed cirrhotic liver otherwise no findings that explain the pain. will arrange for gastric emptying study to assess for gastroparesis. -Regarding chronic diarrhea,Will get Labs including CBC with diff, TSH, ESR, CRP, fecal calprotectin HIV ab, Celiac panel,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 Vital Signs: Temp Pulse Resp BP Pulse Ox O2 Del Method 97.7 F 103 H 19 144/85 H 99 Room Air 08/25/22 15:57 08/25/22 19:15 08/25/22 19:15 08/25/22 19:15 08/25/22 19:15 08/25/22 19:15 Narrative: CONST- Appears well -developed and well nourished. HEAD - Normocephalic and atraumatic EENT-Sclera nonicteric, conjunctive are non-erythemic, moist oral mucosa, pharynx clear NECK-Supple, no cervical lymphadenopathy CARDIAC- tachycardic, regular rhythm, S1 & S2. PULM-diminished without wheeze or rhonchi, RA, no accessory muscle use or cough noted ABD - Soft. Bowel sounds are normal. No distention. tenderness on palpation EXTREM-no edema BLE calves, nontender SKIN- W/D good turgor MS- MAEX4 spontaneously with equal with equal strength NEURO- A&Ox3 speech clear and tongue midline, equal facial symmetry, no focal motor deficits PSYCH-Mood, affect, and behavior appropriate, slightly anxious Results Lab Results Labs: Laboratory Last Values Corrected WBC 4.2 X10E3/uL (3.8-11.6) 08/25/22 16:45 Uncorrected WBC Count 4.2 x10E3/uL (3.8-11.6) 08/25/22 16:45 RBC 3.47 X10E6/uL (3.60-5.00) L 08/25/22 16:45 Hgb 11.9 g/dL (11.8-15.4) 08/25/22 16:45 Hct 35.9 % (34.0-46.4) 08/25/22 16:45 MCV 103.3 fl (80-100) H 08/25/22 16:45 MCH 34.4 pg (24.7-34.3) H 08/25/22 16:45 MCHC 33.3 g/dL (32.0-35.0) 08/25/22 16:45 RDW 22.5 % (11.9-15.3) H 08/25/22 16:45 Plt Count 134 x10E3/uL (150-450) L 08/25/22 16:45 MPV 8.9 fl (6.3-10.7) 08/25/22 16:45 Neut % (Auto) 57.2 % (.) 08/25/22 16:45 Lymph % (Auto) 32.4 % (.) 08/25/22 16:45 [place] % (Auto) 7.6 % (.) 08/25/22 16:45 Eos % (Auto) 1.6 % (.) 08/25/22 16:45 Baso % (Auto) 1.2 % (.) 08/25/22 16:45 Nucleat RBC Rel Count 0.3 /100 WBC (0-0.5) 08/25/22 16:45 Neut # (Auto) 2.4 x10E3/uL (1.8-7.7) 08/25/22 16:45 Lymph # (Auto) 1.4 x10E3/uL (1.00-4.8) 08/25/22 16:45 [place] # (Auto) 0.3 x10E3/uL (0.0-0.8) 08/25/22 16:45 Eos # (Auto) 0.1 x10E3/uL (0.0-0.45) 08/25/22 16:45 Baso # (Auto) 0.1 x10E3/uL (0.0-0.2) 08/25/22 16:45 Monocyte Dist Width 17.95 % (0.00-20.00) 08/25/22 16:45 PT 10.3 Seconds (9.0-12.9) 08/25/22 16:45 INR 0.9 08/25/22 16:45 APTT 32.1 Seconds (25.1-36.5) 08/25/22 16:45 PHA Creatinine Clear 115.95 08/25/22 16:45 Sodium 139 mmol/L (136-145) 08/25/22 16:45 Potassium 3.1 mmol/L (3.5-5.1) L 08/25/22 16:45 Chloride 100 mmol/L (98-107) 08/25/22 16:45 Carbon Dioxide 23.5 mmol/L (21.0-31.0) 08/25/22 16:45 Anion Gap 18.6 mEq/L (6.0-15.0) H 08/25/22 16:45 BUN 13 mg/dL (7-25) 08/25/22 16:45 Creatinine 0.64 mg/dL (0.60-1.20) 08/25/22 16:45 Est GFR (CKD-EPI) > 60.0 mL/Min 08/25/22 16:45 Glucose 79 mg/dL (70-100) 08/25/22 16:45 Calcium 8.5 mg/dL (8.6-10.3) L 08/25/22 16:45 Troponin I High Sens 4.6 pg/mL (0.0-15.0) 08/25/22 16:45 Urine Color Yellow (Yellow) 08/25/22 16:55 Urine Appearance Clear (Clear) 08/25/22 16:55 Urine pH 6.5 (5.0-9.0) 08/25/22 16:55 Ur Specific [place] 1.005 (1.001-1.030) 08/25/22 16:55 Urine Protein Negative mg/dL (Negative) 08/25/22 16:55 Urine Glucose (UA) Normal mg/dL (Normal) 08/25/22 16:55 Urine Ketones Negative (Negative) 08/25/22 16:55 Urine Occult Blood Negative (Negative) 08/25/22 16:55 Urine Nitrite Negative (Negative) 08/25/22 16:55 Urine Bilirubin Negative (Negative) 08/25/22 16:55 Urine Urobilinogen Normal mg/dL (Normal) 08/25/22 16:55 Ur Leukocyte Esterase 1+ (Negative) H 08/25/22 16:55 Urine RBC 0-1 /HPF (0-4) 08/25/22 16:55 Urine WBC 0-1 /HPF (0-4) 08/25/22 16:55 Ur Squamous Epith Cells 1-2 /HPF (0-2) 08/25/22 16:55 Urine Bacteria None seen (None Seen) 08/25/22 16:55 Urine HCG, Qual Negative 08/25/22 16:55 Ethyl Alcohol 414 mg/dL 08/25/22 16:45 % Ethyl Alcohol 0.414 % 08/25/22 16:45 Assessment & Plan Assessment/Plan (1) Hematemesis: (2) Nausea and vomiting: (3) Alcohol abuse: Plan Hematemesis Nausea and vomiting ? IV hydration overnight ? Compazine, Zofran for nausea and vomiting ? Consult GI for possible EGD ? Protonix twice daily Thrombocytopenia?current platelet count 134 ? CBC in a.m., continue to monitor Alcohol abuse ? CIWA protocol?Librium and Ativan as needed ? Thiamine, folic acid, vitamin IV daily ? CBC, CMP, magnesium in a.m. Chronic conditions Cirrhosis?hepatic panel now, hepatitis panel, amylase, lipase in a.m. DVT PPx?compression socks, SCDs, pharmacological therapy contraindicated due to hematemesis Diet order?regular, as tolerated CODE STATUS?full code I personally saw this patient on the day of the encounter, reviewed the history,performed the kuo elements of the exam, formulated the plan of care and confirmed the Nurse Practitioner's assessment and plan. I agree with the above,patient endorses heavy drinking 1L per day, has a long Hx of alcohol and has gone through withdrawal before. She is quite anxious about the process but does wish to be admitted for alcohol withdrawal treatment and further cessation. Hematemesis was likely due to a lucas parker tear, her Hgb is stable at 11.9 and will trend with morning CBC, CMP consistent with alcoholic hepatitis. She has never had EGD to screen for varices: She has some electrolyte abnormalities regards to potassium and magnesium and is replaced overnight. Due to the hypomagnesemia and hypokalemia and pending alcohol withdrawal requiring CIWA, she will be in the hospital for more than 2 midnights and thus she was admitted as an inpatient. - Robson Lopes, IP vs OBS Justification Based on differential dx, clinical care plan, and risk of adverse events, if untreated, in my clinical judgement this patient requires an acute care setting as: INPATIENT because of an expectation of an over 2 midnight stay. Estimated length of stay (# of days): 3 Documented By: Saira Bruce, PRESSING MACHINE TENDER 08/25/222115 Signed By: <Electronically signed by CLARE Bruce> 08/25/222137 <Electronically signed by Robson Lopes DO> 08/26/22205 [facility] Work Phone: [phone] NoteAdmission Information Admitting Physician - Ton ENGEL DO A Hospital Course 34-year-old female with chronic alcoholism, tobacco dependence, anxiety, depression, fatty liver with ascites who had undergone 2 previous paracentesis 1 year ago, presented with alcohol withdrawal symptoms requesting detoxification. She was subsequently admitted to [facility] with acute alcohol intoxication, acute alcohol withdrawal, nausea, urinary tract infection, hypokalemia and lactic acidosis. She was treated with IV fluid, IV and oral potassium chloride supplements, IV and oral Ativan as needed. She was also treated with as needed antiemetics. The patient's overall condition improved and her alcohol withdrawal symptoms resolved. She was seen by the rn case management and was offered inpatient alcohol treatment and patient refused and wanted only outpatient alcohol treatment. She was seen prior to discharge and remained in an improved and stable condition for discharge and was subsequently discharged to home on Ativan twice daily as needed potassium chlorideand Keflex. She has been advised to abstain from alcohol and to follow through with outpatient alcohol treatment program. Physical Exam Vitals & Measurements T: 36.5 ?C (Oral) TMIN: 36.4 ?C (Oral) TMAX: 36.6 ?C (Oral) HR: 79(Peripheral) RR: 16 BP: 133/89 SpO2: 98% WT: 74.5 kg General: alert, no acute distress Skin: warm, dry Head: no trauma, normocephalic Neck: Trachea midline, no adenopathy, no tenderness Eye: normal conjunctiva, sclera clear ENMT: TM's clear, oral mucosa moist, no pharyngeal erythema or exudate Cardiovascular: regular rate and rhythm, normal peripheral perfusion Respiratory: Lungs CTA, respirations non labored Chest wall: no deformity. Gastrointestinal: soft, non distended, no tenderness, no guarding. Bowel sounds intact. Back: No tenderness, Normal ROM, Normal alignment. Extremities: no deformity, no trauma Neurological: oriented x 4, LOC appropriate for age, CN II-XII intact, motor strength equal & normal bilaterally, sensation equal & normal bilaterally, speech normal Psychiatric: cooperative, affect appropriate for age, normal judgement, normal psychiatric thoughts. Discharge Plan 1. Acute alcohol intoxication (F10.929: Alcohol use, unspecified with intoxication, unspecified) Resolved. Patient advised to abstain from alcohol. 2. Chronic alcohol dependence, continuous (F10.20: Alcohol dependence, uncomplicated) Advised to abstain from alcohol. 3. Alcohol withdrawal (F10.239: Alcohol dependence with withdrawal, unspecified) Resolved. Treated with Ativan as needed. 4. Nausea (R11.0: Nausea) Resolved. 5. Urinary tract infection (N39.0: Urinary tract infection, site not specified) Treated with IV ceftriaxone in the hospital and transition to oral Keflex at discharge. Final urine culture result pending. Ordered: cephalexin, 500 mg = 1 cap(s), Oral, q12hr, X 5 day(s), # 10 cap(s), Refills(s) 0, Pharmacy: [facility]/pharmacy #[id number], 167, cm, 08/20/20 20:06:00 EDT, Height/Length Dosing, 72.2, kg, 08/20/20 20:06:00 EDT,Weight Dosing 6. Anxiety and depression (F41.9: Anxiety disorder, unspecified) Supportive care. 7. Elevated lactic acid level (R79.89: Other specified abnormal findings of blood chemistry) Secondary to chronic alcoholism. Resolved. Replaced. Continue on oral potassium chloride. 8. Hypokalemia (E87.6: Hypokalemia) Replaced orally. Ordered: potassium chloride, 40 mEq = 2 tab(s), Tab-ER, Oral, Once, Stop date 08/22/20 10:00:00 EDT, Routine, Start date 08/22/20 10:00:00 EDT 9. Tobacco abuse (Z72.0: Tobacco use) Recommend cessation. 10. Macrocytosis (D75.89: Other specified diseases of blood and blood-forming organs) Secondary to chronic alcoholism. 11. Abnormal LFTs (R94.5: Abnormal results of liver function studies) Secondary to chronic alcoholism. 12. Abnormal ECG (R94.31: Abnormal electrocardiogram [ECG] [EKG]) Secondary to electrolyte abnormalities. No chest pain no palpitations. Patient Discharge Condition Stable. Discharge Disposition Home. Discharge Medication List Prescriptions Keflex 500 mg Cap, 500 mg= 1 cap(s), Oral, q12hr LORazepam 1 mg Tab, 1 mg= 1 tab(s), Oral, BID, PRN potassium chloride 20 mEq ER Tab, 20 mEq= 1 tab(s), Oral, Daily Home No active home medications Follow-up With When Contact Information Ramila Davidson 08/27/2020 11:00 AM EDT [address] [facility] [place] [id number]- Business (1) Additional Instructions: Patient Education Urinary Tract Infection, Adult, Nwiz-bx-Ryam Alcohol Withdrawal Syndrome, Liww-ib-Fgrk Alcohol Withdrawal Syndrome, Vwvk-xp-KyibMouxyzRiverview Health InstituteComment on above:Result Comment: Electronically Signed By: AVA BAPTISTE, Cameron\.br\Date and Time Signed: 08/22/20 09:44 [id number] NoteChief Complaint Alcohol abuse History of Present Illness Patient is a pleasant obese and anxious 34-year-old white female with a past medical history significant for chronic alcohol dependence. Patient admits to to a detox facility in May she believes the name of it was [facility]. She was required to stay there for 7 days. She states that prior to that she was drinking a bottle of whiskey on a daily basis. He was doing well at the time of discharge. She does state since discharge that she would occasional drink with a frequency of about 2-3 times per week states over the past 2 to 3 weeks however she has been drinking she describes as a fire ball which is 20% alcohol of a small volume but she would drink 12 a day. States that she began drinking again because of dealing with depression and significant anxiety and the stresses of life. She denies however any suicidal ideation. She states she has not been taking the medications that was given to her upon discharge in May including her folic acid and thiamine. Patient statessheri was seen by Dr. Boykin a systematic theology professor in [place] and has had 2 prior paracentesis for abdominal ascites. She denies having any upper endoscopy and denies any known history of esophageal varices. She states she was also told she has a fatty liver. Patient states in regards to severity ofalcohol withdrawal she does describe having 1 isolated to [place] seizure after abstaining from alcohol for less than a 24-hour period of time in February. He states she has had periods of hallucinations but does not recognize the term delirium tremens. Patient presented to the emergency department this evening with below Patient states she decided that it was time for her to stop drinking alcohol and wanted some help. She states that she does not trust herself at home attempting to abstain. Last drink was 1/2-hour before presentation. She states that she was feeling somewhat shaky, has some right-sided abdominal pain ,felt nauseated and experienced generalized itching. The case had been presented to me by the emergency department that patient was asking for help, hoping to be admitted and that her CIWA score was 14 and that she does have prior history of significant alcohol withdrawal. UA was also abnormal suggestive of UTI. Patient states I always have urinary frequency denies any change denies any dysuria or urgency. She denies any fevers or chills does admit to being sweaty however. Prior to my going into evaluate the patient patient's nurse scored her as a CIWA of 4. Patient appeared non distressed on the general medical floor though she was anxious, skin was moist when her hands were held outthere was minimal fine tremors. When interviewing patient at the bedside she did state that she called several places including [facility] and she states when she told him that she had ascites they suggested she was too sick to go to rehab and that she should go to the hospital. Review of Systems Constitutional: no fever, no chills, mild sweats, no weakness Skin: no Jaundice, no rash, no lesions, nopetechiae ENMT: no ear pain, no sore throat, no congestion, no hoarseness Respiratory: no shortness of breath, no cough, no orthopnea, no wheezing Cardiovascular: no chest pain, no palpitations, no edema Gastrointestinal: mild nausea, mild vomiting?patient states she has vomited every day for last 2 weeks, no diarrhea, no GI bleeding Genitourinary: no dysuria, admits to chronic frequency Musculoskeletal: no back pain, no trauma Neurologic: no headache, no dizziness, no numbness, no weakness Psychiatric: moderate sleeping problems, no irritability, admits to significant anxiety and depression but denies any suicidal ideation Heme/Lymph: no bleeding tendency, mild bruising tendency, no petechiae, no swollen nodes Allergy/Immunologic: no seasonal allergies, no food allergies, no recurrent infections, no impairedimmunity Additional ROS info: Except as noted in the above Review of Systems and in the History of Present Illness all other systems have been reviewed and are negative or noncontributory. Physical Exam Vitals & Measurements T: 36.8 ?C (Oral) TMIN: 36.5 ?C (Oral) TMAX: 36.8 ?C (Oral) HR: 77(Monitored) RR: 18 BP: 135/90 SpO2: 100% WT: 73.0 kg General: alert, patient appeared non distressed as I entered into the room. With conversation she did appear somewhat anxious was appropriate Skin: warm, moist Head: no trauma, normocephalic Neck: Trachea midline, no adenopathy, no tenderness Eye: normal conjunctiva, sclera clear ENMT: TM's clear, oral mucosa moist, no pharyngeal erythema or exudate Cardiovascular: regular rate and rhythm, normal peripheral perfusion Respiratory: Lungs CTA, respirations non labored Chest wall: no deformity. Gastrointestinal: soft, non distended, no tenderness, no guarding. Back: No tenderness, Normal ROM, Normal alignment. Extremities: no deformity, no trauma Neurological: (more content not included)...[facility] InstituteComment on above:Result Comment: Electronically Signed By: Ton ENGEL DO\.garcia\Date and Time Signed: 08/21/20 04:58 EDTEvaluation note* Diagnosis Onset Date Resolution Status Alcohol abuse acute Hematemesis acute Nausea and vomiting acute [facility] Work Phone: Evaluation noteNo InformationNort [employer] Other Evaluation noteNo assessment information available [facility] Work Phone: Evaluation note* Diagnosis CHELSEY (generalized anxiety disorder) (CMS/HCC)- Primary Generalized anxiety disorder History of alcohol abuse Nondependent alcohol abuse, in remission Current smoker Alcoholic cirrhosis, unspecified whether ascites present (CMS/HCC) Gastroesophageal reflux disease without esophagitis Esophageal reflux Encounter for gynecological examination without abnormal finding Screening for malignant neoplasm of cervix Screening for malignant neoplasm of the cervix [facility] Diagnosis Alcoholic cirrhosis of liver with ascites (CMS/HCC)- Primary CHELSEY (generalized anxiety disorder) (CMS/HCC) Generalized anxiety disorder Chronic bilateral low back pain without sciatica Alcoholic peripheral neuropathy (CMS/HCC) Alcoholic polyneuropathy Bipolar I disorder, most recent episode depressed, moderate (CMS/HCC) Bipolar I disorder, most recent episode (or current) depressed, moderate CHELSEY (generalized anxiety disorder) (CMS/HCC) Generalized anxiety disorder Alcohol abuse Nondependent alcohol abuse, unspecified drinking behavior [facility] Diagnosis Alcoholic cirrhosis of liver with ascites (CMS/HCC)- Primary CHELSEY (generalized anxiety disorder) (CMS/HCC) Generalized anxiety disorder Chronic bilateral low back pain without sciatica Alcoholic peripheral neuropathy (CMS/HCC) Alcoholic polyneuropathy Unilateral edema of lower extremity- Primary Polyarthralgia Pain in joint, multiple sites [facility] Diagnosis Alcoholic cirrhosis of liver with ascites (CMS/HCC)- Primary CHELSEY (generalized anxiety disorder) (CMS/HCC) Generalized anxiety disorder Chronic bilateral low back pain without sciatica Alcoholic peripheral neuropathy (CMS/HCC) Alcoholic polyneuropathy Psychophysiological insomnia Persistent disorder of initiating or maintaining sleep Bipolar I disorder, most recent episode depressed, moderate (CMS/HCC) Bipolar I disorder, most recent episode (or current) depressed, moderate CHELSEY (generalized anxiety disorder) (CMS/HCC) Generalized anxiety disorder [facility] Diagnosis Alcoholic cirrhosis of liver with ascites (CMS/HCC)- Primary CHELSEY (generalized anxiety disorder) (CMS/HCC) Generalized anxiety disorder Chronic bilateral low back pain without sciatica Alcoholic peripheral neuropathy (CMS/HCC) Alcoholic polyneuropathy Bipolar I disorder, most recent episode depressed, moderate (CMS/HCC) Bipolar I disorder, most recent episode (or current) depressed, moderate Psychophysiological insomnia Persistent disorder of initiating or maintaining sleep CHESLEY (generalized anxiety disorder) (CMS/HCC) Generalized anxiety disorder Alcohol abuse Nondependent alcohol abuse, unspecified drinking behavior [facility] Diagnosis Alcoholic cirrhosis of liver with ascites (CMS/HCC)- Primary CHELSEY (generalized anxiety disorder) (CMS/HCC) Generalized anxiety disorder Chronic bilateral low back pain without sciatica Alcoholic peripheral neuropathy (CMS/HCC) Alcoholic polyneuropathy CHELSEY (generalized anxiety disorder) (CMS/HCC) Generalized anxiety disorder Bipolar I disorder, most recent episode (or current) mixed (CMS/HCC) Bipolar I disorder, most recent episode (or current) mixed, unspecified [facility] Diagnosis Alcoholic cirrhosis of liver with ascites (CMS/HCC)- Primary CHELSEY (generalized anxiety disorder) (CMS/HCC) Generalized anxiety disorder Chronic bilateral low back pain without sciatica Alcoholic peripheral neuropathy (CMS/HCC) Alcoholic polyneuropathy Bipolar I disorder, most recent episode depressed, moderate (CMS/HCC) Bipolar I disorder, most recent episode (or current) depressed, moderate Psychophysiological insomnia Persistent disorder of initiating or maintaining sleep CHELSEY (generalized anxiety disorder) ([facility]/HCC) Generalized anxiety disorder Alcohol abuse Nondependent alcohol abuse, unspecified drinking behavior [facility]* Diagnosis Bipolar I disorder, most recent episode depressed (CMS/HCC) Bipolar I disorder, most recent episode (or current) depressed, unspecified CHELSEY (generalized anxiety disorder) ([facility]/HCC) Generalized anxiety disorder Alcohol abuse Nondependent alcohol abuse, unspecified drinking behavior [facility] Diagnosis CHELSEY (generalized anxiety disorder) ([facility]/HCC) Generalized anxiety disorder Bipolar I disorder, most recent episode depressed, moderate ([facility]/HCC) Bipolar I disorder, most recent episode (or current) depressed, moderate Alcohol abuse Nondependent alcohol abuse, unspecified drinking behavior [facility]* Diagnosis Bipolar I disorder, most recent episode depressed, moderate (CMS/HCC) Bipolar I disorder, most recent episode (or current) depressed, moderate [facility]* Diagnosis Alcoholic cirrhosis of liver with ascites (CMS/HCC)- Primary CHELSEY (generalized anxiety disorder) (CMS/HCC) Generalized anxiety disorder Chronic bilateral low back pain without sciatica Alcoholic peripheral neuropathy (CMS/HCC) Alcoholic polyneuropathy Chronic right-sided low back pain with right-sided sciatica- Primary Lumbar radiculopathy Thoracic or lumbosacral neuritis or radiculitis, unspecified [facility] Diagnosis Alcoholic cirrhosis of liver with ascites (CMS/HCC)- Primary CHELSEY (generalized anxiety disorder) (CMS/HCC) Generalized anxiety disorder Chronic bilateral low back pain without sciatica Alcoholic peripheral neuropathy (CMS/HCC) Alcoholic polyneuropathy Alcohol use disorder, moderate, in early remission (CMS/HCC) Bipolar I disorder, most recent episode depressed, moderate (CMS/HCC) Bipolar I disorder, most recent episode (or current) depressed, moderate [facility]* Diagnosis Alcoholic cirrhosis of liver with ascites (CMS/HCC)- Primary CHELSEY (generalized anxiety disorder) (CMS/HCC) Generalized anxiety disorder Chronic bilateral low back pain without sciatica Alcoholic peripheral neuropathy (CMS/HCC) Alcoholic polyneuropathy Bipolar I disorder, most recent episode depressed, moderate (CMS/HCC) Bipolar I disorder, most recent episode (or current) depressed, moderate CHELSEY (generalized anxiety disorder) (CMS/HCC) Generalized anxiety disorder Alcohol use disorder, moderate, in early remission (CMS/HCC) [facility]* Diagnosis Alcoholic cirrhosis of liver with ascites (CMS/HCC)- Primary CHELSEY (generalized anxiety disorder) (CMS/HCC) Generalized anxiety disorder Chronic bilateral low back pain without sciatica Alcoholic peripheral neuropathy (CMS/HCC) Alcoholic polyneuropathy Bipolar I disorder, most recent episode depressed, moderate (CMS/HCC) Bipolar I disorder, most recent episode (or current) depressed, moderate CHELSEY (generalized anxiety disorder) (CMS/HCC) Generalized anxiety disorder History of alcohol abuse Nondependent alcohol abuse, in remission Insomnia, unspecified type [facility] Diagnosis Alcoholic cirrhosis of liver with ascites (CMS/HCC)- Primary CHELSEY (generalized anxiety disorder) (CMS/HCC) Generalized anxiety disorder Chronic bilateral low back pain without sciatica Alcoholic peripheral neuropathy (CMS/HCC) Alcoholic polyneuropathy Bipolar I disorder, most recent episode (or current) mixed (CMS/HCC) Bipolar I disorder, most recent episode (or current) mixed, unspecified CHELSEY (generalized anxiety disorder) (CMS/HCC) Generalized anxiety disorder Bipolar I disorder, most recent episode depressed, moderate (CMS/HCC) Bipolar I disorder, most recent episode (or current) depressed, moderate [facility]* Diagnosis Alcoholic cirrhosis of liver with ascites (CMS/HCC)- Primary CHELSEY (generalized anxiety disorder) (CMS/HCC) Generalized anxiety disorder Chronic bilateral low back pain without sciatica Alcoholic peripheral neuropathy (CMS/HCC) Alcoholic polyneuropathy Bipolar I disorder, most recent episode (or current) mixed (CMS/HCC) Bipolar I disorder, most recent episode (or current) mixed, unspecified CHELSEY (generalized anxiety disorder) (CMS/HCC) Generalized anxiety disorder History of alcohol abuse Nondependent alcohol abuse, in remission Insomnia, unspecified type [facility]* Diagnosis Alcoholic cirrhosis of liver with ascites (CMS/HCC)- Primary CHELSEY (generalized anxiety disorder) (CMS/HCC) Generalized anxiety disorder Chronic bilateral low back pain without sciatica Alcoholic peripheral neuropathy (CMS/HCC) Alcoholic polyneuropathy Bipolar I disorder, most recent episode (or current) mixed (CMS/HCC) Bipolar I disorder, most recent episode (or current) mixed, unspecified CHELSEY (generalized anxiety disorder) (CMS/HCC) Generalized anxiety disorder History of alcohol abuse Nondependent alcohol abuse, in remission [facility]* Diagnosis Alcoholic cirrhosis of liver with ascites (CMS/HCC)- Primary CHELSEY (generalized anxiety disorder) (CMS/HCC) Generalized anxiety disorder Chronic bilateral low back pain without sciatica Alcoholic peripheral neuropathy (CMS/HCC) Alcoholic polyneuropathy Bipolar I disorder, most recent episode (or current) mixed (CMS/HCC) Bipolar I disorder, most recent episode (or current) mixed, unspecified CHELSEY (generalized anxiety disorder) (CMS/HCC) Generalized anxiety disorder History of alcohol abuse Nondependent alcohol abuse, in remission [facility]* Diagnosis Alcoholic cirrhosis of liver with ascites (CMS/HCC)- Primary CHELSEY (generalized anxiety disorder) (CMS/HCC) Generalized anxiety disorder Chronic bilateral low back pain without sciatica Alcoholic peripheral neuropathy (CMS/HCC) Alcoholic polyneuropathy Bipolar I disorder, most recent episode (or current) mixed (CMS/HCC) Bipolar I disorder, most recent episode (or current) mixed, unspecified Psychophysiological insomnia Persistent disorder of initiating or maintaining sleep documented [facility]* Diagnosis Alcoholic cirrhosis of liver with ascites (CMS/HCC)- Primary CHELSEY (generalized anxiety disorder) (CMS/HCC) Generalized anxiety disorder Chronic bilateral low back pain without sciatica Alcoholic peripheral neuropathy (CMS/HCC) Alcoholic polyneuropathy Well adult exam- Primary Routine general medical examination at a health care facility Chronic fatigue Other malaise and fatigue Alcoholic cirrhosis of liver with ascites (CMS/HCC) CHELSEY (generalized anxiety disorder) (CMS/HCC) Generalized anxiety disorder Current smoker Class 1 obesity due to excess calories without serious comorbidity with body mass index (BMI) of 33.0 to 33.9 in adult documented [facility]* Diagnosis Alcoholic cirrhosis of liver with ascites (CMS/HCC)- Primary CHELSEY (generalized anxiety disorder) (CMS/HCC) Generalized anxiety disorder Chronic bilateral low back pain without sciatica Alcoholic peripheral neuropathy (CMS/HCC) Alcoholic polyneuropathy Bipolar I disorder, most recent episode (or current) mixed (CMS/HCC) Bipolar I disorder, most recent episode (or current) mixed, unspecified CHELSEY (generalized anxiety disorder) (CMS/HCC) Generalized anxiety disorder History of alcohol abuse Nondependent alcohol abuse, in remission documented [facility]* Diagnosis Alcoholic cirrhosis of liver with ascites (CMS/HCC)- Primary CHELSEY (generalized anxiety disorder) (CMS/HCC) Generalized anxiety disorder Chronic bilateral low back pain without sciatica Alcoholic peripheral neuropathy (CMS/HCC) Alcoholic polyneuropathy Bipolar I disorder, most recent episode (or current) mixed (CMS/HCC) Bipolar I disorder, most recent episode (or current) mixed, unspecified [facility] Diagnosis Alcoholic cirrhosis of liver with ascites (CMS/HCC)- Primary CHELSEY (generalized anxiety disorder) (CMS/HCC) Generalized anxiety disorder Chronic bilateral low back pain without sciatica Alcoholic peripheral neuropathy (CMS/HCC) Alcoholic polyneuropathy Vitamin D deficiency- Primary Class 1 obesity due to excess calories without serious comorbidity with body mass index (BMI) of 33.0 to 33.9 in adult Dyslipidemia (CMS/HCC) Other and unspecified hyperlipidemia [facility]* Diagnosis Alcoholic cirrhosis of liver with ascites (CMS/HCC)- Primary CHELSEY (generalized anxiety disorder) (CMS/HCC) Generalized anxiety disorder Chronic bilateral low back pain without sciatica Alcoholic peripheral neuropathy (CMS/HCC) Alcoholic polyneuropathy Bipolar I disorder, most recent episode (or current) mixed (CMS/HCC) Bipolar I disorder, most recent episode (or current) mixed, unspecified CHELSEY (generalized anxiety disorder) ([facility]/HCC) Generalized anxiety disorder History of alcohol abuse Nondependent alcohol abuse, in remission Psychophysiological insomnia Persistent disorder of initiating or maintaining sleep [facility]* Diagnosis Alcoholic cirrhosis of liver with ascites (CMS/HCC)- Primary CHELSEY (generalized anxiety disorder) (CMS/HCC) Generalized anxiety disorder Chronic bilateral low back pain without sciatica Alcoholic peripheral neuropathy (CMS/HCC) Alcoholic polyneuropathy Bipolar I disorder, most recent episode (or current) mixed (CMS/HCC) Bipolar I disorder, most recent episode (or current) mixed, unspecified CHELSEY (generalized anxiety disorder) (CMS/HCC) Generalized anxiety disorder History of alcohol abuse Nondependent alcohol abuse, in remission documented [facility]* Diagnosis Alcoholic cirrhosis of liver with ascites (HCC)- Primary CHELSEY (generalized anxiety disorder) Generalized anxiety disorder Chronic bilateral low back pain without sciatica Alcoholic peripheral neuropathy (HCC) Alcoholic polyneuropathy Bipolar I disorder, most recent episode (or current) mixed (HCC) Bipolar I disorder, most recent episode (or current) mixed, unspecified [facility]* Diagnosis Alcoholic cirrhosis of liver with ascites (HCC)- Primary CHELSEY (generalized anxiety disorder) Generalized anxiety disorder Chronic bilateral low back pain without sciatica Alcoholic peripheral neuropathy (HCC) Alcoholic polyneuropathy Class 1 obesity due to excess calories without serious comorbidity with body mass index (BMI) of 33.0 to 33.9 in adult documented [facility]* Diagnosis Alcoholic cirrhosis of liver with ascites (HCC)- Primary CHELSEY (generalized anxiety disorder) Generalized anxiety disorder Chronic bilateral low back pain without sciatica Alcoholic peripheral neuropathy (HCC) Alcoholic polyneuropathy Bipolar I disorder, most recent episode (or current) mixed (HCC) Bipolar I disorder, most recent episode (or current) mixed, unspecified CHELSEY (generalized anxiety disorder) Generalized anxiety disorder History of alcohol abuse Nondependent alcohol abuse, in remission documented [facility]* Diagnosis Alcoholic cirrhosis of liver with ascites (HCC)- Primary CHELSEY (generalized anxiety disorder) Generalized anxiety disorder Chronic bilateral low back pain without sciatica Alcoholic peripheral neuropathy (HCC) Alcoholic polyneuropathy Bipolar I disorder, most recent episode (or current) mixed (HCC) Bipolar I disorder, most recent episode (or current) mixed, unspecified CHELSEY (generalized anxiety disorder) Generalized anxiety disorder [facility]* Diagnosis Alcoholic cirrhosis of liver with ascites (HCC)- Primary CHELSEY (generalized anxiety disorder) Generalized anxiety disorder Chronic bilateral low back pain without sciatica Alcoholic peripheral neuropathy (HCC) Alcoholic polyneuropathy Attention and concentration deficit- Primary Abnormal weight gain Mild intermittent asthma without status asthmaticus without complication (HCC) documented [facility]* Diagnosis Alcoholic cirrhosis of liver with ascites (HCC)- Primary CHELSEY (generalized anxiety disorder) Generalized anxiety disorder Chronic bilateral low back pain without sciatica Alcoholic peripheral neuropathy (HCC) Alcoholic polyneuropathy Abnormal weight gain documented [facility]* Diagnosis Alcoholic cirrhosis of liver with ascites (HCC)- Primary CHELSEY (generalized anxiety disorder) Generalized anxiety disorder Chronic bilateral low back pain without sciatica Alcoholic peripheral neuropathy (HCC) Alcoholic polyneuropathy Abnormal weight gain documented [facility] this encounter [facility] Narrative - Reported* Type Description Date Surgical History lumpectomy Surgical History laparoscopy Surgical History atypical Hospitalization History see above [facility] Other Reason for referral (narrative)* Consultation (Routine) - Authorized Specialty Diagnoses / Procedures Referred By Contac t Referred To Contact Behavioral Health Diagnoses CHELSEY (generalized anxiety disorder) (CMS/HCC) History of alcohol abuse Procedures OR OFFICE/OUTPATIENT NEW HIGH MDM 60 MINUTES Javier Goldsmith, DO [address] [place] [address] Devante Morgan, [employer] [address] [place] [address] Referral ID Status Reason Start Date Expiration Date Visits Requested Visits Authorized [id number] Authorized Specialty Services Required 05/25/2023 11/21/2023 1 1 * Consultation (Routine) - Authorized Specialty Diagnoses / Procedures Referred By Contac t Referred To Contact Behavioral Health Diagnoses CHELSEY (generalized anxiety disorder) (CMS/HCC) History of alcohol abuse Procedures OR OFFICE/OUTPATIENT NEW HIGH MDM 60 MINUTES Javier Goldsmith, DO [address] [place] [address] [facility] [address] [place] [address] Referral ID Status Reason Start Date Expiration Date Visits Requested Visits Authorized [id number] Authorized Specialty Services Required 05/25/2023 11/21/2023 1 1 [facility] (narrative)No reason for referral information [facility] Work Phone: Reason for visit Narrative* Consultation (Routine) - Closed Specialty Diagnoses / Procedures Referred By Contac t Referred To Contact Neurology Diagnoses Chronic right-sided low back pain with right-sided sciatica Procedures OR OFFICE/OUTPATIENT [facility] HIGH MDM 60 MINUTES Javier Goldsmith DO [address] [place] [address] Phone: tel: fax: Ruba Oconnor MD [address] [place] [address] Phone: tel: fax: Referral ID Status Reason Start Date Expiration Date V isits Requested Visits Authorized [id number] Closed Specialty Services Required 01/22/2024 07/20/2024 1 1 [facility] Healthcare Summary Purpose Family History Relationship Condition Age at Onset Recorded Date/T juju sister Opioid dependence Unknown Relationship Condition Age at Onset Recorded Date/T juju sister Opioid dependence Unknown Not Specified Unknown Relationship Condition Age at Onset Recorded Date/T juju sister Opioid dependence Unknown Cerebrovascular accident (CVA) Unknown mother Unknown Malignant neoplasm of anus Unknown Malignant neoplasm of throat Unknown Malignant neoplasm of rectum Unknown Advance Directives Advance Directive Response Recorded Date/ Time Advance Directives No August 08 8:51am Advance Directive Response Recorded Date/ Time Advance Directives No August 08 7:51am Chief Complaint and Reason for Visit Chief Complaint vomiting blood Reason for Visit Alcohol abuse Hematemesis Nausea and vomiting Chief Complaint vomiting blood alcoholic cirrohsis Reason for Visit Alcohol abuse Hematemesis Nausea and vomiting Chief Complaint vomiting blood alcoholic cirrohsis K70.30 R77.2 Reason for Visit Alcohol abuse Hematemesis Nausea and vomiting Chief Complaint R18.8 K70.30 K76.6 K 72.90 Chief Complaint FOLLOW UP US Reason for Visit Abdominal pain Alcohol abuse Cirrhosis Diarrhea Family history of colon cancer Chief Complaint FOLLOW UP US R10.9 Reason for Visit Abdominal pain Alcohol abuse Cirrhosis Diarrhea Family history of colon cancer Chief Complaint Admit [facility] December 06, 2024 1 :48pm Chief Complaint Admit Date [facility] December 06, 2024 1 :48pm [facility] [place] MED[place]ID December 07, 2024 1 0:41am Additional Source Comments INFORMATION SOURCE (unrecogn ized section and content) DATE CREATED AUTHOR 08/24/2020 Edwin Pickettus [facility] DATE CREATED AUTHOR AUTHOR'S ORGANIZ ATION 07/10/2022 [facility] DATE CREATED AUTHOR AUTHOR'S ORGANIZ ATION 08/17/2023 [facility] DATE CREATED AUTHOR AUTHOR'S ORGANIZ ATION 11/11/2024 [facility] EPIC Care Teams (unrecognized sec tion and content) Team Status: Active Member Role Status Dates Javier Goldsmith DO Primary Care Provider Active Team Status: Inactive Member Role Status Dates Javier Goldsmith , Primary Care Provider Active Brenda Mcclain , DO Emergency Provider Active Robson Lopes , DO Admit Provider Active Erin Reynoso MD Other Provider Active Homa Buckner MD Attending Provider Active Team Status: Active Member Role Status Dates Javier Goldsmith , Primary Care Provider Active Brenda Mcclain , DO Emergency Provider Active Robson Lopes , DO Admit Provider, Attending Provider Active Team Status: Inactive Member Role Status Dates Javier Goldsmith , Primary Care Provider Active Erin Reynoso MD Attending Provider Active Door Paneler Relationship Specialty Start Date End Date GuytonJavier ellingtonDO [address] [place] [address] PCP - General Family Medicine 04/22/23 Door Paneler Relationship Specialty Start Date End Date GuytonJavier ellington [address] [place] [address] PCP - General Family Medicine 04/22/23 Team Status: Inactive Member Role Status Dates Javier Goldsmith DO Primary Care Provider Active Start: July 13, 2023 End: July 13, 2023 Erin Reynoso MD Attending Provider Active Start: July 13, 2023 End: July 13, 2023 Team Status: Inactive Member Role Status Dates Javier Goldsmith DO Primary Care Provider Active Start: July 27, 2023 End: July 27, 2023 Erin Reynoso MD Attending Provider Active Start: July 27, 2023 End: July 27, 2023 Door Paneler Relationship Specialty Start Date End Date aJvier Goldsmith, DO [address] [place] [address] PCP - General Family Medicine 04/22/23 Javier Goldsmith, DO [address] [place] [address] PCP - [facility] 10/12/23 Door Paneler Relationship Specialty Start Date End Date Javier Goldsmith, DO [address] [place] [address] PCP - [facility] Family Medicine 04/22/23 Javier Goldsimth DO [address] [place] [address] PCP [facility] 10/12/23 Door Paneler Relationship Specialty Start Date End Date Javier Goldsmith, DO [address] [place] [address] PCP - General Family Medicine 04/22/23 Javier Goldsmith, DO [address] [place] [address] PCP [facility] 10/12/23 Door Paneler Relationship Specialty Start Date End Date Javier Goldsmith, DO [address] [place] [address] PCP - [facility] Family Medicine 04/22/23 Javier Goldsmith, DO [address] [place] [address] PCP - FFS [facility] 10/12/23 Door Paneler Relationship Specialty Start Date End Date Rupal Javier Rodríguez, DO [address] [place] [address] PCP - General Family Medicine 04/22/23 Rupal Javier Arreguin, DO [address] [place] [address] PCP [facility] 10/12/23 Door Paneler Relationship Specialty Start Date End Date Javier Goldsmith, DO [address] [place] [address] PCP - General Family Medicine 04/22/23 Javier Goldsmith, DO [address] [place] [address] PCP [facility] 10/12/23 Door Paneler Relationship Specialty Start Date End Date Javier Goldsmith, DO [address] [place] [address] PCP - General Family Medicine 04/22/23 Javier Goldsmith, DO [address] [place] [address] PCP [facility] 10/12/23 Door Paneler Relationship Specialty Start Date End Date Javier Goldsmith, DO [address] [place] [address] PCP - General Family Medicine 04/22/23 Javier Goldsmith, DO [address] [place] [address] (Fax) PCP - FFS [facility] 10/12/23 Door Paneler Relationship Specialty Start Date End Date Rupal Javier Rodríguez, DO [address] [place] [address] PCP - General Family Medicine 04/22/23 Rupal Javier Arreguin, DO [address] [place] [address] PCP [facility] 10/12/23 Door Paneler Relationship Specialty Start Date End Date Javier Goldsmith, DO [address] [place] [address] PCP - General Family Medicine 04/22/23 Javier Goldsmith, DO [address] [place] [address] PCP [facility] 10/12/23 Door Paneler Relationship Specialty Start Date End Date Javier Goldsmith, DO [address] [place] [address] PCP - General Family Medicine 04/22/23 Javire Goldsmith, DO [address] [place] [address] PCP [facility] 10/12/23 Door Paneler Relationship Specialty Start Date End Date Javier Goldsmith, DO [address] [place] [address] PCP - General Family Medicine 04/22/23 Javier Goldsmith, DO [address] [place] [address] (Fax) PCP - FFS [facility] 10/12/23 Door Paneler Relationship Specialty Start Date End Date Rupal Javier Rodríguez, DO [address] [place] [address] PCP - General Family Medicine 04/22/23 Rupal Javier Arreguin, DO [address] [place] [address] PCP [facility] 10/12/23 Door Paneler Relationship Specialty Start Date End Date Javier Goldsmith, DO [address] [place] [address] PCP - General Family Medicine 04/22/23 Javier Goldsmith, DO [address] [place] [address] PCP [facility] 10/12/23 Door Paneler Relationship Specialty Start Date End Date Javier Goldsmith, DO [address] [place] [address] PCP - General Family Medicine 04/22/23 Javier Goldsmith, DO [address] [place] [address] PCP [facility] 10/12/23 Door Paneler Relationship Specialty Start Date End Date Javier Goldsmith, DO [address] [place] [address] PCP - General Family Medicine 04/22/23 Javier Goldsmith, DO [address] [place] [address] (Fax) PCP - S [facility] 10/12/23 Door Paneler Relationship Specialty Start Date End Date Javier Goldsmith, DO [address] [place] [address] PCP - General Family Medicine 04/22/23 Javier Goldsmith, DO [address] [place] [address] PCP - S [facility] 10/12/23 Door Paneler Relationship Specialty Start Date End Date Javier Goldsmith, DO [address] [place] [address] PCP - General Family Medicine 04/22/23 Javier Goldsmith DO [address] [place] [address] [facility] 10/12/23 Rony Massey, [facility] [address] [place] [address] Noc Analyst Behavioral Health 04/26/24 Devante Morgan APRN-AWNING HANGER [address] [address] Nurse Practitioner Psychiatry 04/26/24 Door Paneler Relationship Specialty Start Date End Date Javier Goldsmith, DO [address] [place] [address] PCP - General Family Medicine 04/22/23 Javier Goldsmith, DO [address] [place] [address] PCP - S [facility] 10/12/23 Rony Massey, [facility] [address] [place] [address] Noc Analyst Behavioral Health 04/26/24 Devante Morgan, PRESSING MACHINE TENDER-AWNING HANGER [address] [place] [address] Nurse Practitioner Psychiatry 04/26/24 Door Paneler Relationship Specialty Start Date End Date Javier Goldsmith, DO [address] [place] [address] PCP - General Family Medicine 04/22/23 Javier Goldsmith DO [address] [place] [address] [facility] - FFS [facility] 10/12/23 Rony Massey, [facility] [address] [place] [address] Noc Analyst Behavioral Health 04/26/24 Devante Morgan, PRESSING MACHINE TENDER-AWNING HANGER [address] [place] [address] Nurse Practitioner Psychiatry 04/26/24 Door Paneler Relationship Specialty Start Date End Date Javier Goldsmith DO [address] [place] [address] PCP - General Family Medicine 04/22/23 Javeir Goldsmith, DO [address] [place] [address] PCP - S [facility] 10/12/23 Rony Massey, [facility] [address] [place] [address] Noc Analyst Behavioral Health 04/26/24 Devante Morgan, PRESSING MACHINE TENDER-AWNING HANGER [address] [place] [address] Nurse Practitioner Psychiatry 04/26/24 Door Paneler Relationship Specialty Start Date End Date Javier Goldsmith, DO [address] [place] [address] PCP - General Family Medicine 04/22/23 Javier Goldsmith DO [address] [place] [address] [facility] - FFS [facility] 10/12/23 Rony Massey, [facility] [address] [place] [address] Noc Analyst Behavioral Health 04/26/24 Devante Morgan, PRESSING MACHINE TENDER-AWNING HANGER [address] [place] [address] Nurse Practitioner Psychiatry 04/26/24 Door Paneler Relationship Specialty Start Date End Date Javier Goldsmith DO [address] [place] [address] PCP - General Family Medicine 04/22/23 Javier Goldsmith, DO [address] [place] [address] PCP - S [facility] 10/12/23 Rony Massey, [facility] [address] [place] [address] Noc Analyst Behavioral Health 04/26/24 Devante Morgan, PRESSING MACHINE TENDER-AWNING HANGER [address] [place] [address] Nurse Practitioner Psychiatry 04/26/24 Door Paneler Relationship Specialty Start Date End Date Javier Goldsmith, DO [address] [place] [address] PCP - General Family Medicine 04/22/23 Javier Goldsmith DO [address] [place] [address] [facility] - FFS [facility] 10/12/23 Rony Massey, [facility] [address] [place] [address] Noc Analyst Behavioral Health 04/26/24 Devnate Morgan, PRESSING MACHINE TENDER-AWNING HANGER [address] [place] [address] Nurse Practitioner Psychiatry 04/26/24 Door Paneler Relationship Specialty Start Date End Date Javier Goldsmith DO [address] [place] [address] PCP - General Family Medicine 04/22/23 Javier Goldsmith, DO [address] [place] [address] PCP - S [facility] 10/12/23 Rony Massey, [facility] [address] [place] [address] Noc Analyst Behavioral Health 04/26/24 Devante Morgan, PRESSING MACHINE TENDER-AWNING HANGER [address] [place] [address] Nurse Practitioner Psychiatry 04/26/24 Door Paneler Relationship Specialty Start Date End Date Javier Goldsmith, DO [address] [place] [address] PCP - General Family Medicine 04/22/23 Javier Goldsmith DO [address] [place] [address] [facility] - FFS [facility] 10/12/23 Rony Massey, [facility] [address] [place] [address] Noc Analyst Behavioral Health 04/26/24 Devante Morgan, PRESSING MACHINE TENDER-AWNING HANGER [address] [place] [address] Nurse Practitioner Psychiatry 04/26/24 Door Paneler Relationship Specialty Start Date End Date Javier Goldsmith DO [address] [place] [address] PCP - General Family Medicine 04/22/23 Javier Goldsmith, DO [address] [place] [address] PCP - S [facility] 10/12/23 Rony Massey, [facility] [address] [place] [address] Noc Analyst Behavioral Health 04/26/24 Devante Morgan, PRESSING MACHINE TENDER-AWNING HANGER [address] [place] [address] Nurse Practitioner Psychiatry 04/26/24 Door Paneler Relationship Specialty Start Date End Date Javier Goldsmith, DO [address] [place] [address] PCP - General Family Medicine 04/22/23 Javier Goldsmith DO [address] [place] [address] [facility] - FFS [facility] 10/12/23 Rony Massey, [facility] [address] [place] [address] Noc Analyst Behavioral Health 04/26/24 Devante Morgan, PRESSING MACHINE TENDER-AWNING HANGER [address] [place] [address] Nurse Practitioner Psychiatry 04/26/24 Door Paneler Relationship Specialty Start Date End Date Javier Goldsmith DO [address] [place] [address] PCP - General Family Medicine 04/22/23 Javier Goldsmith, DO [address] [place] [address] PCP - S [facility] 10/12/23 Rony Massey, [facility] [address] [place] [address] Noc Analyst Behavioral Health 04/26/24 Devante Morgan, PRESSING MACHINE TENDER-AWNING HANGER [address] [place] [address] Nurse Practitioner Psychiatry 04/26/24 Door Paneler Relationship Specialty Start Date End Date Javier Goldsmith, DO [address] [place] [address] PCP - General Family Medicine 04/22/23 Javier Goldsmith DO [address] [place] [address] [facility] - FFS [facility] 10/12/23 Rony Massey, [facility] [address] [place] [address] Noc Analyst Behavioral Health 04/26/24 Devante Morgan, PRESSING MACHINE TENDER-AWNING HANGER [address] [place] [address] Nurse Practitioner Psychiatry 04/26/24 Door Paneler Relationship Specialty Start Date End Date Javier Goldsmith DO [address] [place] [address] PCP - General Family Medicine 04/22/23 Javier Goldsmith, DO [address] [place] [address] PCP - FFS [facility] 10/12/23 Rony Massey, [facility] [address] [place] [address] Noc Analyst Behavioral Health 04/26/24 Devante Morgan, PRESSING MACHINE TENDER-AWNING HANGER [address] [place] [address] Nurse Practitioner Psychiatry 04/26/24 Team Status: Inactive Member Role Status Dates Javier Goldsmith DO Primary Care Provider Active Start: December 06, 2024 End: December 06, 2024 Diego Britt , PhD Attending Provider Active Start: December 06, 2024 End: December 06, 2024 Team Status: Inactive Member Role Status Dates Javier Goldsmith DO Primary Care Provider Active Start: December 07, 2024 End: December 07, 2024 Diego Britt , PhD Attending Provider Active Start: December 07, 2024 End: December 07, 2024 Door Paneler Relationship Specialty Start Date End Date Javier Goldsmith DO [address] [place] [address] PCP - General Family Medicine 04/22/23 Javier Goldsmith DO [address] [place] [address] PCP - S [facility] 10/12/23 Rony Massey, [facility] [address] [place] [address] Noc Analyst Behavioral Health 04/26/24 Devante Morgan, PRESSING MACHINE TENDER-AWNING HANGER [address] [place] [address] Nurse Practitioner Psychiatry 04/26/24 Goals (unrecognized section and content) Goals may be documented in a n alternate sectionNo InformationNo InformationNo InformationNo InformationNo InformationGoals may be documented in an alternate sectionGoals may be documented in an alternate sectionGoals may be documented in an alternate sectionGoals may be documented in an alternate sectionGoals may be documented in an alternate section REASON FOR VISIT (unrecogniz ed section and content) Reason Comments Follow-up Specialty Diagnoses / Procedures Referred By Contac t Referred To Contact Behavioral Health Diagnoses Generalized anxiety disorder (CMS/HCC) Procedures OR PSYCHIATRIC DIAGNOSTIC EVALUATION [facility] [address] [place] [address] Phone: tel: fax: Rony Massey, [facility] [address] [place] [address] Phone: tel: fax: Referral ID Status Reason Start Date Expiration Date Visits Re quested Visits Authorized [id number] Closed 03/24/2024 09/20/2024 1 1 Reason Comments Med Management Follow-up Specialty Diagnoses / Procedures Referred By Contact Referred To Contact Psychiatry / Behavioral Health Diagnoses med mgmt Procedures OR OFFICE/OUTPATIENT ESTABLISHED LOW MDM [facility] [address] [facility] [address] [place] [address] Phone: tel: fax: Devante Morgan, PRESSING MACHINE TENDER-[facility] [address] [place] [address] Phone: tel: fax: Referral ID Status Reason Start Date Expiration Date Visits Re quested Visits Authorized [id number] Closed 03/24/2024 09/20/2024 1 1 Reason Comments ER Follow-up Reason Comments Med Management Follow-up Reason Onset Date Comments Med Refill 03/23/2024 Reason Onset Date Comments Med Refill 10/08/2024 Reason Comments Weight Check Reason Onset Date Comments Med Refill 12/14/2024 Reason Onset Date Comments Med Refill 01/17/2025 FOR RECORDS PERTAINING TO PATIENTS WHO ARE OR HAVE BEEN ENROLLED IN A CHEMICAL DEPENDENCY/SUBSTANCEABUSE PROGRAM, SOME INFORMATION MAY BE OMITTED. This clinical summary was aggregated from multiple sources. Caution should be exercised in using it in the provision of clinical care. This summary normalizes information from multiple sources, and as a consequence, information in this document may materially change the coding, format and clinical context of patient data. In addition, data may be omitted in some cases. CLINICAL DECISIONS SHOULD BE BASED ON THE PRIMARY CLINICAL RECORDS. [facility]. provides no warranty or guarantee of the accuracy or completeness of information in this document.
[2025-01-24 20:36] LABS: Hematocrit 45.0 % (36.0-48.0); Hemoglobin 16.0 g/dL (12.0-16.0); Immature Granulocytes Abs Auto 0.04 10^3/uL (0.00-0.03); Immature Granulocytes Pct Auto 0.5 % (0.0-0.5); Lymphocytes Absolute Auto 1.7 10^3/uL (1.2-3.8); Mean Corpuscular HGB Conc 35.6 g/dL (29.9-35.2); Mean Corpuscular Hemoglobin 34.6 pg (26.7-34.0); Mean Corpuscular Volume 97.2 fL (81.0-99.0); Platelet Count 223 10^3/uL (150-450); Red Blood Count 4.63 10^6/uL (4.20-5.40); White Blood Count 8.0 10^3/uL (4.0-11.0)
[2025-01-24 20:59] LABS: Anion Gap 26.5; Blood Urea Nitrogen 12.0 mg/dL (7.0-18.0); Calcium 9.0 mg/dL (8.5-10.1); Carbon Dioxide 18.3 mmol/L (21.0-32.0); Chloride 97 mmol/L (98-107); Estimated GFR (African America >60 (>=60 mL/min/1.73m^2); Estimated GFR (Non-African Ame >60 (>=60 mL/min/1.73m^2); Glucose 78 mg/dL (74-106); Potassium 3.8 mmol/L (3.5-5.1); Sodium 138 mmol/L (136-145)
--- NOTE | 2025-01-24 21:21 | PC.NURSE ---
This nurse spent an extensive amount of time speaking with patient Pt states she had been sober for over a year but her dog and then she began experiencing more stress with family situations and turned back to alcohol pt states she does not use any illicit drugs but is on phentermine for weight loss but also has ADHD so she does not believe this works on her as a stimulant. Pt states her anxiety is so bad right now because she is so disappointed in herself for getting back on the bottle and she does not want to go through withdrawal - -wants some medication to get her over this hump
[2025-01-24] MEDS: HYDROXYZINE PAMOATE 25 MG CAPSULE 50 MG PO (22:39)
--- NOTE | 2025-01-24 22:41 | ED.GENADUL1 ---
HPI HPI - General Adult General Chief complaint: Anxiety Stated complaint: Withdrawal Alcohol Time Seen by Provider: 01/24/25 19:58 History of Present Illness HPI narrative: Patient is a 39 yr old female that presents to the emergency department with complaints that she thinks she is about to withdraw from alcohol. She states that she has had seizures in the past when she has withdrawn and feels one coming on. She is also Bipolar and states that she is having an episode of anxiety. She reports a lot of recent anxiety surround her family. She relapsed drinking about 2 weeks ago intermittently and then today drank over half a bottle of liquor. She denies suicidal or homicidal ideations. She does not want to go to rehab but feels unsafe at home. Related Data Home Medications ?Medication ?Instructions ?Recorded ?Confirmed lumateperone 10.5 mg capsule 21 mg PO DAILY 10/13/23 01/24/25 (Caplyta) pantoprazole 40 mg tablet,delayed 40 mg PO DAILY 10/13/23 01/24/25 release trazodone 50 mg tablet 100 mg PO DAILY 10/13/23 01/24/25 lamotrigine 150 mg tablet mg 01/24/25 pantoprazole 40 mg tablet,delayed 40 mg PO DAILY 01/24/25 01/24/25 release (Protonix) phentermine 37.5 mg tablet mg 01/24/25 Previous Rx's ?Medication ?Instructions ?Recorded ondansetron 4 mg disintegrating 4 mg PO Q8H PRN nausea and 10/15/23 tablet vomiting 4 days #10 tabs Allergies Allergy/AdvReac Type Severity Reaction Status Date / Time No Known Drug Allergies Allergy Verified 01/20/24 17:23 Opioid HPI Opioid Management Most Recent Opioid Data: Last Pain Scale 0 Today, 05:16 Last Pain Assessment Today, 01:00 Last MAR Pain Assessment Today, 03:36 Last ORT Total Score 11 01/24/25, 23:34 Last ORT Risk Category High Risk 01/24/25, 23:34 Review of Systems ROS Status of ROS 10 or more systems reviewed and unremarkable except as noted in history and below [facility] Medical History C. difficile colitis ?A04.72 - Enterocolitis due to Clostridium difficile, not specified as recurrent (ICD-10) Hypokalemia ?E87.6 - Hypokalemia (ICD-10) Transaminitis ?R74.01 - Elevation of levels of liver transaminase levels (ICD-10) Acute pancreatitis ?K85.90 - Acute pancreatitis without necrosis or infection, unspecified (ICD-10) Hyponatremia ?E87.1 - Hypo-osmolality and hyponatremia (ICD-10) Tobacco dependence ?F17.200 - Nicotine dependence, unspecified, uncomplicated (ICD-10) Cirrhosis ?K74.60 - Unspecified cirrhosis of liver (ICD-10) Endometriosis ?N80.9 - Endometriosis, unspecified (ICD-10) Anxiety ?F41.9 - Anxiety disorder, unspecified (ICD-10) GERD (gastroesophageal reflux disease) ?K21.9 - Gastro-esophageal reflux disease without esophagitis (ICD-10) Depression ?F32.A - Depression, unspecified (ICD-10) Hypertension ?I10 - Essential (primary) hypertension (ICD-10) Bipolar 1 disorder ?F31.9 - Bipolar disorder, unspecified (ICD-10) Surgical History Tubal ?O00.109 - Unspecified tubal without intrauterine (ICD-10) Hx of dilation and curettage ?Z98.890 - Other specified postprocedural states (ICD-10) History of lumpectomy of left breast ?Z98.890 - Other specified postprocedural states (ICD-10) Family History Grandmother Family history of COPD (chronic obstructive pulmonary disease) Mother Family history of cancer Family history of stroke Sister Family history of stroke Social History Within the past year, how often did you have a drink containing alcohol: 2-4 times a month Within the past year, how many standard drinks containing alcohol did you have on a typical day: 1 or 2 Within the past year, how often did you have six or more drinks on one occasion: less than monthly Total score: 1 Score interpretation: A score of 3 or more indicates drinking is likely to affect patient's safety. Smoking status: Heavy tobacco smoker Non-prescribed substance use: denies use Previous occupational history: unemployed currently Highest level of school completed/degree received: some college, no degree Little interest or pleasure in doing things: more than half the days Feeling down, depressed, or hopeless: more than half the days Feel stressed/tense/nervous/anxious/difficulty sleeping: only a little Life stressors: other Life stressor details: medical problems/ anxiety Exam Narrative Exam Narrative: General: No distress, age-appropriate Skin: Warm, dry, no pallor. No rash. Head: Normocephalic, atraumatic. Neck: Supple, non-tender. Eye: Pupils are equal, round and EOMI. No scleral icterus. Ears, Nose, Mouth, and Throat: No nasal mucosal hypertrophy. Oral mucosa is moist, no posterior oropharynx erythema, uvula is mid-line Cardiovascular: Regular Rate and Rhythm without murmur, gallop or rub. Respiratory: No accessory muscle use or respiratory distress. Lungs are clear to auscultation, no wheezing, rales or rhonchi Chest Wall: no tenderness Musculoskeletal: Full ROM of all extremities, no calf or popliteal tenderness GI: Abdomen is soft, non-distended, non tender to palpation. No masses appreciated. No rebound, guarding, or rigidity noted. Neurological: A&O x4. No cranial nerve dysfunction observed. No truncal ataxia. Moves all extremities. Sensation intact. Constitutional Vital Signs, click to edit/add: Last Vital Signs Temp 98.3 F 01/25/25 04:00 Pulse 70 01/25/25 06:00 Resp 20 01/25/25 04:00 BP 143/72 H 01/25/25 04:00 Pulse Ox 94 L 01/25/25 04:00 O2 Del Method Room Air 01/25/25 04:00 Documenting provider has reviewed patient's vital signs: yes Course Vital Signs Vital signs: Vital Signs Temperature 98.2 F 01/24/25 19:24 Pulse Rate 97 H 01/24/25 19:24 Respiratory Rate 22 H 01/24/25 19:24 Blood Pressure 164/115 H 01/24/25 19:24 Pulse Oximetry 98 01/24/25 19:24 Oxygen Delivery Method Room Air 01/24/25 19:24 Temperature 98.3 F 01/25/25 04:00 Pulse Rate 70 01/25/25 06:00 Respiratory Rate 20 01/25/25 04:00 Blood Pressure 143/72 H 01/25/25 04:00 Pulse Oximetry 94 L 01/25/25 04:00 Oxygen Delivery Method Room Air 01/25/25 04:00 Medical Decision Making MDM Narrative Medical decision making narrative: This is a 39-year-old female with a history of alcohol use disorder and bipolar disorder who presents with concern that she is about to experience alcohol withdrawal. She reports a history of withdrawal seizures in the past and states she ?feels one coming on.? She also describes significant anxiety and recent emotional stress related to family issues. She denies suicidal or homicidal ideations but reports feeling unsafe at home as she feels she will withdraw from alcohol. She is not currently interested in entering a rehabilitation facility. At the time of evaluation, the patient is clinically intoxicated with a serum ethanol level of 296 mg/dL, though she exhibits no signs of active alcohol withdrawal (e.g., no tremors, diaphoresis, tachycardia, agitation, hallucinations, or seizures). She is alert, oriented, and cooperative during the encounter. Laboratory evaluation reveals transaminitis with elevated AST and ALT, consistent with alcoholic hepatitis or acute hepatocellular injury. No significant electrolyte derangements identified at this time. Given her history of withdrawal seizures, high blood alcohol level, and risk of impending withdrawal, the decision was made to observe the patient for signs of withdrawal and initiate early prophylaxis with benzodiazepines per [facility] protocol if/when indicated. Patient agreeable to this and I did speak with Dr Arroyo who accepted the patient for observation. Patient's vitals, exam, and mental status remained stable in the emergency department and she was admitted for observation to the floor. Differential Diagnosis Differential Diagnosis: Alcohol withdrawal, anxiety, substance induced mood/anxiety Lab Data Lab results reviewed: Yes I reviewed the patient's lab results Labs: Lab Results 01/24/25 Range/Units 20:25 WBC 8.0 (4.0-11.0) 10^3/uL RBC 4.63 (4.20-5.40) 10^6/uL Hgb 16.0 (12.0-16.0) g/dL Hct 45.0 (36.0-48.0) % MCV 97.2 (81.0-99.0) fL MCH 34.6 H (26.7-34.0) pg MCHC 35.6 H (29.9-35.2) g/dL RDW 14.6 (11.0-15.0) % Plt Count 223 (150-450) 10^3/uL MPV 9.5 (9.5-13.5) fL Neut % (Auto) 71.5 (43.0-75.0) % Lymph % (Auto) 20.7 (20.5-60.0) % [place] % (Auto) 5.6 (1.7-12.0) % Eos % (Auto) 0.7 L (0.9-7.0) % Baso % (Auto) 1.0 (0.2-2.0) % Neut # (Auto) 5.7 (1.4-6.5) 10^3/uL Lymph # (Auto) 1.7 (1.2-3.8) 10^3/uL [place] # (Auto) 0.5 (0.3-0.8) 10^3/uL Eos # (Auto) 0.1 (0.0-0.7) 10^3/uL Baso # (Auto) 0.1 (0.0-0.1) 10^3/uL Abs Immat Gran (auto) 0.04 H (0.00-0.03) 10^3/uL Imm/Tot Granulo (auto) 0.5 (0.0-0.5) % PT 10.2 (9.0-11.6) sec INR 0.96 Sodium 138 (136-145) mmol/L Potassium 3.8 (3.5-5.1) mmol/L Chloride 97 L (98-107) mmol/L Carbon Dioxide 18.3 L (21.0-32.0) mmol/L Anion Gap 26.5 BUN 12.0 (7.0-18.0) mg/dL Creatinine 0.52 L (0.55-1.02) mg/dL Est GFR ( Amer) >60 (>=60 mL/min/1.73m^2) Est GFR (Non-Af Amer) >60 (>=60 mL/min/1.73m^2) BUN/Creatinine Ratio 23.1 Glucose 78 (74-106) mg/dL Calcium 9.0 (8.5-10.1) mg/dL Phosphorus 3.5 (2.6-4.7) mg/dL Magnesium 1.6 L (1.8-2.4) mg/dL Total Bilirubin 0.6 (0.2-1.0) mg/dL Direct Bilirubin 0.2 (0.0-0.2) mg/dL AST 88 H (15-37) U/L ALT 64 H (14-59) U/L Alkaline Phosphatase 94 (46-116) U/L Total Protein 7.7 (6.4-8.2) g/dL Albumin 4.3 (3.4-5.0) g/dL Globulin 3.4 g/dL Albumin/Globulin Ratio 1.3 Lipase 19.0 (16.0-77.0) U/L Serum HCG, Qual Negative (NEGATIVE) Ethanol Quant 296 mg/dL Discharge Plan Discharge Chief Complaint: Anxiety Clinical Impression: Acute anxiety, Alcohol intoxication Patient Disposition: Admitted as Observation Time of Disposition Decision: 22:48 Condition: Good Discharge Date/Time: 01/24/25 23:43
[2025-01-24 22:44] LABS: INR 0.96; Prothrombin Time 10.2 sec (9.0-11.6)
[2025-01-24 22:46] LABS: Alanine Aminotransferase 64 U/L (14-59); Albumin Globulin Ratio 1.3; Albumin Level 4.3 g/dL (3.4-5.0); Alkaline Phosphatase 94 U/L (46-116); Aspartate Amino Transferase 88 U/L (15-37); Globulin 3.4 g/dL; Total Protein 7.7 g/dL (6.4-8.2)
[2025-01-24 22:47] LABS: Lipase 19.0 U/L (16.0-77.0); Magnesium 1.6 mg/dL (1.8-2.4)
[2025-01-24] MEDS: 0.9 % SODIUM CHLORIDE 1,000 ML 125 ML IV (23:15)
[2025-01-24 23:25] VITALS: BP 150/90; PULSE 80; O2SAT 97
[2025-01-24 23:34] VITALS: BP 141/86; PULSE 76; TEMP 36.6; O2SAT 96; BMI 26.5
[2025-01-25] VITALS (17 sets, daily range): BP systolic 122–150; BP diastolic 72–93; PULSE 69–98; TEMP 36.6–37.2; O2SAT 93–98
[2025-01-25] MEDS: POTASSIUM CHLORIDE 10 MEQ ER TABLET 20 MEQ PO (00:12)
[2025-01-25] MEDS: FOLIC ACID 1 MG TABLET PO ×2 (00:13→08:37)
[2025-01-25] MEDS: THIAMINE HCL 200 MG/2 ML VIAL 400 MG IVP (00:13)
[2025-01-25] MEDS: METOPROLOL TARTRATE 25 MG TABLET PO ×3 (00:13→21:42)
[2025-01-25] MEDS: CALCIUM CARBONATE 500 MG (200MG ELEMENTAL) TAB CHEW PO (00:17)
[2025-01-25] MEDS: DIAZEPAM 10 MG/2 ML SYRINGE 5 MG IV (00:28)
[2025-01-25] MEDS: MAGNESIUM SULFATE IN WATER 2 GM/50 ML PREMIX IV (00:33)
[2025-01-25] MEDS: 0.9 % SODIUM CHLORIDE 1,000 ML 125 ML IV (01:51)
[2025-01-25] MEDS: ALPRAZOLAM 0.5 MG TABLET PO ×3 (03:34→12:37)
[2025-01-25] MEDS: ACETAMINOPHEN 325 MG TABLET 650 MG PO ×2 (03:36→10:40)
[2025-01-25 05:31] LABS: Hematocrit 39.6 % (36.0-48.0); Hemoglobin 13.9 g/dL (12.0-16.0); Mean Corpuscular HGB Conc 35.1 g/dL (29.9-35.2); Mean Corpuscular Hemoglobin 34.2 pg (26.7-34.0); Mean Corpuscular Volume 97.5 fL (81.0-99.0); Platelet Count 195 10^3/uL (150-450); Red Blood Count 4.06 10^6/uL (4.20-5.40); White Blood Count 7.1 10^3/uL (4.0-11.0)
[2025-01-25 05:46] LABS: INR 0.95; Prothrombin Time 10.1 sec (9.0-11.6)
[2025-01-25 05:54] LABS: Alanine Aminotransferase 52 U/L (14-59); Albumin Globulin Ratio 1.2; Albumin Level 3.4 g/dL (3.4-5.0); Alkaline Phosphatase 73 U/L (46-116); Anion Gap 21.5; Aspartate Amino Transferase 76 U/L (15-37); Blood Urea Nitrogen 10.0 mg/dL (7.0-18.0); Calcium 8.5 mg/dL (8.5-10.1); Carbon Dioxide 21.4 mmol/L (21.0-32.0); Chloride 100 mmol/L (98-107); Estimated GFR (African America >60 (>=60 mL/min/1.73m^2); Estimated GFR (Non-African Ame >60 (>=60 mL/min/1.73m^2); Globulin 2.9 g/dL; Glucose 67 mg/dL (74-106); Magnesium 2.0 mg/dL (1.8-2.4); Potassium 3.9 mmol/L (3.5-5.1); Sodium 139 mmol/L (136-145); Total Protein 6.3 g/dL (6.4-8.2)
[2025-01-25 06:09] LABS: Lipase 20.0 U/L (16.0-77.0)
[2025-01-25] MEDS: PANTOPRAZOLE SODIUM 40 MG TABLET.DR PO (08:37)
--- NOTE | 2025-01-25 09:50 | CM.NOTE ---
Rounds made with Dr. Henriquez, clarified status. Pt will be an inpatient status. Discussed plan of care with pt.
--- NOTE | 2025-01-25 10:28 | SWNOTE1 ---
SW met with pt to to discuss alcohol intake, anxiety, and Bipolar. Pt lives at home with her significant other and her 2 boys who are 6 and 11. Pt voiced she is having personal family issues with her father. Pt voiced she is letting it work itself out. SW did ask about her drinking. Pt voiced she had been sober since last October and then had this relapse. Pt does not plan on drinking anymore. She does not go to AA. Has her significant other as support. She does not want to go to any inpt or outpt rehab. SW did ask her about her anxiety and Bipolar Disorder. Pt does go to counseling and also has a psychiatrist as well out of [facility]. Pt really likes her psychiatrist and sees her every few weeks. SW did recommend that she calls her psychiatrist and attempts to see her sooner and more frequent due to the family issues that are going on and her relapse of alcohol. Pt is in agreement with this. SW did provide encouragement and support to pt. Pt voiced appreciation.
--- NOTE | 2025-01-25 12:46 | PM.HP ---
HPI H&P: HPI History of Present Illness Chief complaint: ALCOHOL INTOXICATION, ACUTE ANXIETY Narrative: Patient is a 39 year old female with hx of alcohol use disorder and alcohol withdrawal seizure who presented here with alcohol withdrawal symptoms and would like to detox again. She reports anxiety episodes. she relapsed drinking liquor about 2 weeks ago and yesterday drank over half a bottle of liquor. denies SI or SA. in ER, afebrile, no leukocytosis. The patient was clinically intoxicated with a serum ethanol level of 296 mg/dL, though she exhibits no signs of active alcohol withdrawal (e.g., no tremors, diaphoresis, tachycardia, agitation, hallucinations, or seizures). She is alert, oriented, and cooperative during the encounter. Patient was admitted here for further eval and management. Opioid HPI Opioid Management Most Recent Pain and Opioid Data: Last Pain Scale 7 Today, 10:45 Last Pain Assessment Today, 01:00 Last MAR Pain Assessment Today, 03:36 Last ORT Total Score 11 01/24/25, 23:34 Last ORT Risk Category High Risk 01/24/25, 23:34 Review of Systems ROS Status of ROS 10 or more systems reviewed and unremarkable except as noted in history and below [facility] Medical History C. difficile colitis ?A04.72 - Enterocolitis due to Clostridium difficile, not specified as recurrent (ICD-10) Hypokalemia ?E87.6 - Hypokalemia (ICD-10) Transaminitis ?R74.01 - Elevation of levels of liver transaminase levels (ICD-10) Acute pancreatitis ?K85.90 - Acute pancreatitis without necrosis or infection, unspecified (ICD-10) Hyponatremia ?E87.1 - Hypo-osmolality and hyponatremia (ICD-10) Tobacco dependence ?F17.200 - Nicotine dependence, unspecified, uncomplicated (ICD-10) Cirrhosis ?K74.60 - Unspecified cirrhosis of liver (ICD-10) Endometriosis ?N80.9 - Endometriosis, unspecified (ICD-10) Anxiety ?F41.9 - Anxiety disorder, unspecified (ICD-10) GERD (gastroesophageal reflux disease) ?K21.9 - Gastro-esophageal reflux disease without esophagitis (ICD-10) Depression ?F32.A - Depression, unspecified (ICD-10) Hypertension ?I10 - Essential (primary) hypertension (ICD-10) Bipolar 1 disorder ?F31.9 - Bipolar disorder, unspecified (ICD-10) Surgical History Tubal ?O00.109 - Unspecified tubal without intrauterine (ICD-10) Hx of dilation and curettage ?Z98.890 - Other specified postprocedural states (ICD-10) History of lumpectomy of left breast ?Z98.890 - Other specified postprocedural states (ICD-10) Family History Grandmother Family history of COPD (chronic obstructive pulmonary disease) Mother Family history of cancer Family history of stroke Sister Family history of stroke Social History Within the past year, how often did you have a drink containing alcohol: 2-4 times a month Within the past year, how many standard drinks containing alcohol did you have on a typical day: 1 or 2 Within the past year, how often did you have six or more drinks on one occasion: less than monthly Total score: 1 Score interpretation: A score of 3 or more indicates drinking is likely to affect patient's safety. Smoking status: Heavy tobacco smoker Non-prescribed substance use: denies use Previous occupational history: unemployed currently Highest level of school completed/degree received: some college, no degree Little interest or pleasure in doing things: more than half the days Feeling down, depressed, or hopeless: more than half the days Feel stressed/tense/nervous/anxious/difficulty sleeping: only a little Life stressors: other Life stressor details: medical problems/ anxiety Meds Home Medications and Allergies Home Medications ?Medication ?Instructions ?Recorded ?Confirmed ?Type pantoprazole 40 mg tablet,delayed 40 mg PO .ACB 10/13/23 01/25/25 History release trazodone 50 mg tablet 100 mg PO .QHS 10/13/23 01/25/25 History lamotrigine 150 mg tablet 150 mg PO .QD 01/24/25 01/25/25 History phentermine 37.5 mg tablet 37.5 mg PO .ACB 01/24/25 01/25/25 History cholecalciferol (vitamin D3) 1,250 1,250 mcg PO QWEEK 01/25/25 01/25/25 History mcg (50,000 unit) capsule hydroxyzine pamoate 25 mg capsule 25 mg PO Q12H PRN anxiety 01/25/25 01/25/25 History lumateperone 42 mg capsule 42 mg PO DAILY 01/25/25 01/25/25 History (Caplyta) olmesartan 20 mg tablet 20 mg PO DAILY 01/25/25 01/25/25 History thiamine HCl (vitamin B1) 100 mg 100 mg PO DAILY 01/25/25 01/25/25 History tablet Allergies Allergy/AdvReac Type Severity Reaction Status Date / Time No Known Drug Allergies Allergy Verified 01/20/24 17:23 Exam Narrative Exam Narrative: General: No distress, age-appropriate Skin: Warm, dry, no pallor. No rash. Head: Normocephalic, atraumatic. Neck: Supple, non-tender. Eye: Pupils are equal, round and EOMI. No scleral icterus. Cardiovascular: Regular Rate and Rhythm without murmur, gallop or rub. Respiratory: No accessory muscle use or respiratory distress. Lungs are clear to auscultation, no wheezing, rales or rhonchi Chest Wall: no tenderness Musculoskeletal: Full ROM of all extremities, no calf or popliteal tenderness GI: Abdomen is soft, non-distended, non tender to palpation. No masses appreciated. No rebound, guarding, or rigidity noted. Neurological: A&O x4. No cranial nerve dysfunction observed. No truncal ataxia. Moves all extremities. Sensation intact Constitutional Vital Signs, click to edit/add: Last Vital Signs Temp 98.2 F 01/25/25 12:22 Pulse 86 01/25/25 12:22 Resp 16 01/25/25 12:22 BP 140/83 01/25/25 12:22 Pulse Ox 95 01/25/25 12:22 O2 Del Method Room Air 01/25/25 12:22 Results Labs Labs: Short CBC 01/24/25 01/25/25 Range/Units 20:25 05:05 WBC 8.0 7.1 (4.0-11.0) 10^3/uL Hgb 16.0 13.9 (12.0-16.0) g/dL Hct 45.0 39.6 (36.0-48.0) % Plt Count 223 195 (150-450) 10^3/uL BMP 01/24/25 01/25/25 20:25 05:05 Sodium 138 139 Potassium 3.8 3.9 Chloride 97 L 100 Carbon Dioxide 18.3 L 21.4 BUN 12.0 10.0 Creatinine 0.52 L 0.47 L Glucose 78 67 L Calcium 9.0 8.5 Liver Function 01/24/25 01/25/25 Range/Units 20:25 05:05 Total Bilirubin 0.6 0.9 (0.2-1.0) mg/dL Direct Bilirubin 0.2 (0.0-0.2) mg/dL AST 88 H 76 H (15-37) U/L ALT 64 H 52 (14-59) U/L Alkaline Phosphatase 94 73 (46-116) U/L Albumin 4.3 3.4 (3.4-5.0) g/dL Assessment and Plan Assessment and Plan (1) Alcohol withdrawal syndrome: (2) Alcohol intoxication: Plan Alcohol withdrawal syndrome -Start CIWA protocol with Librium and Ativan -Start Thiamine and Folate supplements -IV hydration as needed -Valium PRN for anxiety -Hydroxyzine as directed -Nicotine patch -Monitor hemodynamics -Supportive care -Monitor for DTs/Seizure DVT ppx: Lovenox Diet: regular D/w pt at bedside, all questions answered. Pt eager to go home however withdrawal symptoms starts around 24-72 hours from last drink. she agreed to stay here for treatment, will require more than 2 midnights.
[2025-01-25] MEDS: ENOXAPARIN SODIUM 40 MG/0.4 ML SYRINGE SUBQ (13:48)
[2025-01-25] MEDS: CLORDIAZEPOXIDE HCl 25 MG CAPSULE 50 MG PO ×2 (15:21→21:42)
[2025-01-25] MEDS: LORAZEPAM 1 MG TABLET PO (18:20)
[2025-01-25] MEDS: TRAZODONE HCL 50 MG TABLET 100 MG PO (21:43)
[2025-01-26] VITALS (20 sets, daily range): BP systolic 118–154; BP diastolic 80–99; PULSE 76–112; TEMP 36.4–36.8; O2SAT 80–98
[2025-01-26 05:41] LABS: Hematocrit 42.4 % (36.0-48.0); Hemoglobin 14.7 g/dL (12.0-16.0); Immature Granulocytes Abs Auto 0.02 10^3/uL (0.00-0.03); Immature Granulocytes Pct Auto 0.4 % (0.0-0.5); Lymphocytes Absolute Auto 1.2 10^3/uL (1.2-3.8); Mean Corpuscular HGB Conc 34.7 g/dL (29.9-35.2); Mean Corpuscular Hemoglobin 34.8 pg (26.7-34.0); Mean Corpuscular Volume 100.5 fL (81.0-99.0); Platelet Count 141 10^3/uL (150-450); Red Blood Count 4.22 10^6/uL (4.20-5.40); White Blood Count 4.7 10^3/uL (4.0-11.0)
[2025-01-26 06:00] LABS: Alanine Aminotransferase 73 U/L (14-59); Albumin Globulin Ratio 1.1; Albumin Level 3.3 g/dL (3.4-5.0); Alkaline Phosphatase 80 U/L (46-116); Anion Gap 14.6; Aspartate Amino Transferase 80 U/L (15-37); Blood Urea Nitrogen 13.0 mg/dL (7.0-18.0); Calcium 9.1 mg/dL (8.5-10.1); Carbon Dioxide 25.8 mmol/L (21.0-32.0); Chloride 102 mmol/L (98-107); Estimated GFR (African America >60 (>=60 mL/min/1.73m^2); Estimated GFR (Non-African Ame >60 (>=60 mL/min/1.73m^2); Globulin 3.0 g/dL; Glucose 99 mg/dL (74-106); Potassium 3.4 mmol/L (3.5-5.1); Sodium 139 mmol/L (136-145); Total Protein 6.3 g/dL (6.4-8.2)
[2025-01-26] MEDS: ACETAMINOPHEN 325 MG TABLET 650 MG PO ×3 (06:37→21:32)
[2025-01-26] MEDS: FOLIC ACID 1 MG TABLET PO (09:06)
[2025-01-26] MEDS: PANTOPRAZOLE SODIUM 40 MG TABLET.DR PO (09:06)
[2025-01-26] MEDS: METOPROLOL TARTRATE 25 MG TABLET PO ×2 (09:06→21:30)
[2025-01-26] MEDS: THIAMINE HCL 200 MG/2 ML VIAL IVP ×2 (10:47→21:31)
[2025-01-26] MEDS: ENOXAPARIN SODIUM 40 MG/0.4 ML SYRINGE SUBQ (10:50)
[2025-01-26] MEDS: REMOVE PATCH 1 PATCH TOPICAL (10:53)
[2025-01-26] MEDS: ALPRAZOLAM 0.5 MG TABLET PO (10:53)
--- NOTE | 2025-01-26 12:47 | PM.PN ---
Progress Note: Subjective Subjective Interval history: Pt was seen and evaluated at bedside. feels okay, her withdrawal symptoms controlled with meds so far, CIWA this morning around 13, still elevated, required Librium and additional meds here. denies nausea, vomiting. Mood is stable. Reports vivid dreams , no actual hallucinations. Exam Narrative Exam Narrative: General: No distress Skin: Warm, no pallor. No rash. Head: Normocephalic, atraumatic. Neck: Supple, non-tender. Cardiovascular: Regular Rate and Rhythm without murmur, gallop or rub. Respiratory: No accessory muscle use or respiratory distress. Lungs are clear to auscultation, no wheezing, rales or rhonchi Chest Wall: no tenderness Musculoskeletal: Full ROM of all extremities, no calf or popliteal tenderness GI: Abdomen is soft, non-distended, non tender to palpation. No masses appreciated. No rebound, guarding, or rigidity noted. Neurological: A&O x4. No cranial nerve dysfunction observed. No truncal ataxia. Moves all extremities. Sensation intact Constitutional Vital Signs, click to edit/add: Last Vital Signs Temp 98.3 F 01/26/25 11:02 Pulse 92 H 01/26/25 11:34 Resp 16 01/26/25 11:02 BP 154/80 H 01/26/25 11:02 Pulse Ox 94 L 01/26/25 11:02 O2 Del Method Room Air 01/26/25 11:02 Progress Note: Objective Labs Labs: Short CBC 01/26/25 Range/Units 05:32 WBC 4.7 (4.0-11.0) 10^3/uL Hgb 14.7 (12.0-16.0) g/dL Hct 42.4 (36.0-48.0) % Plt Count 141 L (150-450) 10^3/uL BMP 01/26/25 05:32 Sodium 139 Potassium 3.4 L Chloride 102 Carbon Dioxide 25.8 BUN 13.0 Creatinine 0.46 L Glucose 99 Calcium 9.1 Liver Function 01/26/25 Range/Units 05:32 Total Bilirubin 1.0 (0.2-1.0) mg/dL AST 80 H (15-37) U/L ALT 73 H (14-59) U/L Alkaline Phosphatase 80 (46-116) U/L Albumin 3.3 L (3.4-5.0) g/dL Progress Note: A&P Assessment and Plan (1) Alcohol withdrawal syndrome: (2) Alcohol intoxication: Plan Alcohol withdrawal syndrome Hx of Bipolar disorder -Continue CIWA protocol with Librium and Ativan -Continue Thiamine and Folate supplements -IV hydration as needed -Valium PRN for anxiety -Hydroxyzine as directed -Nicotine patch -Monitor hemodynamics -Supportive care -Monitor for DTs/Seizure Cont home meds DVT ppx: Lovenox Diet: regular D/w pt at bedside, all questions answered. she is in agreement with above plan
[2025-01-26] MEDS: CLORDIAZEPOXIDE HCl 25 MG CAPSULE 50 MG PO ×2 (13:33→17:30)
[2025-01-26] MEDS: LORAZEPAM 1 MG TABLET PO ×2 (18:52→23:22)
[2025-01-26] MEDS: TRAZODONE HCL 50 MG TABLET 100 MG PO (21:34)
[2025-01-26] MEDS: TEMAZEPAM 15 MG CAPSULE PO (21:34)
[2025-01-27] VITALS (9 sets, daily range): BP systolic 115–121; BP diastolic 75–83; PULSE 86–111; TEMP 36.4–36.6; O2SAT 91–97
[2025-01-27] MEDS: ACETAMINOPHEN 325 MG TABLET 650 MG PO (05:05)
[2025-01-27] MEDS: LORAZEPAM 1 MG TABLET PO (05:05)
[2025-01-27 05:52] LABS: Hematocrit 41.4 % (36.0-48.0); Hemoglobin 14.1 g/dL (12.0-16.0); Mean Corpuscular HGB Conc 34.1 g/dL (29.9-35.2); Mean Corpuscular Hemoglobin 34.6 pg (26.7-34.0); Mean Corpuscular Volume 101.7 fL (81.0-99.0); Platelet Count 128 10^3/uL (150-450); Red Blood Count 4.07 10^6/uL (4.20-5.40); White Blood Count 5.1 10^3/uL (4.0-11.0)
[2025-01-27 06:02] LABS: Alanine Aminotransferase 66 U/L (14-59); Albumin Globulin Ratio 1.0; Albumin Level 3.0 g/dL (3.4-5.0); Alkaline Phosphatase 72 U/L (46-116); Anion Gap 15.0; Aspartate Amino Transferase 45 U/L (15-37); Blood Urea Nitrogen 15.0 mg/dL (7.0-18.0); Calcium 8.8 mg/dL (8.5-10.1); Carbon Dioxide 24.6 mmol/L (21.0-32.0); Chloride 105 mmol/L (98-107); Estimated GFR (African America >60 (>=60 mL/min/1.73m^2); Estimated GFR (Non-African Ame >60 (>=60 mL/min/1.73m^2); Globulin 3.1 g/dL; Glucose 112 mg/dL (74-106); Potassium 3.6 mmol/L (3.5-5.1); Sodium 141 mmol/L (136-145); Total Protein 6.1 g/dL (6.4-8.2)
[2025-01-27] MEDS: LAMOTRIGINE 100 MG TABLET 150 MG PO (09:34)
[2025-01-27] MEDS: ENOXAPARIN SODIUM 40 MG/0.4 ML SYRINGE SUBQ (09:36)
[2025-01-27] MEDS: THIAMINE HCL 200 MG/2 ML VIAL IVP (09:36)
[2025-01-27] MEDS: PANTOPRAZOLE SODIUM 40 MG TABLET.DR PO (09:37)
[2025-01-27] MEDS: METOPROLOL TARTRATE 25 MG TABLET PO (09:37)
[2025-01-27] MEDS: FOLIC ACID 1 MG TABLET PO (09:37)
[2025-01-27] MEDS: REMOVE PATCH 1 PATCH TOPICAL (09:39)
--- NOTE | 2025-01-27 09:40 | CM.NOTE ---
Rounds made with Dr. Henriquez, pt will discharge to home today. Pt does have f/u appointment scheduled with psychiatrist on Jan 31. Pt will also f/u with PCP.
[2025-01-27] MEDS: ALPRAZOLAM 0.5 MG TABLET PO (09:41)
--- NOTE | 2025-01-27 11:43 | P.DS_ITS ---
DS: Providers Provider Date of admission: 01/25/25 11:37 Primary care physician: Yobani Goldsmith DS: Diagnosis Discharge Diagnosis (1) Alcohol withdrawal syndrome: (2) Alcohol intoxication: Plan As above DS: Summary Hospital Course Hospital Course: Patient is a 39 year old female with hx of alcohol use disorder and alcohol withdrawal seizure who presented here with alcohol withdrawal symptoms and would like to detox again. She reports anxiety episodes. she relapsed drinking liquor about 2 weeks ago and yesterday drank over half a bottle of liquor. denies SI or SA. in ER, afebrile, no leukocytosis. The patient was clinically intoxicated with a serum ethanol level of 296 mg/dL, though she exhibits no signs of active alcohol withdrawal (e.g., no tremors, diaphoresis, tachycardia, agitation, hallucinations, or seizures). She is alert, oriented, and cooperative during the encounter. Patient was admitted here for further eval and management. During hospital course, patient was started on CIWA protocol with Librium and Ativan as well as Valium. Patient was monitored closely for alcohol withdrawal symptoms given her reported history of alcohol withdrawal seizure, patient did show withdrawal symptoms while here however her symptoms were controlled with Librium,, today her CIWA scores are low, she feels much better, she is alert awake oriented x 3. Her biggest concern going back home is anxiety for which we are going to send some Xanax for her. I did discuss with her the risk of dependence and tolerance to benzodiazepines. Counseled again on alcohol abstinence and she is willing to completely quit and make sure she does not relapse as she said. She reports that she is seeing her psychiatry next week on Thursday. Discussed with patient at bedside, all questions answered, patient in agreement and comfortable with the plan. Time Spent with Patient Time attestation: Total time spent providing and/or coordinating discharge services: Time spent: greater than 30 minutes Exam Narrative Exam Narrative: Const General: cooperative HEENT Normal oropharyngeal mucosa without any ulcers or exudates Eyes: Conjunctiva normal Pulmonary Auscultation: clear to auscultation , no crackles, no wheezes Cardiovascular Rate: normal rate Rhythm: regular rhythm Heart Sounds: S1 normal, S2 normal and no murmurs GI Inspection: non-distended Palpation: soft, not firm and nontender. No rigidity or rebound. Deferred Neuro General: alert, awake and oriented x3. No obvious new focal deficit Musculoskeletal: normal range of motion Extrem General: no cyanosis, no pedal edema Psych Appearance: appropriate affect. Grossly normal Constitutional Vital Signs, click to edit/add: Last Vital Signs Temp 98 F 01/27/25 08:00 Pulse 111 H 01/27/25 10:00 Resp 18 01/27/25 04:55 BP 118/81 01/27/25 08:00 Pulse Ox 96 01/27/25 08:00 O2 Del Method Room Air 01/27/25 08:00 DS: Data Data Completed and Pending Labs on day of discharge: Labs from last 24 hours 01/27/25 04:53 WBC 5.1 RBC 4.07 L Hgb 14.1 Hct 41.4 MCV 101.7 H MCH 34.6 H MCHC 34.1 RDW 14.6 Plt Count 128 L MPV 11.3 Sodium 141 Potassium 3.6 Chloride 105 Carbon Dioxide 24.6 Anion Gap 15.0 BUN 15.0 Creatinine 0.55 Est GFR ( Amer) >60 Est GFR (Non-Af Amer) >60 BUN/Creatinine Ratio 27.3 Glucose 112 H Calcium 8.8 Total Bilirubin 0.5 AST 45 H ALT 66 H Alkaline Phosphatase 72 Total Protein 6.1 L Albumin 3.0 L Globulin 3.1 Albumin/Globulin Ratio 1.0 Discharge Plan Discharge Disposition: Home, Self-Care Condition: Good Discharge Medications: Continued trazodone 50 mg tablet 100 mg PO .QHS Rx Instructions: AT BEDTIME pantoprazole 40 mg tablet,delayed release (DR/EC) 40 mg PO .ACB lamotrigine 150 mg tablet 150 mg PO .QD phentermine 37.5 mg tablet 37.5 mg PO .ACB thiamine HCl (vitamin B1) 100 mg tablet 100 mg PO DAILY hydroxyzine pamoate 25 mg capsule 25 mg PO Q12H PRN (Reason: anxiety) olmesartan 20 mg tablet 20 mg PO DAILY cholecalciferol (vitamin D3) 1,250 mcg (50,000 unit) capsule 1,250 mcg PO QWEEK [place] 42 mg capsule 42 mg PO DAILY Print Language: Greenlandic Forms: Portal Instructions Follow Up Appointments: Dr Goldsmith [address] ph# [phone] Jan @ 11:00
--- NOTE | 2025-01-30 13:27 | CM.DCFOLLOWU ---
1st attempt 01/30/25, no answer
== END 2025-01-27 12:57 | disposition home or self-care (01) | DRG 775 ==
LOC: ER 22:48 → MS 23:33
PROVIDERS: Physician Assistant; Admitting Provider Internal Medicine; Emergency Provider Internal Medicine; PCP Family Medicine; Visit Provider Internal Medicine
DX: F10.239 Alcohol dependence with withdrawal, unspecified (principal); Y90.8 Blood alcohol level of 240 mg/100 ml or more; F41.9 Anxiety disorder, unspecified; R74.01 Elevation of levels of liver transaminase levels; F17.200 Nicotine dependence, unspecified, uncomplicated; K21.9 Gastro-esophageal reflux disease without esophagitis; I10 Essential (primary) hypertension; F31.9 Bipolar disorder, unspecified; Y90.7 Blood alcohol level of 200-239 mg/100 ml; F10.229 Alcohol dependence with intoxication, unspecified
CPT/HCPCS: 36415; 80048; 80053; 80076; 80320; 83690; 83735; 84100; 84703; 85025; 85027; 85610; 99285; G0378; J1650; J3360; J3411; J3475; Q0177